=== PATIENT | female | born 1965 | race Caucasian/White ===

== ENCOUNTER 2017-10-01 09:30 | Observation (INO) | payer OTHER ==
[2017-10-01] MEDS ORDERED: DEXAMETHASONE SOD PHOSPHATE 10 MG/1 ML VIAL ONE (09:38)
--- NOTE | 2017-10-01 09:42 | PDOC ---
History of Present Illness - General Chief Complaint: Shortness of Breath Stated Complaint: SOB
[2017-10-01] MEDS ORDERED: RACEPINEPHRINE IH SOL 2.25% 11.25 MG/0.5 ML VIAL NEB ONE ×2 (09:45→09:47)
[2017-10-01] MEDS ORDERED: DEXAMETHASONE SOD PHOSPHATE 10 MG/1 ML VIAL IVPUSH ONE (09:45)
[2017-10-01] MEDS ORDERED: RACEPINEPHRINE IH SOL 2.25% 11.25 MG/0.5 ML VIAL IH ONE ×2 (09:45→09:47)
[2017-10-01 09:46] VITALS: BMI 48.4
--- NOTE | 2017-10-01 09:55 | PDOC ---
History of Present Illness <Nichole Galindo - Last Filed: 10/01/17 11:53> - History of Present Illness Initial Comments: 10/01/17 10:29 "Pt is a 51 year old female with a significant past medical history of idiopathic autoimmune subglottic stenosis (s/p surgical repair about 5 years ago at [place]) who presents with sudden onset of severe shortness of breath this morning. The patient states she feels like her throat is closing. She reports having cold/upper respiratory symptoms for about a week which she attributes as an excerbating factor of her current symptoms. Pt has had similar episodes in the past related to her subglottic stenosis and usually responds to steroids. However, she states she has never had an episode this bad. She states she felt short of breath about 5 days ago and reportedly took ""about 3 of my old 10mg prednisones"" which resolved her symptoms at the time. She denies CP, dizziness, palpitations. She denies nausea, vomiting, abdominal pain. She denies any other symptoms. SHx: laser and dilation 2011 ([facility]) Header Dock: Dr. Taqueria Holder MD : Social Hx: pt denies tobacco use, ETOH consumption, and use of illicit drugs" <Miguel Gates - Last Filed: 10/01/17 15:15> - General Chief Complaint: Shortness of Breath Stated Complaint: SOB Time Seen by Provider: 10/01/17 09:44 Past History <Nichole Galindo - Last Filed: 10/01/17 11:53> - Suicide/Smoking/Psychosocial Hx Smoking History: Never smoked Hx Alcohol Use: No Drug/Substance Use Hx: No <Miguel Gates - Last Filed: 10/01/17 15:15> - Past Medical History Allergies/Adverse Reactions: Allergies Allergy/AdvReac Type Severity Reaction Status Date / Time No Known Allergies Allergy Verified 10/01/17 09:57 Review of Systems - Review of Systems Comments:: 10/01/17 10:53 "GENERAL/CONSTITUTIONAL: No fever or chills. No weakness. HEAD, EYES, EARS, NOSE AND THROAT: No change in vision. No ear pain or discharge. No sore throat. CARDIOVASCULAR: No chest pain or shortness of breath. RESPIRATORY: + SOB, throat closing sensation, No cough, wheezing, or hemoptysis. GASTROINTESTINAL: No nausea, vomiting, diarrhea or constipation. GENITOURINARY: No dysuria, frequency, or change in urination. MUSCULOSKELETAL: No joint or muscle swelling or pain. No neck or back pain. SKIN: No rash NEUROLOGIC: No headache, vertigo, loss of consciousness, or change in strength/ sensation. ENDOCRINE: No increased thirst. No abnormal weight change. HEMATOLOGIC/LYMPHATIC: No anemia, easy bleeding, or history of blood clots. ALLERGIC/IMMUNOLOGIC: No hives or skin allergy. " <YajairaMiguel - Last Filed: 10/01/17 15:15> *Physical Exam - Vital Signs Last Vital Signs Temp Pulse Resp BP Pulse Ox 97.6 F 117 H 36 H 160/95 100 10/01/17 09:30 10/01/17 09:30 10/01/17 09:30 10/01/17 09:30 10/01/17 09:40 <Nichole Galindo - Last Filed: 10/01/17 11:53> - Vital Signs Last Vital Signs Temp Pulse Resp BP Pulse Ox 97.6 F 117 H 36 H 160/95 77 L 10/01/17 09:30 10/01/17 09:30 10/01/17 09:30 10/01/17 09:30 10/01/17 09:30 - Physical Exam Comments: 10/01/17 09:54 "GENERAL: Awake, alert, and fully oriented, in no acute distress HEAD: No signs of trauma EYES: PERRLA, EOMI, sclera anicteric, conjunctiva clear ENT: Auricles normal inspection, hearing grossly normal, nares patent, oropharynx clear without exudates. Moist mucosa NECK: Nontender, no stepoffs, Normal ROM, supple, no lymphadenopathy, JVD, or masses LUNGS: + stridor, no wheezing, no rales, no rhonchi HEART: Regular rate and rhythm, normal S1 and S2, no murmurs, rubs or gallops ABDOMEN: Soft, nontender, normoactive bowel sounds. No guarding, no rebound. No masses EXTREMITIES: Normal range of motion, no edema. No clubbing or cyanosis. No cords, erythema, or tenderness NEUROLOGICAL: Cranial nerves II through XII intact. 5/5 strength and sensation in all extremities, Normal speech, normal gait, normal cerebellar function SKIN: Warm, Dry, normal turgor, no rashes or lesions noted. <Miguel Gates - Last Filed: 10/01/17 15:15> ED Treatment Course - LABORATORY CBC & Chemistry Diagram: 10/01/17 09:56 10/01/17 09:57 - RADIOLOGY Radiograph Interpretation: 10/01/17 11:51 EXAM#: TYPE/EXAM: RESULT: [id number] RAD/CHEST X-RAY PORTABLE* Indication: Shortness of breath No prior imaging available for comparison. The heart is normal in size. Aortic arch is tortuous and calcified. Bronchovascular crowding is identified at both bases which could be secondary to the expiratory nature of the study or secondary to early infiltration. Follow-up imaging recommended. Scoliosis convexity to the left present. No pleural effusions seen. IMPRESSION: Prominence of the interstitial markings identified bases which could represent an early infiltrate , follow-up imaging recommended. Reported By: Trino Lee MD 10/01/17 1047 <Nichole Galindo - Last Filed: 10/01/17 11:53> - LABORATORY CBC & Chemistry Diagram: 10/01/17 09:56 10/01/17 09:57 - RADIOLOGY Radiology Studies Ordered: Category Date Time Status CHEST X-RAY PORTABLE* [RAD] Stat Radiology 10/01/17 09:45 Ordered <Miguel Gaets - Last Filed: 10/01/17 15:15> Medical Decision Making - Medical Decision Making 10/01/17 09:45 Patient's ENT physician, Dr. Taqueria Holder, was called at her office ([phone]), however, was informed by her Signal Tester, Bailey, that Dr. Holder is out of the office for the entire month of September. Bailey, oncology physician assistant, has informed me that this patient has not been seen at Dr. Holder's new practice (open about 3-4 years ago). Bailey has informed me that the patient may have been seen while Dr. Holder was working with [facility]. ENT at [facility] ([phone]) was called at 09:53 and spoke with Karen Zuluaga NP. LEXI Zuluaga discussed the patient's case with Dr. Gates and states there is no one available at [facility] to assist with this case. Dr. Ritesh Munguia, ENT specialist, was called at the office ([phone]), and the case was discussed with Dr. Munguia at 10:03. Dr. Munguia has informed me that Dr. Moulton, physician working with Dr. Holder's practice, has referred patient to him in the past. Dr. Munguia suggested we reach Dr. Moulton to review the case with him. Patient's case discussed with Dr. Moulton at 10:15. (Office: [phone]) <Nichole Glaindo - Last Filed: 10/01/17 11:53> - Critical Care Time Total Critical Care Time (minutes): 60 Critical Care Statement: The care of this patient involved high complexity decision making to prevent further life threatening deterioration of the patient 's condition and/or to evaluate & treat vital organ system(s) failure or risk of failure. - Medical Decision Making 10/01/17 09:51 51 F with h/o idiopathic autoimmune subglottic stenosis s/p multiple operations presenting in respiratory distress, found to be severely stridulous on exam with O2 sat 70. Likely acute worsening of subglottic stenosis 2/2 URI. Pt started on racemic epi with good improvement in symptoms and vital signs. - Labs, CXR - Racemic epi - Decadron 10mg IV - ENT consult (Pt follows with Dr. Taqueria Holder) 10/01/17 10:[address] Munguia, who will come evaluate pt. Pt to be reassessed in 2 hours, will determine need for transfer at that time. 10/01/17 14:[address] Munguia, who does not believe pt requires transfer at this time. From ENT standpoint, pt is stable for outpt f/u. Labs notable for trop 0.09, likely demand in the context of hypoxia and respiratory distress EKG without signs of acute ischemia. Will admit for serial trops. 10/01/17 15:15 Pt admitted to hospitalist under Dr. Cardozo <Miguel Gates - Last Filed: 10/01/17 15:15> *DC/Admit/Observation/Transfer - Attestations Scribe Attestion: 10/01/17 10:15 Documentation prepared by Nichole Galindo, acting as medical record specialist for Miguel Gates MD, <Nichole Galindo - Last Filed: 10/01/17 11:53> - Discharge Dispostion Admit: Yes - Attestations Physician Attestion: 10/01/17 15:15 I, Dr. Miguel Gates MD, attest that this document has been prepared under my direction and personally reviewed by me in its entirety. I further attest, that it accurately reflects all work, treatment, procedures and medical decision -making performed by me. <Miguel Gates - Last Filed: 10/01/17 15:15> Diagnosis at time of Disposition: Subglottic stenosis
[2017-10-01 10:41] LABS: BASO % 0.7 % (0-2.0); EOS % 2.6 % (0-4.5); HEMATOCRIT 42.7 % (32.4-45.2); HEMOGLOBIN 13.7 GM/dL (10.7-15.3); LYMPH % 36.4 % (8-40); MCH 29.2 pg (25.7-33.7); MCHC 32.2 g/dl (32.0-36.0); MEAN CELL VOLUME 90.8 fl (80-96); MEAN PLT VOLUME 8.8 fl (7.5-11.1); MONO % 11.9 % (3.8-10.2); NEUT % 48.4 % (42.8-82.8); PLATELET COUNT 412 K/MM3 (134-434); RDW 14.3 % (11.6-15.6); WHITE BLOOD COUNT 16.2 K/mm3 (4.0-10.0)
[2017-10-01 11:05] LABS: N-TERMINAL BNP 99.58 pg/ml (5-125)
[2017-10-01 11:14] LABS: INR 0.98 (0.82-1.09); PROTHROMBIN TIME (PATIENT) 11.1 SEC (9.98-11.88)
[2017-10-01 11:43] LABS: ALBUMIN 4.3 g/dl (3.4-5.0); ANION GAP 19 (8-16); BILIRUBIN,TOTAL 0.2 mg/dL (0.2-1.0); BLOOD UREA NITROGEN 13 mg/dL (7-18); CALCIUM 9.3 mg/dL (8.5-10.1); CHLORIDE 104 mmol/L (98-107); CO2 19 mmol/L (21-32); CREATININE 0.8 mg/dL (0.55-1.02); GLUCOSE,RANDOM 169 mg/dL (74-106); SGPT/ALT 33 U/L (12-78); SODIUM 142 mmol/L (136-145); TOT PROT 8.6 g/dl (6.4-8.2)
[2017-10-01 11:44] LABS: ALK PHOS 112 U/L (45-117)
[2017-10-01 11:47] LABS: POTASSIUM 3.4 mmol/L (3.5-5.1); SGOT/AST 25 U/L (15-37)
--- NOTE | 2017-10-01 11:54 | EKG ---
Test Reason : Blood Pressure : / mmHG Vent. Rate : 105 BPM Atrial Rate : 105 BPM P-R Int : 146 ms QRS Dur : 096 ms QT Int : 370 ms P-R-T Axes : 031 -11 017 degrees QTc Int : 489 ms SINUS TACHYCARDIA POSSIBLE LEFT ATRIAL ENLARGEMENT INCOMPLETE RIGHT BUNDLE BRANCH BLOCK LEFT VENTRICULAR HYPERTROPHY NONSPECIFIC T WAVE ABNORMALITY ABNORMAL ECG NO PREVIOUS ECGS AVAILABLE Confirmed by RICKY LOPEZ MD ([id number]) on 10/01/2017 11:54:14 AM Referred By: Confirmed By:RICKY LOPEZ MD
--- NOTE | 2017-10-01 13:55 | CON.ENT ---
Consult Consult Specialty:: ENT Referred by:: Dr. Gates Reason for Consultation:: breathing problem - History of Present Illness Chief Complaint: short of breath History of Present Illness: 51 yo F with hx autoimmune subglottic stenosis, first dx ~2005, thought she had asthma, saw pulmonary MD, eventually came under care of Dr. Taqueria Holder,risk prevention engineer, has required several laryngoscopic procedures with ?laser treatment of subglottic stenosis, last procedure ~5 years ago. had been overalll well sometimes exacerbations from URI, intermittent oral steroids felt poorly for the past 2 weeks, thought she had a cold, took some oral prednisone at home several days ago. [place] [facility], felt much worse, to ER initially had hypoxemia SaO2 high 70's rx racemic epinephrine and IV decadron pt feeling much better now, feeling the best she has felt in the past two weeks. - History Source History Provided By: Patient Limitations to Obtaining History: No Limitations - Alcohol/Substance Use Hx Alcohol Use: No - Smoking History Smoking history: Never smoked Home Medications - Allergies Allergies/Adverse Reactions: Allergies Allergy/AdvReac Type Severity Reaction Status Date / Time No Known Allergies Allergy Verified 10/01/17 09:57 - Home Medications Home Medications: Ambulatory Orders NK [No Known Home Medication] 10/01/17 Physical Exam-ENT Vital Signs: Vital Signs Temperature 97.6 F 10/01/17 09:30 Pulse Rate 117 H 10/01/17 09:30 Respiratory Rate 36 H 10/01/17 09:30 Blood Pressure 160/95 10/01/17 09:30 O2 Sat by Pulse Oximetry (%) 100 10/01/17 09:40 Constitutional: Yes: Well Nourished, No Distress, Calm, Obese Head: Yes: WNL Face: Yes: WNL Eyes: Yes: WNL Nose: Yes: WNL Nasal Passage: Yes: WNL Oral/Pharynx: Yes: WNL Outer Ear: Yes: WNL Ear Canal: Yes: WNL Tympanic Membrane: Yes: WNL Neck: Yes: WNL Respiratory: Yes: WNL, Other (voice clear and strong, very mild stridor on deep inspiration only.) Neurological: Yes: WNL, Alert, Oriented Imaging - Results Chest X-ray: Report Reviewed, Image Reviewed Problem List - Problems (1) Subglottic stenosis Assessment/Plan: known hx subglottic stenosis, pt states autoimmune, requiring multiple laryngoscopic procedures in past. recent exacerbation with shortness of breath and hypoxemia, now markedly improved with medical therapy WBC elevated ?URI vs recent steroids troponin level elevated, pt being admitted for further observation and management Recommend: continue steroids, consider oral antibiotic when pt is stable and medically cleared for discharge, OK from ENT perspective pt should return to Dr. Taqueria Holder or Dr. Hawa Moulton within 1 week for evaluation, may be considered for procedure pt states she lives very close to hospital and does not live alone, advised to call if breathing becomes worse. Thank you for consultation, Ritesh Munguia MD FACS Code(s): J38.6 - STENOSIS OF LARYNX
[2017-10-01] MEDS ORDERED: ALBUTEROL SO4 0.083% IH SOL 2.5 MG/3 ML VIAL.NEB. NEB PRN (17:17)
--- NOTE | 2017-10-01 18:32 | HP ---
CHIEF COMPLAINT: Difficulty breathing PCP: Dr. Mandi Sawyer, [place] [employer] Installer: Dr. Taqueria Holder, HISTORY OF PRESENT ILLNESS: 51 year-old woman with a PMH significant for idiopathic autoimmune 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 First treated in or about 2005, multiple laser and dilation surgeries by Dr. Holder at [facility], last surgery in 2012. Surgeries in the past were presaged by episodes of difficulty breathing. About two weeks ago patient developed upper respiratory symptoms of post-nasal drip and cough productive of pale green sputum. Patient feels the phlegm produced came from her post-nasal drip, and not from her chest. She experienced mild difficulty of breathing at first, but it became progressively worse. She took some oral prednisone she had in the house several days ago. Today the difficulty breathing became acute, and she felt like her throat was closing. She came to the ED where her O2 sat was 77%. Stridor was heard on initial exam. Patient was given dexamethansone and racemic epinephrine with improvement in symptoms. She was seen by ENT Dr. Munguia. Her airway remained patent. Recent Travel: No PAST MEDICAL HISTORY: Idiopathic autoimmune subglottic stenosis PAST SURGICAL HISTORY: None reported Social History: Smoking: no Alcohol: no Drugs: no Family History: non-contributory Allergies No Known Allergies Allergy (Verified 10/01/17 09:57) HOME MEDICATIONS: Home Medications Medication Instructions Recorded NK [No Known Home Medication] 10/01/17 REVIEW OF SYSTEMS CONSTITUTIONAL: Absent: fever, chills, diaphoresis, generalized weakness, malaise, loss of appetite, weight change HEENT: +post nasal drip Absent: rhinorrhea, nasal congestion, throat pain, throat swelling, difficulty swallowing, mouth swelling, ear pain, eye pain, visual changes CARDIOVASCULAR: Absent: chest pain, syncope, palpitations, irregular heart rate, lightheadedness , peripheral edema RESPIRATORY: +difficulty breathing, +stridor Absent: cough, shortness of breath, dyspnea with exertion, orthopnea, wheezing, hemoptysis GASTROINTESTINAL: Absent: abdominal pain, abdominal distension, nausea, vomiting, diarrhea, constipation, melena, hematochezia GENITOURINARY: Absent: dysuria, frequency, urgency, hesitancy, hematuria, flank pain, genital pain MUSCULOSKELETAL: Absent: myalgia, arthralgia, joint swelling, back pain, neck pain SKIN: Absent: rash, itching, pallor HEMATOLOGIC/IMMUNOLOGIC: Absent: easy bleeding, easy bruising, lymphadenopathy, frequent infections ENDOCRINE: Absent: unexplained weight gain, unexplained weight loss, heat intolerance, cold intolerance NEUROLOGIC: Absent: headache, focal weakness or paresthesias, dizziness, unsteady gait, seizure, mental status changes, bladder or bowel incontinence PSYCHIATRIC: Absent: anxiety, depression, suicidal or homicidal ideation, hallucinations. PHYSICAL EXAMINATION Vital Signs Temperature 98.9 F 10/01/17 18:10 Pulse Rate 92 H 10/01/17 18:10 Respiratory Rate 20 10/01/17 18:10 Blood Pressure 122/77 10/01/17 18:10 O2 Sat by Pulse Oximetry (%) 98 10/01/17 18:10 GENERAL: Awake, alert, and fully oriented, in no acute distress. HEAD: Normal with no signs of trauma. EYES: Pupils equal, round and reactive to light, extraocular movements intact, sclera anicteric, conjunctiva clear. No lid lag. EARS, NOSE, THROAT: Ears normal, nares patent, oropharynx clear without exudates. Moist mucous membranes. NECK: Normal range of motion, supple without lymphadenopathy, JVD, or masses. LUNGS: Breath sounds equal, clear to auscultation bilaterally. No wheezes, and no crackles. No accessory muscle use. HEART: Regular rate and rhythm, normal S1 and S2 without murmur, rub or gallop. ABDOMEN: Soft, nontender, not distended, normoactive bowel sounds, no guarding, no rebound, no masses. MUSCULOSKELETAL: Normal range of motion at all joints. No bony deformities or tenderness. No CVA tenderness. UPPER EXTREMITIES: 2+ pulses, warm, well-perfused. No cyanosis. No clubbing. No peripheral edema. LOWER EXTREMITIES: 2+ pulses, warm, well-perfused. No calf tenderness. No peripheral edema. NEUROLOGICAL: Cranial nerves II-XII intact. Normal speech. Normal gait. PSYCHIATRIC: Cooperative. Good eye contact. Appropriate mood and affect. SKIN: Warm, dry, normal turgor, no rashes or lesions noted, normal capillary refill. Laboratory Results - last 24 hr 10/01/17 10/01/17 10/01/17 09:56 09:56 09:56 WBC 16.2 H RBC 4.70 Hgb 13.7 Hct 42.7 MCV 90.8 MCH 29.2 MCHC 32.2 RDW 14.3 Plt Count 412 MPV 8.8 Neutrophils % 48.4 Lymphocytes % 36.4 Monocytes % 11.9 H Eosinophils % 2.6 Basophils % 0.7 PT with INR 11.10 INR 0.98 PTT (Actin FS) 26.0 L Sodium Cancelled Potassium Cancelled Chloride Cancelled Carbon Dioxide Cancelled Anion Gap Cancelled BUN Cancelled Creatinine Cancelled Creat Clearance w eGFR Cancelled Random Glucose Cancelled Calcium Cancelled Total Bilirubin Cancelled AST Cancelled ALT Cancelled Alkaline Phosphatase Cancelled Creatine Kinase Troponin I B-Natriuretic Peptide Total Protein Cancelled Albumin Cancelled 10/01/17 10/01/17 10/01/17 09:57 09:57 15:45 WBC RBC Hgb Hct MCV MCH MCHC RDW Plt Count MPV Neutrophils % Lymphocytes % Monocytes % Eosinophils % Basophils % PT with INR INR PTT (Actin FS) Sodium 142 Potassium 3.4 L Chloride 104 Carbon Dioxide 19 L Anion Gap 19 H BUN 13 Creatinine 0.8 Creat Clearance w eGFR > 60 Random Glucose 169 H Calcium 9.3 Total Bilirubin 0.2 AST 25 ALT 33 Alkaline Phosphatase 112 Creatine Kinase 86 90 Troponin I 0.09 H 0.44 H B-Natriuretic Peptide 99.58 Total Protein 8.6 H Albumin 4.3 ASSESSMENT/PLAN 51 year-old woman with a PMH significant for idiopathic autoimmune 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 Admitted for hypoxic respiratory distress. Hypoxic respiratory distress secondary to subglottic stenosis --last surgical repair 2012 --has felt worsening difficulty breathing over the past two weeks, coincidental with cough and post nasal drip; previous exacerbations did not involve URI --possible infectious etiology, although afebrile; WBC 16.2 but this may be attributable to recent steroid use --CXR shows possible early infiltrate, will get CT chest --given dexamethasone 10mg and racemic epi in ED with good symptomatic relief --seen and evaluated by ENT Dr. Munguia; he did not visualize the subglottis so as not to exacerbate symtpoms --will continue dexamethasone for now --will reach out to Dr. Holder's office tomorrow Hypokalemia --repleted FEN Fluids: PO intake adequate Electrolytes: replete as indicated Nutrition: regular diet DVT prophylaxis: lovenox, oob, ambulation Pre post Dispo: continues to require inpatient care. Full code. Visit type - Emergency Visit Emergency Visit: Yes ED Registration Date: 10/01/17 Care time: The patient presented to the Emergency Department on the above date and was hospitalized for further evaluation of their emergent condition. - New Patient This patient is new to me today: Yes Date on this admission: 10/01/17 - Critical Care Critical Care patient: No Hospitalist Screening - Colonoscopy Questionnaire Colonoscopy Questionnaire: Colonoscopy Questionnaire - Patient: 50 - 75 years old and never had a screening colonoscopy: Yes History of colon or rectal polyps, or CA: No History of IBD, Crohn's disease or UC: No History of abdominal radiation therapy as a child: No - Relative: 1 with colon or rectal CA, or polyps at age 60 or younger: Unknown Colon or rectal CA diagnosed at age 45 or younger: Unknown Multiple relatives with colon or rectal CA: Unknown - Outcome: Screening Result: Positive Screen
[2017-10-01] MEDS: POTASSIUM CHLORIDE TABS 20 MEQ TABLET.ER (FP) PO SCH ×2 (21:17→23:59)
[2017-10-02 06:38] LABS: BASO % 0.5 % (0-2.0); HEMATOCRIT 38.1 % (32.4-45.2); HEMOGLOBIN 12.8 GM/dL (10.7-15.3); LYMPH % 12.4 % (8-40); MCH 29.8 pg (25.7-33.7); MCHC 33.6 g/dl (32.0-36.0); MEAN CELL VOLUME 88.8 fl (80-96); MEAN PLT VOLUME 8.7 fl (7.5-11.1); MONO % 7.9 % (3.8-10.2); NEUT % 79.2 % (42.8-82.8); PLATELET COUNT 328 K/MM3 (134-434); RBC 4.29 M/mm3 (3.60-5.2); RDW 13.8 % (11.6-15.6)
[2017-10-02 07:03] LABS: ALBUMIN 3.6 g/dl (3.4-5.0); BLOOD UREA NITROGEN 12 mg/dL (7-18); CHLORIDE 105 mmol/L (98-107); POTASSIUM 4.7 mmol/L (3.5-5.1); SODIUM 139 mmol/L (136-145)
[2017-10-02 07:09] LABS: ALK PHOS 93 U/L (45-117); ANION GAP 9 (8-16); BILIRUBIN,TOTAL 0.5 mg/dL (0.2-1.0); CALCIUM 9.1 mg/dL (8.5-10.1); CO2 25 mmol/L (21-32); CREATININE 0.6 mg/dL (0.55-1.02); GLUCOSE,RANDOM 124 mg/dL (74-106); MAGNESIUM 2.5 mg/dL (1.8-2.4); SGOT/AST 18 U/L (15-37); SGPT/ALT 28 U/L (12-78); TOT PROT 7.1 g/dl (6.4-8.2)
[2017-10-02] MEDS ORDERED: DEXAMETHASONE 4 MG TABLET (FP) PO ONE (10:00)
[2017-10-02] MEDS ORDERED: ENOXAPARIN NA (PORCINE) 40 MG/0.4 ML DISP.SYRIN SQ SCH (10:00)
--- NOTE | 2017-10-02 12:15 | DS ---
Physical Exam: SUBJECTIVE: Patient seen and examined OBJECTIVE: Vital Signs Period Temp Pulse Resp BP Sys/Brock Pulse Ox Last 24 Hr 98.2 F-99 F 64-96 16-20 111-122/64-80 96-98 PHYSICAL EXAM GENERAL: The patient is awake, alert, and fully oriented, in no acute distress. HEAD: Normal with no signs of trauma. EYES: PERRL, extraocular movements intact, sclera anicteric, conjunctiva clear. ENT: Ears normal, nares patent, oropharynx clear without exudates, moist mucous membranes. NECK: Trachea midline, full range of motion, supple. LUNGS: Breath sounds equal, clear to auscultation bilaterally, no wheezes, no crackles, no accessory muscle use. HEART: Regular rate and rhythm, S1, S2 without murmur, rub or gallop. ABDOMEN: Soft, nontender, nondistended, normoactive bowel sounds, no guarding, no rebound, no hepatosplenomegaly, no masses. EXTREMITIES: 2+ pulses, warm, well-perfused, no edema. NEUROLOGICAL: Cranial nerves II through XII grossly intact. Normal speech, gait not observed. PSYCH: Normal mood, normal affect. SKIN: Warm, dry, normal turgor, no rashes or lesions noted. LABS Laboratory Results - last 24 hr 10/01/17 10/01/17 10/01/17 15:45 20:35 23:20 WBC RBC Hgb Hct MCV MCH MCHC RDW Plt Count MPV Neutrophils % Lymphocytes % Monocytes % Eosinophils % Basophils % Sodium Potassium Chloride Carbon Dioxide Anion Gap BUN Creatinine Creat Clearance w eGFR Random Glucose Calcium Magnesium Total Bilirubin AST ALT Alkaline Phosphatase Creatine Kinase 90 Troponin I 0.44 H 0.55 H 0.50 H Total Protein Albumin 10/02/17 10/02/17 10/02/17 05:56 05:56 05:56 WBC 9.0 D RBC 4.29 Hgb 12.8 Hct 38.1 MCV 88.8 MCH 29.8 MCHC 33.6 RDW 13.8 Plt Count 328 D MPV 8.7 Neutrophils % 79.2 D Lymphocytes % 12.4 D Monocytes % 7.9 Eosinophils % 0.0 D Basophils % 0.5 Sodium 139 Potassium 4.7 Chloride 105 Carbon Dioxide 25 Anion Gap 9 BUN 12 Creatinine 0.6 Creat Clearance w eGFR > 60 Random Glucose 124 H Calcium 9.1 Magnesium 2.5 H Total Bilirubin 0.5 D AST 18 ALT 28 Alkaline Phosphatase 93 Creatine Kinase Troponin I 0.45 H Total Protein 7.1 Albumin 3.6 HOSPITAL COURSE: Date of Admission:10/01/17 Date of Discharge: 10/02/17 Minutes to complete discharge: 35 Discharge Summary Reason For Visit: SUBGLOTTIC STENOSIS Current Active Problems Subglottic stenosis (Acute) Condition: Improved - Instructions Diet, Activity, Other Instructions: A prescription has been sent to your pharmacy for prednisone. Take this medication as directed. You should follow up with Dr. Moulton's office as soon as possible. His staff is aware of your stay here at [facility] and they are anticipating your call to make an appointment. Return to the emergency department for any new or worsening symptoms. Referrals: Hawa Moulton [Non Staff, Medical] - 1 Week Disposition: HOME - Home Medications Comprehensive Discharge Medication List: Ambulatory Orders Prednisone [Deltasone] 20 mg PO DAILY #7 tablet MDD 1 10/02/17 This patient is new to me today: No Emergency Visit: Yes ED Registration Date: 10/01/17 Care time: The patient presented to the Emergency Department on the above date and was hospitalized for further evaluation of their emergent condition. Critical Care patient: No - Discharge Referral Referred to [facility] Med [facility] No
[2017-10-02] MEDS ORDERED: predniSONE 20 MG TABLET (UD) PO ONE ×2 (12:30→16:45)
[2017-10-02 13:37] VITALS: BP 109/79; TEMP 98.8
[2017-10-02 14:45] VITALS: PULSE 120
== END 2017-10-02 17:28 | disposition home or self-care (01) ==
LOC: JER 09:30 → JERBED 15:15 → J2W 19:05
PROVIDERS: ADMIT Internal Medicine; ATTEND Nurse Practitioner Acute Care
PROC: 3E033GC Introduction of Other Therapeutic Substance into Peripheral Vein, Percutaneous Approach (ICD-10-PCS; principal; 2017-10-01)
PROC: 3E013GC Introduction of Other Therapeutic Substance into Subcutaneous Tissue, Percutaneous Approach (ICD-10-PCS; 2017-10-01)
PROC: 3E0F7GC Introduction of Other Therapeutic Substance into Respiratory Tract, Via Natural or Artificial Opening (ICD-10-PCS; 2017-10-01)
DX: J38.6 Stenosis of larynx (principal); J80 Acute respiratory distress syndrome; E87.6 Hypokalemia
CPT/HCPCS: 36415; 71045-TC-FY; 71250-TC; 80053; 82550; 83735; 83880; 84484; 85025; 85610; 85730; 93005; 93010; 94010; 94640; 94761; 96372; 96374; 99285-25; G0378; J1100

== ENCOUNTER 2018-10-17 02:53 | Inpatient (IN) | payer OTHER ==
[2018-10-17] MEDS ORDERED: ALBUTEROL SO4 2.5/IPRATROPIUM 0.5 INH SOL 3 ML VIAL.NEB. NEB ONE ×3 (03:06→06:12)
--- NOTE | 2018-10-17 03:07 | PDOC ---
Attending Attestation - Resident Resident Name: Salima Escobedo - ED Attending Attestation I have performed the following: I have examined & evaluated the patient, The case was reviewed & discussed with the resident, I agree w/resident's findings & plan - HPI HPI: 10/17/18 03:02 Pt called EMS by herself for herself; stated that she was having a tough time breathing. EMS and [place] [facility] on scene. Pt went into cardiac arrest, with return of rosc in under 2 min. She was placed on the Juan David ("thumper") machine. She received epinephrine amp and got rosc. Pt was intubated at the scene with portable videoscope. Pt was sedated with rocuronium, versed and etomidate. At the home of the patient, she had pills of percocet, and oxycodone and prednisone. Home clean; no foul play. Pt has a hx of idiopathic hereditary 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 - Physicial Exam PE: 10/17/18 20:46 Agree with resident exam. Pt has coarse breath sounds and wheezing bilaterally. - Medical Decision Making 10/17/18 06:59 Pt was given a propofol drip of 15mcg/mg/min. She began to awaken, and she required a bolus of 50mg propofol. Her drip was raised to 50mcg/kg/min; currently at 80mcg/kg/min. Pt's propofol drip was lowered to 50mcg/kg/min at the end of my shift 7:15am. We are estimating pt's weight to be 100kg. 10/17/18 20:46 Pt was treated for COPD/asthma exacerbation. She has clear CXR. She has no fevers. She has a hx of subglottic stenosis (EMS reports that significal force was required to pass the tube - passed under direct scope visualization) and pt had no tracheal injury. 10/17/18 20:50 Pt will be admitted to the ICU. She is stable and improved.
--- NOTE | 2018-10-17 03:14 | PDOC ---
History of Present Illness - General Stated Complaint: CARDIAC ARREST Time Seen by Provider: 10/17/18 03:00 History Source: EMS Exam Limitations: Intubated, Unresponsive - History of Present Illness Initial Comments: 10/17/18 03:03 [id number] with chart h/o idiopathic autoimmune subglottic stenosis (contributing to prior respiratory failure; has had multiple corrective procedures in the past including laser and surgical), who p/w respiratory failure and cardiopulmonary arrest with ROSC achieved by EMS in the field. EMS notes that the patient herself called 911 from her residence c/o respiratory distress, and she was unconscious on the floor when they arrived on scene but had a pulse. They ambu- bagged her and she regained consciousness quickly, but then became extremely combative which persisted despite versed for sedation, then had worsened respiratory distress and needed to be intubated. She was given etomidate and rocuronium, ETT was placed, and she subsequently had cardiac arrest for about a 90 second period during which time she got a round of epi and CPR, with subsequent ROSC. EMS noticed she had both oxcodone and Percocet on scene as well as prednisone. There was nobody else at the residence to help provide history. FSBG was in the 300s. Past History - Past Medical History Allergies/Adverse Reactions: Allergies Allergy/AdvReac Type Severity Reaction Status Date / Time No Known Allergies Allergy Verified 10/17/18 03:07 Home Medications: Ambulatory Orders NK [No Known Home Medication] 10/17/18 COPD: No - Immunization History Immunization Up to Date: Yes - Suicide/Smoking/Psychosocial Hx Smoking History: Never smoked Hx Alcohol Use: No Drug/Substance Use Hx: No Review of Systems - Review of Systems Able to Perform ROS?: No (intubated, unresponsive) *Physical Exam - Physical Exam Comments: 10/17/18 03:16 GENERAL: unresponsive, intubated, Juan David device on but not giving CPR at this time, obese HEENT: PERRLA, EOMI, moist mucous membranes NECK/BACK: no spinal stepoff or deformity, no hematoma, neck supple CARDIOVASCULAR: rapid regular rate, normal S1S2, no MGR, capillary refill <2 seconds, extremities wwp, no edema LUNGS/RESPIRATORY: nononlabored respirations, b/l coarse lung sounds without diminished sounds GI/ABDOMEN: symmetric [id number], normoactive BS, soft, no midline pulsatile masses, no organomegaly : normal external appearance, no lesions, no swelling, non-malodorous EXTREMITIES: no muscle atrophy, no acute deformity, no edema, a bit cool extremities SKIN: warm and dry, no pallor, no jaundice, no rash, no bruising, no skin breakdown, no cuts NEUROLOGICAL: patient is unable to participate in exam Heart Score/ECG Review #1 10/17/18 02:47 Sinus tachycardia, rate 103, normal axis/intervals, no acute ST-T changes ED Treatment Course - LABORATORY CBC & Chemistry Diagram: 10/17/18 03:12 10/17/18 04:48 Medical Decision Making - Critical Care Time Total Critical Care Time (minutes): 40 Critical Care Statement: The care of this patient involved high complexity decision making to prevent further life threatening deterioration of the patient 's condition and/or to evaluate & treat vital organ system(s) failure or risk of failure. - Medical Decision Making 10/17/18 03:21 53YOF p/w cardiopulmonary arrest with ROSC achieved in the field by EMS. Initial Vital Signs Pulse Resp BP Pulse Ox 103 H 14 119/82 99 10/17/18 03:04 10/17/18 03:04 10/17/18 03:04 10/17/18 03:04 Exam: As noted in Physical Exam section. DDX IBNLT: Hypovolemia, hypoxemia, H+ ions (acidosis), hyperkalemia, hypokalemia , hypoglycemia, hypothermia, tamponade, tension PTX, thrombosis (CO or PE), trauma, toxins (e.g. toxic overdose) W/U ordered: Monitor, FSBG, rectal temp, EKG CXR ABG CBCD CMP Mg Phos Cardiac panel TSH Lactate BCx UA UCx TX ordered: Transcutaneous pacer applied, O2, AmbuBag, Large bore IV x2, Rapid IVF resuscitation, Narcan, 1-2 amps bicarbonate, CaCl2, KCl, Insulin, Glucose, ACLS/PALS protocol Procedures done: ETT checked EKG: Reviewed; results as noted in ECG Review section. CXR: mild bilateral patchy consolidation with good ETT placement. 10/17/18 05:40 Still awaiting chemistries for admission. One sample hemolyzed and ED was unaware; re-ordered and re-drawn. Reassessment: patient awakened on 15 mcg/min propofol and given 50 mcg bolus and increased drip. Vital Signs Temperature Pulse Rate 100 H 10/17/18 05:36 Respiratory Rate 26 H 10/17/18 05:36 Blood Pressure 136/90 10/17/18 05:36 O2 Sat by Pulse Oximetry (%) 100 10/17/18 05:36 ADMIT The Pt is unsafe for discharge at this time. They require further hospital observation, workup, and treatment. Microblog sent to [facility] for admission. Blank Decision to Admit order is placed per ED protocol. Consult order placed to ICU. Laboratory Tests 10/17/18 10/17/18 10/17/18 03:06 03:12 03:12 WBC 21.1 H RBC 4.67 Hgb 13.8 Hct 44.4 D MCV 95.2 MCH 29.5 MCHC 31.0 L RDW 14.0 Plt Count 262 D MPV 9.1 Absolute Neuts (auto) 18.4 H Total Counted 100 Neutrophils % 87.1 H Neutrophils % (Manual) 80.0 Band Neutrophils % 9.0 Lymphocytes % 9.3 D Lymphocytes % (Manual) 6.0 L Monocytes % 3.1 L Monocytes % (Manual) 3 L Eosinophils % 0.2 D Basophils % 0.3 Nucleated RBC % 0 Metamyelocytes 2 Platelet Estimate Adequate Platelet Comment No clotting detected PT with INR INR Puncture Site Left radial ABG pH 7.12 L* ABG pCO2 at Pt Temp 60.5 H ABG pO2 at Pt Temp 199 H ABG HCO3 18.7 L ABG O2 Sat (Measured) 98.5 H ABG O2 Content 20.9 ABG Base Excess -11.7 L Chetan Test Positive Carboxyhemoglobin 0.1 Methemoglobin 0.3 O2 Delivery Device Vent Oxygen Flow Rate 100% Vent Rate 14 PEEP 5.0 Pressure Support Vent 450 Sodium Potassium Chloride Carbon Dioxide Anion Gap BUN Creatinine Creat Clearance w eGFR Random Glucose Calcium Phosphorus Magnesium Total Bilirubin AST ALT Alkaline Phosphatase Creatine Kinase Troponin I Total Protein Albumin Urine Color Urine Appearance Urine pH Ur Specific [place] Urine Protein Urine Glucose (UA) Urine Ketones Urine Blood Urine Nitrite Urine Bilirubin Urine Urobilinogen Ur Leukocyte Esterase Urine WBC (Auto) Urine RBC (Auto) Urine Casts (Auto) U Epithel Cells (Auto) U Sm Round Cell (Auto) Urine Bacteria (Auto) Urine Yeast (Auto) Opiates Screen Methadone Screen Acetaminophen Barbiturate Screen Phencyclidine Screen Ur Amphetamines Screen MDMA (Ecstasy) Screen Benzodiazepines Screen Cocaine Screen U Marijuana (THC) Screen Alcohol, Quantitative 10/17/18 10/17/18 10/17/18 03:12 03:12 03:12 WBC RBC Hgb Hct MCV MCH MCHC RDW Plt Count MPV Absolute Neuts (auto) Total Counted Neutrophils % Neutrophils % (Manual) Band Neutrophils % Lymphocytes % Lymphocytes % (Manual) Monocytes % Monocytes % (Manual) Eosinophils % Basophils % Nucleated RBC % Metamyelocytes Platelet Estimate Platelet Comment PT with INR Cancelled INR Cancelled Puncture Site ABG pH ABG pCO2 at Pt Temp ABG pO2 at Pt Temp ABG HCO3 ABG O2 Sat (Measured) ABG O2 Content ABG Base Excess [place]tan Test Carboxyhemoglobin Methemoglobin O2 Delivery Device Oxygen Flow Rate Vent Rate PEEP Pressure Support Vent Sodium 135 L Potassium 4.7 Chloride 104 Carbon Dioxide 16 L Anion Gap 15 BUN 10 Creatinine 1.1 Creat Clearance w eGFR 51.57 Random Glucose 331 H* Calcium 9.0 Phosphorus 8.4 H Magnesium 3.3 H Total Bilirubin 0.4 AST 228 H ALT 162 H Alkaline Phosphatase 114 Creatine Kinase 178 Troponin I 0.11 H Total Protein 7.8 Albumin 3.5 Urine Color Yellow Urine Appearance Clear Urine pH 5.5 Ur Specific [place] 1.017 Urine Protein 2+ H Urine Glucose (UA) 3+ H Urine Ketones Trace H Urine Blood 1+ H Urine Nitrite Negative Urine Bilirubin Negative Urine Urobilinogen 1.0 Ur Leukocyte Esterase Negative Urine WBC (Auto) 14 Urine RBC (Auto) 7 Urine Casts (Auto) 8 U Epithel Cells (Auto) 10.7 U Sm Round Cell (Auto) Review A* Urine Bacteria (Auto) 63.3 Urine Yeast (Auto) Opiates Screen Methadone Screen Acetaminophen 3.58 L Barbiturate Screen Phencyclidine Screen Ur Amphetamines Screen MDMA (Ecstasy) Screen Benzodiazepines Screen Cocaine Screen U Marijuana (THC) Screen Alcohol, Quantitative < 3.0 10/17/18 10/17/18 03:12 04:48 WBC RBC Hgb Hct MCV MCH MCHC RDW Plt Count MPV Absolute Neuts (auto) Total Counted Neutrophils % Neutrophils % (Manual) Band Neutrophils % Lymphocytes % Lymphocytes % (Manual) Monocytes % Monocytes % (Manual) Eosinophils % Basophils % Nucleated RBC % Metamyelocytes Platelet Estimate Platelet Comment PT with INR 12.20 INR 1.03 Puncture Site ABG pH ABG pCO2 at Pt Temp ABG pO2 at Pt Temp ABG HCO3 ABG O2 Sat (Measured) ABG O2 Content ABG Base Excess Chetan Test Carboxyhemoglobin Methemoglobin O2 Delivery Device Oxygen Flow Rate Vent Rate PEEP Pressure Support Vent Sodium Potassium Chloride Carbon Dioxide Anion Gap BUN Creatinine Creat Clearance w eGFR Random Glucose Calcium Phosphorus Magnesium Total Bilirubin AST ALT Alkaline Phosphatase Creatine Kinase Troponin I Total Protein Albumin Urine Color Urine Appearance Urine pH Ur Specific [place] Urine Protein Urine Glucose (UA) Urine Ketones Urine Blood Urine Nitrite Urine Bilirubin Urine Urobilinogen Ur Leukocyte Esterase Urine WBC (Auto) Urine RBC (Auto) Urine Casts (Auto) U Epithel Cells (Auto) U Sm Round Cell (Auto) Urine Bacteria (Auto) Urine Yeast (Auto) Opiates Screen Negative Methadone Screen Negative Acetaminophen Barbiturate Screen Negative Phencyclidine Screen Negative Ur Amphetamines Screen Negative MDMA (Ecstasy) Screen Negative Benzodiazepines Screen Positive A* Cocaine Screen Negative U Marijuana (THC) Screen Negative Alcohol, Quantitative 10/17/18 06:19 Spoke with admitting team freight representative Renita Fofana, in agreement Pt to be admitted. Decision to Admit order corrected with Dr. Griffith's name. Respiratory therapy here in the ED to place in-line [facility] and do repeat ABG. *DC/Admit/Observation/Transfer Diagnosis at time of Disposition: Cardiopulmonary arrest with successful resuscitation, Subglottic stenosis - Discharge Dispostion Condition at time of disposition: Guarded Decision to Admit order: Yes - Referrals Referrals: Regis Guerrero MD [Primary Care Provider] - - Patient Instructions - Post Discharge Activity
[2018-10-17 03:26] LABS: ARTERIAL BLD GAS O2 SATURATION 98.5 % (95-98); ARTERIAL BLOOD GAS BASE EXCESS -11.7 meq/l (-2-2); ARTERIAL BLOOD GAS PCO2 60.5 mmHg (35-45); ARTERIAL BLOOD GAS PO2 199 mmHg (80-105); ARTERIAL BLOOD GAS pH 7.12 (7.35-7.45)
[2018-10-17] MEDS ORDERED: methylPREDNISolone NA SUCC 125 MG/2 ML VIAL IVPB ONE (03:29)
[2018-10-17 03:31] LABS: ALLENS TEST POSITIVE
[2018-10-17 03:35] LABS: CARBOXYHEMOGLOBIN 0.1 % (0-2)
[2018-10-17] MEDS ORDERED: PROPOFOL 1,000,000 MCG/100 ML VIAL ONE (03:40)
[2018-10-17 03:48] LABS: MEAN PLT VOLUME 9.1 fl (7.5-11.1)
[2018-10-17] MEDS: PROPOFOL 1,000,000 MCG/100 ML VIAL IVPB SCH ×4 (03:52→17:57)
[2018-10-17 03:57] LABS: BASO % 0.3 % (0-2.0); EOS % 0.2 % (0-4.5); HEMATOCRIT 44.4 % (32.4-45.2); HEMOGLOBIN 13.8 GM/dL (10.7-15.3); LYMPH % 9.3 % (8-40); MCH 29.5 pg (25.7-33.7); MEAN CELL VOLUME 95.2 fl (80-96); MONO % 3.1 % (3.8-10.2); NEUT % 87.1 % (42.8-82.8); PLATELET COUNT 262 K/MM3 (134-434); RBC 4.67 M/mm3 (3.60-5.2); WHITE BLOOD COUNT 21.1 K/mm3 (4.0-10.0)
[2018-10-17 04:22] LABS: EPI CELLS 10.7 /HPF (0-5); PH,URINE 5.5 (5.0-8.0); URINE APPEARANCE CLEAR; URINE BACTERIA 63.3 /hpf (NEGATIVE); URINE BILIRUBIN NEGATIVE (NEGATIVE); URINE CASTS 8 /hpf (0-8); URINE COLOR YELLOW; URINE GLUCOSE (UA) 3+ (NEGATIVE); URINE KETONE TRACE (NEGATIVE); URINE LEUK ESTERASE NEGATIVE (NEGATIVE); URINE NITRITE NEGATIVE (NEGATIVE); URINE PROTEIN 2+ (NEGATIVE); URINE RBC 7 /hpf (0-4)
[2018-10-17 04:56] LABS: COCAINE, UR NEGATIVE ng/ml (CUTOFF=300); METHADONE, UR NEGATIVE ng/ml (CUTOFF=300); OPIATES, URI NEGATIVE ng/ml (CUTOFF=300); PHENCYCLIDINE,URINE NEGATIVE ng/ml (CUTOFF=25); URINE AMPHETAMINES NEGATIVE ng/ml (CUTOFF=500); URINE BARBITURATES NEGATIVE ng/ml (CUTOFF=200)
[2018-10-17 05:03] LABS: URINE WBC 14 /hpf (0-5)
[2018-10-17 05:08] LABS: URINE BENZODIAZEPINES POSITIVE ng/ml (CUTOFF=200)
[2018-10-17 05:23] LABS: PLATELET ESTIMATE ADEQUATE
[2018-10-17 05:29] LABS: INR 1.03 (0.83-1.09); PROTHROMBIN TIME (PATIENT) 12.2 SEC (9.7-13.0)
[2018-10-17 05:39] LABS: GLUCOSE,RANDOM 331 mg/dL (74-106)
[2018-10-17 05:40] LABS: CO2 16 mmol/L (21-32); CREATININE 1.1 mg/dL (0.55-1.3)
[2018-10-17 05:41] LABS: ALBUMIN 3.5 g/dl (3.4-5.0)
[2018-10-17] MEDS: ALBUTEROL SO4 2.5/IPRATROPIUM 0.5 INH SOL 3 ML VIAL.NEB. NEB SCH ×4 (05:49→06:15)
[2018-10-17 06:08] LABS: ALBUMIN 3.8 g/dl (3.4-5.0); ALK PHOS 120 U/L (45-117); ANION GAP 14 MMOL/L (8-16); BILIRUBIN,TOTAL 0.4 mg/dL (0.2-1); BLOOD UREA NITROGEN 11 mg/dL (7-18); CALCIUM 8.6 mg/dL (8.5-10.1); CHLORIDE 102 mmol/L (98-107); CO2 23 mmol/L (21-32); CREATININE 1.1 mg/dL (0.55-1.3); MAGNESIUM 2.6 mg/dL (1.8-2.4); PHOSPHOROUS 5.6 mg/dL (2.5-4.9); POTASSIUM 3.6 mmol/L (3.5-5.1); SGOT/AST 242 U/L (15-37); SGPT/ALT 176 U/L (13-61); SODIUM 139 mmol/L (136-145); TOT PROT 8.1 g/dl (6.4-8.2)
--- NOTE | 2018-10-17 06:12 | CONSULT ---
Consultation: REQUESTING PROVIDER: Dr. Escobedo/Karin CONSULT REQUEST: We have been asked to medically evaluate this patient for ICU admission. HISTORY OF PRESENT ILLNESS: 53 yo female with PMH autoimmune subglottic stenosis dx by otolaryngology s/p multiple laser and dilation procedures presented to the ED earlier this evening following cardiac arrest in the field. Pt is currently intubated so history taken from prior visit records and discussion with ED staff/documentation. Pt called EMS and reported difficulty breathing. Upon arrival pt required bag mask ventilation which improved saturation however pt became agitated and combative. Given Versed which was followed by Etomidate and Tre with subsequent intubation in the field. Shortly following intubation, pt was noted without a pulse. Unknown what rhythm was on monitor at that time as per ED staff. Given one round of epinephrine with chest compressions and ROSC achieved. ER course notable for Respiratory acidosis (pH 7.12), elevated WBC (20), Transaminitis (low hundreds), CXR without any concerning findings and ET tube in proper position. REVIEW OF SYSTEMS: Unable to obtain PHYSICAL EXAMINATION Vital Signs - 24 hr 10/17/18 10/17/18 10/17/18 03:04 03:05 03:25 Temperature Pulse Rate 103 H Pulse Rate [ Apical] Respiratory 14 14 24 H Rate Blood Pressure 119/82 Blood Pressure [Right Arm] O2 Sat by Pulse 99 100 Oximetry (%) 10/17/18 10/17/18 10/17/18 04:18 05:36 05:59 Temperature Pulse Rate Pulse Rate [ 97 H 100 H Apical] Respiratory 24 H 26 H Rate Blood Pressure Blood Pressure 127/85 136/90 98/64 [Right Arm] O2 Sat by Pulse 100 100 Oximetry (%) 10/17/18 06:03 Temperature 97.6 F Pulse Rate Pulse Rate [ Apical] Respiratory Rate Blood Pressure Blood Pressure [Right Arm] O2 Sat by Pulse Oximetry (%) GENERAL: Intubated, mildly sedated with some agitation noted HEENT: Pupils equal and reactive but sluggish, ET Tube in place, no stridor noted LUNGS: CTA b/l, no wheezes noted HEART: Tachycardic, no murmurs noted ABDOMEN: Soft, nondistended EXTREMITIES: No peripheral edema noted NEURO: Observable cranial nerves in tact, positive gag reflex, arousable to voice Laboratory Results - last 24 hr 10/17/18 10/17/18 10/17/18 03:06 03:12 03:12 WBC 21.1 H RBC 4.67 Hgb 13.8 Hct 44.4 D MCV 95.2 MCH 29.5 MCHC 31.0 L RDW 14.0 Plt Count 262 D MPV 9.1 Absolute Neuts (auto) 18.4 H Total Counted 100 Neutrophils % 87.1 H Neutrophils % (Manual) 80.0 Band Neutrophils % 9.0 Lymphocytes % 9.3 D Lymphocytes % (Manual) 6.0 L Monocytes % 3.1 L Monocytes % (Manual) 3 L Eosinophils % 0.2 D Basophils % 0.3 Nucleated RBC % 0 Metamyelocytes 2 Platelet Estimate Adequate Platelet Comment No clotting detected PT with INR INR Puncture Site Left radial ABG pH 7.12 L* ABG pCO2 at Pt Temp 60.5 H ABG pO2 at Pt Temp 199 H ABG HCO3 18.7 L ABG O2 Sat (Measured) 98.5 H ABG O2 Content 20.9 ABG Base Excess -11.7 L Chetan Test Positive Carboxyhemoglobin 0.1 Methemoglobin 0.3 O2 Delivery Device Vent Oxygen Flow Rate 100% Vent Rate 14 PEEP 5.0 Pressure Support Vent 450 Sodium Potassium Chloride Carbon Dioxide Anion Gap BUN Creatinine Creat Clearance w eGFR Random Glucose Calcium Phosphorus Magnesium Total Bilirubin AST ALT Alkaline Phosphatase Creatine Kinase Troponin I Total Protein Albumin Urine Color Urine Appearance Urine pH Ur Specific [place] Urine Protein Urine Glucose (UA) Urine Ketones Urine Blood Urine Nitrite Urine Bilirubin Urine Urobilinogen Ur Leukocyte Esterase Urine WBC (Auto) Urine RBC (Auto) Urine Casts (Auto) U Epithel Cells (Auto) U Sm Round Cell (Auto) Urine Bacteria (Auto) Urine Yeast (Auto) Opiates Screen Methadone Screen Acetaminophen Barbiturate Screen Phencyclidine Screen Ur Amphetamines Screen MDMA (Ecstasy) Screen Benzodiazepines Screen Cocaine Screen U Marijuana (THC) Screen Alcohol, Quantitative 10/17/18 10/17/18 10/17/18 03:12 03:12 03:12 WBC RBC Hgb Hct MCV MCH MCHC RDW Plt Count MPV Absolute Neuts (auto) Total Counted Neutrophils % Neutrophils % (Manual) Band Neutrophils % Lymphocytes % Lymphocytes % (Manual) Monocytes % Monocytes % (Manual) Eosinophils % Basophils % Nucleated RBC % Metamyelocytes Platelet Estimate Platelet Comment PT with INR Cancelled INR Cancelled Puncture Site ABG pH ABG pCO2 at Pt Temp ABG pO2 at Pt Temp ABG HCO3 ABG O2 Sat (Measured) ABG O2 Content ABG Base Excess Chetan Test Carboxyhemoglobin Methemoglobin O2 Delivery Device Oxygen Flow Rate Vent Rate PEEP Pressure Support Vent Sodium 135 L Potassium 4.7 Chloride 104 Carbon Dioxide 16 L Anion Gap 15 BUN 10 Creatinine 1.1 Creat Clearance w eGFR 51.57 Random Glucose 331 H* Calcium 9.0 Phosphorus 8.4 H Magnesium 3.3 H Total Bilirubin 0.4 AST 228 H ALT 162 H Alkaline Phosphatase 114 Creatine Kinase 178 Troponin I 0.11 H Total Protein 7.8 Albumin 3.5 Urine Color Yellow Urine Appearance Clear Urine pH 5.5 Ur Specific [place] 1.017 Urine Protein 2+ H Urine Glucose (UA) 3+ H Urine Ketones Trace H Urine Blood 1+ H Urine Nitrite Negative Urine Bilirubin Negative Urine Urobilinogen 1.0 Ur Leukocyte Esterase Negative Urine WBC (Auto) 14 Urine RBC (Auto) 7 Urine Casts (Auto) 8 U Epithel Cells (Auto) 10.7 U Sm Round Cell (Auto) Review A* Urine Bacteria (Auto) 63.3 Urine Yeast (Auto) Opiates Screen Methadone Screen Acetaminophen 3.58 L Barbiturate Screen Phencyclidine Screen Ur Amphetamines Screen MDMA (Ecstasy) Screen Benzodiazepines Screen Cocaine Screen U Marijuana (THC) Screen Alcohol, Quantitative < 3.0 10/17/18 10/17/18 10/17/18 03:12 04:48 04:48 WBC RBC Hgb Hct MCV MCH MCHC RDW Plt Count MPV Absolute Neuts (auto) Total Counted Neutrophils % Neutrophils % (Manual) Band Neutrophils % Lymphocytes % Lymphocytes % (Manual) Monocytes % Monocytes % (Manual) Eosinophils % Basophils % Nucleated RBC % Metamyelocytes Platelet Estimate Platelet Comment PT with INR 12.20 INR 1.03 Puncture Site ABG pH ABG pCO2 at Pt Temp ABG pO2 at Pt Temp ABG HCO3 ABG O2 Sat (Measured) ABG O2 Content ABG Base Excess [place]tan Test Carboxyhemoglobin Methemoglobin O2 Delivery Device Oxygen Flow Rate Vent Rate PEEP Pressure Support Vent Sodium 139 Potassium 3.6 Chloride 102 Carbon Dioxide 23 Anion Gap 14 BUN 11 Creatinine 1.1 Creat Clearance w eGFR 51.57 Random Glucose Calcium 8.6 Phosphorus 5.6 H Magnesium 2.6 H Total Bilirubin 0.4 AST 242 H ALT 176 H Alkaline Phosphatase 120 H Creatine Kinase 129 Troponin I 0.23 H Total Protein 8.1 Albumin 3.8 Urine Color Urine Appearance Urine pH Ur Specific [place] Urine Protein Urine Glucose (UA) Urine Ketones Urine Blood Urine Nitrite Urine Bilirubin Urine Urobilinogen Ur Leukocyte Esterase Urine WBC (Auto) Urine RBC (Auto) Urine Casts (Auto) U Epithel Cells (Auto) U Sm Round Cell (Auto) Urine Bacteria (Auto) Urine Yeast (Auto) Opiates Screen Negative Methadone Screen Negative Acetaminophen Barbiturate Screen Negative Phencyclidine Screen Negative Ur Amphetamines Screen Negative MDMA (Ecstasy) Screen Negative Benzodiazepines Screen Positive A* Cocaine Screen Negative U Marijuana (THC) Screen Negative Alcohol, Quantitative Active Medications Generic Name Dose Route Start Last Admin Trade Name Freq PRN Reason Stop Dose Admin Albuterol/Ipratropium 2 amp 10/17/18 05:30 10/17/18 06:10 Duoneb - NEB 10/17/18 06:16 2 amp Q15M VANDANA Administration Propofol 1,000,000 mcg in 100 mls @ 3.402 mls/hr 10/17/18 03:45 10/17/18 05: 48 Diprivan - IVPB 80 mcg/kg/min TITR VANDANA 54.431 mls/hr Titration Protocol 5 MCG/KG/MIN ASSESSMENT/PLAN: 53 yo female with PMH autoimmune subglottic stenosis dx by otolaryngology s/p multiple laser and dilation procedures presented to the ED earlier this evening following cardiac arrest in the field. NEURO -Intubated -Pt with good reflexes at this time -Propofol for sedation, may require increased titration for adequate sedation vs additional sedative support CARDIOVASCULAR -S/p Cardiac arrest, ROSC achieved following one round of epinephrine, unknown rhythm in the field -Currently sinus tachy on EKG and on the monitor without any concerning ST/T wave abnormalities -Paolan noted, trend until peak, unlikely ACS PULMONARY -Acute Hypoxic Hypercapnic respiratory failure, acute respiratory acidosis ABG noted with pH of 7.12 and pCO2 of 60.5 Vent rate increased in ED Pt with elevated peak pressures > 30 and likely due to inadequate sedation vs obstructive airway disease Repeat ABG pending following increased sedation and change in vent settings SoluMedrol 125 mg IV given in ED, 40 mg Q6 IV VANDANA Inhaled Bronchodilators GI -Appears stable at this point ENDOCRINE -DM unknown type, [facility] listed in chart has no med hx other than prednisone, will need further investigation of PMH and medication reconciliation BGMs Q6 with insulin sliding scale for glycemic control ID -Leukocytosis with shift CXR without clear signs of infiltrate UA unlikely significant for UTI Afebrile, could likely be reactive, trend CBC and CXR Will give empiric coverage for now and monitor for fevers or further infectious signs Blood and Urine cultures pending RENAL -BUN/Cr stable -Glucosuria, proteinuria, microscopic hematuria noted -Continue to monitor BMP for electrolyte disturbances -Hypermagnesemia, Hyperphosphatemia, trend and correct as needed PROPHYLAXIS -DVT Prophylaxis -GI Prophylaxis warranted with steroids and Mechanical ventilation FEN -none for now -Monitor and correct as above -NPO DISPOSITION Monitor in the ICU Case discussed with Attending fashion adviser who agrees with management. Visit type - Emergency Visit Emergency Visit: Yes ED Registration Date: 10/17/18 Care time: The patient presented to the Emergency Department on the above date and was hospitalized for further evaluation of their emergent condition. - New Patient This patient is new to me today: Yes Date on this admission: 10/17/18 - Critical Care Critical Care patient: Yes Total Critical Care Time (in minutes): 65 Critical Care Statement: The care of this patient involved high complexity decision making to prevent further life threatening deterioration of the patient 's condition and/or to evaluate & treat vital organ system(s) failure or risk of failure.
[2018-10-17 06:25] LABS: ALK PHOS 114 U/L (45-117); ANION GAP 16 MMOL/L (8-16); BILIRUBIN,TOTAL 0.4 mg/dL (0.2-1); BLOOD UREA NITROGEN 10 mg/dL (7-18); CHLORIDE 104 mmol/L (98-107); MAGNESIUM 3.3 mg/dL (1.8-2.4); PHOSPHOROUS 8.4 mg/dL (2.5-4.9); POTASSIUM 4.7 mmol/L (3.5-5.1); SGOT/AST 228 U/L (15-37); SGPT/ALT 162 U/L (13-61); SODIUM 136 mmol/L (136-145); TOT PROT 7.8 g/dl (6.4-8.2)
[2018-10-17 06:26] LABS: GLUCOSE,RANDOM 301 mg/dL (74-106)
[2018-10-17 07:01] LABS: ARTERIAL BLD GAS O2 SATURATION 94.6 % (95-98); ARTERIAL BLOOD GAS BASE EXCESS -3.9 meq/l (-2-2); ARTERIAL BLOOD GAS PCO2 52.6 mmHg (35-45); ARTERIAL BLOOD GAS PO2 80.4 mmHg (80-105); ARTERIAL BLOOD GAS pH 7.27 (7.35-7.45)
[2018-10-17 07:26] LABS: CARBOXYHEMOGLOBIN 0.4 % (0-2)
[2018-10-17] MEDS ORDERED: VANCOMYCIN HCL 1,500 MG in DEXTROSE 5%-WATER - 500 ML IVPB ONE (07:37)
[2018-10-17] MEDS ORDERED: PIPERACILLIN/TAZOB 4.5 GM 4.5 GM in DEXTROSE 5%-WATER 100 ML IVPB ONE (07:38)
--- NOTE | 2018-10-17 08:08 | HP ---
CHIEF COMPLAINT: s/p cardiac arrest PCP: HISTORY OF PRESENT ILLNESS: This is a 53 year old female with h/o idiopathic autoimmune subglottic stenosis (contributing to prior respiratory failure; has had multiple corrective procedures in the past including laser and surgical), who p/w respiratory failure and cardiopulmonary arrest with ROSC achieved by EMS in the field. EMS reported to the ED that the patient herself called 911 from her residence c/o respiratory distress, and she was unconscious on the floor when they arrived on scene but had a pulse. EMS ambu-bagged her and she regained consciousness quickly, but then became extremely combative which persisted despite versed for sedation, then had worsened respiratory distress and needed to be intubated. She was given etomidate and rocuronium, ETT was placed, and she subsequently had cardiac arrest for about a 90 second period during which time she got a round of epi and CPR, with subsequent ROSC. Unknown rhythm during cardiac arrest. EMS noticed she had both oxcodone and Percocet on scene as well as prednisone. There was nobody else at the residence to help provide history. FSBG was in the 300s. Pt is intubated at time of ED exam. History obtained from prior medical chart. ER course was notable for: (1) pH 7.12 (2) WBC 21.1 (3) AST 242, ALT 176, Alk Phos 120 (4) toxicology negative for ETOH and all drugs except benzos, which she received in the field (5) Troponin .11, 0.23 Recent Travel: unknown PAST MEDICAL HISTORY: idiopathic autoimmune subglottic stenosis PAST SURGICAL HISTORY: multiple interventions for subglottic stenosis Social History: Smoking: unknown Alcohol: unknown Drugs: unknown Family History: unknown Allergies No Known Allergies Allergy (Verified 10/17/18 03:07) HOME MEDICATIONS: unknown REVIEW OF SYSTEMS CONSTITUTIONAL: Absent: fever, chills, diaphoresis, generalized weakness, malaise, loss of appetite, weight change HEENT: Absent: rhinorrhea, nasal congestion, throat pain, throat swelling, difficulty swallowing, mouth swelling, ear pain, eye pain, visual changes CARDIOVASCULAR: Absent: chest pain, syncope, palpitations, irregular heart rate, lightheadedness , peripheral edema RESPIRATORY: Present: shortness of breath Absent: cough, dyspnea with exertion, orthopnea, wheezing, stridor, hemoptysis GASTROINTESTINAL: Absent: abdominal pain, abdominal distension, nausea, vomiting, diarrhea, constipation, melena, hematochezia GENITOURINARY: Absent: dysuria, frequency, urgency, hesitancy, hematuria, flank pain, genital pain MUSCULOSKELETAL: Absent: myalgia, arthralgia, joint swelling, back pain, neck pain SKIN: Absent: rash, itching, pallor HEMATOLOGIC/IMMUNOLOGIC: Absent: easy bleeding, easy bruising, lymphadenopathy, frequent infections ENDOCRINE: Absent: unexplained weight gain, unexplained weight loss, heat intolerance, cold intolerance NEUROLOGIC: Absent: headache, focal weakness or paresthesias, dizziness, unsteady gait, seizure, mental status changes, bladder or bowel incontinence PSYCHIATRIC: Absent: anxiety, depression, suicidal or homicidal ideation, hallucinations. PHYSICAL EXAMINATION Vital Signs - 24 hr 3 10/17/18 10/17/18 10/17/18 03:04 03:05 03:25 Temperature Pulse Rate 103 H Pulse Rate [ Apical] Respiratory 14 14 24 H Rate Blood Pressure 119/82 Blood Pressure [Right Arm] O2 Sat by Pulse 99 100 Oximetry (%) 3 10/17/18 10/17/18 10/17/18 04:18 05:36 05:59 06:03 Temperature 97.6 F Pulse Rate Pulse Rate [ 97 H 100 H Apical] Respiratory 24 H 26 H Rate Blood Pressure Blood Pressure 127/85 136/90 98/64 [Right Arm] O2 Sat by Pulse 100 100 Oximetry (%) GENERAL: sedated, intubated, in no acute distress. HEAD: Normal with no signs of trauma. EYES: Pupils equal, round and reactive to light, sclera anicteric, conjunctiva clear. No lid lag. EARS, NOSE, THROAT: Ears normal, nares patent, oropharynx clear without exudates. Moist mucous membranes. NECK: Normal range of motion, supple without lymphadenopathy, JVD, or masses. LUNGS: Breath sounds equal, clear to auscultation bilaterally. No wheezes, and no crackles. No accessory muscle use. HEART: Regular rate and rhythm, normal S1 and S2 without murmur, rub or gallop. ABDOMEN: Soft, nontender, not distended, normoactive bowel sounds, no guarding, no rebound, no masses. No hepatomegaly or splenomegaly. MUSCULOSKELETAL: Normal range of motion at all joints. No bony deformities or tenderness. No CVA tenderness. UPPER EXTREMITIES: 2+ pulses, warm, well-perfused. No cyanosis. No clubbing. No peripheral edema. LOWER EXTREMITIES: 2+ pulses, warm, well-perfused. No calf tenderness. No peripheral edema. NEUROLOGICAL: sedated and intubated PSYCHIATRIC: sedated SKIN: Warm, dry, normal turgor, no rashes or lesions noted, normal capillary refill. Laboratory Results - last 24 hr 3 10/17/18 10/17/18 10/17/18 03:06 03:12 03:12 WBC 21.1 H RBC 4.67 Hgb 13.8 Hct 44.4 D MCV 95.2 MCH 29.5 MCHC 31.0 L RDW 14.0 Plt Count 262 D MPV 9.1 Absolute Neuts (auto) 18.4 H Total Counted 100 Neutrophils % 87.1 H Neutrophils % (Manual) 80.0 Band Neutrophils % 9.0 Lymphocytes % 9.3 D Lymphocytes % (Manual) 6.0 L Monocytes % 3.1 L Monocytes % (Manual) 3 L Eosinophils % 0.2 D Basophils % 0.3 Nucleated RBC % 0 Metamyelocytes 2 Platelet Estimate Adequate Platelet Comment No clotting detected PT with INR INR Anticoagulation Therapy Puncture Site Left radial ABG pH 7.12 L* ABG pCO2 at Pt Temp 60.5 H ABG pO2 at Pt Temp 199 H ABG HCO3 18.7 L ABG O2 Sat (Measured) 98.5 H ABG O2 Content 20.9 ABG Base Excess -11.7 L [place] Test Positive Carboxyhemoglobin 0.1 Methemoglobin 0.3 O2 Delivery Device Vent Oxygen Flow Rate 100% Vent Mode Vent Rate 14 Mechanical Rate PEEP 5.0 Pressure Support Vent 450 Sodium Potassium Chloride Carbon Dioxide Anion Gap BUN Creatinine Creat Clearance w eGFR Random Glucose Calcium Phosphorus Magnesium Total Bilirubin AST ALT Alkaline Phosphatase Creatine Kinase Creatine Kinase Index CK-MB (CK-2) Troponin I Total Protein Albumin Urine Color Urine Appearance Urine pH Ur Specific [place] Urine Protein Urine Glucose (UA) Urine Ketones Urine Blood Urine Nitrite Urine Bilirubin Urine Urobilinogen Ur Leukocyte Esterase Urine WBC (Auto) Urine RBC (Auto) Urine Casts (Auto) U Epithel Cells (Auto) U Sm Round Cell (Auto) Urine Bacteria (Auto) Urine Yeast (Auto) Salicylates Opiates Screen Methadone Screen Acetaminophen Barbiturate Screen Phencyclidine Screen Ur Amphetamines Screen MDMA (Ecstasy) Screen Benzodiazepines Screen Cocaine Screen U Marijuana (THC) Screen Alcohol, Quantitative Blood Type Antibody Screen 3 10/17/18 10/17/18 10/17/18 03:12 03:12 03:12 WBC RBC Hgb Hct MCV MCH MCHC RDW Plt Count MPV Absolute Neuts (auto) Total Counted Neutrophils % Neutrophils % (Manual) Band Neutrophils % Lymphocytes % Lymphocytes % (Manual) Monocytes % Monocytes % (Manual) Eosinophils % Basophils % Nucleated RBC % Metamyelocytes Platelet Estimate Platelet Comment PT with INR Cancelled INR Cancelled Anticoagulation Therapy Puncture Site ABG pH ABG pCO2 at Pt Temp ABG pO2 at Pt Temp ABG HCO3 ABG O2 Sat (Measured) ABG O2 Content ABG Base Excess [place] Test Carboxyhemoglobin Methemoglobin O2 Delivery Device Oxygen Flow Rate Vent Mode Vent Rate Mechanical Rate PEEP Pressure Support Vent Sodium 136 Potassium 4.7 Chloride 104 Carbon Dioxide 16 L Anion Gap 16 BUN 10 Creatinine 1.1 Creat Clearance w eGFR 51.57 Random Glucose 331 H* Calcium 9.0 Phosphorus 8.4 H Magnesium 3.3 H Total Bilirubin 0.4 AST 228 H ALT 162 H Alkaline Phosphatase 114 Creatine Kinase 179 Creatine Kinase Index 2.1 CK-MB (CK-2) 3.9 H Troponin I 0.11 H Total Protein 7.8 Albumin 3.5 Urine Color Yellow Urine Appearance Clear Urine pH 5.5 Ur Specific [place] 1.017 Urine Protein 2+ H Urine Glucose (UA) 3+ H Urine Ketones Trace H Urine Blood 1+ H Urine Nitrite Negative Urine Bilirubin Negative Urine Urobilinogen 1.0 Ur Leukocyte Esterase Negative Urine WBC (Auto) 14 Urine RBC (Auto) 7 Urine Casts (Auto) 8 U Epithel Cells (Auto) 10.7 U Sm Round Cell (Auto) Review A* Urine Bacteria (Auto) 63.3 Urine Yeast (Auto) Salicylates < 1.7 L Opiates Screen Methadone Screen Acetaminophen 3.6 L Barbiturate Screen Phencyclidine Screen Ur Amphetamines Screen MDMA (Ecstasy) Screen Benzodiazepines Screen Cocaine Screen U Marijuana (THC) Screen Alcohol, Quantitative < 3.0 Blood Type Antibody Screen 3 10/17/18 10/17/18 10/17/18 03:12 03:12 03:12 WBC RBC Hgb Hct MCV MCH MCHC RDW Plt Count MPV Absolute Neuts (auto) Total Counted Neutrophils % Neutrophils % (Manual) Band Neutrophils % Lymphocytes % Lymphocytes % (Manual) Monocytes % Monocytes % (Manual) Eosinophils % Basophils % Nucleated RBC % Metamyelocytes Platelet Estimate Platelet Comment PT with INR INR Anticoagulation Therapy Puncture Site ABG pH ABG pCO2 at Pt Temp ABG pO2 at Pt Temp ABG HCO3 ABG O2 Sat (Measured) ABG O2 Content ABG Base Excess [place] Test Carboxyhemoglobin Methemoglobin O2 Delivery Device Oxygen Flow Rate Vent Mode Vent Rate Mechanical Rate PEEP Pressure Support Vent Sodium Potassium Chloride Carbon Dioxide Anion Gap BUN Creatinine Creat Clearance w eGFR Random Glucose Calcium Phosphorus Magnesium Total Bilirubin AST ALT Alkaline Phosphatase Creatine Kinase Creatine Kinase Index No Result Required. CK-MB (CK-2) 3.87 H Troponin I Total Protein Albumin Urine Color Urine Appearance Urine pH Ur Specific [place] Urine Protein Urine Glucose (UA) Urine Ketones Urine Blood Urine Nitrite Urine Bilirubin Urine Urobilinogen Ur Leukocyte Esterase Urine WBC (Auto) Urine RBC (Auto) Urine Casts (Auto) U Epithel Cells (Auto) U Sm Round Cell (Auto) Urine Bacteria (Auto) Urine Yeast (Auto) Salicylates Opiates Screen Negative Methadone Screen Negative Acetaminophen Barbiturate Screen Negative Phencyclidine Screen Negative Ur Amphetamines Screen Negative MDMA (Ecstasy) Screen Negative Benzodiazepines Screen Positive A* Cocaine Screen Negative U Marijuana (THC) Screen Negative Alcohol, Quantitative Blood Type A NEGATIVE Antibody Screen Negative 3 10/17/18 10/17/18 10/17/18 04:48 04:48 06:47 WBC RBC Hgb Hct MCV MCH MCHC RDW Plt Count MPV Absolute Neuts (auto) Total Counted Neutrophils % Neutrophils % (Manual) Band Neutrophils % Lymphocytes % Lymphocytes % (Manual) Monocytes % Monocytes % (Manual) Eosinophils % Basophils % Nucleated RBC % Metamyelocytes Platelet Estimate Platelet Comment PT with INR 12.20 INR 1.03 Anticoagulation Therapy No Result Required. Puncture Site ABG pH ABG pCO2 at Pt Temp ABG pO2 at Pt Temp ABG HCO3 ABG O2 Sat (Measured) ABG O2 Content ABG Base Excess [place] Test Carboxyhemoglobin Methemoglobin O2 Delivery Device No Result Required. Oxygen Flow Rate No Result Required. Vent Mode No Result Required. Vent Rate No Result Required. Mechanical Rate No Result Required. PEEP Pressure Support Vent No Result Required. Sodium 139 Potassium 3.6 Chloride 102 Carbon Dioxide 23 Anion Gap 14 BUN 11 Creatinine 1.1 Creat Clearance w eGFR 51.57 Random Glucose 301 H* Calcium 8.6 Phosphorus 5.6 H Magnesium 2.6 H Total Bilirubin 0.4 AST 242 H ALT 176 H Alkaline Phosphatase 120 H Creatine Kinase 129 Creatine Kinase Index CK-MB (CK-2) Troponin I 0.23 H Total Protein 8.1 Albumin 3.8 Urine Color Urine Appearance Urine pH Ur Specific [place] Urine Protein Urine Glucose (UA) Urine Ketones Urine Blood Urine Nitrite Urine Bilirubin Urine Urobilinogen Ur Leukocyte Esterase Urine WBC (Auto) Urine RBC (Auto) Urine Casts (Auto) U Epithel Cells (Auto) U Sm Round Cell (Auto) Urine Bacteria (Auto) Urine Yeast (Auto) Salicylates Opiates Screen Methadone Screen Acetaminophen Barbiturate Screen Phencyclidine Screen Ur Amphetamines Screen MDMA (Ecstasy) Screen Benzodiazepines Screen Cocaine Screen U Marijuana (THC) Screen Alcohol, Quantitative Blood Type Antibody Screen 3 ABG pH 7.27 (7.35-7.45) L 10/17/18 06:47 ABG pCO2 at Pt Temp 52.6 mmHg (35-45) H 10/17/18 06:47 ABG pO2 at Pt Temp 80.4 mmHg (80-105) 10/17/18 06:47 ABG HCO3 23.3 mmol/L (22-27) 10/17/18 06:47 ABG O2 Sat (Measured) 94.6 % (95-98) L 10/17/18 06:47 ABG O2 Content 19.6 % vol (15-22) 10/17/18 06:47 ABG Base Excess -3.9 meq/l (-2-2) L 10/17/18 06:47 ECG Sinus tachycardia vent rate 103, QTC [address]/T wave abnormality Radiology Report CXR Impression: ET tube tip well above danna ASSESSMENT/PLAN: 53yF with PMH idiopathic autoimmune subglottic stenosis presented to the ED s/p respiratory and cardiac arrest. hypoxic respiratory failure likely due to stenosis - given 125mg solumedrol in ED, cont 40mg q6h - repeat ABG improved, cont mechanical ventilation for now - cont propofol sedation elevated troponin - likely due to demand ischemia in setting of respiratory/cardiac arrest - trend Elevated LFTs - ? etiology, will trend - consider ultrasound hyperglycemia - ? on prednisone at home, ems found prednisone - BGM q6h with novolog sliding scale leukocytosis - CXR neg - trend, given empiric antibiotics DVT PPX - heparin 5000u BID FEN - s/p 2L NS in ed, hold further IVF for now - BMP @11am - NPO Dispo: pt currently requires close monitoring in the ICU. Visit type - Emergency Visit Emergency Visit: Yes ED Registration Date: 10/17/18 Care time: The patient presented to the Emergency Department on the above date and was hospitalized for further evaluation of their emergent condition. - New Patient This patient is new to me today: Yes Date on this admission: 10/17/18 - Critical Care Critical Care patient: Yes Total Critical Care Time (in minutes): 55 Critical Care Statement: The care of this patient involved high complexity decision making to prevent further life threatening deterioration of the patient 's condition and/or to evaluate & treat vital organ system(s) failure or risk of failure.
--- NOTE | 2018-10-17 08:47 | PN ---
Physical Exam: SUBJECTIVE: Patient seen and examined at the bedside. intubated, sedated on propofol Sister Reny Evans at the bedside [phone]. OBJECTIVE: intubated for respiratory failure elevated ast/alt, liver u/s ordered-at the bedside elevated wbc and elevated glucose on admission, sister unsure if patient was taking prednisone. [id number] ordered ID consulted patient remains intubated/sedated potline monitor: nsr 85, bp 109/65 bp, intubated, vent settin/450/5 Vital Signs Period Temp Pulse Resp BP Sys/Brock Pulse Ox Last 24 Hr 97.6 F-97.8 F 86-103 14-26 98-136/64-90 99-100 GENERAL: intubated, sedated HEAD: Normal with no signs of trauma. EYES: PERRL, extraocular movements intact, sclera anicteric, conjunctiva clear. No ptosis. ENT: Ears normal, nares patent, oropharynx clear without exudates NECK: Trachea midline, full range of motion, supple. LUNGS: Breath sounds equal, clear to auscultation bilaterally HEART: Regular rate and rhythm on potline monitor ABDOMEN: Soft, nontender, nondistended, normoactive bowel sounds, no guarding, EXTREMITIES: 2+ pulses, warm, well-perfused, no edema. NEUROLOGICAL: sedated Laboratory Results - last 24 hr 10/17/18 10/17/18 10/17/18 03:06 03:12 03:12 WBC 21.1 H RBC 4.67 Hgb 13.8 Hct 44.4 D MCV 95.2 MCH 29.5 MCHC 31.0 L RDW 14.0 Plt Count 262 D MPV 9.1 Absolute Neuts (auto) 18.4 H Total Counted 100 Neutrophils % 87.1 H Neutrophils % (Manual) 80.0 Band Neutrophils % 9.0 Lymphocytes % 9.3 D Lymphocytes % (Manual) 6.0 L Monocytes % 3.1 L Monocytes % (Manual) 3 L Eosinophils % 0.2 D Basophils % 0.3 Nucleated RBC % 0 Metamyelocytes 2 Platelet Estimate Adequate Platelet Comment No clotting detected PT with INR INR Anticoagulation Therapy Puncture Site Left radial ABG pH 7.12 L* ABG pCO2 at Pt Temp 60.5 H ABG pO2 at Pt Temp 199 H ABG HCO3 18.7 L ABG O2 Sat (Measured) 98.5 H ABG O2 Content 20.9 ABG Base Excess -11.7 L Chetan Test Positive Carboxyhemoglobin 0.1 Methemoglobin 0.3 O2 Delivery Device Vent Oxygen Flow Rate 100% Vent Mode Vent Rate 14 Mechanical Rate PEEP 5.0 Pressure Support Vent 450 Sodium Potassium Chloride Carbon Dioxide Anion Gap BUN Creatinine Creat Clearance w eGFR Random Glucose Calcium Phosphorus Magnesium Total Bilirubin AST ALT Alkaline Phosphatase Creatine Kinase Creatine Kinase Index CK-MB (CK-2) Troponin I Total Protein Albumin Urine Color Urine Appearance Urine pH Ur Specific [place] Urine Protein Urine Glucose (UA) Urine Ketones Urine Blood Urine Nitrite Urine Bilirubin Urine Urobilinogen Ur Leukocyte Esterase Urine WBC (Auto) Urine RBC (Auto) Urine Casts (Auto) U Epithel Cells (Auto) U Sm Round Cell (Auto) Urine Bacteria (Auto) Urine Yeast (Auto) Salicylates Opiates Screen Methadone Screen Acetaminophen Barbiturate Screen Phencyclidine Screen Ur Amphetamines Screen MDMA (Ecstasy) Screen Benzodiazepines Screen Cocaine Screen U Marijuana (THC) Screen Alcohol, Quantitative Blood Type Antibody Screen 10/17/18 10/17/18 10/17/18 03:12 03:12 03:12 WBC RBC Hgb Hct MCV MCH MCHC RDW Plt Count MPV Absolute Neuts (auto) Total Counted Neutrophils % Neutrophils % (Manual) Band Neutrophils % Lymphocytes % Lymphocytes % (Manual) Monocytes % Monocytes % (Manual) Eosinophils % Basophils % Nucleated RBC % Metamyelocytes Platelet Estimate Platelet Comment PT with INR Cancelled INR Cancelled Anticoagulation Therapy Puncture Site ABG pH ABG pCO2 at Pt Temp ABG pO2 at Pt Temp ABG HCO3 ABG O2 Sat (Measured) ABG O2 Content ABG Base Excess Chetan Test Carboxyhemoglobin Methemoglobin O2 Delivery Device Oxygen Flow Rate Vent Mode Vent Rate Mechanical Rate PEEP Pressure Support Vent Sodium 136 Potassium 4.7 Chloride 104 Carbon Dioxide 16 L Anion Gap 16 BUN 10 Creatinine 1.1 Creat Clearance w eGFR 51.57 Random Glucose 331 H* Calcium 9.0 Phosphorus 8.4 H Magnesium 3.3 H Total Bilirubin 0.4 AST 228 H ALT 162 H Alkaline Phosphatase 114 Creatine Kinase 179 Creatine Kinase Index 2.1 CK-MB (CK-2) 3.9 H Troponin I 0.11 H Total Protein 7.8 Albumin 3.5 Urine Color Yellow Urine Appearance Clear Urine pH 5.5 Ur Specific [place] 1.017 Urine Protein 2+ H Urine Glucose (UA) 3+ H Urine Ketones Trace H Urine Blood 1+ H Urine Nitrite Negative Urine Bilirubin Negative Urine Urobilinogen 1.0 Ur Leukocyte Esterase Negative Urine WBC (Auto) 14 Urine RBC (Auto) 7 Urine Casts (Auto) 8 U Epithel Cells (Auto) 10.7 U Sm Round Cell (Auto) Review A* Urine Bacteria (Auto) 63.3 Urine Yeast (Auto) Salicylates < 1.7 L Opiates Screen Methadone Screen Acetaminophen 3.6 L Barbiturate Screen Phencyclidine Screen Ur Amphetamines Screen MDMA (Ecstasy) Screen Benzodiazepines Screen Cocaine Screen U Marijuana (THC) Screen Alcohol, Quantitative < 3.0 Blood Type Antibody Screen 10/17/18 10/17/18 10/17/18 03:12 03:12 03:12 WBC RBC Hgb Hct MCV MCH MCHC RDW Plt Count MPV Absolute Neuts (auto) Total Counted Neutrophils % Neutrophils % (Manual) Band Neutrophils % Lymphocytes % Lymphocytes % (Manual) Monocytes % Monocytes % (Manual) Eosinophils % Basophils % Nucleated RBC % Metamyelocytes Platelet Estimate Platelet Comment PT with INR INR Anticoagulation Therapy Puncture Site ABG pH ABG pCO2 at Pt Temp ABG pO2 at Pt Temp ABG HCO3 ABG O2 Sat (Measured) ABG O2 Content ABG Base Excess Chetan Test Carboxyhemoglobin Methemoglobin O2 Delivery Device Oxygen Flow Rate Vent Mode Vent Rate Mechanical Rate PEEP Pressure Support Vent Sodium Potassium Chloride Carbon Dioxide Anion Gap BUN Creatinine Creat Clearance w eGFR Random Glucose Calcium Phosphorus Magnesium Total Bilirubin AST ALT Alkaline Phosphatase Creatine Kinase Creatine Kinase Index No Result Required. CK-MB (CK-2) 3.87 H Troponin I Total Protein Albumin Urine Color Urine Appearance Urine pH Ur Specific [place] Urine Protein Urine Glucose (UA) Urine Ketones Urine Blood Urine Nitrite Urine Bilirubin Urine Urobilinogen Ur Leukocyte Esterase Urine WBC (Auto) Urine RBC (Auto) Urine Casts (Auto) U Epithel Cells (Auto) U Sm Round Cell (Auto) Urine Bacteria (Auto) Urine Yeast (Auto) Salicylates Opiates Screen Negative Methadone Screen Negative Acetaminophen Barbiturate Screen Negative Phencyclidine Screen Negative Ur Amphetamines Screen Negative MDMA (Ecstasy) Screen Negative Benzodiazepines Screen Positive A* Cocaine Screen Negative U Marijuana (THC) Screen Negative Alcohol, Quantitative Blood Type A NEGATIVE Antibody Screen Negative 10/17/18 10/17/18 10/17/18 04:48 04:48 04:48 WBC RBC Hgb Hct MCV MCH MCHC RDW Plt Count MPV Absolute Neuts (auto) Total Counted Neutrophils % Neutrophils % (Manual) Band Neutrophils % Lymphocytes % Lymphocytes % (Manual) Monocytes % Monocytes % (Manual) Eosinophils % Basophils % Nucleated RBC % Metamyelocytes Platelet Estimate Platelet Comment PT with INR 12.20 INR 1.03 Anticoagulation Therapy Puncture Site ABG pH ABG pCO2 at Pt Temp ABG pO2 at Pt Temp ABG HCO3 ABG O2 Sat (Measured) ABG O2 Content ABG Base Excess Chetan Test Carboxyhemoglobin Methemoglobin O2 Delivery Device Oxygen Flow Rate Vent Mode Vent Rate Mechanical Rate PEEP Pressure Support Vent Sodium 139 Potassium 3.6 Chloride 102 Carbon Dioxide 23 Anion Gap 14 BUN 11 Creatinine 1.1 Creat Clearance w eGFR 51.57 Random Glucose 301 H* Calcium 8.6 Phosphorus 5.6 H Magnesium 2.6 H Total Bilirubin 0.4 AST 242 H ALT 176 H Alkaline Phosphatase 120 H Creatine Kinase 129 Creatine Kinase Index CK-MB (CK-2) Troponin I 0.23 H Total Protein 8.1 Albumin 3.8 Urine Color Urine Appearance Urine pH Ur Specific [place] Urine Protein Urine Glucose (UA) Urine Ketones Urine Blood Urine Nitrite Urine Bilirubin Urine Urobilinogen Ur Leukocyte Esterase Urine WBC (Auto) Urine RBC (Auto) Urine Casts (Auto) U Epithel Cells (Auto) U Sm Round Cell (Auto) Urine Bacteria (Auto) Urine Yeast (Auto) Salicylates Opiates Screen Methadone Screen Acetaminophen Barbiturate Screen Phencyclidine Screen Ur Amphetamines Screen MDMA (Ecstasy) Screen Benzodiazepines Screen Cocaine Screen U Marijuana (THC) Screen Alcohol, Quantitative Blood Type Cancelled Antibody Screen Cancelled 10/17/18 10/17/18 10/17/18 04:55 06:37 06:47 WBC RBC Hgb Hct MCV MCH MCHC RDW Plt Count MPV Absolute Neuts (auto) Total Counted Neutrophils % Neutrophils % (Manual) Band Neutrophils % Lymphocytes % Lymphocytes % (Manual) Monocytes % Monocytes % (Manual) Eosinophils % Basophils % Nucleated RBC % Metamyelocytes Platelet Estimate Platelet Comment PT with INR INR Anticoagulation Therapy No Result Required. Puncture Site Left radial ABG pH 7.27 L ABG pCO2 at Pt Temp 52.6 H ABG pO2 at Pt Temp 80.4 ABG HCO3 23.3 ABG O2 Sat (Measured) 94.6 L ABG O2 Content 19.6 ABG Base Excess -3.9 L Chetan Test No Result Required. Carboxyhemoglobin 0.4 Methemoglobin 0.2 O2 Delivery Device Mech vent Oxygen Flow Rate 40% Vent Mode A/c Vent Rate 18 Mechanical Rate Yes PEEP 5.0 Pressure Support Vent 450 Sodium Potassium Chloride Carbon Dioxide Anion Gap BUN Creatinine Creat Clearance w eGFR Random Glucose Calcium Phosphorus Magnesium Total Bilirubin AST ALT Alkaline Phosphatase Creatine Kinase Creatine Kinase Index CK-MB (CK-2) Troponin I Total Protein Albumin Urine Color Urine Appearance Urine pH Ur Specific [place] Urine Protein Urine Glucose (UA) Urine Ketones Urine Blood Urine Nitrite Urine Bilirubin Urine Urobilinogen Ur Leukocyte Esterase Urine WBC (Auto) Urine RBC (Auto) Urine Casts (Auto) U Epithel Cells (Auto) U Sm Round Cell (Auto) Urine Bacteria (Auto) Urine Yeast (Auto) Salicylates Opiates Screen Methadone Screen Acetaminophen Barbiturate Screen Phencyclidine Screen Ur Amphetamines Screen MDMA (Ecstasy) Screen Benzodiazepines Screen Cocaine Screen U Marijuana (THC) Screen Alcohol, Quantitative Blood Type A NEGATIVE Antibody Screen Active Medications Generic Name Dose Route Start Last Admin Trade Name Freq PRN Reason Stop Dose Admin Chlorhexidine Gluconate 1 applic 10/17/18 22:00 Hibiclens For Decolonization - TP HS VANDANA Heparin Sodium (Porcine) 5,000 unit 10/17/18 10:00 Heparin - SQ BID [facility] Propofol 1,000,000 mcg in 100 mls @ 3.402 mls/hr 10/17/18 03:45 10/17/18 05: 48 Diprivan - IVPB 80 mcg/kg/min TITR VANDANA 54.431 mls/hr Titration Protocol 5 MCG/KG/MIN Vancomycin HCl 1,500 mg/ 500 mls @ 250 mls/hr 10/17/18 07:37 Dextrose IVPB 10/17/18 09:36 ONCE ONE Protocol Insulin Aspart 1 vial 10/17/18 08:15 Novolog Vial Sliding Scale - SQ Q6H [facility] Protocol Methylprednisolone Sodium Succinate 40 mg 10/17/18 09:00 Solu-Medrol - IVPB Q6H-IV [facility] Mupirocin 1 applic 10/17/18 10:00 Bactroban Ointment (For Decolonization) - NS 10/22/18 09:59 BID [facility] Pantoprazole Sodium 40 mg 10/17/18 10:00 Protonix Iv IVPUSH DAILY VANDANA ASSESSMENT/PLAN: Patient is a 53 year old female with a past medical history of idiopathic autoimmune 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 First dx in 2005, s/p multiple laser and dilation surgeries by Dr. Holder at [facility],. Had surgical procedure on 2012 and has had multiple corrective procedures in the past including laser and surgical. Patient present from home with respiratory failure and cardiopulmonary arrest with ROSC achieved by EMS in the field. Patient had called EMS for help, was intubated in the field and given Versed. Per admission, note she subsequently had cardiac arrest for about a 90 second period during which time she got a round of epi and CPR. ED labs shows negative toxicology with +benzos (received versed in field), glucose in the 300s. ER course notable for Respiratory acidosis (pH 7.12), elevated WBC @21.1, elevated ast/alt Imaging: chest xray with weak inspiration, ett tube in place: problem list: idiopathic autoimmune subglottic stenosis respiratory failure Central airway obstruction hyperglycemia Cardiac arrest Elevated troponins Leukocytosis Elevated ast/alt Acute respiratory failure Idopathic subglottic stenosis Central airway obstruction -ICU monitoring. -remains intubated and sedated. -on solumedrol 40mg q6 -swabbed for influenza pending -surgical consult for possible dilation (has at [facility]) Hyperglycemia -in the setting of steriod therapy(prednisone) -hmga1c 6.1 -on novolog q6 based on bgms Cardiac arrest Elevated troponins -Trops incresed to 0.85 -repeat ekg -lovenox 130mg bid -cardiology consult Leukocytosis WBC 21.1 on presentation, tachycardia - blood cultures pending - seen by ID, started on ceftriaxone Elevated ast/alt - liver u/s ordered for bedside fen npo, ivf NS @ 100cc/hr monitor electrolytes prophy lovenox bid Visit type - Emergency Visit Emergency Visit: Yes ED Registration Date: 10/17/18 Care time: The patient presented to the Emergency Department on the above date and was hospitalized for further evaluation of their emergent condition. - New Patient This patient is new to me today: Yes Date on this admission: 10/17/18 - Critical Care Critical Care patient: Yes Total Critical Care Time (in minutes): 60 Critical Care Statement: The care of this patient involved high complexity decision making to prevent further life threatening deterioration of the patient 's condition and/or to evaluate & treat vital organ system(s) failure or risk of failure.
[2018-10-17] MEDS ORDERED: PT OWN MED DRAWER 7, Y5N ONE ×2 (09:15→11:50)
[2018-10-17] MEDS ORDERED: DEXTROSE 5%-WATER 100 ML IVPB ONE ×2 (09:17→13:04)
[2018-10-17] MEDS ORDERED: PIPERACILLIN/TAZOBACTAM 4.5 GM VIAL IVPB ONE (09:17)
[2018-10-17] MEDS: methylPREDNISolone NA SUCC 40 MG/1 ML VIAL IVPB SCH ×3 (09:42→21:51)
[2018-10-17] MEDS: PANTOPRAZOLE SODIUM 40 MG VIAL IVPUSH SCH (09:54)
[2018-10-17] MEDS ORDERED: HEPARIN NA (PORCINE) 5,000 UNITS/ML 1ML VIAL SQ SCH (10:00)
[2018-10-17] MEDS: MUPIROCIN 2% TOPICAL OINTMENT FOR DECOLONIZATION NS SCH ×2 (10:01→21:52)
--- NOTE | 2018-10-17 10:13 | CONSULT ---
Consult Consult Specialty:: PULM/CCM Referred by:: Dr. Acuña Reason for Consultation:: s/p Cardiac Arrest - History of Present Illness Chief Complaint: Resp Fail s/p Cardiac Arrest History of Present Illness: Ms. 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 Last night the pt dialed 911 for SOB. EMS arrive to find the pt in respiratory arrest. The pt regained consciousness quickly w/ ambu-bag but then became combative despite versed for sedation. S/p Versed, the pt's respiratory status deteriorated prompting RSI in the field. The pt was given etomidate and rocuronium & an ETT was placed w/ subsequent cardiac arrest requiring Epi X1 and CPR. ROSC is reported w/ in 90 sec. Of note , EMS reports Prednisone @ the bedside. In the ED the pt is remark for profound acidosis w/ a pH of 7.12, leukocytosis w/ WBC > 20, & a transamintis w/ AST 242 , ALT 176, Alk & Phos 120. In the ED the pt is waking up on the vent attempting to remove the ETT. U-Tox is negative except for Benzos (which she had received in the field). The pt is admitted to the ICU now for Resp Fail. 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 (Sedated on the Vent) Hepatobiliary: No: Cirrhosis Renal/: No: Renal Inusuff ...: No ENT: Yes: Other (hereditary autoimmune subglottic stenosis) - Past Surgical History Additional Surgical History: Subglottic Laser and dilation 2011 ([facility]) - Alcohol/Substance Use Hx Alcohol Use: No - Smoking History Smoking history: Never smoked Have you smoked in the past 12 months: No - Social History History of Recent Travel: No Home Medications - Allergies Allergies/Adverse Reactions: Allergies Allergy/AdvReac Type Severity Reaction Status Date / Time No Known Allergies Allergy Verified 10/17/18 03:07 - Home Medications Home Medications: Ambulatory Orders NK [No Known Home Medication] 10/17/18 Family Disease History - Family Disease History Family History: Unable to Obtain (Intubated & sedated on the Vent.) Review of Systems Unable to obtain ROS, reason: Intubated & Sedated Physical Exam Vital Signs: Vital Signs Temperature 97.8 F 10/17/18 08:00 Pulse Rate 85 10/17/18 09:00 Respiratory Rate 18 10/17/18 09:00 Blood Pressure 109/65 10/17/18 08:00 O2 Sat by Pulse Oximetry (%) 94 L 10/17/18 09:00 Intake & Output 10/14/18 10/15/18 10/16/18 10/17/18 23:59 23:59 23:59 23:59 Output Total 500 Balance -500 Weight 127.459 kg Constitutional: Yes: Well Nourished, No Distress, Calm Eyes: Yes: WNL, Conjunctiva Clear, PERRL HENT: Yes: WNL, Atraumatic, Normocephalic Neck: Yes: WNL, Supple, Trachea Midline Cardiovascular: Yes: WNL, Regular Rate and Rhythm Respiratory: Yes: WNL, Regular, CTA Bilaterally, Intubated, Mechanically Ventilated Gastrointestinal: Yes: Abdomen, Obese ...Rectal Exam: Yes: Deferred Renal/: Yes: WNL Breast(s): Yes: WNL Musculoskeletal: Yes: WNL Extremities: Yes: WNL Edema: No Peripheral Pulses WNL: Yes Neurological: Yes: WNL ...Motor Strength: WNL Psychiatric: Yes: WNL Labs: CBC, BMP 10/17/18 03:12 10/17/18 04:48 ABG Results ABG pH 7.27 (7.35-7.45) L 10/17/18 06:47 ABG pCO2 at Pt Temp 52.6 mmHg (35-45) H 10/17/18 06:47 ABG pO2 at Pt Temp 80.4 mmHg (80-105) 10/17/18 06:47 ABG HCO3 23.3 mmol/L (22-27) 10/17/18 06:47 ABG O2 Sat (Measured) 94.6 % (95-98) L 10/17/18 06:47 ABG O2 Content 19.6 % vol (15-22) 10/17/18 06:47 ABG Base Excess -3.9 meq/l (-2-2) L 10/17/18 06:47 Troponin, BNP 10/17/18 10/17/18 03:12 04:48 Troponin I 0.11 H 0.23 H Laboratory Tests 10/17/18 10/17/18 10/17/18 03:06 03:12 03:12 WBC 21.1 H RBC 4.67 Hgb 13.8 Hct 44.4 D MCV 95.2 MCH 29.5 MCHC 31.0 L RDW 14.0 Plt Count 262 D MPV 9.1 Absolute Neuts (auto) 18.4 H Total Counted 100 Neutrophils % 87.1 H Neutrophils % (Manual) 80.0 Band Neutrophils % 9.0 Lymphocytes % 9.3 D Lymphocytes % (Manual) 6.0 L Monocytes % 3.1 L Monocytes % (Manual) 3 L Eosinophils % 0.2 D Basophils % 0.3 Nucleated RBC % 0 Metamyelocytes 2 Platelet Estimate Adequate Platelet Comment No clotting detected PT with INR INR Anticoagulation Therapy Puncture Site Left radial ABG pH 7.12 L* ABG pCO2 at Pt Temp 60.5 H ABG pO2 at Pt Temp 199 H ABG HCO3 18.7 L ABG O2 Sat (Measured) 98.5 H ABG O2 Content 20.9 ABG Base Excess -11.7 L Chetan Test Positive Carboxyhemoglobin 0.1 Methemoglobin 0.3 O2 Delivery Device Vent Oxygen Flow Rate 100% Vent Mode Vent Rate 14 Mechanical Rate PEEP 5.0 Pressure Support Vent 450 Sodium Potassium Chloride Carbon Dioxide Anion Gap BUN Creatinine Creat Clearance w eGFR Random Glucose Calcium Phosphorus Magnesium Total Bilirubin AST ALT Alkaline Phosphatase Creatine Kinase Creatine Kinase Index CK-MB (CK-2) Troponin I Total Protein Albumin Urine Color Urine Appearance Urine pH Ur Specific [place] Urine Protein Urine Glucose (UA) Urine Ketones Urine Blood Urine Nitrite Urine Bilirubin Urine Urobilinogen Ur Leukocyte Esterase Urine WBC (Auto) Urine RBC (Auto) Urine Casts (Auto) U Epithel Cells (Auto) U Sm Round Cell (Auto) Urine Bacteria (Auto) Urine Yeast (Auto) Salicylates Opiates Screen Methadone Screen Acetaminophen Barbiturate Screen Phencyclidine Screen Ur Amphetamines Screen MDMA (Ecstasy) Screen Benzodiazepines Screen Cocaine Screen U Marijuana (THC) Screen Alcohol, Quantitative Blood Type Antibody Screen 10/17/18 10/17/18 10/17/18 03:12 03:12 03:12 WBC RBC Hgb Hct MCV MCH MCHC RDW Plt Count MPV Absolute Neuts (auto) Total Counted Neutrophils % Neutrophils % (Manual) Band Neutrophils % Lymphocytes % Lymphocytes % (Manual) Monocytes % Monocytes % (Manual) Eosinophils % Basophils % Nucleated RBC % Metamyelocytes Platelet Estimate Platelet Comment PT with INR Cancelled INR Cancelled Anticoagulation Therapy Puncture Site ABG pH ABG pCO2 at Pt Temp ABG pO2 at Pt Temp ABG HCO3 ABG O2 Sat (Measured) ABG O2 Content ABG Base Excess Chetan Test Carboxyhemoglobin Methemoglobin O2 Delivery Device Oxygen Flow Rate Vent Mode Vent Rate Mechanical Rate PEEP Pressure Support Vent Sodium 136 Potassium 4.7 Chloride 104 Carbon Dioxide 16 L Anion Gap 16 BUN 10 Creatinine 1.1 Creat Clearance w eGFR 51.57 Random Glucose 331 H* Calcium 9.0 Phosphorus 8.4 H Magnesium 3.3 H Total Bilirubin 0.4 AST 228 H ALT 162 H Alkaline Phosphatase 114 Creatine Kinase 179 Creatine Kinase Index 2.1 CK-MB (CK-2) 3.9 H Troponin I 0.11 H Total Protein 7.8 Albumin 3.5 Urine Color Yellow Urine Appearance Clear Urine pH 5.5 Ur Specific [place] 1.017 Urine Protein 2+ H Urine Glucose (UA) 3+ H Urine Ketones Trace H Urine Blood 1+ H Urine Nitrite Negative Urine Bilirubin Negative Urine Urobilinogen 1.0 Ur Leukocyte Esterase Negative Urine WBC (Auto) 14 Urine RBC (Auto) 7 Urine Casts (Auto) 8 U Epithel Cells (Auto) 10.7 U Sm Round Cell (Auto) Review A* Urine Bacteria (Auto) 63.3 Urine Yeast (Auto) Salicylates < 1.7 L Opiates Screen Methadone Screen Acetaminophen 3.6 L Barbiturate Screen Phencyclidine Screen Ur Amphetamines Screen MDMA (Ecstasy) Screen Benzodiazepines Screen Cocaine Screen U Marijuana (THC) Screen Alcohol, Quantitative < 3.0 Blood Type Antibody Screen 10/17/18 10/17/18 10/17/18 03:12 03:12 03:12 WBC RBC Hgb Hct MCV MCH MCHC RDW Plt Count MPV Absolute Neuts (auto) Total Counted Neutrophils % Neutrophils % (Manual) Band Neutrophils % Lymphocytes % Lymphocytes % (Manual) Monocytes % Monocytes % (Manual) Eosinophils % Basophils % Nucleated RBC % Metamyelocytes Platelet Estimate Platelet Comment PT with INR INR Anticoagulation Therapy Puncture Site ABG pH ABG pCO2 at Pt Temp ABG pO2 at Pt Temp ABG HCO3 ABG O2 Sat (Measured) ABG O2 Content ABG Base Excess Chetan Test Carboxyhemoglobin Methemoglobin O2 Delivery Device Oxygen Flow Rate Vent Mode Vent Rate Mechanical Rate PEEP Pressure Support Vent Sodium Potassium Chloride Carbon Dioxide Anion Gap BUN Creatinine Creat Clearance w eGFR Random Glucose Calcium Phosphorus Magnesium Total Bilirubin AST ALT Alkaline Phosphatase Creatine Kinase Creatine Kinase Index No Result Required. CK-MB (CK-2) 3.87 H Troponin I Total Protein Albumin Urine Color Urine Appearance Urine pH Ur Specific [place] Urine Protein Urine Glucose (UA) Urine Ketones Urine Blood Urine Nitrite Urine Bilirubin Urine Urobilinogen Ur Leukocyte Esterase Urine WBC (Auto) Urine RBC (Auto) Urine Casts (Auto) U Epithel Cells (Auto) U Sm Round Cell (Auto) Urine Bacteria (Auto) Urine Yeast (Auto) Salicylates Opiates Screen Negative Methadone Screen Negative Acetaminophen Barbiturate Screen Negative Phencyclidine Screen Negative Ur Amphetamines Screen Negative MDMA (Ecstasy) Screen Negative Benzodiazepines Screen Positive A* Cocaine Screen Negative U Marijuana (THC) Screen Negative Alcohol, Quantitative Blood Type A NEGATIVE Antibody Screen Negative 10/17/18 10/17/18 10/17/18 04:48 04:48 04:48 WBC RBC Hgb Hct MCV MCH MCHC RDW Plt Count MPV Absolute Neuts (auto) Total Counted Neutrophils % Neutrophils % (Manual) Band Neutrophils % Lymphocytes % Lymphocytes % (Manual) Monocytes % Monocytes % (Manual) Eosinophils % Basophils % Nucleated RBC % Metamyelocytes Platelet Estimate Platelet Comment PT with INR 12.20 INR 1.03 Anticoagulation Therapy Puncture Site ABG pH ABG pCO2 at Pt Temp ABG pO2 at Pt Temp ABG HCO3 ABG O2 Sat (Measured) ABG O2 Content ABG Base Excess Chetan Test Carboxyhemoglobin Methemoglobin O2 Delivery Device Oxygen Flow Rate Vent Mode Vent Rate Mechanical Rate PEEP Pressure Support Vent Sodium 139 Potassium 3.6 Chloride 102 Carbon Dioxide 23 Anion Gap 14 BUN 11 Creatinine 1.1 Creat Clearance w eGFR 51.57 Random Glucose 301 H* Calcium 8.6 Phosphorus 5.6 H Magnesium 2.6 H Total Bilirubin 0.4 AST 242 H ALT 176 H Alkaline Phosphatase 120 H Creatine Kinase 129 Creatine Kinase Index CK-MB (CK-2) Troponin I 0.23 H Total Protein 8.1 Albumin 3.8 Urine Color Urine Appearance Urine pH Ur Specific [place] Urine Protein Urine Glucose (UA) Urine Ketones Urine Blood Urine Nitrite Urine Bilirubin Urine Urobilinogen Ur Leukocyte Esterase Urine WBC (Auto) Urine RBC (Auto) Urine Casts (Auto) U Epithel Cells (Auto) U Sm Round Cell (Auto) Urine Bacteria (Auto) Urine Yeast (Auto) Salicylates Opiates Screen Methadone Screen Acetaminophen Barbiturate Screen Phencyclidine Screen Ur Amphetamines Screen MDMA (Ecstasy) Screen Benzodiazepines Screen Cocaine Screen U Marijuana (THC) Screen Alcohol, Quantitative Blood Type Cancelled Antibody Screen Cancelled 10/17/18 10/17/18 10/17/18 04:55 06:37 06:47 WBC RBC Hgb Hct MCV MCH MCHC RDW Plt Count MPV Absolute Neuts (auto) Total Counted Neutrophils % Neutrophils % (Manual) Band Neutrophils % Lymphocytes % Lymphocytes % (Manual) Monocytes % Monocytes % (Manual) Eosinophils % Basophils % Nucleated RBC % Metamyelocytes Platelet Estimate Platelet Comment PT with INR INR Anticoagulation Therapy No Result Required. Puncture Site Left radial ABG pH 7.27 L ABG pCO2 at Pt Temp 52.6 H ABG pO2 at Pt Temp 80.4 ABG HCO3 23.3 ABG O2 Sat (Measured) 94.6 L ABG O2 Content 19.6 ABG Base Excess -3.9 L Chetan Test No Result Required. Carboxyhemoglobin 0.4 Methemoglobin 0.2 O2 Delivery Device Mech vent Oxygen Flow Rate 40% Vent Mode A/c Vent Rate 18 Mechanical Rate Yes PEEP 5.0 Pressure Support Vent 450 Sodium Potassium Chloride Carbon Dioxide Anion Gap BUN Creatinine Creat Clearance w eGFR Random Glucose Calcium Phosphorus Magnesium Total Bilirubin AST ALT Alkaline Phosphatase Creatine Kinase Creatine Kinase Index CK-MB (CK-2) Troponin I Total Protein Albumin Urine Color Urine Appearance Urine pH Ur Specific [place] Urine Protein Urine Glucose (UA) Urine Ketones Urine Blood Urine Nitrite Urine Bilirubin Urine Urobilinogen Ur Leukocyte Esterase Urine WBC (Auto) Urine RBC (Auto) Urine Casts (Auto) U Epithel Cells (Auto) U Sm Round Cell (Auto) Urine Bacteria (Auto) Urine Yeast (Auto) Salicylates Opiates Screen Methadone Screen Acetaminophen Barbiturate Screen Phencyclidine Screen Ur Amphetamines Screen MDMA (Ecstasy) Screen Benzodiazepines Screen Cocaine Screen U Marijuana (THC) Screen Alcohol, Quantitative Blood Type A NEGATIVE Antibody Screen Imaging - Results Chest X-ray: Image Reviewed (CXR 10/17: ETT at the level of the clavicles, bi- basilar atelectasis, otherwise clear (My Read).) EKG: Image Reviewed (10/17 12-LEAD: RSR @ 100 w/o ect, flattened T-waves in II, aVF, V1, & V2 but non-specific, QTc = 505ms, post cardiac arrest EKG (MY Read).) Problem List - Problems (1) Cardiopulmonary arrest with successful resuscitation Code(s): I46.9 - CARDIAC ARREST, CAUSE UNSPECIFIED (2) Subglottic stenosis Code(s): J38.6 - STENOSIS OF LARYNX Assessment/Plan ASSESS: idiopathic autoimmune subglottic stenosis respiratory failure hyperglycemia in the setting of steroids s/p Cardiac arrest Leukocytosis in the setting of steroids Elevated ast/alt PLAN: -NPO -Maintian ETT for airway protection -Sedate for comfort on the Vent -Increase Vent Rate for a normal pH -steroids -Nebs -R/o infective cause --> Michele Clxr --> Flu Swab -Abx a/p ID -Strict I's & O's -Trend BUN/Cr -Replete e-lytes prn -FS -SSI -Trend Trop -CARDS -Abd US -BR -DVT -GI This AM I spoke w/ Dr. Taqueria Holder @ [whom is the ENT that did the subglottic laser and dilation procedures ([facility]) on this pt in 2011]. Dr. Taqueria Holder believed that the pt had been doing well since that time and was unaware of any ongoing airway issues. 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 Given the Prednisone at the bedside, there is a possibility that the pt was having active airway issues in the setting of her "cold" & was attempting to self medicate w/ residual steroid Rxs. Ultimately, once infection has been ruled out, if pt does NOT exhibit a cuff leak &/or fails attempts at extubation, she may need a tracheostomy for safety. I would like to carefully consult w/ Dr. Ritesh Munguia (ENT) on this case. This case requires further cautious investigation. -Maintain in ICU Thank y you for this Interesting Consult [facility] ICU PULM/CCM [id number] Critical Care Total Critical Care Time (in minutes): 39 Critical Care Statement: The care of this patient involved high complexity decision making to prevent further life threatening deterioration of the patient 's condition and/or to evaluate & treat vital organ system(s) failure or risk of failure.
--- NOTE | 2018-10-17 10:49 | PN ---
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 (short form) - Note 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: ID CONSULT DICTATED\ S/P CARDIOPULMONARY ARREST LEUKOCYTOSIS ? SEPSIS ? LEUKEMOID RXN ? STEROIDS HX SUBGLOTTIC STENOSIS PENDING C/S EMPIRIC CEFTRIAXONE
--- NOTE | 2018-10-17 11:41 | EKG ---
Test Reason : Blood Pressure : / mmHG Vent. Rate : 103 BPM Atrial Rate : 103 BPM P-R Int : 138 ms QRS Dur : 094 ms QT Int : 386 ms P-R-T Axes : 009 002 004 degrees QTc Int : 505 ms SINUS TACHYCARDIA NONSPECIFIC ST AND T WAVE ABNORMALITY ABNORMAL ECG WHEN COMPARED WITH ECG OF 01-OCT-2017 10:22, NO SIGNIFICANT CHANGE WAS FOUND Confirmed by RYAN DENTON MD ([id number]) on 10/17/2018 11:40:56 AM Referred By: Confirmed By:RYAN DENTON MD
--- NOTE | 2018-10-17 11:42 | CONS ---
INFECTIOUS DISEASE CONSULTATION DATE OF CONSULTATION: 10/17/2018 The patient is a 53-year-old female who is evaluated for possible sepsis. She has a history of idiopathic 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 History was obtained from the chart as she is presently intubated and no family members or companions are present at the present time. She had apparently called on her own after developing shortness of breath. She was found unresponsive and was intubated. She developed cardiac arrest requiring CPR and medications. She had return of spontaneous circulation after approximately 2 minutes. The patient was transferred to the intensive care unit at [facility] where she was noted to have an elevated white blood cell count and elevated liver enzymes. Cultures were obtained. She was empirically treated with Zosyn and vancomycin. No further details were available. According to the notes, she had not been under the care of a physician of city hospital. When EMS arrived on the scene, they noted bottles of prednisone and Percocet. PAST MEDICAL HISTORY: Positive for idiopathic 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 She is status post surgery. Additional details are not available. ALLERGIES: No known allergies. MEDICATIONS: At the present time include heparin, Solu-Medrol, Protonix, propofol, vancomycin, and Zosyn. 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 No documented tobacco or alcohol use history. SYSTEMS REVIEW: Neurologic: Positive for unresponsiveness. No reported seizure activity or focal weakness. Cardiac: Status post cardiopulmonary arrest. Respiratory: Respiratory failure. Gastrointestinal: No vomiting or diarrhea. Genitourinary: Negative for urinary tract infection. LABORATORY DATA: White count 21.1; neutrophils 87, lymphocytes 9, bands 9; hematocrit 44.4; platelet count 262. BUN 11, creatinine 1.1. Glucose 301. Total bilirubin 0.4, alkaline phosphatase 128, AST 242, ALT 176. Urinalysis: White cells 14. Cultures are pending. Chest x-ray negative for acute infiltrate. PHYSICAL EXAMINATION: General: The patient is sedated on the ventilator. Vital Signs: Temperature 97.8; blood pressure 109/65; pulse 85, regular; respirations 18 per minute. HEENT: Sclerae are anicteric. Patient is orally intubated. Heart: Sounds S1, S2. Lungs: Air entry bilaterally. Abdomen: Soft. No tenderness elicited. No mass, rebound, or rigidity. Extremities: Negative for edema. IMPRESSION: 1. Status post cardiopulmonary arrest. 2. Leukocytosis, rule out sepsis versus leukemoid reaction versus steroid-induced leukocytosis. 3. History of 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 Await sepsis workup. Empiric antibiotic coverage for possible aspiration in the setting of cardiopulmonary arrest with ceftriaxone 2 g IV piggyback daily. Continue hemodynamic and ventilatory support. Cardiac evaluation. Thank you for the kind referral. ELEUTERIO ROONEY M.D. [id number]
[2018-10-17 12:05] LABS: BASO % 1.1 % (0-2.0); HEMATOCRIT 40.7 % (32.4-45.2); HEMOGLOBIN 13.4 GM/dL (10.7-15.3); LYMPH % 5.9 % (8-40); MCH 29.5 pg (25.7-33.7); MCHC 32.8 g/dl (32.0-36.0); MEAN CELL VOLUME 89.8 fl (80-96); MEAN PLT VOLUME 8.8 fl (7.5-11.1); MONO % 5.9 % (3.8-10.2); NEUT % 87.1 % (42.8-82.8); PLATELET COUNT 261 K/MM3 (134-434); RBC 4.54 M/mm3 (3.60-5.2); RDW 13.4 % (11.6-15.6); WHITE BLOOD COUNT 8.6 K/mm3 (4.0-10.0)
[2018-10-17 12:22] LABS: ALBUMIN 3.3 g/dl (3.4-5.0); BILIRUBIN,DIRECT 0.2 mg/dL (0.0-0.2); BILIRUBIN,TOTAL 0.5 mg/dL (0.2-1); TOT PROT 6.9 g/dl (6.4-8.2)
[2018-10-17 12:23] LABS: ANION GAP 8 MMOL/L (8-16); BLOOD UREA NITROGEN 12 mg/dL (7-18); CALCIUM 8.3 mg/dL (8.5-10.1); CHLORIDE 105 mmol/L (98-107); CO2 26 mmol/L (21-32); CREATININE 0.8 mg/dL (0.55-1.3); GLUCOSE,RANDOM 165 mg/dL (74-106); MAGNESIUM 2.4 mg/dL (1.8-2.4); PHOSPHOROUS 2.3 mg/dL (2.5-4.9); POTASSIUM 4.1 mmol/L (3.5-5.1); SODIUM 139 mmol/L (136-145)
[2018-10-17] MEDS: CEFTRIAXONE 2 GM in DEXTROSE 5%-WATER 100 ML IVPB SCH (13:11)
[2018-10-17] MEDS: INSULIN SLIDING SCALE (NOVOLOG) 1 VIAL SQ SCH ×3 (13:12→22:00)
[2018-10-17] MEDS: SODIUM CHLORIDE 1,000 ML IV SCH (14:36)
[2018-10-17 17:50] LABS: ARTERIAL BLOOD GAS PCO2 35.8 mmHg (35-45); ARTERIAL BLOOD GAS pH 7.45 (7.35-7.45)
[2018-10-17 17:51] LABS: ARTERIAL BLD GAS O2 SATURATION 98.7 % (95-98); ARTERIAL BLOOD GAS BASE EXCESS 0.9 meq/l (-2-2); ARTERIAL BLOOD GAS PO2 124 mmHg (80-105)
--- NOTE | 2018-10-17 19:03 | CON.CARD ---
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 EMS notes that the patient herself called 911 from her residence c/o respiratory distress, and she was unconscious on the floor when they arrived on scene but had a pulse. They ambu-bagged her and she regained consciousness quickly, but then became extremely combative which persisted despite versed for sedation, then had worsened respiratory distress and needed to be intubated. She was given etomidate and rocuronium, ETT was placed, and she subsequently had cardiac arrest for about a 90 second period during which time she got a round of epi and CPR, with subsequent ROSC. EMS noticed she had both oxcodone and Percocet on scene as well as prednisone. There was nobody else at the residence to help provide history. FSBG was in the 300s. 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 on the Vent) Hepatobiliary: No: Cirrhosis Renal/: No: Renal Inusuff Reproductive: Yes: Postmenopausal ...: No ENT: Yes: Other (hereditary autoimmune subglottic stenosis) - Past Surgical History Additional Surgical History: Subglottic Laser and dilation 2011 ([facility]) - Alcohol/Substance Use Hx Alcohol Use: No - Smoking History Smoking history: Never smoked Have you smoked in the past 12 months: No - Social History History of Recent Travel: No Home Medications - Allergies Allergies/Adverse Reactions: Allergies Allergy/AdvReac Type Severity Reaction Status Date / Time No Known Allergies Allergy Verified 10/17/18 03:07 - Home Medications Home Medications: Ambulatory Orders NK [No Known Home Medication] 10/17/18 Review of Systems Unable to obtain ROS, reason: intubated/sedated - Risk Factors Known Risk Factors: Yes: Age Vital Signs: Vital Signs Temperature 98.9 F 10/17/18 14:00 Pulse Rate 84 10/17/18 16:00 Respiratory Rate 26 H 10/17/18 17:54 Blood Pressure 106/66 10/17/18 16:00 O2 Sat by Pulse Oximetry (%) 94 L 10/17/18 09:00 - Other Data Labs, Other Data: CBC, BMP 10/17/18 11:14 10/17/18 11:14 INR, PTT INR 1.03 (0.83-1.09) 10/17/18 04:48 Troponin, BNP 10/17/18 10/17/18 10/17/18 03:12 04:48 11:14 Troponin I 0.11 H 0.23 H 0.85 H* Troponin, BNP 10/17/18 10/17/18 10/17/18 03:12 04:48 11:14 Troponin I 0.11 H 0.23 H 0.85 H* Problem List - Problems (1) Elevated troponin Assessment/Plan: TNI 0.11-->0.85; normal CK. Elevation of TNI from demand ischemia and trauma (?opiod overdose; cardiorespiratory arrest; chest compressions during resusitation). F/u TNI, EKG, telemetry. ECHO for LVEF, wall motion. Code(s): R74.8 - ABNORMAL LEVELS OF OTHER SERUM ENZYMES (2) Morbid obesity Code(s): E66.01 - MORBID (SEVERE) OBESITY DUE TO EXCESS CALORIES (3) Cardiopulmonary arrest with successful resuscitation Assessment/Plan: Maintaining pressure. Intubated/ventilated. Maintaining BP. F/u Is and Os, electrolytes, TNI (elevated), EKG/telemetry. F/u TSH, lipids. Code(s): I46.9 - CARDIAC ARREST, CAUSE UNSPECIFIED (4) Subglottic stenosis Assessment/Plan: f/u with surgeon. Code(s): J38.6 - STENOSIS OF LARYNX (5) Elevated LFTs Assessment/Plan: f/u serially; ?"passive congestion" from cardiac arrest/CHF; r/o toxic from medications. Code(s): R94.5 - ABNORMAL RESULTS OF LIVER FUNCTION STUDIES (6) Leukocytosis Assessment/Plan: WBC 21; f/u workup to r/o sepsis. Code(s): D72.829 - ELEVATED WHITE BLOOD CELL COUNT, UNSPECIFIED Assessment/Plan CCU time spent: 75 minutes
[2018-10-17] MEDS: ENOXAPARIN NA (PORCINE) 120 MG/0.8 ML DISP.SYRIN SQ SCH (21:53)
[2018-10-17] MEDS: CHLORHEXIDINE GLUCONATE 4% CLEANSER FOR DECOLONIZATION TP SCH (22:02)
[2018-10-18] MEDS: methylPREDNISolone NA SUCC 40 MG/1 ML VIAL IVPB SCH ×4 (02:24→21:46)
[2018-10-18] MEDS: INSULIN SLIDING SCALE (NOVOLOG) 1 VIAL SQ SCH ×3 (02:24→14:05)
[2018-10-18] MEDS ORDERED: DEXTROSE 5%-WATER 100 ML IVPB ONE (08:07)
[2018-10-18] MEDS: CEFTRIAXONE 2 GM in DEXTROSE 5%-WATER 100 ML IVPB SCH (09:00)
[2018-10-18] MEDS: PROPOFOL 1,000,000 MCG/100 ML VIAL IVPB SCH ×2 (09:00→23:24)
[2018-10-18] MEDS: PANTOPRAZOLE SODIUM 40 MG VIAL IVPUSH SCH (09:01)
[2018-10-18] MEDS: MUPIROCIN 2% TOPICAL OINTMENT FOR DECOLONIZATION NS SCH ×2 (09:01→21:47)
[2018-10-18] MEDS: ENOXAPARIN NA (PORCINE) 120 MG/0.8 ML DISP.SYRIN SQ SCH ×2 (10:56→21:46)
--- NOTE | 2018-10-18 13:01 | PN ---
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, Physician History of Present Illness: SEDATED ON VENTILATOR AFEBRILE WBC IMPROVED CULTURES PRELIM NO GROWTH FLU (-) - Current Medication List Current Medications: Active Medications Chlorhexidine Gluconate (Hibiclens For Decolonization -) 1 applic TP HS [facility] Last Admin: 10/17/18 22:02 Dose: 1 applic Enoxaparin Sodium (Lovenox -) 130 mg SQ BID [facility] Last Admin: 10/18/18 10:56 Dose: 130 mg Propofol (Diprivan -) 1,000,000 mcg in 100 mls @ 3.402 mls/hr IVPB TITR [facility]; Protocol Last Admin: 10/18/18 09:00 Dose: 75 mcg/kg/min, 51.029 mls/hr Ceftriaxone Sodium 2 gm/ (Dextrose) 100 mls @ 200 mls/hr IVPB DAILY [facility]; Protocol Last Admin: 10/18/18 09:00 Dose: 200 mls/hr Sodium Chloride (Normal Saline -) 1,000 mls @ 100 mls/hr IV ASDIR [facility] Last Admin: 10/17/18 14:36 Dose: 100 mls/hr Insulin Aspart (Novolog Vial Sliding Scale -) 1 vial SQ Q6H [facility]; Protocol Last Admin: 10/18/18 08:03 Dose: Not Given Methylprednisolone Sodium Succinate (Solu-Medrol -) 40 mg IVPB Q6H-IV [facility] Last Admin: 10/18/18 08:11 Dose: 40 mg Mupirocin (Bactroban Ointment (For Decolonization) -) 1 applic NS BID [facility] Stop: 10/22/18 09:59 Last Admin: 10/18/18 09:01 Dose: 1 applic Pantoprazole Sodium (Protonix Iv) 40 mg IVPUSH DAILY [facility] Last Admin: 10/18/18 09:01 Dose: 40 mg - Objective Vital Signs: Vital Signs Temperature 98.8 F 10/18/18 10:00 Pulse Rate 72 10/18/18 12:00 Respiratory Rate 26 H 10/18/18 12:00 Blood Pressure 130/76 10/18/18 12:00 O2 Sat by Pulse Oximetry (%) 100 10/18/18 09:00 Constitutional: Yes: No Distress Cardiovascular: Yes: Regular Rate and Rhythm, S1, S2 Respiratory: Yes: Mechanically Ventilated Gastrointestinal: Yes: Normal Bowel Sounds, Soft, Abdomen, Obese. No: Tenderness Edema: No Labs: CBC, BMP 10/17/18 11:14 10/17/18 11:14 INR, PTT INR 1.03 (0.83-1.09) 10/17/18 04:48 Assessment/Plan S/P CARDIOPULMONARY ARREST RESP FAILURE LEUKOCYTOSIS- RESOLVED LFT ELEVATION IMPROVED SUBGLOTTIC STENOSIS AWAIT C/S CONTINUE HEMODYNAMIC/ VENTILATORY SUPPORT CONTINUE CEFTRIAXONE
--- NOTE | 2018-10-18 13:30 | PN ---
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 (short form) - Note 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: PULM/CCM Pt Seen & Examined in the ICU. Remains sedated on AC Mode of Vent. No pressors, A-Febrile. Clxrs all neg, Flu neg, leukocytosis resolving. Active Medications Chlorhexidine Gluconate (Hibiclens For Decolonization -) 1 applic TP HS [facility] Last Admin: 10/17/18 22:02 Dose: 1 applic Enoxaparin Sodium (Lovenox -) 130 mg SQ BID [facility] Last Admin: 10/18/18 10:56 Dose: 130 mg Propofol (Diprivan -) 1,000,000 mcg in 100 mls @ 3.402 mls/hr IVPB TITR [facility]; Protocol Last Admin: 10/18/18 09:00 Dose: 75 mcg/kg/min, 51.029 mls/hr Ceftriaxone Sodium 2 gm/ (Dextrose) 100 mls @ 200 mls/hr IVPB DAILY [facility]; Protocol Last Admin: 10/18/18 09:00 Dose: 200 mls/hr Sodium Chloride (Normal Saline -) 1,000 mls @ 100 mls/hr IV ASDIR [facility] Last Admin: 10/17/18 14:36 Dose: 100 mls/hr Insulin Aspart (Novolog Vial Sliding Scale -) 1 vial SQ Q6H [facility]; Protocol Last Admin: 10/18/18 08:03 Dose: Not Given Methylprednisolone Sodium Succinate (Solu-Medrol -) 40 mg IVPB Q6H-IV [facility] Last Admin: 10/18/18 08:11 Dose: 40 mg Mupirocin (Bactroban Ointment (For Decolonization) -) 1 applic NS BID [facility] Stop: 10/22/18 09:59 Last Admin: 10/18/18 09:01 Dose: 1 applic Pantoprazole Sodium (Protonix Iv) 40 mg IVPUSH DAILY [facility] Last Admin: 10/18/18 09:01 Dose: 40 mg Vital Signs Period Temp Pulse Resp BP Sys/Brock Pulse Ox Last 24 Hr 98.5 F-99.4 F 66-87 22-26 100-142/59-99 100-100 Intake & Output 10/15/18 10/16/18 10/17/18 10/18/18 23:59 23:59 23:59 23:59 Intake Total 1300 1860 Output Total 2500 800 Balance -1200 1060 Weight 127 kg 126.7 kg GEN: Obese middle aged woman sedated, intubated on the Vent PULM: CTAB CV: nml S1 S2, RR ABD: Obese, +BS S/S N/T N/D X4Q EXT: + Pulses, WWPX4, (-) edema SKIN: No obvious rashes lesions or ulcers CBC, BMP 10/17/18 11:14 10/17/18 11:14 ABG Results ABG pH 7.45 (7.35-7.45) 10/17/18 17:40 ABG pCO2 at Pt Temp 35.8 mmHg (35-45) 10/17/18 17:40 ABG pO2 at Pt Temp 124 mmHg (80-105) H 10/17/18 17:40 ABG HCO3 24.2 mmol/L (22-27) 10/17/18 17:40 ABG O2 Sat (Measured) 98.7 % (95-98) H 10/17/18 17:40 ABG O2 Content 17.3 % vol (15-22) 10/17/18 17:40 ABG Base Excess 0.9 meq/l (-2-2) 10/17/18 17:40 Microbiology 10/17/18 03:12 Urine - Urine - Catheterized Urine Culture - Final NO GROWTH OBTAINED 10/17/18 05:59 Blood - Peripheral Venous Blood Culture - Preliminary NO GROWTH OBTAINED AFTER 24 HOURS, INCUBATION TO CONTINUE FOR 4 DAYS. 10/17/18 05:59 Blood - Peripheral Venous Blood Culture - Preliminary NO GROWTH OBTAINED AFTER 24 HOURS, INCUBATION TO CONTINUE FOR 4 DAYS. CXR 10/17: ETT @ level of Clavicles, otherwise Clear (My Read). ASSESS: idiopathic autoimmune subglottic stenosis respiratory failure hyperglycemia in the setting of steroids s/p Cardiac arrest Leukocytosis in the setting of steroids Elevated ast/alt PLAN: -NPO -Maintian ETT for airway protection -Sedate for comfort on the Vent -Adjust Vent Rate for a normal pH -steroids -Nebs -R/o infective cause --> F/u Michele Clxr -Abx a/p ID -Strict I's & O's -Trend BUN/Cr -Replete e-lytes prn -FS -SSI -Trend Trop -CARDS -BR -DVT -GI Yesterday I spoke w/ Dr. Taqueria Holder @ [whom is the ENT that did the subglottic laser and dilation procedures ([facility]) on this pt in 2011]. Dr. Taqueria Holder believed that the pt had been doing well since that time and was unaware of any ongoing airway issues. This may be misleading, however: a/p Sister Reny Evans (at the bedside [phone]), the pt does NOT enjoy frequenting physicians. Given the Prednisone at the bedside, there is a possibility that the pt was having active airway issues in the setting of her "cold" & was attempting to self medicate w/ residual steroid Rxs. Ultimately, once infection has been ruled out, if pt does NOT exhibit a cuff leak &/or fails attempts at extubation, she may need a tracheostomy for safety. I would like to carefully consult w/ Dr. Ritesh Munguia (ENT) on this case. This case requires further cautious investigation. -Maintain in ICU [place], [facility] ICU PULM/[facility] 4400 Problem List - Problems (1) Cardiopulmonary arrest with successful resuscitation Code(s): I46.9 - CARDIAC ARREST, CAUSE UNSPECIFIED (2) Subglottic stenosis Code(s): J38.6 - STENOSIS OF LARYNX
[2018-10-18] MEDS: SODIUM CHLORIDE 1,000 ML IV SCH ×2 (14:04→21:00)
--- NOTE | 2018-10-18 16:40 | PN ---
Physical Exam: SUBJECTIVE: Patient seen and examined at the bedside. intubated, sedated. wrist restraints added as patient was pulling on therapy. OBJECTIVE: prolonged qtc Vital Signs Period Temp Pulse Resp BP Sys/Brock Pulse Ox Last 24 Hr 98.5 F-99.4 F 66-87 22-26 100-143/59-85 100-100 GENERAL: intubated, sedated HEAD: Normal with no signs of trauma. EYES: PERRL, extraocular movements intact, sclera anicteric, conjunctiva clear. No ptosis. ENT: Ears normal, nares patent, oropharynx clear without exudates NECK: Trachea midline, full range of motion, supple. 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 NEUROLOGICAL: sedated Laboratory Results - last 24 hr 10/17/18 10/17/18 10/17/18 17:40 17:53 19:32 Anticoagulation Therapy No Result Required. Puncture Site Right brachial ABG pH 7.45 ABG pCO2 at Pt Temp 35.8 ABG pO2 at Pt Temp 124 H ABG HCO3 24.2 ABG O2 Sat (Measured) 98.7 H ABG O2 Content 17.3 ABG Base Excess 0.9 Chetan Test Not applicable O2 Delivery Device Espirit Oxygen Flow Rate 40% Vent Mode A/c Vent Rate 26 Mechanical Rate Espirit PEEP 5.0 Pressure Support Vent 450 POC Glucometer 132 Troponin I 0.88 H* 10/17/18 10/18/18 10/18/18 21:59 02:21 08:01 Anticoagulation Therapy Puncture Site ABG pH ABG pCO2 at Pt Temp ABG pO2 at Pt Temp ABG HCO3 ABG O2 Sat (Measured) ABG O2 Content ABG Base Excess Chetan Test O2 Delivery Device Oxygen Flow Rate Vent Mode Vent Rate Mechanical Rate PEEP Pressure Support Vent POC Glucometer 126 131 136 Troponin I 10/18/18 14:02 Anticoagulation Therapy Puncture Site ABG pH ABG pCO2 at Pt Temp ABG pO2 at Pt Temp ABG HCO3 ABG O2 Sat (Measured) ABG O2 Content ABG Base Excess Chetan Test O2 Delivery Device Oxygen Flow Rate Vent Mode Vent Rate Mechanical Rate PEEP Pressure Support Vent POC Glucometer 149 Troponin I Active Medications Generic Name Dose Route Start Last Admin Trade Name Inderjitq PRN Reason Stop Dose Admin Chlorhexidine Gluconate 1 applic 10/17/18 22:00 10/17/18 22:02 Hibiclens For Decolonization - TP 1 applic HS [facility] Administration Enoxaparin Sodium 130 mg 10/17/18 22:00 10/18/18 10:56 Lovenox - SQ 130 mg BID [facility] Administration Propofol 1,000,000 mcg in 100 mls @ 3.402 mls/hr 10/17/18 03:45 10/18/18 09: 00 Diprivan - IVPB 75 mcg/kg/min TITR [facility] 51.029 mls/hr Administration Protocol 5 MCG/KG/MIN Ceftriaxone Sodium 2 gm/ 100 mls @ 200 mls/hr 10/17/18 11:00 10/18/18 09:00 Dextrose IVPB 200 mls/hr DAILY [facility] Administration Protocol Sodium Chloride 1,000 mls @ 100 mls/hr 10/17/18 14:15 10/18/18 14:04 Normal Saline - IV 100 mls/hr ASDIR [facility] Administration Insulin Aspart 1 vial 10/17/18 08:15 10/18/18 14:05 Novolog Vial Sliding Scale - SQ Not Given Q6H [facility] Protocol Methylprednisolone Sodium Succinate 40 mg 10/17/18 09:00 10/18/18 14:04 Solu-Medrol - IVPB 40 mg Q6H-IV [facility] Administration Mupirocin 1 applic 10/17/18 10:00 10/18/18 09:01 Bactroban Ointment (For Decolonization) - NS 10/22/18 09:59 1 applic BID [facility] Administration Pantoprazole Sodium 40 mg 10/17/18 10:00 10/18/18 09:01 Protonix Iv IVPUSH 40 mg DAILY [facility] Administration ASSESSMENT/PLAN: Patient is a 53 year old female with a past medical history of idiopathic autoimmune 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 First dx in 2005, s/p multiple laser and dilation surgeries by Dr. Holder at [facility],. Had surgical procedure on 2012 and has had multiple corrective procedures in the past including laser and surgical. Patient present from home with respiratory failure and cardiopulmonary arrest with ROSC achieved by EMS in the field. Patient had called EMS for help, was intubated in the field and given Versed. Per admission, note she subsequently had cardiac arrest for about a 90 second period during which time she got a round of epi and CPR. ED labs shows negative toxicology with +benzos (received versed in field), glucose in the 300s. ER course notable for Respiratory acidosis (pH 7.12), elevated WBC @21.1, elevated ast/alt Imaging: chest xray with weak inspiration, ett tube in place: problem list: idiopathic autoimmune subglottic stenosis respiratory failure Central airway obstruction hyperglycemia Cardiac arrest Elevated troponins Leukocytosis Elevated ast/alt Acute respiratory failure Idopathic subglottic stenosis Central airway obstruction -ICU monitoring. -remains intubated and sedated. -on solumedrol 40mg q6 -negative for flu -surgical consult for possible dilation-ENT (has MD at [place]) Hyperglycemia -in the setting of steriod therapy(prednisone) -hmga1c 6.1 -on novolog q6 based on bgms Cardiac arrest Elevated troponins -Trops increased to 0.88 -lovenox 130mg bid -cardiology consulted and following Leukocytosis WBC 21.1 on presentation, now 8.6 - blood cultures pending - seen by ID, started on ceftriaxone Elevated ast/alt - liver u/s shows multiple gallstones, no acute cholecystitis, hepatomegaly suggestive of fatty infiltration fen npo, ivf NS @ 100cc/hr monitor electrolytes prophy lovenox bid Visit type - Emergency Visit Emergency Visit: Yes ED Registration Date: 10/17/18 Care time: The patient presented to the Emergency Department on the above date and was hospitalized for further evaluation of their emergent condition. - New Patient This patient is new to me today: No - Critical Care Critical Care patient: Yes Total Critical Care Time (in minutes): 45 Critical Care Statement: The care of this patient involved high complexity decision making to prevent further life threatening deterioration of the patient 's condition and/or to evaluate & treat vital organ system(s) failure or risk of failure.
[2018-10-18] MEDS ORDERED: PROPOFOL 1,000,000 MCG/100 ML VIAL ONE ×2 (16:48→17:04)
--- NOTE | 2018-10-18 17:56 | EKG ---
Test Reason : Blood Pressure : / mmHG Vent. Rate : 069 BPM Atrial Rate : 069 BPM P-R Int : 136 ms QRS Dur : 096 ms QT Int : 478 ms P-R-T Axes : 019 017 052 degrees QTc Int : 512 ms NORMAL SINUS RHYTHM PROLONGED QT ABNORMAL ECG WHEN COMPARED WITH ECG OF 17-OCT-2018 14:08, NO SIGNIFICANT CHANGE WAS FOUND Confirmed by RYAN DENTON MD ([id number]) on 10/18/2018 5:56:23 PM Referred By: Patrice RASMUSSEN Confirmed By:RYAN DENTON MD
--- NOTE | 2018-10-18 17:59 | EKG ---
Test Reason : Blood Pressure : / mmHG Vent. Rate : 080 BPM Atrial Rate : 080 BPM P-R Int : 138 ms QRS Dur : 096 ms QT Int : 408 ms P-R-T Axes : 029 016 044 degrees QTc Int : 470 ms NORMAL SINUS RHYTHM NORMAL ECG WHEN COMPARED WITH ECG OF 17-OCT-2018 02:47, NON-SPECIFIC CHANGE IN ST SEGMENT IN LATERAL LEADS NONSPECIFIC T WAVE ABNORMALITY NO LONGER EVIDENT IN INFERIOR LEADS Confirmed by BERTIN LAZO, RYAN ([id number]) on 10/18/2018 5:59:06 PM Referred By: Patrice RASMUSSEN Confirmed By:RYAN DENTON MD
[2018-10-18] MEDS ORDERED: fentaNYL CITRATE 250 MCG/5 ML VIAL ONE (21:44)
[2018-10-18] MEDS ORDERED: PROPOFOL 2,000,000 MCG/200 ML VIAL ONE (21:45)
[2018-10-18] MEDS: FENTANYL INJECTION 500 MCG in DEXTROSE 5%-WATER - 90 ML IVPB SCH (21:46)
[2018-10-18] MEDS: CHLORHEXIDINE GLUCONATE 4% CLEANSER FOR DECOLONIZATION TP SCH (21:47)
[2018-10-19] MEDS: INSULIN SLIDING SCALE (NOVOLOG) 1 VIAL SQ SCH ×5 (00:43→22:08)
[2018-10-19] MEDS: methylPREDNISolone NA SUCC 40 MG/1 ML VIAL IVPB SCH ×2 (02:30→08:30)
[2018-10-19] MEDS ORDERED: fentaNYL CITRATE 250 MCG/5 ML VIAL ONE (05:38)
[2018-10-19] MEDS: PROPOFOL 1,000,000 MCG/100 ML VIAL IVPB SCH ×3 (05:43→23:17)
[2018-10-19] MEDS: SODIUM CHLORIDE 1,000 ML IV SCH ×2 (05:45→14:33)
[2018-10-19] MEDS: FENTANYL INJECTION 500 MCG in DEXTROSE 5%-WATER - 90 ML IVPB SCH ×2 (05:46→20:24)
--- NOTE | 2018-10-19 06:37 | PN ---
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, Physician Chief Complaint: Pt remains intubated/sedated. - Current Medication List Current Medications: Active Medications Chlorhexidine Gluconate (Hibiclens For Decolonization -) 1 applic TP HS [facility] Last Admin: 10/18/18 21:47 Dose: 1 applic Enoxaparin Sodium (Lovenox -) 130 mg SQ BID [facility] Last Admin: 10/18/18 21:46 Dose: 130 mg Propofol (Diprivan -) 1,000,000 mcg in 100 mls @ 3.402 mls/hr IVPB TITR [facility]; Protocol Last Admin: 10/19/18 05:43 Dose: 50 mcg/kg/min, 34.019 mls/hr Ceftriaxone Sodium 2 gm/ (Dextrose) 100 mls @ 200 mls/hr IVPB DAILY [facility]; Protocol Last Admin: 10/18/18 09:00 Dose: 200 mls/hr Sodium Chloride (Normal Saline -) 1,000 mls @ 100 mls/hr IV ASDIR [facility] Last Admin: 10/19/18 05:45 Dose: 100 mls/hr Fentanyl 500 mcg/ Dextrose 100 mls @ 10 mls/hr IVPB TITR [facility]; Protocol Last Admin: 10/19/18 05:46 Dose: 50 mcg/hr, 10 mls/hr Insulin Aspart (Novolog Vial Sliding Scale -) 1 vial SQ Q6H [facility]; Protocol Last Admin: 10/19/18 02:35 Dose: Not Given Methylprednisolone Sodium Succinate (Solu-Medrol -) 40 mg IVPB Q6H-IV [facility] Last Admin: 10/19/18 02:30 Dose: 40 mg Mupirocin (Bactroban Ointment (For Decolonization) -) 1 applic NS BID [facility]PLAC[facility] BY [facility] Stop: 10/22/18 09:59 Last Admin: 10/18/18 21:47 Dose: 1 applic Pantoprazole Sodium (Protonix Iv) 40 mg IVPUSH DAILY [facility] Last Admin: 10/18/18 09:01 Dose: 40 mg - Objective Vital Signs: Vital Signs Temperature 98.2 F 10/19/18 02:00 Pulse Rate 51 L 10/19/18 04:00 Respiratory Rate 26 H 10/19/18 05:57 Blood Pressure 136/77 10/19/18 04:00 O2 Sat by Pulse Oximetry (%) 100 10/18/18 22:00 Labs: CBC, BMP 10/17/18 11:14 10/17/18 11:14 INR, PTT INR 1.03 (0.83-1.09) 10/17/18 04:48 Problem List - Problems (1) Cardiopulmonary arrest with successful resuscitation Assessment/Plan: Hemodynamically stable; has not required vasopressors. Remains intubated/ventilated. WBCs have normalized. TNI elevated mildly (to 0.87); no acute STT changes. F/u ECHO for wall motion, LVEF, valve status. Evaluation of coronary arteries when stable (multiple CAD risks; now with cardiac arrest); r/o need for ICD. F/u Is and Os, electrolytes, TNI , EKG/telemetry. F/u TSH, lipids. Code(s): I46.9 - CARDIAC ARREST, CAUSE UNSPECIFIED (2) Elevated LFTs Assessment/Plan: f/u serially; ?"passive congestion" from cardiac arrest/CHF; r/o toxic from medications; now improving. Code(s): R94.5 - ABNORMAL RESULTS OF LIVER FUNCTION STUDIES (3) Elevated troponin Assessment/Plan: TNI 0.11-->0.88; normal CK. Elevation of TNI from demand ischemia and trauma (?opiod overdose; cardiorespiratory arrest; chest compressions during resusitation). F/u TNI, EKG, telemetry. ECHO for LVEF, wall motion. Evaluation of coronary arteries when stable. Code(s): R74.8 - ABNORMAL LEVELS OF OTHER SERUM ENZYMES (4) Leukocytosis Assessment/Plan: WBC 21 initially; has now normalized. Code(s): D72.829 - ELEVATED WHITE BLOOD CELL COUNT, UNSPECIFIED (5) Morbid obesity Code(s): E66.01 - MORBID (SEVERE) OBESITY DUE TO EXCESS CALORIES (6) Subglottic stenosis Assessment/Plan: f/u with pt's surgeon; ENT evaluation. Code(s): J38.6 - STENOSIS OF LARYNX Assessment/Plan CCU time spent: 35 minutes
[2018-10-19 07:07] LABS: HEMOGLOBIN 11.5 GM/dL (10.7-15.3); MCH 29.6 pg (25.7-33.7); MCHC 33.8 g/dl (32.0-36.0); MEAN CELL VOLUME 87.7 fl (80-96); MEAN PLT VOLUME 9.1 fl (7.5-11.1); PLATELET COUNT 230 K/MM3 (134-434); RBC 3.87 M/mm3 (3.60-5.2); RDW 13.6 % (11.6-15.6); WHITE BLOOD COUNT 9.1 K/mm3 (4.0-10.0)
[2018-10-19 07:45] LABS: ANION GAP 8 MMOL/L (8-16); BLOOD UREA NITROGEN 11 mg/dL (7-18); CALCIUM 7.9 mg/dL (8.5-10.1); CHLORIDE 111 mmol/L (98-107); CHOLESTEROL 201 mg/dL (50-200); CO2 25 mmol/L (21-32); CREATININE 0.5 mg/dL (0.55-1.3); GLUCOSE,RANDOM 165 mg/dL (74-106); HDL CHOLESTEROL 44 mg/dL (40-60); MAGNESIUM 2.2 mg/dL (1.8-2.4); POTASSIUM 3.5 mmol/L (3.5-5.1); SODIUM 143 mmol/L (136-145); TRIGLYCERIDES 238 mg/dL (0-150)
[2018-10-19] MEDS ORDERED: DEXTROSE 5%-WATER 100 ML IVPB ONE (08:20)
[2018-10-19] MEDS: PANTOPRAZOLE SODIUM 40 MG VIAL IVPUSH SCH (09:11)
[2018-10-19] MEDS: ENOXAPARIN NA (PORCINE) 120 MG/0.8 ML DISP.SYRIN SQ SCH (09:11)
[2018-10-19] MEDS: CEFTRIAXONE 2 GM in DEXTROSE 5%-WATER 100 ML IVPB SCH (09:12)
[2018-10-19] MEDS: MUPIROCIN 2% TOPICAL OINTMENT FOR DECOLONIZATION NS SCH ×2 (09:12→22:07)
--- NOTE | 2018-10-19 09:49 | PN ---
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, Physician History of Present Illness: SEDATED ON VENTILATOR AFEBRILE WBC WNL CULTURES PRELIM NO GROWTH FLU (-) - Current Medication List Current Medications: Active Medications Chlorhexidine Gluconate (Hibiclens For Decolonization -) 1 applic TP HS [facility] Last Admin: 10/18/18 21:47 Dose: 1 applic Enoxaparin Sodium (Lovenox -) 130 mg SQ BID [facility] Last Admin: 10/19/18 09:11 Dose: 130 mg Propofol (Diprivan -) 1,000,000 mcg in 100 mls @ 3.402 mls/hr IVPB TITR [facility]; Protocol Last Admin: 10/19/18 05:43 Dose: 50 mcg/kg/min, 34.019 mls/hr Ceftriaxone Sodium 2 gm/ (Dextrose) 100 mls @ 200 mls/hr IVPB DAILY [facility]; Protocol Last Admin: 10/19/18 09:12 Dose: 200 mls/hr Sodium Chloride (Normal Saline -) 1,000 mls @ 100 mls/hr IV ASDIR [facility] Last Admin: 10/19/18 05:45 Dose: 100 mls/hr Fentanyl 500 mcg/ Dextrose 100 mls @ 10 mls/hr IVPB TITR [facility]; Protocol Last Admin: 10/19/18 05:46 Dose: 50 mcg/hr, 10 mls/hr Insulin Aspart (Novolog Vial Sliding Scale -) 1 vial SQ Q6H [facility]; Protocol Last Admin: 10/19/18 08:11 Dose: 2 units Methylprednisolone Sodium Succinate (Solu-Medrol -) 40 mg IVPB Q6H-IV [facility] Last Admin: 10/19/18 08:30 Dose: 40 mg Mupirocin (Bactroban Ointment (For Decolonization) -) 1 applic NS BID [facility] Stop: 10/22/18 09:59 Last Admin: 10/19/18 09:12 Dose: 1 applic Pantoprazole Sodium (Protonix Iv) 40 mg IVPUSH DAILY [facility] Last Admin: 10/19/18 09:11 Dose: 40 mg - Objective Vital Signs: Vital Signs Temperature 98.7 F 10/19/18 06:00 Pulse Rate 53 L 10/19/18 06:00 Respiratory Rate 26 H 10/19/18 08:59 Blood Pressure 127/70 10/19/18 06:00 O2 Sat by Pulse Oximetry (%) 100 10/18/18 22:00 Constitutional: Yes: No Distress Eyes: Yes: Conjunctiva Clear Cardiovascular: Yes: Regular Rate and Rhythm, S1, S2 Respiratory: Yes: Mechanically Ventilated Gastrointestinal: Yes: Normal Bowel Sounds, Soft, Abdomen, Obese. No: Tenderness Edema: Yes Labs: CBC, BMP 10/19/18 05:30 10/19/18 05:30 INR, PTT INR 1.03 (0.83-1.09) 10/17/18 04:48 Assessment/Plan S/P CARDIOPULMONARY ARREST RESP FAILURE LEUKOCYTOSIS- RESOLVED LFT ELEVATION IMPROVED SUBGLOTTIC STENOSIS CONTINUE HEMODYNAMIC/ VENTILATORY SUPPORT CONTINUE EMPIRIC CEFTRIAXONE
--- NOTE | 2018-10-19 11:34 | PN ---
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, Physician Chief Complaint: Events noted Remains in ICU intubated and sedated History of Present Illness: Patient was seen and examined. Mechanical ventilation. Chart was reviewed - Current Medication List Current Medications: Active Medications Chlorhexidine Gluconate (Hibiclens For Decolonization -) 1 applic TP HS [facility] Last Admin: 10/18/18 21:47 Dose: 1 applic Dexamethasone Sodium Phosphate (Decadron Injection -) 10 mg IVPUSH Q8H-IV [facility] Enoxaparin Sodium (Lovenox -) 130 mg SQ BID [facility] Last Admin: 10/19/18 09:11 Dose: 130 mg Propofol (Diprivan -) 1,000,000 mcg in 100 mls @ 3.402 mls/hr IVPB TITR [facility]; Protocol Last Admin: 10/19/18 05:43 Dose: 50 mcg/kg/min, 34.019 mls/hr Ceftriaxone Sodium 2 gm/ (Dextrose) 100 mls @ 200 mls/hr IVPB DAILY [facility]; Protocol Last Admin: 10/19/18 09:12 Dose: 200 mls/hr Sodium Chloride (Normal Saline -) 1,000 mls @ 100 mls/hr IV ASDIR [facility] Last Admin: 10/19/18 05:45 Dose: 100 mls/hr Fentanyl 500 mcg/ Dextrose 100 mls @ 10 mls/hr IVPB TITR [facility]; Protocol Last Admin: 10/19/18 05:46 Dose: 50 mcg/hr, 10 mls/hr Insulin Aspart (Novolog Vial Sliding Scale -) 1 vial SQ Q6H [facility]; Protocol Last Admin: 10/19/18 08:11 Dose: 2 units Mupirocin (Bactroban Ointment (For Decolonization) -) 1 applic NS BID [facility] Stop: 10/22/18 09:59 Last Admin: 10/19/18 09:12 Dose: 1 applic Pantoprazole Sodium (Protonix Iv) 40 mg IVPUSH DAILY [facility] Last Admin: 10/19/18 09:11 Dose: 40 mg - Objective Vital Signs: Vital Signs Temperature 98.4 F 10/19/18 10:00 Pulse Rate 50 L 10/19/18 10:00 Respiratory Rate 26 H 10/19/18 10:00 Blood Pressure 123/70 10/19/18 10:00 O2 Sat by Pulse Oximetry (%) 100 10/18/18 22:00 Neck: Yes: Supple Cardiovascular: Yes: Regular Rate and Rhythm, S1, S2 Respiratory: Yes: Intubated, Mechanically Ventilated Gastrointestinal: Yes: Normal Bowel Sounds, Soft. No: Tenderness Edema: No Labs: CBC, BMP 10/19/18 05:30 10/19/18 05:30 INR, PTT INR 1.03 (0.83-1.09) 10/17/18 04:48 Laboratory Results - last 24 hr 10/19/18 10/19/18 10/19/18 05:30 05:30 08:09 WBC 9.1 RBC 3.87 Hgb 11.5 Hct 34.0 D MCV 87.7 MCH 29.6 MCHC 33.8 RDW 13.6 Plt Count 230 MPV 9.1 Sodium 143 Potassium 3.5 Chloride 111 H Carbon Dioxide 25 Anion Gap 8 BUN 11 Creatinine 0.5 L Creat Clearance w eGFR 128.10 POC Glucometer 161 Random Glucose 165 H Calcium 7.9 L Phosphorus 3.0 Magnesium 2.2 Triglycerides 238 H Cholesterol 201 H Total LDL Cholesterol 120 H HDL Cholesterol 44 TSH 0.11 L RSV Rapid Problem List - Problems (1) Cardiopulmonary arrest with successful resuscitation Code(s): I46.9 - CARDIAC ARREST, CAUSE UNSPECIFIED (2) Elevated LFTs Code(s): R94.5 - ABNORMAL RESULTS OF LIVER FUNCTION STUDIES (3) Elevated troponin Code(s): R74.8 - ABNORMAL LEVELS OF OTHER SERUM ENZYMES (4) Leukocytosis Code(s): D72.829 - ELEVATED WHITE BLOOD CELL COUNT, UNSPECIFIED (5) Morbid obesity Code(s): E66.01 - MORBID (SEVERE) OBESITY DUE TO EXCESS CALORIES (6) Subglottic stenosis Code(s): J38.6 - STENOSIS OF LARYNX Assessment/Plan 1. Demand ischemia with elevated troponin 2. ? Opioid overdose 3. Respiratory failure on mechanical ventilation 4. Post cardiopulmonary arrest 5. Subglottic stenosis 6. Hypercholesterolemia 7. Transient leukocytosis 8. Abnormal LFT likely passive congestion PLAN: 1. Vent management as per critical care team 2. Trend troponin (last done on 10/17/18) would repeat 3. Echocardiography showed normal LV systolic function LVEF 55-60%, grade 1 diastolic dysfunction, mild TR 4. Empiric antibiotics 5. DVT and GI prophylaxis Supportive care Guarded Dax oYder MD
--- NOTE | 2018-10-19 12:42 | PN ---
Physical Exam: SUBJECTIVE: Patient seen this morning, intubated and sedated. Patient had no acute events overnight. OBJECTIVE: Vital Signs Temperature 98.4 F 10/19/18 10:00 Pulse Rate 50 L 10/19/18 10:00 Respiratory Rate 26 H 10/19/18 11:46 Blood Pressure 123/70 10/19/18 10:00 O2 Sat by Pulse Oximetry (%) 100 10/18/18 22:00 GENERAL: The patient is sedated HEAD: Normal with no signs of trauma. LUNGS: Breath sounds equal, clear to auscultation bilaterally, no wheezes, no crackles, no accessory muscle use. HEART: Regular rate and rhythm, S1, S2 without murmur, rub or gallop. ABDOMEN: Soft, nontender, nondistended, normoactive bowel sounds, EXTREMITIES: 2+ pulses, warm, well-perfused, no edema. SKIN: Warm, dry, normal turgor, no rashes or lesions noted CBCD WBC 9.1 K/mm3 (4.0-10.0) 10/19/18 05:30 RBC 3.87 M/mm3 (3.60-5.2) 10/19/18 05:30 Hgb 11.5 GM/dL (10.7-15.3) 10/19/18 05:30 Hct 34.0 % (32.4-45.2) D 10/19/18 05:30 MCV 87.7 fl (80-96) 10/19/18 05:30 MCHC 33.8 g/dl (32.0-36.0) 10/19/18 05:30 RDW 13.6 % (11.6-15.6) 10/19/18 05:30 Plt Count 230 K/MM3 (134-434) 10/19/18 05:30 MPV 9.1 fl (7.5-11.1) 10/19/18 05:30 CMP Sodium 143 mmol/L (136-145) 10/19/18 05:30 Potassium 3.5 mmol/L (3.5-5.1) 10/19/18 05:30 Chloride 111 mmol/L (98-107) H 10/19/18 05:30 Carbon Dioxide 25 mmol/L (21-32) 10/19/18 05:30 Anion Gap 8 MMOL/L (8-16) 10/19/18 05:30 BUN 11 mg/dL (7-18) 10/19/18 05:30 Creatinine 0.5 mg/dL (0.55-1.3) L 10/19/18 05:30 Creat Clearance w eGFR 128.10 (>60) 10/19/18 05:30 Calcium 7.9 mg/dL (8.5-10.1) L 10/19/18 05:30 Total Bilirubin 0.5 mg/dL (0.2-1) 10/17/18 11:14 AST 139 U/L (15-37) H 10/17/18 11:14 ALT 133 U/L (13-61) H 10/17/18 11:14 Alkaline Phosphatase 98 U/L (45-117) 10/17/18 11:14 Total Protein 6.9 g/dl (6.4-8.2) 10/17/18 11:14 Albumin 3.3 g/dl (3.4-5.0) L 10/17/18 11:14 Active Medications Chlorhexidine Gluconate (Hibiclens For Decolonization -) 1 applic TP HS VANDANA Last Admin: 10/18/18 21:47 Dose: 1 applic Dexamethasone Sodium Phosphate (Decadron Injection -) 10 mg IVPUSH Q8H-IV VANDANA Enoxaparin Sodium (Lovenox -) 40 mg SQ DAILY VANDANA Propofol (Diprivan -) 1,000,000 mcg in 100 mls @ 3.402 mls/hr IVPB TITR VANDANA; Protocol Last Admin: 10/19/18 05:43 Dose: 50 mcg/kg/min, 34.019 mls/hr Ceftriaxone Sodium 2 gm/ (Dextrose) 100 mls @ 200 mls/hr IVPB DAILY VANDANA; Protocol Last Admin: 10/19/18 09:12 Dose: 200 mls/hr Sodium Chloride (Normal Saline -) 1,000 mls @ 100 mls/hr IV ASDIR VANDANA Last Admin: 10/19/18 05:45 Dose: 100 mls/hr Fentanyl 500 mcg/ Dextrose 100 mls @ 10 mls/hr IVPB TITR VANDANA; Protocol Last Admin: 10/19/18 05:46 Dose: 50 mcg/hr, 10 mls/hr Insulin Aspart (Novolog Vial Sliding Scale -) 1 vial SQ Q6H VANDANA; Protocol Last Admin: 10/19/18 08:11 Dose: 2 units Mupirocin (Bactroban Ointment (For Decolonization) -) 1 applic NS BID [facility] Stop: 10/22/18 09:59 Last Admin: 10/19/18 09:12 Dose: 1 applic Pantoprazole Sodium (Protonix Iv) 40 mg IVPUSH DAILY [facility] Last Admin: 10/19/18 09:11 Dose: 40 mg ASSESSMENT/PLAN: Patient is a 53 y/o female with a history of autoimmune subglottic stenosis who presents for acute respiratory failure. Neuro - sedated and intubated - continue sedation vacations - on propofol and versed Cardio - vitals stable - LV function normal - EF: 55-60%, Grade I dyastloic dysfunction Pulm - leak trial positive for edema, - intubated with settings : rate 26, TV 450, O2 40%, PEEP 5 - Decadron 10 q8h GI - protonix 40 IV push for ppx Nephro - stable ID - continue Ceftriaxone possible URI covergae Heme - Lovenox 40 daily, per Dr. Yoder not worried for cardiac event - anticoagulation Endo - SS - TSH 0.11 FEN - NS @ 100 Dispo: f/u possible transfer to [place], discuss with primary team for ENT consult Visit type - Emergency Visit Emergency Visit: No - New Patient This patient is new to me today: Yes Date on this admission: 10/19/18 - Critical Care Critical Care patient: Yes Total Critical Care Time (in minutes): 40 Critical Care Statement: The care of this patient involved high complexity decision making to prevent further life threatening deterioration of the patient 's condition and/or to evaluate & treat vital organ system(s) failure or risk of failure.
--- NOTE | 2018-10-19 12:44 | PN ---
Teaching Attending Note Name of Resident: Ashley Diaz ATTENDING PHYSICIAN STATEMENT I saw and evaluated the patient. I reviewed the resident's note and discussed the case with the resident. I agree with the resident's findings and plan as documented. SUBJECTIVE: Patient seen & examined in the ICU. Remains sedated on AC Mode of Vent. No pressors. Minimal leak on testing this AM, indicating upper airway edema around ETT. Intake & Output 10/16/18 10/17/18 10/18/18 10/19/18 23:59 23:59 23:59 23:59 Intake Total 1300 3240 1789 Output Total 2500 2400 800 Balance -1200 840 989 Weight 279 lb 15.793 oz 279 lb 5.211 oz 281 lb 4 oz Last Vital Signs Temp Pulse Resp BP Pulse Ox 98.4 F 50 L 26 H 123/70 100 10/19/18 10:00 10/19/18 10:00 10/19/18 11:46 10/19/18 10:00 10/18/18 22:00 Active Medications Chlorhexidine Gluconate (Hibiclens For Decolonization -) 1 applic TP HS VANDANA Last Admin: 10/18/18 21:47 Dose: 1 applic Dexamethasone Sodium Phosphate (Decadron Injection -) 10 mg IVPUSH Q8H-IV VANDANA Enoxaparin Sodium (Lovenox -) 40 mg SQ DAILY VANDANA Propofol (Diprivan -) 1,000,000 mcg in 100 mls @ 3.402 mls/hr IVPB TITR VANDANA; Protocol Last Admin: 10/19/18 05:43 Dose: 50 mcg/kg/min, 34.019 mls/hr Ceftriaxone Sodium 2 gm/ (Dextrose) 100 mls @ 200 mls/hr IVPB DAILY VANDANA; Protocol Last Admin: 10/19/18 09:12 Dose: 200 mls/hr Sodium Chloride (Normal Saline -) 1,000 mls @ 100 mls/hr IV ASDIR VANDANA Last Admin: 10/19/18 05:45 Dose: 100 mls/hr Fentanyl 500 mcg/ Dextrose 100 mls @ 10 mls/hr IVPB TITR VANDANA; Protocol Last Admin: 10/19/18 05:46 Dose: 50 mcg/hr, 10 mls/hr Insulin Aspart (Novolog Vial Sliding Scale -) 1 vial SQ Q6H VANDANA; Protocol Last Admin: 10/19/18 08:11 Dose: 2 units Mupirocin (Bactroban Ointment (For Decolonization) -) 1 applic NS BID [facility] Stop: 10/22/18 09:59 Last Admin: 10/19/18 09:12 Dose: 1 applic Pantoprazole Sodium (Protonix Iv) 40 mg IVPUSH DAILY [facility] Last Admin: 10/19/18 09:11 Dose: 40 mg GEN: Obese middle aged woman sedated, intubated on the Vent PULM: Scattered rhonchi, no wheeze CV: S1 S2, RR ABD: Obese, (+) BS Soft, non-tender EXT: + Pulses, WWPX4, (-) edema SKIN: No obvious rashes lesions or ulcers [employer]: sedated Laboratory Results - last 24 hr 10/18/18 10/18/18 10/19/18 14:02 23:30 00:40 WBC RBC Hgb Hct MCV MCH MCHC RDW Plt Count MPV Sodium Potassium Chloride Carbon Dioxide Anion Gap BUN Creatinine Creat Clearance w eGFR POC Glucometer 149 146 Random Glucose Calcium Phosphorus Magnesium Triglycerides Cholesterol Total LDL Cholesterol HDL Cholesterol TSH RSV Rapid Negative 10/19/18 10/19/18 10/19/18 02:32 05:30 05:30 WBC 9.1 RBC 3.87 Hgb 11.5 Hct 34.0 D MCV 87.7 MCH 29.6 MCHC 33.8 RDW 13.6 Plt Count 230 MPV 9.1 Sodium 143 Potassium 3.5 Chloride 111 H Carbon Dioxide 25 Anion Gap 8 BUN 11 Creatinine 0.5 L Creat Clearance w eGFR 128.10 POC Glucometer 133 Random Glucose 165 H Calcium 7.9 L Phosphorus 3.0 Magnesium 2.2 Triglycerides 238 H Cholesterol 201 H Total LDL Cholesterol 120 H HDL Cholesterol 44 TSH 0.11 L RSV Rapid 10/19/18 08:09 WBC RBC Hgb Hct MCV MCH MCHC RDW Plt Count MPV Sodium Potassium Chloride Carbon Dioxide Anion Gap BUN Creatinine Creat Clearance w eGFR POC Glucometer 161 Random Glucose Calcium Phosphorus Magnesium Triglycerides Cholesterol Total LDL Cholesterol HDL Cholesterol TSH RSV Rapid Problem List - Problems (1) Cardiopulmonary arrest with successful resuscitation Code(s): I46.9 - CARDIAC ARREST, CAUSE UNSPECIFIED (2) Subglottic stenosis Code(s): J38.6 - STENOSIS OF LARYNX ASSESS: Upper Airway Edema History of Idiopathic autoimmune subglottic stenosis Acute Respiratory failure Hyperglycemia in the setting of steroids s/p Cardiac arrest (? 90 seconds to ROSC) Leukocytosis in the setting of steroids Transaminitis PLAN: -Maintian ETT for airway protection -Sedate for comfort on the Vent -Change steroids to Decadron -BD TX -ABX coverage per ID -Strict I's & O's -Trend BUN/Cr -Replete e-lytes prn -Enteral feeds -Would contact [facility] for possible transfer as he is known to their ENT service -VTE prophyalxis -GI prophylaxis -Noted ENT evaluation was called -Requires ICU monitoring Dr Osorio Critical care time spent in reviewing chart, evaluating patient and formulating plan - 36 minutes.
--- NOTE | 2018-10-19 13:31 | ECHO ---
Name: COSMO BRYAN Exam:Adult Echocardiogram Study Date: 10/19/2018 11:30 AM Age: 53 yrs Reason For Study: CARDIOMULMONARY ARREST Height: 66 in Weight: 281 lb BSA: 2.3 m2 MMode/2D Measurements & Calculations IVSd: 1.1 cm Ao root diam: 3.5 cm LVIDd: 6.0 cm LA dimension: 4.1 cm LVIDs: 4.0 cm ACS: 2.1 cm LVPWd: 1.0 cm IVSs: 1.5 cm LVPWs: 1.3 cm EDV(Teich): 176.8 ml ESV(Teich): 71.5 ml Doppler Measurements & Calculations MV E max ricky: 54.0 cm/sec Ao V2 max: 120.8 cm/sec MV A max ricky: 52.6 cm/sec Ao max P.8 mmHg MV E/A: 1.0 Ao V2 mean: 77.4 cm/sec Ao mean P.9 mmHg Ao V2 VTI: 25.3 cm TR max ricky: 178.7 cm/sec Med Peak E' Ricky: 5.6 cm/sec TR max P.8 mmHg Med E/e': 9.7 Lat Peak E' Ricky: 5.9 cm/sec Lat E/e': 9.1 Procedure A complete two-dimensional transthoracic echocardiogram was performed (2D, M-mode, Doppler and color flow Doppler). Left Ventricle The left ventricle is normal in size. Left ventricular systolic function is normal. Ejection Fraction = 55- 60%. Grade I diastolic dysfunction, (abnormal relaxation pattern). Ratio E/E'= 10. No regional wall m otion abnormalities noted. Right Ventricle The right ventricle is normal size. The right ventricular systolic function is normal. Atria The left atrium is mildly dilated. Right atrial size is normal. Mitral Valve There is mild mitral valve thickening. There is no mitral regurgitation noted. Tricuspid Valve The tricuspid valve is normal in structure and function. There is mild tricuspid regurgitation. Pulmo nary artery systolic pressure is at least 21 mmHg assuming RA pressure of 8 mmHg. Aortic Valve The aortic valve is normal in structure and function. No aortic regurgitation is present. Pulmonic Valve The pulmonic valve is not well visualized. Great Vessels The aortic root is normal size. Pericardium/Pleura There is no pericardial effusion. Interpretation Summary The left ventricle is normal in size. Left ventricular systolic function is normal. No regional wall motion abnormalities noted. Ejection Fraction = 55-60%. Grade I diastolic dysfunction, (abnormal relaxation pattern). Ratio E/E'= 10 The right ventricular systolic function is normal. The left atrium is mildly dilated. Right atrial size is normal. There is mild mitral valve thickening. There is mild tricuspid regurgitation. Pulmonary artery systolic pressure is at least 21 mmHg assuming RA pressure of 8 mmHg There is no pericardial effusion. Previous study is not available for comparison Dax Yoder MD 10/19/2018 01:30 PM
[2018-10-19] MEDS: DEXAMETHASONE SOD PHOSPHATE 10 MG/1 ML VIAL IVPUSH SCH (17:20)
--- NOTE | 2018-10-19 17:32 | PN ---
Physical Exam: SUBJECTIVE: Patient seen and examined at the bedside. no overnight events. remains intubated. OBJECTIVE: ENT consulted Vital Signs Period Temp Pulse Resp BP Sys/Brock Pulse Ox Last 24 Hr 98.2 F-98.7 F 50-67 22-26 119-150/70-86 95-100 GENERAL: intubated, sedated HEAD: Normal with no signs of trauma. EYES: PERRL, extraocular movements intact, sclera anicteric, conjunctiva clear. No ptosis. ENT: Ears normal, nares patent, oropharynx clear without exudates NECK: Trachea midline, full range of motion, supple. 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 NEUROLOGICAL: sedated Laboratory Results - last 24 hr 10/18/18 10/19/18 10/19/18 23:30 00:40 02:32 WBC RBC Hgb Hct MCV MCH MCHC RDW Plt Count MPV Sodium Potassium Chloride Carbon Dioxide Anion Gap BUN Creatinine Creat Clearance w eGFR POC Glucometer 146 133 Random Glucose Calcium Phosphorus Magnesium Triglycerides Cholesterol Total LDL Cholesterol HDL Cholesterol TSH RSV Rapid Negative 10/19/18 10/19/18 10/19/18 05:30 05:30 08:09 WBC 9.1 RBC 3.87 Hgb 11.5 Hct 34.0 D MCV 87.7 MCH 29.6 MCHC 33.8 RDW 13.6 Plt Count 230 MPV 9.1 Sodium 143 Potassium 3.5 Chloride 111 H Carbon Dioxide 25 Anion Gap 8 BUN 11 Creatinine 0.5 L Creat Clearance w eGFR 128.10 POC Glucometer 161 Random Glucose 165 H Calcium 7.9 L Phosphorus 3.0 Magnesium 2.2 Triglycerides 238 H Cholesterol 201 H Total LDL Cholesterol 120 H HDL Cholesterol 44 TSH 0.11 L RSV Rapid 10/19/18 14:04 WBC RBC Hgb Hct MCV MCH MCHC RDW Plt Count MPV Sodium Potassium Chloride Carbon Dioxide Anion Gap BUN Creatinine Creat Clearance w eGFR POC Glucometer 149 Random Glucose Calcium Phosphorus Magnesium Triglycerides Cholesterol Total LDL Cholesterol HDL Cholesterol TSH RSV Rapid Active Medications Generic Name Dose Route Start Last Admin Trade Name Freq PRN Reason Stop Dose Admin Chlorhexidine Gluconate 1 applic 10/17/18 22:00 10/18/18 21:47 Hibiclens For Decolonization - TP 1 applic HS VANDANA Administration Dexamethasone Sodium Phosphate 10 mg 10/19/18 18:00 10/19/18 17:20 Decadron Injection - IVPUSH 10 mg Q8H-IV VANDANA Administration Enoxaparin Sodium 40 mg 10/20/18 10:00 Lovenox - SQ DAILY VANDANA Propofol 1,000,000 mcg in 100 mls @ 3.402 mls/hr 10/17/18 03:45 10/19/18 05: 43 Diprivan - IVPB 50 mcg/kg/min TITR VANDANA 34.019 mls/hr Administration Protocol 5 MCG/KG/MIN Ceftriaxone Sodium 2 gm/ 100 mls @ 200 mls/hr 10/17/18 11:00 10/19/18 09:12 Dextrose IVPB 200 mls/hr DAILY VANDANA Administration Protocol Sodium Chloride 1,000 mls @ 100 mls/hr 10/17/18 14:15 10/19/18 14:33 Normal Saline - IV 100 mls/hr ASDIR VANDANA Administration Fentanyl 500 mcg/ Dextrose 100 mls @ 10 mls/hr 10/18/18 20:00 10/19/18 05:46 IVPB 50 mcg/hr TITR VANDANA 10 mls/hr Administration Protocol 50 MCG/HR Insulin Aspart 1 vial 10/17/18 08:15 10/19/18 14:30 Novolog Vial Sliding Scale - SQ Not Given Q6H VANDANA Protocol Mupirocin 1 applic 10/17/18 10:00 10/19/18 09:12 Bactroban Ointment (For Decolonization) - NS 10/22/18 09:59 1 applic BID VANDANA Administration Pantoprazole Sodium 40 mg 10/17/18 10:00 10/19/18 09:11 Protonix Iv IVPUSH 40 mg DAILY VANDANA Administration ASSESSMENT/PLAN: Patient is a 53 year old female with a past medical history of idiopathic autoimmune 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 First dx in 2005, s/p multiple laser and dilation surgeries by Dr. Holder at [facility],. Had surgical procedure on 2012 and has had multiple corrective procedures in the past including laser and surgical. Patient present from home with respiratory failure and cardiopulmonary arrest. problem list: idiopathic autoimmune subglottic stenosis respiratory failure Central airway obstruction hyperglycemia Cardiac arrest Elevated troponins Leukocytosis Elevated ast/alt Acute respiratory failure Idopathic subglottic stenosis Central airway obstruction -ICU monitoring. -remains intubated and sedated. -on decadron -negative for flu -surgical consult for possible dilation-ENT (has MD at [place]) Hyperglycemia -in the setting of steriod therapy(prednisone) -hmga1c 6.1 -on novolog q6 based on bgms Cardiac arrest Elevated troponins -Trops increased to 0.88 -lovenox 40mg daily -cardiology consulted and following -continue to trend trops Leukocytosis WBC 21.1 on presentation, now normalized - blood cultures negative - seen by ID, started on ceftriaxone Elevated ast/alt - liver u/s shows multiple gallstones, no acute cholecystitis, hepatomegaly suggestive of fatty infiltration fen npo, ivf NS @ 100cc/hr monitor electrolytes prophy lovenox Visit type - Emergency Visit Emergency Visit: Yes ED Registration Date: 10/17/18 Care time: The patient presented to the Emergency Department on the above date and was hospitalized for further evaluation of their emergent condition. - New Patient This patient is new to me today: No - Critical Care Critical Care patient: Yes Total Critical Care Time (in minutes): 50 Critical Care Statement: The care of this patient involved high complexity decision making to prevent further life threatening deterioration of the patient 's condition and/or to evaluate & treat vital organ system(s) failure or risk of failure.
--- NOTE | 2018-10-19 18:02 | CON.ENT ---
Consult Consult Specialty:: ENT Reason for Consultation:: hx subglottic stenosis, intubated - History of Present Illness Chief Complaint: hx subglottic stenosis, intubated - History Source History Provided By: Medical Record Limitations to Obtaining History: Intubated - Past Medical History HOD CARRIER: Yes: Other (Sedated on the Vent) Hepatobiliary: No: Cirrhosis Renal/: No: Renal Inusuff ...: No ENT: Yes: Other (hereditary autoimmune subglottic stenosis) - Past Surgical History Additional Surgical History: Subglottic Laser and dilation 2011 ([facility]) - Alcohol/Substance Use Hx Alcohol Use: No - Smoking History Smoking history: Never smoked Have you smoked in the past 12 months: No - Social History History of Recent Travel: No Home Medications - Allergies Allergies/Adverse Reactions: Allergies Allergy/AdvReac Type Severity Reaction Status Date / Time No Known Allergies Allergy Verified 10/17/18 03:07 - Home Medications Home Medications: Ambulatory Orders NK [No Known Home Medication] 10/17/18 Family Disease History - Family Disease History Family History: Unable to Obtain Physical Exam-ENT Vital Signs: Vital Signs Temperature 98.4 F 10/19/18 10:00 Pulse Rate 53 L 10/19/18 16:00 Respiratory Rate 26 H 10/19/18 16:20 Blood Pressure 117/69 10/19/18 16:00 O2 Sat by Pulse Oximetry (%) 97 10/19/18 13:30 Head: Yes: WNL Face: Yes: WNL Eyes: Yes: Other (closed, no spontaneous opening) Nose: Yes: WNL Oral/Pharynx: Yes: Other (orotracheal tube in place, secure 7.5) Outer Ear: Yes: WNL Cardiovascular: Yes: Regular Rate and Rhythm, Bradycardia (HR 48) Neurological: Yes: Unresponsive Imaging - Results Chest X-ray: Report Reviewed, Image Reviewed Problem List - Problems (1) Cardiopulmonary arrest with successful resuscitation Assessment/Plan: pt in ICU, intubated s/p cardiopulmonary arrest in field had respiratory arrest in home, intubated by paramedics, sustained cardiac arrest presently HR high 40's, SaO2 96% Recommend: continue medical management and evaluation Code(s): I46.9 - CARDIAC ARREST, CAUSE UNSPECIFIED (2) Subglottic stenosis Assessment/Plan: pt with known autoimmune subglottic stenosis had prior surgicfal procedures by Dr. Holder ~2011 has not had regular follow up after as recommended had called 911 from her home in respiratory distress, prednisone found in home possibility that patient was having clinical exacerbation and self medicating without seeking medical attention. had respiratory arrest in field and emergently intubated Recommend: continue intubation and ventilator support medical evaluation and treatment for cardiac arrest will confer with patient's plane runner, Dr. Holder Thank you for consultation, Ritesh Munguia MD FACS Code(s): J38.6 - STENOSIS OF LARYNX
[2018-10-19] MEDS: CHLORHEXIDINE GLUCONATE 4% CLEANSER FOR DECOLONIZATION TP SCH (22:07)
[2018-10-20] MEDS ORDERED: fentaNYL CITRATE 250 MCG/5 ML VIAL ONE ×3 (00:45→23:55)
[2018-10-20] MEDS: DEXAMETHASONE SOD PHOSPHATE 10 MG/1 ML VIAL IVPUSH SCH ×3 (01:45→17:00)
[2018-10-20] MEDS: SODIUM CHLORIDE 1,000 ML IV SCH ×3 (02:07→22:03)
[2018-10-20] MEDS: INSULIN SLIDING SCALE (NOVOLOG) 1 VIAL SQ SCH ×4 (06:28→22:03)
[2018-10-20 06:39] LABS: ARTERIAL BLD GAS O2 SATURATION 97.9 % (95-98); ARTERIAL BLOOD GAS PCO2 29.4 mmHg (35-45); ARTERIAL BLOOD GAS PO2 105 mmHg (80-105); ARTERIAL BLOOD GAS pH 7.48 (7.35-7.45)
[2018-10-20 06:41] LABS: HEMATOCRIT 35.5 % (32.4-45.2); HEMOGLOBIN 12.1 GM/dL (10.7-15.3); MCH 30.4 pg (25.7-33.7); MCHC 34.2 g/dl (32.0-36.0); MEAN CELL VOLUME 88.9 fl (80-96); MEAN PLT VOLUME 9.2 fl (7.5-11.1); PLATELET COUNT 247 K/MM3 (134-434); RBC 3.99 M/mm3 (3.60-5.2); RDW 13.7 % (11.6-15.6); WHITE BLOOD COUNT 9.6 K/mm3 (4.0-10.0)
[2018-10-20 06:47] LABS: ALLENS TEST POSITIVE
[2018-10-20] MEDS: PROPOFOL 1,000,000 MCG/100 ML VIAL IVPB SCH ×2 (07:00→22:05)
[2018-10-20 07:22] LABS: ALBUMIN 2.8 g/dl (3.4-5.0); ALK PHOS 75 U/L (45-117); ANION GAP 7 MMOL/L (8-16); BILIRUBIN,TOTAL 0.3 mg/dL (0.2-1); BLOOD UREA NITROGEN 15 mg/dL (7-18); CALCIUM 8.3 mg/dL (8.5-10.1); CHLORIDE 111 mmol/L (98-107); CO2 23 mmol/L (21-32); CREATININE 0.6 mg/dL (0.55-1.3); GLUCOSE,RANDOM 148 mg/dL (74-106); MAGNESIUM 2.6 mg/dL (1.8-2.4); PHOSPHOROUS 3.3 mg/dL (2.5-4.9); POTASSIUM 3.9 mmol/L (3.5-5.1); SGOT/AST 36 U/L (15-37); SGPT/ALT 61 U/L (13-61); SODIUM 141 mmol/L (136-145); TOT PROT 6.4 g/dl (6.4-8.2)
[2018-10-20] MEDS ORDERED: DEXTROSE 5%-WATER 100 ML IVPB ONE (09:07)
[2018-10-20] MEDS: CEFTRIAXONE 2 GM in DEXTROSE 5%-WATER 100 ML IVPB SCH (09:14)
[2018-10-20] MEDS: ENOXAPARIN NA (PORCINE) 40 MG/0.4 ML DISP.SYRIN SQ SCH (09:15)
[2018-10-20] MEDS: PANTOPRAZOLE SODIUM 40 MG VIAL IVPUSH SCH (09:15)
[2018-10-20] MEDS: MUPIROCIN 2% TOPICAL OINTMENT FOR DECOLONIZATION NS SCH ×2 (09:15→22:03)
--- NOTE | 2018-10-20 10:11 | PN ---
Physical Exam: SUBJECTIVE: Patient seen and examined. She is sedated and intubated. She appears comfortable. OBJECTIVE: Vital Signs Period Temp Pulse Resp BP Sys/Brock Pulse Ox Last 24 Hr 97.6 F-98.2 F 43-74 26-27 111-144/60-94 97-99 GENERAL: The patient is sedated on vent, in no acute distress. LUNGS: Breath sounds equal, clear to auscultation bilaterally, no wheezes, no crackles. HEART: Regular rate and rhythm, S1, S2 without murmur, rub or gallop. ABDOMEN: Obese, soft, nondistended, normoactive bowel sounds, no hepatosplenomegaly, no masses. EXTREMITIES: 2+ pulses, warm, well-perfused, trace edema. Laboratory Results - last 24 hr 10/19/18 10/19/18 10/19/18 14:04 21:02 21:45 WBC RBC Hgb Hct MCV MCH MCHC RDW Plt Count MPV Puncture Site ABG pH ABG pCO2 at Pt Temp ABG pO2 at Pt Temp ABG HCO3 ABG O2 Sat (Measured) ABG O2 Content ABG Base Excess Chetan Test O2 Delivery Device Oxygen Flow Rate Vent Rate PEEP Pressure Support Vent Sodium Potassium Chloride Carbon Dioxide Anion Gap BUN Creatinine Creat Clearance w eGFR POC Glucometer 149 155 Random Glucose Calcium Phosphorus Magnesium Total Bilirubin AST ALT Alkaline Phosphatase Creatine Kinase Troponin I 0.26 H Total Protein Albumin 10/20/18 10/20/18 10/20/18 05:30 05:30 05:51 WBC 9.6 RBC 3.99 Hgb 12.1 Hct 35.5 MCV 88.9 MCH 30.4 MCHC 34.2 RDW 13.7 Plt Count 247 MPV 9.2 Puncture Site ABG pH ABG pCO2 at Pt Temp ABG pO2 at Pt Temp ABG HCO3 ABG O2 Sat (Measured) ABG O2 Content ABG Base Excess Chetan Test O2 Delivery Device Oxygen Flow Rate Vent Rate PEEP Pressure Support Vent Sodium 141 Potassium 3.9 Chloride 111 H Carbon Dioxide 23 Anion Gap 7 L BUN 15 Creatinine 0.6 Creat Clearance w eGFR 103.79 POC Glucometer 147 Random Glucose 148 H Calcium 8.3 L Phosphorus 3.3 Magnesium 2.6 H Total Bilirubin 0.3 AST 36 ALT 61 Alkaline Phosphatase 75 Creatine Kinase Cancelled Troponin I Cancelled Total Protein 6.4 Albumin 2.8 L 10/20/18 06:24 WBC RBC Hgb Hct MCV MCH MCHC RDW Plt Count MPV Puncture Site Right radial ABG pH 7.48 H ABG pCO2 at Pt Temp 29.4 L ABG pO2 at Pt Temp 105 ABG HCO3 21.3 L ABG O2 Sat (Measured) 97.9 ABG O2 Content 16.6 ABG Base Excess -1.0 Chetan Test Positive O2 Delivery Device A/c Oxygen Flow Rate 40% Vent Rate 26 PEEP 5.0 Pressure Support Vent 450 Sodium Potassium Chloride Carbon Dioxide Anion Gap BUN Creatinine Creat Clearance w eGFR POC Glucometer Random Glucose Calcium Phosphorus Magnesium Total Bilirubin AST ALT Alkaline Phosphatase Creatine Kinase Troponin I Total Protein Albumin Active Medications Generic Name Dose Route Start Last Admin Trade Name Freq PRN Reason Stop Dose Admin Chlorhexidine Gluconate 1 applic 10/17/18 22:00 10/19/18 22:07 Hibiclens For Decolonization - TP 1 applic HS VANDANA Administration Dexamethasone Sodium Phosphate 10 mg 10/19/18 18:00 10/20/18 09:15 Decadron Injection - IVPUSH 10 mg Q8H-IV VANDANA Administration Enoxaparin Sodium 40 mg 10/20/18 10:00 10/20/18 09:15 Lovenox - SQ 40 mg DAILY VANDANA Administration Propofol 1,000,000 mcg in 100 mls @ 3.402 mls/hr 10/17/18 03:45 10/20/18 07: 00 Diprivan - IVPB 50 mcg/kg/min TITR VANDANA 34.019 mls/hr Administration Protocol 5 MCG/KG/MIN Ceftriaxone Sodium 2 gm/ 100 mls @ 200 mls/hr 10/17/18 11:00 10/20/18 09:14 Dextrose IVPB 200 mls/hr DAILY VANDANA Administration Protocol Sodium Chloride 1,000 mls @ 100 mls/hr 10/17/18 14:15 10/20/18 02:07 Normal Saline - IV 100 mls/hr ASDIR VANDANA Administration Fentanyl 500 mcg/ Dextrose 100 mls @ 10 mls/hr 10/18/18 20:00 10/19/18 20:24 IVPB 50 mcg/hr TITR VANDANA 10 mls/hr Administration Protocol 50 MCG/HR Insulin Aspart 1 vial 10/19/18 22:00 10/20/18 06:28 Novolog Vial Sliding Scale - SQ Not Given ACHS VANDANA Protocol Mupirocin 1 applic 10/17/18 10:00 10/20/18 09:15 Bactroban Ointment (For Decolonization) - NS 10/22/18 09:59 1 applic BID VANDANA Administration Pantoprazole Sodium 40 mg 10/17/18 10:00 10/20/18 09:15 Protonix Iv IVPUSH 40 mg DAILY VANDANA Administration ASSESSMENT/PLAN: This is a 53 year old woman with a history of idiopathic autoimmune subglottic stenosis who presented to the ED after a cardiopulmonary arrest. 1. Acute hypoxic respiratory failure secondary to idiopathic autoimmune subglottic stenosis with upper airway edema - Maintain on vent - Continue Decadron - ENT follow-up 2. s/p cardiopulmonary arrest 3. Demand ischemia - Echo showed normal LV, EF 55-60%, grade I diastolic dysfunction, normal RV function 4. Steroid-induced hyperglycemia - Continue Novolog sliding scale 5. Hyperlipidemia 6. Hepatic transaminitis - Improved - US shows multiple gallstoness, hepatomegaly, fatty infiltration vs hepatocellular disease 7. Leukocytosis - Resolved - On ceftriaxone empirically 8. F/E/N - Continue IV fluid 9. DVT prophylaxis - On Lovenox 10. Stress ulcer prophylaxis - On Protonix Visit type - Emergency Visit Emergency Visit: Yes ED Registration Date: 10/17/18 Care time: The patient presented to the Emergency Department on the above date and was hospitalized for further evaluation of their emergent condition. - New Patient This patient is new to me today: Yes Date on this admission: 10/20/18 - Critical Care Critical Care patient: Yes Total Critical Care Time (in minutes): 35 Critical Care Statement: The care of this patient involved high complexity decision making to prevent further life threatening deterioration of the patient 's condition and/or to evaluate & treat vital organ system(s) failure or risk of failure. - Discharge Referral Referred to [facility] Med P.C.: No
--- NOTE | 2018-10-20 12:16 | PN ---
Teaching Attending Note Name of Resident: Ashley Diaz ATTENDING PHYSICIAN STATEMENT I saw and evaluated the patient. I reviewed the resident's note and discussed the case with the resident. I agree with the resident's findings and plan as documented. SUBJECTIVE: Patient seen & examined in the ICU. Remains sedated on AC Mode of Vent. No pressors. Minimal leak on testing this AM, indicating persistent upper airway edema around ETT. Intake & Output 10/17/18 10/18/18 10/19/18 10/20/18 23:59 23:59 23:59 23:59 Intake Total 1300 3240 2989 1629 Output Total 2500 2400 2100 500 Balance -1200 233 310 3876 Weight 279 lb 15.793 oz 279 lb 5.211 oz 281 lb 279 lb 3 oz Last Vital Signs Temp Pulse Resp BP Pulse Ox 98 F 71 18 123/65 99 10/20/18 10:00 10/20/18 10:00 10/20/18 11:20 10/20/18 10:00 10/20/18 09:00 Active Medications Chlorhexidine Gluconate (Hibiclens For Decolonization -) 1 applic TP HS VANDANA Last Admin: 10/19/18 22:07 Dose: 1 applic Dexamethasone Sodium Phosphate (Decadron Injection -) 10 mg IVPUSH Q8H-IV VANDANA Last Admin: 10/20/18 09:15 Dose: 10 mg Enoxaparin Sodium (Lovenox -) 40 mg SQ DAILY VANDANA Last Admin: 10/20/18 09:15 Dose: 40 mg Propofol (Diprivan -) 1,000,000 mcg in 100 mls @ 3.402 mls/hr IVPB TITR VANDANA; Protocol Last Admin: 10/20/18 07:00 Dose: 50 mcg/kg/min, 34.019 mls/hr Ceftriaxone Sodium 2 gm/ (Dextrose) 100 mls @ 200 mls/hr IVPB DAILY VANDANA; Protocol Last Admin: 10/20/18 09:14 Dose: 200 mls/hr Sodium Chloride (Normal Saline -) 1,000 mls @ 100 mls/hr IV ASDIR VANDANA Last Admin: 10/20/18 02:07 Dose: 100 mls/hr Fentanyl 500 mcg/ Dextrose 100 mls @ 10 mls/hr IVPB TITR VANDANA; Protocol Last Admin: 10/19/18 20:24 Dose: 50 mcg/hr, 10 mls/hr Insulin Aspart (Novolog Vial Sliding Scale -) 1 vial SQ ACHS [facility]; Protocol Last Admin: 10/20/18 12:06 Dose: Not Given Mupirocin (Bactroban Ointment (For Decolonization) -) 1 applic NS BID [facility] Stop: 10/22/18 09:59 Last Admin: 10/20/18 09:15 Dose: 1 applic Pantoprazole Sodium (Protonix Iv) 40 mg IVPUSH DAILY [facility] Last Admin: 10/20/18 09:15 Dose: 40 mg GEN: Obese middle aged woman sedated, intubated on the Vent PULM: Scattered rhonchi, no wheeze CV: S1 S2, RR ABD: Obese, (+) BS Soft, non-tender EXT: + Pulses, WWPX4, (-) edema SKIN: No obvious rashes lesions or ulcers [employer]: sedated Laboratory Results - last 24 hr 10/19/18 10/19/18 10/19/18 14:04 21:02 21:45 WBC RBC Hgb Hct MCV MCH MCHC RDW Plt Count MPV Puncture Site ABG pH ABG pCO2 at Pt Temp ABG pO2 at Pt Temp ABG HCO3 ABG O2 Sat (Measured) ABG O2 Content ABG Base Excess Chetan Test O2 Delivery Device Oxygen Flow Rate Vent Rate PEEP Pressure Support Vent Sodium Potassium Chloride Carbon Dioxide Anion Gap BUN Creatinine Creat Clearance w eGFR POC Glucometer 149 155 Random Glucose Calcium Phosphorus Magnesium Total Bilirubin AST ALT Alkaline Phosphatase Creatine Kinase Troponin I 0.26 H Total Protein Albumin 10/20/18 10/20/18 10/20/18 05:30 05:30 05:51 WBC 9.6 RBC 3.99 Hgb 12.1 Hct 35.5 MCV 88.9 MCH 30.4 MCHC 34.2 RDW 13.7 Plt Count 247 MPV 9.2 Puncture Site ABG pH ABG pCO2 at Pt Temp ABG pO2 at Pt Temp ABG HCO3 ABG O2 Sat (Measured) ABG O2 Content ABG Base Excess Chetan Test O2 Delivery Device Oxygen Flow Rate Vent Rate PEEP Pressure Support Vent Sodium 141 Potassium 3.9 Chloride 111 H Carbon Dioxide 23 Anion Gap 7 L BUN 15 Creatinine 0.6 Creat Clearance w eGFR 103.79 POC Glucometer 147 Random Glucose 148 H Calcium 8.3 L Phosphorus 3.3 Magnesium 2.6 H Total Bilirubin 0.3 AST 36 ALT 61 Alkaline Phosphatase 75 Creatine Kinase Cancelled Troponin I Cancelled Total Protein 6.4 Albumin 2.8 L 10/20/18 10/20/18 06:24 12:04 WBC RBC Hgb Hct MCV MCH MCHC RDW Plt Count MPV Puncture Site Right radial ABG pH 7.48 H ABG pCO2 at Pt Temp 29.4 L ABG pO2 at Pt Temp 105 ABG HCO3 21.3 L ABG O2 Sat (Measured) 97.9 ABG O2 Content 16.6 ABG Base Excess -1.0 Chetan Test Positive O2 Delivery Device A/c Oxygen Flow Rate 40% Vent Rate 26 PEEP 5.0 Pressure Support Vent 450 Sodium Potassium Chloride Carbon Dioxide Anion Gap BUN Creatinine Creat Clearance w eGFR POC Glucometer 140 Random Glucose Calcium Phosphorus Magnesium Total Bilirubin AST ALT Alkaline Phosphatase Creatine Kinase Troponin I Total Protein Albumin Problem List - Problems (1) Cardiopulmonary arrest with successful resuscitation Code(s): I46.9 - CARDIAC ARREST, CAUSE UNSPECIFIED (2) Subglottic stenosis Code(s): J38.6 - STENOSIS OF LARYNX ASSESS: Upper Airway Edema History of Idiopathic autoimmune subglottic stenosis Acute Respiratory failure Hyperglycemia in the setting of steroids s/p Cardiac arrest (? 90 seconds to ROSC) Leukocytosis in the setting of steroids Transaminitis PLAN: -Maintian ETT for airway protection -Sedate for comfort on the Vent -Decadron -BD TX -ABX coverage per ID -Strict I's & O's -Trend BUN/Cr -Replete e-lytes prn -Enteral feeds -VTE prophyalxis -GI prophylaxis -Noted ENT evaluation -Requires ICU monitoring Dr Osorio Critical care time spent in reviewing chart, evaluating patient and formulating plan - 36 minutes.
--- NOTE | 2018-10-20 13:59 | PN ---
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, Physician Chief Complaint: Events noted Remains in ICU intubated and sedated History of Present Illness: Patient was seen and examined. Mechanical ventilation. Chart was reviewed - Current Medication List Current Medications: Active Medications Chlorhexidine Gluconate (Hibiclens For Decolonization -) 1 applic TP HS VANDANA Last Admin: 10/19/18 22:07 Dose: 1 applic Dexamethasone Sodium Phosphate (Decadron Injection -) 10 mg IVPUSH Q8H-IV VANDANA Last Admin: 10/20/18 09:15 Dose: 10 mg Enoxaparin Sodium (Lovenox -) 40 mg SQ DAILY VANDANA Last Admin: 10/20/18 09:15 Dose: 40 mg Propofol (Diprivan -) 1,000,000 mcg in 100 mls @ 3.402 mls/hr IVPB TITR VANDANA; Protocol Last Admin: 10/20/18 07:00 Dose: 50 mcg/kg/min, 34.019 mls/hr Ceftriaxone Sodium 2 gm/ (Dextrose) 100 mls @ 200 mls/hr IVPB DAILY VANDANA; Protocol Last Admin: 10/20/18 09:14 Dose: 200 mls/hr Sodium Chloride (Normal Saline -) 1,000 mls @ 100 mls/hr IV ASDIR VANDANA Last Admin: 10/20/18 02:07 Dose: 100 mls/hr Fentanyl 500 mcg/ Dextrose 100 mls @ 10 mls/hr IVPB TITR VANDANA; Protocol Last Admin: 10/19/18 20:24 Dose: 50 mcg/hr, 10 mls/hr Insulin Aspart (Novolog Vial Sliding Scale -) 1 vial SQ ACHS VANDANA; Protocol Last Admin: 10/20/18 12:06 Dose: Not Given Mupirocin (Bactroban Ointment (For Decolonization) -) 1 applic NS BID VANDANA Stop: 10/22/18 09:59 Last Admin: 10/20/18 09:15 Dose: 1 applic Pantoprazole Sodium (Protonix Iv) 40 mg IVPUSH DAILY VANDANA Last Admin: 10/20/18 09:15 Dose: 40 mg - Objective Vital Signs: Vital Signs Temperature 98 F 10/20/18 10:00 Pulse Rate 75 10/20/18 12:00 Respiratory Rate 18 10/20/18 12:00 Blood Pressure 133/70 10/20/18 12:00 O2 Sat by Pulse Oximetry (%) 99 10/20/18 09:00 Neck: Yes: Supple Cardiovascular: Yes: Regular Rate and Rhythm, S1, S2 Respiratory: Yes: Intubated, Mechanically Ventilated Gastrointestinal: Yes: Normal Bowel Sounds, Soft. No: Tenderness Edema: No Labs: CBC, BMP 10/20/18 05:30 10/20/18 05:30 Problem List - Problems (1) Cardiopulmonary arrest with successful resuscitation Code(s): I46.9 - CARDIAC ARREST, CAUSE UNSPECIFIED (2) Elevated LFTs Code(s): R94.5 - ABNORMAL RESULTS OF LIVER FUNCTION STUDIES (3) Elevated troponin Code(s): R74.8 - ABNORMAL LEVELS OF OTHER SERUM ENZYMES (4) Leukocytosis Code(s): D72.829 - ELEVATED WHITE BLOOD CELL COUNT, UNSPECIFIED (5) Morbid obesity Code(s): E66.01 - MORBID (SEVERE) OBESITY DUE TO EXCESS CALORIES (6) Subglottic stenosis Code(s): J38.6 - STENOSIS OF LARYNX Assessment/Plan 1. Demand ischemia with elevated troponin 2. ? Opioid overdose 3. Respiratory failure on mechanical ventilation 4. Post cardiopulmonary arrest 5. Subglottic stenosis 6. Hypercholesterolemia 7. Transient leukocytosis 8. Abnormal LFT likely passive congestion PLAN: 1. Vent management as per critical care team 2. Trend troponin 0.26 yesterday 3. Echocardiography showed normal LV systolic function LVEF 55-60%, grade 1 diastolic dysfunction, mild TR 4. Empiric antibiotics 5. DVT and GI prophylaxis Supportive care Guarded Dax Yoder MD
--- NOTE | 2018-10-20 14:42 | PN ---
Physical Exam: SUBJECTIVE: Patient seen this morning, intubated and sedated. Patient had no acute events overnight. OBJECTIVE: Vital Signs Temperature 98 F 10/20/18 10:00 Pulse Rate 69 10/20/18 14:00 Respiratory Rate 18 10/20/18 14:09 Blood Pressure 123/67 10/20/18 14:00 O2 Sat by Pulse Oximetry (%) 99 10/20/18 09:00 GENERAL: The patient is sedated HEAD: Normal with no signs of trauma. LUNGS: Breath sounds equal, clear to auscultation bilaterally, no wheezes, no crackles, no accessory muscle use. HEART: Regular rate and rhythm, S1, S2 without murmur, rub or gallop. ABDOMEN: Soft, nontender, nondistended, normoactive bowel sounds, EXTREMITIES: 2+ pulses, warm, well-perfused, no edema. SKIN: Warm, dry, normal turgor, no rashes or lesions noted CBCD WBC 9.6 K/mm3 (4.0-10.0) 10/20/18 05:30 RBC 3.99 M/mm3 (3.60-5.2) 10/20/18 05:30 Hgb 12.1 GM/dL (10.7-15.3) 10/20/18 05:30 Hct 35.5 % (32.4-45.2) 10/20/18 05:30 MCV 88.9 fl (80-96) 10/20/18 05:30 MCHC 34.2 g/dl (32.0-36.0) 10/20/18 05:30 RDW 13.7 % (11.6-15.6) 10/20/18 05:30 Plt Count 247 K/MM3 (134-434) 10/20/18 05:30 MPV 9.2 fl (7.5-11.1) 10/20/18 05:30 CMP Sodium 141 mmol/L (136-145) 10/20/18 05:30 Potassium 3.9 mmol/L (3.5-5.1) 10/20/18 05:30 Chloride 111 mmol/L (98-107) H 10/20/18 05:30 Carbon Dioxide 23 mmol/L (21-32) 10/20/18 05:30 Anion Gap 7 MMOL/L (8-16) L 10/20/18 05:30 BUN 15 mg/dL (7-18) 10/20/18 05:30 Creatinine 0.6 mg/dL (0.55-1.3) 10/20/18 05:30 Creat Clearance w eGFR 103.79 (>60) 10/20/18 05:30 Calcium 8.3 mg/dL (8.5-10.1) L 10/20/18 05:30 Total Bilirubin 0.3 mg/dL (0.2-1) 10/20/18 05:30 AST 36 U/L (15-37) 10/20/18 05:30 ALT 61 U/L (13-61) 10/20/18 05:30 Alkaline Phosphatase 75 U/L (45-117) 10/20/18 05:30 Total Protein 6.4 g/dl (6.4-8.2) 10/20/18 05:30 Albumin 2.8 g/dl (3.4-5.0) L 10/20/18 05:30 Active Medications Chlorhexidine Gluconate (Hibiclens For Decolonization -) 1 applic TP HS VANDANA Last Admin: 10/19/18 22:07 Dose: 1 applic Dexamethasone Sodium Phosphate (Decadron Injection -) 10 mg IVPUSH Q8H-IV VANDANA Last Admin: 10/20/18 09:15 Dose: 10 mg Enoxaparin Sodium (Lovenox -) 40 mg SQ DAILY VANDANA Last Admin: 10/20/18 09:15 Dose: 40 mg Propofol (Diprivan -) 1,000,000 mcg in 100 mls @ 3.402 mls/hr IVPB TITR VANDANA; Protocol Last Admin: 10/20/18 07:00 Dose: 50 mcg/kg/min, 34.019 mls/hr Ceftriaxone Sodium 2 gm/ (Dextrose) 100 mls @ 200 mls/hr IVPB DAILY VANDANA; Protocol Last Admin: 10/20/18 09:14 Dose: 200 mls/hr Sodium Chloride (Normal Saline -) 1,000 mls @ 100 mls/hr IV ASDIR VANDANA Last Admin: 10/20/18 02:07 Dose: 100 mls/hr Fentanyl 500 mcg/ Dextrose 100 mls @ 10 mls/hr IVPB TITR VANDANA; Protocol Last Admin: 10/19/18 20:24 Dose: 50 mcg/hr, 10 mls/hr Insulin Aspart (Novolog Vial Sliding Scale -) 1 vial SQ ACHS [facility]; Protocol Last Admin: 10/20/18 12:06 Dose: Not Given Mupirocin (Bactroban Ointment (For Decolonization) -) 1 applic NS BID COUNT [facility]CLUDES [facility] Stop: 10/22/18 09:59 Last Admin: 10/20/18 09:15 Dose: 1 applic Pantoprazole Sodium (Protonix Iv) 40 mg IVPUSH DAILY COUNT [facility]CLUDES [facility] Last Admin: 10/20/18 09:15 Dose: 40 mg ASSESSMENT/PLAN: Patient is a 53 y/o female with a history of autoimmune subglottic stenosis who presents for acute respiratory failure. Neuro - sedated and intubated - continue sedation vacations - on propofol and versed Cardio - vitals stable - patient bradycardic over night, propofl turned off and returned to normal sinus - LV function normal - EF: 55-60%, Grade I diastolic dysfunction - troponin .26 yesterday, continue to trend Pulm - acute hypoxic respiratory failure 2/2 to idiopathic autoimmune subglottic stenosis - leak trial positive for edema, slight leak when taking balloon down today compared to yesterday - intubated with settings : rate 18, TV 450, O2 40%, PEEP 5 - Decadron 10 q8h - ENT Dr. Munguia on board, will discuss further care and future of patient GI - protonix 40 IV push for ppx Nephro - stable ID - continue Ceftriaxone day 4 - possible URI covergae Heme - Lovenox 40 daily, per Dr. Yoder not worried for cardiac event - anticoagulation ppx Endo - SS, 2 units in 24 hours - TSH 0.11 FEN - NS @ 100 Dispo: f/u possible transfer to [facility], discuss with primary team for ENT consult Visit type - Emergency Visit Emergency Visit: No - New Patient This patient is new to me today: No - Critical Care Critical Care patient: Yes Total Critical Care Time (in minutes): 40 Critical Care Statement: The care of this patient involved high complexity decision making to prevent further life threatening deterioration of the patient 's condition and/or to evaluate & treat vital organ system(s) failure or risk of failure.
[2018-10-20] MEDS: FENTANYL INJECTION 500 MCG in DEXTROSE 5%-WATER - 90 ML IVPB SCH (22:02)
[2018-10-20] MEDS: CHLORHEXIDINE GLUCONATE 4% CLEANSER FOR DECOLONIZATION TP SCH (22:03)
[2018-10-21] MEDS: DEXAMETHASONE SOD PHOSPHATE 10 MG/1 ML VIAL IVPUSH SCH ×3 (02:38→17:00)
[2018-10-21 06:47] LABS: HEMATOCRIT 33.3 % (32.4-45.2); HEMOGLOBIN 11.2 GM/dL (10.7-15.3); MCH 29.9 pg (25.7-33.7); MCHC 33.6 g/dl (32.0-36.0); MEAN CELL VOLUME 88.8 fl (80-96); MEAN PLT VOLUME 9.1 fl (7.5-11.1); PLATELET COUNT 267 K/MM3 (134-434); RBC 3.75 M/mm3 (3.60-5.2); RDW 13.7 % (11.6-15.6); WHITE BLOOD COUNT 9.3 K/mm3 (4.0-10.0)
[2018-10-21] MEDS: PROPOFOL 1,000,000 MCG/100 ML VIAL IVPB SCH (07:06)
[2018-10-21] MEDS: INSULIN SLIDING SCALE (NOVOLOG) 1 VIAL SQ SCH ×4 (07:07→21:12)
[2018-10-21 07:18] LABS: ALBUMIN 2.5 g/dl (3.4-5.0); ALK PHOS 69 U/L (45-117); ANION GAP 5 MMOL/L (8-16); BILIRUBIN,TOTAL 0.3 mg/dL (0.2-1); BLOOD UREA NITROGEN 18 mg/dL (7-18); CALCIUM 7.8 mg/dL (8.5-10.1); CHLORIDE 110 mmol/L (98-107); CO2 24 mmol/L (21-32); CREATININE 0.4 mg/dL (0.55-1.3); GLUCOSE,RANDOM 154 mg/dL (74-106); MAGNESIUM 2.6 mg/dL (1.8-2.4); PHOSPHOROUS 3.1 mg/dL (2.5-4.9); POTASSIUM 4.1 mmol/L (3.5-5.1); SGOT/AST 99 U/L (15-37); SGPT/ALT 109 U/L (13-61); SODIUM 139 mmol/L (136-145); TOT PROT 5.7 g/dl (6.4-8.2)
[2018-10-21] MEDS ORDERED: SODIUM CHLORIDE 1,000 ML IV SCH (08:17)
[2018-10-21] MEDS ORDERED: DEXTROSE 5%-WATER 100 ML IVPB ONE (08:30)
[2018-10-21] MEDS: MUPIROCIN 2% TOPICAL OINTMENT FOR DECOLONIZATION NS SCH ×2 (09:02→22:05)
[2018-10-21] MEDS: CEFTRIAXONE 2 GM in DEXTROSE 5%-WATER 100 ML IVPB SCH (09:03)
[2018-10-21] MEDS: ENOXAPARIN NA (PORCINE) 40 MG/0.4 ML DISP.SYRIN SQ SCH (09:03)
[2018-10-21] MEDS ORDERED: fentaNYL CITRATE 250 MCG/5 ML VIAL ONE (09:08)
[2018-10-21] MEDS: PANTOPRAZOLE SODIUM 40 MG VIAL IVPUSH SCH (09:15)
[2018-10-21] MEDS: FENTANYL INJECTION 500 MCG in DEXTROSE 5%-WATER - 90 ML IVPB SCH (09:18)
--- NOTE | 2018-10-21 09:47 | PN ---
Physical Exam: SUBJECTIVE: Patient seen this morning and intubated and sedated. Patient underwent sedation vacation last night and became very agitated. Patient was seen by ENT overnight. Patient extubated after rounds and tolerating venti mask. OBJECTIVE: Vital Signs Temperature 97.8 F 10/21/18 08:00 Pulse Rate 44 L 10/21/18 08:00 Respiratory Rate 18 10/21/18 08:00 Blood Pressure 133/73 10/21/18 08:00 O2 Sat by Pulse Oximetry (%) 99 10/20/18 21:08 GENERAL: The patient is awake and alert HEAD: Normal with no signs of trauma. LUNGS: Breath sounds equal, clear to auscultation bilaterally, no wheezes, no crackles, no accessory muscle use. No stridor heard HEART: Regular rate and rhythm, S1, S2 without murmur, rub or gallop. ABDOMEN: Soft, nontender, nondistended, normoactive bowel sounds, EXTREMITIES: 2+ pulses, warm, well-perfused, no edema. SKIN: Warm, dry, normal turgor, no rashes or lesions noted CBCD WBC 9.3 K/mm3 (4.0-10.0) 10/21/18 05:30 RBC 3.75 M/mm3 (3.60-5.2) 10/21/18 05:30 Hgb 11.2 GM/dL (10.7-15.3) 10/21/18 05:30 Hct 33.3 % (32.4-45.2) 10/21/18 05:30 MCV 88.8 fl (80-96) 10/21/18 05:30 MCHC 33.6 g/dl (32.0-36.0) 10/21/18 05:30 RDW 13.7 % (11.6-15.6) 10/21/18 05:30 Plt Count 267 K/MM3 (134-434) 10/21/18 05:30 MPV 9.1 fl (7.5-11.1) 10/21/18 05:30 CMP Sodium 139 mmol/L (136-145) 10/21/18 05:30 Potassium 4.1 mmol/L (3.5-5.1) 10/21/18 05:30 Chloride 110 mmol/L (98-107) H 10/21/18 05:30 Carbon Dioxide 24 mmol/L (21-32) 10/21/18 05:30 Anion Gap 5 MMOL/L (8-16) L 10/21/18 05:30 BUN 18 mg/dL (7-18) 10/21/18 05:30 Creatinine 0.4 mg/dL (0.55-1.3) L 10/21/18 05:30 Creat Clearance w eGFR 165.72 (>60) 10/21/18 05:30 Calcium 7.8 mg/dL (8.5-10.1) L 10/21/18 05:30 Total Bilirubin 0.3 mg/dL (0.2-1) 10/21/18 05:30 AST 99 U/L (15-37) H 10/21/18 05:30 ALT 109 U/L (13-61) H 10/21/18 05:30 Alkaline Phosphatase 69 U/L (45-117) 10/21/18 05:30 Total Protein 5.7 g/dl (6.4-8.2) L 10/21/18 05:30 Albumin 2.5 g/dl (3.4-5.0) L 10/21/18 05:30 Active Medications Chlorhexidine Gluconate (Hibiclens For Decolonization -) 1 applic TP HS VANDANA Last Admin: 10/20/18 22:03 Dose: 1 applic Dexamethasone Sodium Phosphate (Decadron Injection -) 10 mg IVPUSH Q8H-IV VANDANA Last Admin: 10/21/18 09:02 Dose: 10 mg Enoxaparin Sodium (Lovenox -) 40 mg SQ DAILY VANDANA Last Admin: 10/21/18 09:03 Dose: 40 mg Propofol (Diprivan -) 1,000,000 mcg in 100 mls @ 3.402 mls/hr IVPB TITR [facility]; Protocol Last Titration: 10/21/18 09:20 Dose: 50 mcg/kg/min, 34.019 mls/hr Ceftriaxone Sodium 2 gm/ (Dextrose) 100 mls @ 200 mls/hr IVPB DAILY [facility]; Protocol Last Admin: 10/21/18 09:03 Dose: 200 mls/hr Fentanyl 500 mcg/ Dextrose 100 mls @ 10 mls/hr IVPB TITR [facility]; Protocol Last Admin: 10/21/18 09:18 Dose: 100 mcg/hr, 20 mls/hr Sodium Chloride (Normal Saline -) 1,000 mls @ 75 mls/hr IV ASDIR [facility] Last Admin: 10/21/18 08:24 Dose: 75 mls/hr Insulin Aspart (Novolog Vial Sliding Scale -) 1 vial SQ ACHS [facility]; Protocol Last Admin: 10/21/18 07:07 Dose: Not Given Mupirocin (Bactroban Ointment (For Decolonization) -) 1 applic NS BID [facility] Stop: 10/22/18 09:59 Last Admin: 10/21/18 09:02 Dose: 1 applic Pantoprazole Sodium (Protonix Iv) 40 mg IVPUSH DAILY [facility] Last Admin: 10/21/18 09:15 Dose: 40 mg ASSESSMENT/PLAN: Patient is a 53 y/o female with a history of autoimmune subglottic stenosis who presents for acute respiratory failure. Neuro - awake and alert - off sedation - continue to monitor Cardio - vitals stable - LV function normal - EF: 55-60%, Grade I diastolic dysfunction - troponin .26 > .14, trending down Pulm - acute hypercapnic hypoxic respiratory failure 2/2 to idiopathic autoimmune subglottic stenosis - patient extubated 10/21, tolerating venti mask well - keep O2 > 95% - Decadron 10 q8h - ENT Dr. Munguia on board, f/u recs GI - protonix 40 IV push for ppx - LFT's trending down, fatty liver vs active disease on US Nephro - stable ID - continue Ceftriaxone day 5 - possible URI covergae Heme - Lovenox 40 daily, per Dr. Yoder not worried for cardiac event - anticoagulation ppx Endo - SS, 2 units in 24 hours - TSH 0.11 FEN - NPO over night - bedside swallow eval tomorrow Dispo: monitor in ICU today off sedation and extubated, consider upgrade tomorrow Visit type - Emergency Visit Emergency Visit: No - New Patient This patient is new to me today: No - Critical Care Critical Care patient: Yes Total Critical Care Time (in minutes): 40 Critical Care Statement: The care of this patient involved high complexity decision making to prevent further life threatening deterioration of the patient 's condition and/or to evaluate & treat vital organ system(s) failure or risk of failure.
--- NOTE | 2018-10-21 10:19 | PN ---
Physical Exam: SUBJECTIVE: Patient seen and examined -CXR done 10/20 with worsening infiltrative changes -pt extubated to face mask OBJECTIVE: Vital Signs Period Temp Pulse Resp BP Sys/Brock Pulse Ox Last 24 Hr 97.5 F-98 F 40-75 18-18 121-143/65-103 97-99 GENERAL: The patient is awake, alert, and fully oriented, in no acute distress. 40% face mask in place. HEAD: Normal with no signs of trauma. EYES: PERRL, sclera anicteric, conjunctiva clear. ENT: nares patent, oropharynx clear without exudates, moist mucous membranes. NECK: Trachea midline, LUNGS: Breath sounds equal, clear to auscultation bilaterally, no wheezes, no crackles, no accessory muscle use. HEART: Regular rate and rhythm, S1, S2 without murmur, rub or gallop. ABDOMEN: Soft, nontender, nondistended, hypoactive bowel sounds, obese abdomen EXTREMITIES: 2+ pulses, warm, well-perfused, no edema. NEUROLOGICAL: Normal speech, gait not observed. PSYCH: Normal mood, normal affect. SKIN: Warm, dry, normal turgor, no rashes or lesions noted Laboratory Results - last 24 hr 10/20/18 10/20/18 10/20/18 12:04 16:57 21:19 WBC RBC Hgb Hct MCV MCH MCHC RDW Plt Count MPV Sodium Potassium Chloride Carbon Dioxide Anion Gap BUN Creatinine Creat Clearance w eGFR POC Glucometer 140 145 147 Random Glucose Calcium Phosphorus Magnesium Total Bilirubin AST ALT Alkaline Phosphatase Troponin I Total Protein Albumin 10/21/18 10/21/18 10/21/18 05:30 05:30 06:37 WBC 9.3 RBC 3.75 Hgb 11.2 Hct 33.3 MCV 88.8 MCH 29.9 MCHC 33.6 RDW 13.7 Plt Count 267 MPV 9.1 Sodium 139 Potassium 4.1 Chloride 110 H Carbon Dioxide 24 Anion Gap 5 L BUN 18 Creatinine 0.4 L Creat Clearance w eGFR 165.72 POC Glucometer 140 Random Glucose 154 H Calcium 7.8 L Phosphorus 3.1 Magnesium 2.6 H Total Bilirubin 0.3 AST 99 H ALT 109 H Alkaline Phosphatase 69 Troponin I 0.14 H Total Protein 5.7 L Albumin 2.5 L Active Medications Generic Name Dose Route Start Last Admin Trade Name Freq PRN Reason Stop Dose Admin Chlorhexidine Gluconate 1 applic 10/17/18 22:00 10/20/18 22:03 Hibiclens For Decolonization - TP 1 applic HS VANDANA Administration Dexamethasone Sodium Phosphate 10 mg 10/19/18 18:00 10/21/18 09:02 Decadron Injection - IVPUSH 10 mg Q8H-IV VANDANA Administration Enoxaparin Sodium 40 mg 10/20/18 10:00 10/21/18 09:03 Lovenox - SQ 40 mg DAILY VANDANA Administration Propofol 1,000,000 mcg in 100 mls @ 3.402 mls/hr 10/17/18 03:45 10/21/18 09: 20 Diprivan - IVPB 50 mcg/kg/min TITR VANDANA 34.019 mls/hr Titration Protocol 5 MCG/KG/MIN Ceftriaxone Sodium 2 gm/ 100 mls @ 200 mls/hr 10/17/18 11:00 10/21/18 09:03 Dextrose IVPB 200 mls/hr DAILY VANDANA Administration Protocol Fentanyl 500 mcg/ Dextrose 100 mls @ 10 mls/hr 10/18/18 20:00 10/21/18 09:18 IVPB 100 mcg/hr TITR VANDANA 20 mls/hr Administration Protocol 50 MCG/HR Sodium Chloride 1,000 mls @ 75 mls/hr 10/21/18 08:17 10/21/18 08:24 Normal Saline - IV 75 mls/hr ASDIR VANDANA Administration Insulin Aspart 1 vial 10/19/18 22:00 10/21/18 07:07 Novolog Vial Sliding Scale - SQ Not Given ACHS VANDANA Protocol Mupirocin 1 applic 10/17/18 10:00 10/21/18 09:02 Bactroban Ointment (For Decolonization) - NS 10/22/18 09:59 1 applic BID VANDANA Administration Pantoprazole Sodium 40 mg 10/17/18 10:00 10/21/18 09:15 Protonix Iv IVPUSH 40 mg DAILY VANDANA Administration ASSESSMENT/PLAN: 53 year old woman with a history of idiopathic autoimmune subglottic stenosis who activated EMS 2/2 respiratory insufficiency requiring intubation in the field, complicated by cardiopulmonary arrest. 1. Acute hypoxic respiratory failure secondary to idiopathic autoimmune subglottic stenosis with upper airway edema - monitor resp status post extubation - ABG PRN - Continue Decadron 10mg q8hrs, taper as per ENT/Pulm 2. Demand ischemia - Echo showed normal LV, EF 55-60%, grade I diastolic dysfunction, normal RV function - cards recs appreciated 4. Steroid-induced hyperglycemia - Continue Novolog sliding scale 5. Hepatic transaminitis - US shows multiple gallstoness, hepatomegaly, fatty infiltration vs hepatocellular disease 6. Leukocytosis -ID following, pt currently on ceftriaxone 2G empirically 7. F/E/N - Continue IV fluid 8. DVT prophylaxis - On Lovenox 9. Stress ulcer prophylaxis - On Protonix 40mg daily 10. DISPO: full code Problem List - Problems (1) Cardiopulmonary arrest with successful resuscitation Code(s): I46.9 - CARDIAC ARREST, CAUSE UNSPECIFIED (2) Elevated LFTs Code(s): R94.5 - ABNORMAL RESULTS OF LIVER FUNCTION STUDIES (3) Morbid obesity Code(s): E66.01 - MORBID (SEVERE) OBESITY DUE TO EXCESS CALORIES (4) Subglottic stenosis Code(s): J38.6 - STENOSIS OF LARYNX Visit type - Emergency Visit Emergency Visit: Yes ED Registration Date: 10/17/18 Care time: The patient presented to the Emergency Department on the above date and was hospitalized for further evaluation of their emergent condition. - New Patient This patient is new to me today: Yes Date on this admission: 10/21/18 - Critical Care Critical Care patient: Yes Total Critical Care Time (in minutes): 40 Critical Care Statement: The care of this patient involved high complexity decision making to prevent further life threatening deterioration of the patient 's condition and/or to evaluate & treat vital organ system(s) failure or risk of failure. - Discharge Referral Referred to [facility] Med [facility] No
[2018-10-21 12:35] LABS: ARTERIAL BLD GAS O2 SATURATION 91.8 % (95-98); ARTERIAL BLOOD GAS BASE EXCESS -0.9 meq/l (-2-2); ARTERIAL BLOOD GAS PCO2 35.6 mmHg (35-45); ARTERIAL BLOOD GAS PO2 64.8 mmHg (80-105); ARTERIAL BLOOD GAS pH 7.42 (7.35-7.45)
--- NOTE | 2018-10-21 12:36 | PN ---
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, Physician History of Present Illness: Extubated on 40% VM. No stridor. - Current Medication List Current Medications: Active Medications Chlorhexidine Gluconate (Hibiclens For Decolonization -) 1 applic TP HS [facility] Last Admin: 10/20/18 22:03 Dose: 1 applic Dexamethasone Sodium Phosphate (Decadron Injection -) 10 mg IVPUSH Q8H-IV VANDANA Last Admin: 10/21/18 09:02 Dose: 10 mg Enoxaparin Sodium (Lovenox -) 40 mg SQ DAILY VANDANA Last Admin: 10/21/18 09:03 Dose: 40 mg Propofol (Diprivan -) 1,000,000 mcg in 100 mls @ 3.402 mls/hr IVPB TITR [facility]; Protocol Last Titration: 10/21/18 09:20 Dose: 50 mcg/kg/min, 34.019 mls/hr Ceftriaxone Sodium 2 gm/ (Dextrose) 100 mls @ 200 mls/hr IVPB DAILY VANDANA; Protocol Last Admin: 10/21/18 09:03 Dose: 200 mls/hr Fentanyl 500 mcg/ Dextrose 100 mls @ 10 mls/hr IVPB TITR [facility]; Protocol Last Admin: 10/21/18 09:18 Dose: 100 mcg/hr, 20 mls/hr Sodium Chloride (Normal Saline -) 1,000 mls @ 75 mls/hr IV ASDIR VANDANA Last Admin: 10/21/18 08:24 Dose: 75 mls/hr Insulin Aspart (Novolog Vial Sliding Scale -) 1 vial SQ ACHS [facility]; Protocol Last Admin: 10/21/18 11:53 Dose: 2 units Mupirocin (Bactroban Ointment (For Decolonization) -) 1 applic NS BID [facility] Stop: 10/22/18 09:59 Last Admin: 10/21/18 09:02 Dose: 1 applic Pantoprazole Sodium (Protonix Iv) 40 mg IVPUSH DAILY [facility] Last Admin: 10/21/18 09:15 Dose: 40 mg - Objective Vital Signs: Vital Signs Temperature 97.9 F 10/21/18 10:00 Pulse Rate 40 L 10/21/18 12:00 Respiratory Rate 18 10/21/18 12:00 Blood Pressure 157/90 10/21/18 12:00 O2 Sat by Pulse Oximetry (%) 96 10/21/18 11:10 Constitutional: Yes: No Distress, Calm Neck: Yes: Supple Cardiovascular: Yes: Regular Rate and Rhythm Respiratory: Yes: On Venti-Mask, Rhonchi Gastrointestinal: Yes: Normal Bowel Sounds, Soft Edema: Yes Edema: LLE: Trace, RLE: Trace Labs: CBC, BMP 10/21/18 05:30 10/21/18 05:30 INR, PTT INR 1.03 (0.83-1.09) 10/17/18 04:48 - ....Imaging Chest X-ray: Report Reviewed (Congestion) EKG: Report Reviewed (Tele: NSR) Problem List - Problems (1) Demand ischemia Code(s): I24.8 - OTHER FORMS OF ACUTE ISCHEMIC HEART DISEASE (2) Cardiopulmonary arrest with successful resuscitation Code(s): I46.9 - CARDIAC ARREST, CAUSE UNSPECIFIED (3) Elevated LFTs Code(s): R94.5 - ABNORMAL RESULTS OF LIVER FUNCTION STUDIES (4) Elevated troponin Code(s): R74.8 - ABNORMAL LEVELS OF OTHER SERUM ENZYMES (5) Morbid obesity Code(s): E66.01 - MORBID (SEVERE) OBESITY DUE TO EXCESS CALORIES (6) Subglottic stenosis Code(s): J38.6 - STENOSIS OF LARYNX Assessment/Plan 10/19/2018 Echocardiography showed normal LV systolic function LVEF 55-60%, grade 1 diastolic dysfunction, mild TR 1. Post Acute Respiratory failure with Upper Airway Edema 2. Idiopathic autoimmune subglottic stenosis 3. Post cardiopulmonary arrest (? 90 seconds to ROSC) referable to above 4. Demand ischemia with elevated troponin 5. Hypercholesterolemia 6. Transient leukocytosis in the setting of steroids 7. Abnormal LFT likely passive congestion PLAN: 1. Decadron taper, wean FIO2 as tolerated, BD as needed, empiric antibiotics 2. Troponins downtrending 3. OOB to chair 4. DVT and GI prophylaxis
[2018-10-21 12:52] LABS: ALLENS TEST POSITIVE
--- NOTE | 2018-10-21 12:57 | PN ---
Teaching Attending Note Name of Resident: Ashley Diaz ATTENDING PHYSICIAN STATEMENT I saw and evaluated the patient. I reviewed the resident's note and discussed the case with the resident. I agree with the resident's findings and plan as documented. SUBJECTIVE: Pt seen and examined in the ICU. Intubated overnight, awake off sedation, following commands. +air leak upon cuff deflation. Tolerated CPAP/PS trials and subsequently extubated during rounds. OBJECTIVE: Vital Signs Period Temp Pulse Resp BP Sys/Brock Pulse Ox Last 24 Hr 97.5 F-98 F 40-69 18-18 121-157/65-103 96-99 Intake & Output 10/18/18 10/19/18 10/20/18 10/21/18 23:59 23:59 23:59 23:59 Intake Total 3240 2989 3492.6 2425.5 Output Total 2400 2100 1600 600 Balance 554 866 5350.6 1825.5 Weight 126.7 kg 127.459 kg 126.637 kg 130 kg Gen: extubated Heart: RRR Lung: scattered rhonchi Abd: soft, nontender Ext: no edema CBC, BMP 10/21/18 05:30 10/21/18 05:30 Active Medications Chlorhexidine Gluconate (Hibiclens For Decolonization -) 1 applic TP HS [facility] Last Admin: 10/20/18 22:03 Dose: 1 applic Dexamethasone Sodium Phosphate (Decadron Injection -) 10 mg IVPUSH Q8H-IV VANDANA Last Admin: 10/21/18 09:02 Dose: 10 mg Enoxaparin Sodium (Lovenox -) 40 mg SQ DAILY [facility] Last Admin: 10/21/18 09:03 Dose: 40 mg Ceftriaxone Sodium 2 gm/ (Dextrose) 100 mls @ 200 mls/hr IVPB DAILY [facility]; Protocol Last Admin: 10/21/18 09:03 Dose: 200 mls/hr Insulin Aspart (Novolog Vial Sliding Scale -) 1 vial SQ ACHS [facility]; Protocol Last Admin: 10/21/18 11:53 Dose: 2 units Mupirocin (Bactroban Ointment (For Decolonization) -) 1 applic NS BID VANDANA Stop: 10/22/18 09:59 Last Admin: 10/21/18 09:02 Dose: 1 applic Pantoprazole Sodium (Protonix Iv) 40 mg IVPUSH DAILY [facility] Last Admin: 10/21/18 09:15 Dose: 40 mg ASSESSMENT AND PLAN: Acute Hypercapneic Respiratory Failure h/o Autoimmune Subglottic Stenosis +Troponins likely Demand Ischemia Hypercholesterolemia Elevated LFTs - pt extubated - continue decadron - keep NPO for today - empiric antibiotics per ID - aspiration precautions - DVT prophylaxis - continue ICU monitoring critical care time spent in reviewing chart, evaluating patient and formulating plan 35 min
[2018-10-21] MEDS: CHLORHEXIDINE GLUCONATE 4% CLEANSER FOR DECOLONIZATION TP SCH (21:12)
[2018-10-22] MEDS: DEXAMETHASONE SOD PHOSPHATE 10 MG/1 ML VIAL IVPUSH SCH ×2 (03:00→09:04)
[2018-10-22] MEDS: INSULIN SLIDING SCALE (NOVOLOG) 1 VIAL SQ SCH ×3 (06:17→18:55)
[2018-10-22 06:31] LABS: BASO % 0.3 % (0-2.0); HEMATOCRIT 35.4 % (32.4-45.2); HEMOGLOBIN 11.8 GM/dL (10.7-15.3); LYMPH % 13.2 % (8-40); MCH 29.9 pg (25.7-33.7); MCHC 33.3 g/dl (32.0-36.0); MEAN CELL VOLUME 89.7 fl (80-96); MONO % 6.6 % (3.8-10.2); NEUT % 79.9 % (42.8-82.8); PLATELET COUNT 287 K/MM3 (134-434); RBC 3.95 M/mm3 (3.60-5.2); RDW 13.3 % (11.6-15.6); WHITE BLOOD COUNT 11.2 K/mm3 (4.0-10.0)
[2018-10-22 07:01] LABS: ALBUMIN 2.8 g/dl (3.4-5.0); ALK PHOS 86 U/L (45-117); ANION GAP 7 MMOL/L (8-16); BILIRUBIN,TOTAL 0.4 mg/dL (0.2-1); BLOOD UREA NITROGEN 20 mg/dL (7-18); CHLORIDE 107 mmol/L (98-107); CO2 27 mmol/L (21-32); CREATININE 0.7 mg/dL (0.55-1.3); GLUCOSE,RANDOM 122 mg/dL (74-106); MAGNESIUM 2.6 mg/dL (1.8-2.4); PHOSPHOROUS 3.3 mg/dL (2.5-4.9); POTASSIUM 4.1 mmol/L (3.5-5.1); SGOT/AST 100 U/L (15-37); SGPT/ALT 159 U/L (13-61); SODIUM 142 mmol/L (136-145); TOT PROT 6.2 g/dl (6.4-8.2)
[2018-10-22] MEDS ORDERED: DEXTROSE 5%-WATER 100 ML IVPB ONE (08:30)
[2018-10-22] MEDS: CEFTRIAXONE 2 GM in DEXTROSE 5%-WATER 100 ML IVPB SCH (09:00)
[2018-10-22] MEDS: PANTOPRAZOLE SODIUM 40 MG VIAL IVPUSH SCH (09:03)
[2018-10-22] MEDS: ENOXAPARIN NA (PORCINE) 40 MG/0.4 ML DISP.SYRIN SQ SCH (09:03)
--- NOTE | 2018-10-22 09:33 | PN ---
Physical Exam: SUBJECTIVE: Patient seen and examined OBJECTIVE: Vital Signs Period Temp Pulse Resp BP Sys/Brock Pulse Ox Last 24 Hr 97.3 F-98.6 F 40-55 17-23 100-157/60-90 93-96 GENERAL: The patient is awake, alert, and fully oriented, in no acute distress. HEAD: Normal with no signs of trauma. EYES: PERRL, extraocular movements intact, sclera anicteric, conjunctiva clear. No ptosis. ENT: Ears normal, nares patent, oropharynx clear without exudates, moist mucous membranes. NECK: Trachea midline, full range of motion, supple. LUNGS: Breath sounds equal, clear to auscultation bilaterally, no wheezes, no crackles, no accessory muscle use. HEART: Regular rate and rhythm, S1, S2 without murmur, rub or gallop. ABDOMEN: Soft, nontender, nondistended, normoactive bowel sounds, no guarding, no rebound, no hepatosplenomegaly, no masses. EXTREMITIES: 2+ pulses, warm, well-perfused, no edema. NEUROLOGICAL: Cranial nerves II through XII grossly intact. Normal speech, gait not observed. PSYCH: Normal mood, normal affect. SKIN: Warm, dry, normal turgor, no rashes or lesions noted Laboratory Results - last 24 hr 10/21/18 10/21/18 10/21/18 11:34 12:20 16:41 WBC RBC Hgb Hct MCV MCH MCHC RDW Plt Count MPV Absolute Neuts (auto) Neutrophils % Lymphocytes % Monocytes % Eosinophils % Basophils % Nucleated RBC % Anticoagulation Therapy No Result Required. Puncture Site Right radial ABG pH 7.42 ABG pCO2 at Pt Temp 35.6 ABG pO2 at Pt Temp 64.8 L ABG HCO3 22.6 ABG O2 Sat (Measured) 91.8 L ABG O2 Content 15.9 ABG Base Excess -0.9 Chetan Test Positive O2 Delivery Device No Result Required. Oxygen Flow Rate Yes Vent Mode No Result Required. Vent Rate No Result Required. Mechanical Rate No Result Required. Pressure Support Vent No Result Required. Sodium Potassium Chloride Carbon Dioxide Anion Gap BUN Creatinine Creat Clearance w eGFR POC Glucometer 159 122 Random Glucose Calcium Phosphorus Magnesium Total Bilirubin AST ALT Alkaline Phosphatase Total Protein Albumin 10/21/18 10/22/18 10/22/18 20:52 05:30 05:30 WBC 11.2 H RBC 3.95 Hgb 11.8 Hct 35.4 MCV 89.7 MCH 29.9 MCHC 33.3 RDW 13.3 Plt Count 287 MPV 9.0 Absolute Neuts (auto) 8.9 H Neutrophils % 79.9 Lymphocytes % 13.2 D Monocytes % 6.6 Eosinophils % 0.0 Basophils % 0.3 Nucleated RBC % 0 Anticoagulation Therapy Puncture Site ABG pH ABG pCO2 at Pt Temp ABG pO2 at Pt Temp ABG HCO3 ABG O2 Sat (Measured) ABG O2 Content ABG Base Excess Chetan Test O2 Delivery Device Oxygen Flow Rate Vent Mode Vent Rate Mechanical Rate Pressure Support Vent Sodium 142 Potassium 4.1 Chloride 107 Carbon Dioxide 27 Anion Gap 7 L BUN 20 H Creatinine 0.7 Creat Clearance w eGFR 86.88 POC Glucometer 121 Random Glucose 122 H Calcium 8.0 L Phosphorus 3.3 Magnesium 2.6 H Total Bilirubin 0.4 AST 100 H ALT 159 H Alkaline Phosphatase 86 Total Protein 6.2 L Albumin 2.8 L 10/22/18 06:10 WBC RBC Hgb Hct MCV MCH MCHC RDW Plt Count MPV Absolute Neuts (auto) Neutrophils % Lymphocytes % Monocytes % Eosinophils % Basophils % Nucleated RBC % Anticoagulation Therapy Puncture Site ABG pH ABG pCO2 at Pt Temp ABG pO2 at Pt Temp ABG HCO3 ABG O2 Sat (Measured) ABG O2 Content ABG Base Excess Chetan Test O2 Delivery Device Oxygen Flow Rate Vent Mode Vent Rate Mechanical Rate Pressure Support Vent Sodium Potassium Chloride Carbon Dioxide Anion Gap BUN Creatinine Creat Clearance w eGFR POC Glucometer 117 Random Glucose Calcium Phosphorus Magnesium Total Bilirubin AST ALT Alkaline Phosphatase Total Protein Albumin Active Medications Generic Name Dose Route Start Last Admin Trade Name Freq PRN Reason Stop Dose Admin Chlorhexidine Gluconate 1 applic 10/17/18 22:00 10/21/18 21:12 Hibiclens For Decolonization - TP 1 applic HS VANDANA Administration Dexamethasone Sodium Phosphate 10 mg 10/19/18 18:00 10/22/18 09:04 Decadron Injection - IVPUSH 10 mg Q8H-IV VANDANA Administration Enoxaparin Sodium 40 mg 10/20/18 10:00 10/22/18 09:03 Lovenox - SQ 40 mg DAILY VANDANA Administration Ceftriaxone Sodium 2 gm/ 100 mls @ 200 mls/hr 10/17/18 11:00 10/22/18 09:00 Dextrose IVPB 200 mls/hr DAILY VANDANA Administration Protocol Insulin Aspart 1 vial 10/19/18 22:00 10/22/18 06:17 Novolog Vial Sliding Scale - SQ Not Given ACHS VANDANA Protocol Mupirocin 1 applic 10/17/18 10:00 10/21/18 22:05 Bactroban Ointment (For Decolonization) - NS 10/22/18 09:59 1 applic BID VANDANA Administration Pantoprazole Sodium 40 mg 10/17/18 10:00 10/22/18 09:03 Protonix Iv IVPUSH 40 mg DAILY VANDANA Administration ASSESSMENT/PLAN: Problem List - Problems (1) Cardiopulmonary arrest with successful resuscitation Code(s): I46.9 - CARDIAC ARREST, CAUSE UNSPECIFIED (2) Elevated LFTs Code(s): R94.5 - ABNORMAL RESULTS OF LIVER FUNCTION STUDIES (3) Morbid obesity Code(s): E66.01 - MORBID (SEVERE) OBESITY DUE TO EXCESS CALORIES (4) Subglottic stenosis Code(s): J38.6 - STENOSIS OF LARYNX
--- NOTE | 2018-10-22 10:28 | CONSULT ---
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 Pt was intubated 10/17-10/21. Pt denies h/o Dysphagia. She reports that her speech is "more raspy" than baseline. She is mildly slow to respond, but oriented once she thinks and calculates the answers. She thought that she was at [place]. Easily re-oriented. History Source: Patient, Medical Record Limitations to Obtaining History: Clinical Condition - Past Medical History Hepatobiliary: No: Cirrhosis Renal/: No: Renal Inusuff ...: No ENT: Yes: Other (hereditary autoimmune subglottic stenosis) - Smoking History Smoking history: Never smoked Have you smoked in the past 12 months: No - Alcohol/Substance Use Hx Alcohol Use: No - Social History History of Recent Travel: No History - Admission Reason For Visit: SUBGLOTTIC STENOSIS CARDIOPULMONARY ARREST WITH - Diagnostics X-ray: Report Reviewed (Atelectasis/infiltration Right base) - General Mental Status: Alert and Oriented, Awake and Alert, Able to Follow Commands, Vague (slow to respond but fairly accurate.) Attention: Intact Ability to Follow Directions: Good Head/Neck Control: Fair - Hearing Hearing: Normal Speech Evaluation - Communication Primary Language: SINHAL[place] Oral Expression Ability: Yes: Mild Impairment - Speech Production Able to Make Needs Known: Yes: WNL Intelligibility: Yes: Mildly Impaired - Speech Characteristics Voice Loudness: Mildly Soft/Quiet Voice Pitch: Yes: Normal Voice Phonatory-based Quality: Yes: Hoarse, Dysphonia, Vocal Wetness ( intermittent) Speech Clarity: < 100% Nasal Resonance: Normal Articulation: Yes: Precise Voice, Other Observations: Yes: Progressively Weak Voice, Inadequate Breath Support - Language/Auditory Comprehension Follows: Yes: 1 Stage Simple Commands Observation: Able to respond to yes/no queries: Yes, Yes/No Confusion: No, Comprehends Conversational Speech: Yes - Swallow Evaluation/Bedside Assessment Current Nutritional Intake: NPO Oral Secretions: Yes: WFL Dentition: Yes: Adequate Facial Symmetry at Rest: Symmetrical Facial Symmetry on Retraction: Symmetrical Against Resistance Opening: Weak Against Resistance Closing: Weak Pucker Lips: Normal, Weak, Bilabial Closure (weak) Smile: Normal, Weak Lingual Movement: Symmetric Lingual Movement Strgth Against Opposition: Reduced Laryngeal Elevation: Impaired Laryngeal Movement: Able to Palpate, Reduced Excursion, Labored,delay initiation , Reduced Velocity Needs Assistance: Yes Bolus Size: Small Labial Seal: Impaired Bilaterally (weak, spillage when sipping from a cup.) Oral Prep Time: Increased Timing of Swallow: Delayed Coughing/Throat Clear: Yes (puree and water) Recommendations - Speech Evaluation, Impression/Plan 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 Dysphonia; extubated yesterday. Swallow is delayed and weak with suspected stasis/aspiration. Slow to respond but fairly appropriate, once she thinks. Suspect possible cognitive deficits. Would benefit from further w/u. Overall weakness-weak upper extremities. Pt reports she was independent, ambulatory premorbidly. - [facility]position [facility] - Dysphagia Impressions/Plan Swallowing Skills: Impaired Dysphagia Impressions: Suspect Aspiration *Silent aspiration: cannot be R/O at bedside Recommendations: MBS w Esophagus, Other (Continue NPO due to dysphonia, weak laryngeal swallow, suspected aspiration. Suspect improvement.MBS tomorrow if stable and stronger.) - Recommendations Diet Consistency: NPO Liquids: NPO
[2018-10-22 12:07] LABS: ANISOCYTOSIS 1+; MACROCYTOSIS 0; PLATELET ESTIMATE NORMAL
--- NOTE | 2018-10-22 12:10 | PN ---
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, Physician History of Present Illness: Extubated on NC. No stridor. Awaiting MBS. - Current Medication List Current Medications: Active Medications Chlorhexidine Gluconate (Hibiclens For Decolonization -) 1 applic TP HS [facility] Last Admin: 10/21/18 21:12 Dose: 1 applic Dexamethasone Sodium Phosphate (Decadron Injection -) 10 mg IVPUSH Q12H [facility] Enoxaparin Sodium (Lovenox -) 40 mg SQ DAILY [facility] [place] Last Admin: 10/22/18 09:03 Dose: 40 mg Ceftriaxone Sodium 2 gm/ (Dextrose) 100 mls @ 200 mls/hr IVPB DAILY [facility] [place]; Protocol Last Admin: 10/22/18 09:00 Dose: 200 mls/hr Insulin Aspart (Novolog Vial Sliding Scale -) 1 vial SQ ACHS [facility] [place]; Protocol Last Admin: 10/22/18 11:26 Dose: Not Given Pantoprazole Sodium (Protonix Iv) 40 mg IVPUSH DAILY [facility] [place] Last Admin: 10/22/18 09:03 Dose: 40 mg - Objective Vital Signs: Vital Signs Temperature 98.3 F 10/22/18 10:00 Pulse Rate 42 L 10/22/18 10:00 Respiratory Rate 10/22/18 10:00 Blood Pressure 137/72 10/22/18 10:00 O2 Sat by Pulse Oximetry (%) 93 L 10/22/18 08:13 Constitutional: Yes: No Distress, Calm Neck: Yes: Supple Cardiovascular: Yes: Regular Rate and Rhythm Respiratory: Yes: Regular, Diminished, On Nasal O2 Gastrointestinal: Yes: Soft, Hypoactive Bowel Sounds Edema: No Labs: CBC, BMP 10/22/18 05:30 10/22/18 05:30 INR, PTT INR 1.03 (0.83-1.09) 10/17/18 04:48 - ....Imaging Chest X-ray: Report Reviewed (Rt base ATX) Problem List - Problems (1) Demand ischemia Code(s): I24.8 - OTHER FORMS OF ACUTE ISCHEMIC HEART DISEASE (2) Cardiopulmonary arrest with successful resuscitation Code(s): I46.9 - CARDIAC ARREST, CAUSE UNSPECIFIED (3) Elevated LFTs Code(s): R94.5 - ABNORMAL RESULTS OF LIVER FUNCTION STUDIES (4) Elevated troponin Code(s): R74.8 - ABNORMAL LEVELS OF OTHER SERUM ENZYMES (5) Morbid obesity Code(s): E66.01 - MORBID (SEVERE) OBESITY DUE TO EXCESS CALORIES (6) Subglottic stenosis Code(s): J38.6 - STENOSIS OF LARYNX Assessment/Plan 10/19/2018 Echocardiography showed normal LV systolic function LVEF 55-60%, grade 1 diastolic dysfunction, mild TR 1. Post Acute Respiratory failure with Upper Airway Edema 2. Idiopathic autoimmune subglottic stenosis 3. Post cardiopulmonary arrest (? 90 seconds to ROSC) referable to above 4. Demand ischemia with elevated troponin 5. Hypercholesterolemia 6. Transient leukocytosis in the setting of steroids 7. Abnormal LFT likely passive congestion resolving PLAN: 1. Decadron taper, wean FIO2 as tolerated, BD as needed, empiric antibiotics 2. Troponins downtrending 3. OOB to chair 4. DVT and GI prophylaxis 5. MBS
[2018-10-22] MEDS ORDERED: DEXAMETHASONE SOD PHOSPHATE 10 MG/1 ML VIAL IVPUSH SCH (12:15)
--- NOTE | 2018-10-22 12:45 | PN ---
Teaching Attending Note Name of Resident: Graeme Mccullough ATTENDING PHYSICIAN STATEMENT I saw and evaluated the patient. I reviewed the resident's note and discussed the case with the resident. I agree with the resident's findings and plan as documented. SUBJECTIVE: Patient seen & examined in the ICU. Extubated. Awake and alert. No CP or SOB. No stridor appreciated. Intake & Output 10/19/18 10/20/18 10/21/18 10/22/18 23:59 23:59 23:59 23:59 Intake Total 2989 3492.6 2525.5 Output Total 2100 1600 2200 550 Balance 889 1892.6 325.5 -550 Weight 281 lb 279 lb 3 oz 286 lb 9.615 oz 279 lb 1.683 oz Last Vital Signs Temp Pulse Resp BP Pulse Ox 98.3 F 42 L 19 137/72 93 L 10/22/18 10:00 10/22/18 10:00 10/22/18 10:00 10/22/18 10:00 10/22/18 08:13 Active Medications Chlorhexidine Gluconate (Hibiclens For Decolonization -) 1 applic TP HS [facility] Last Admin: 10/21/18 21:12 Dose: 1 applic Dexamethasone Sodium Phosphate (Decadron Injection -) 10 mg IVPUSH BID [facility]AN[facility]NA Enoxaparin Sodium (Lovenox -) 40 mg SQ DAILY [facility] Last Admin: 10/22/18 09:03 Dose: 40 mg Ceftriaxone Sodium 2 gm/ (Dextrose) 100 mls @ 200 mls/hr IVPB DAILY [facility]; Protocol Last Admin: 10/22/18 09:00 Dose: 200 mls/hr Dextrose/Sodium Chloride (D5-Ns -) 1,000 mls @ 75 mls/hr IV ASDIR VANDANA Insulin Aspart (Novolog Vial Sliding Scale -) 1 vial SQ ACHS VANDANA; Protocol Last Admin: 10/22/18 11:26 Dose: Not Given Pantoprazole Sodium (Protonix Iv) 40 mg IVPUSH DAILY [facility] Last Admin: 10/22/18 09:03 Dose: 40 mg GEN: Obese middle aged woman, Awake and alert PULM: Scattered rhonchi, no wheeze CV: S1 S2, RR ABD: Obese, (+) BS Soft, non-tender EXT: + Pulses, (-) edema SKIN: No obvious rashes lesions or ulcers 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 Laboratory Results - last 24 hr 10/21/18 10/21/18 10/21/18 12:20 16:41 20:52 WBC RBC Hgb Hct MCV MCH MCHC RDW Plt Count MPV Absolute Neuts (auto) Neutrophils % Neutrophils % (Manual) Band Neutrophils % Lymphocytes % Lymphocytes % (Manual) Monocytes % Monocytes % (Manual) Eosinophils % Eosinophils % (Manual) Basophils % Basophils % (Manual) Myelocytes % (Man) Promyelocytes % (Man) Blast Cells % (Manual) Nucleated RBC % Metamyelocytes Hypochromia Platelet Estimate Polychromasia Poikilocytosis Anisocytosis Microcytosis Macrocytosis Puncture Site Right radial ABG pH 7.42 ABG pCO2 at Pt Temp 35.6 ABG pO2 at Pt Temp 64.8 L ABG HCO3 22.6 ABG O2 Sat (Measured) 91.8 L ABG O2 Content 15.9 ABG Base Excess -0.9 Chetan Test Positive Oxygen Flow Rate Yes Sodium Potassium Chloride Carbon Dioxide Anion Gap BUN Creatinine Creat Clearance w eGFR POC Glucometer 122 121 Random Glucose Calcium Phosphorus Magnesium Total Bilirubin AST ALT Alkaline Phosphatase Total Protein Albumin 10/22/18 10/22/18 10/22/18 05:30 05:30 06:10 WBC 11.2 H RBC 3.95 Hgb 11.8 Hct 35.4 MCV 89.7 MCH 29.9 MCHC 33.3 RDW 13.3 Plt Count 287 MPV 9.0 Absolute Neuts (auto) 8.9 H Neutrophils % 79.9 Neutrophils % (Manual) 75.8 Band Neutrophils % 1.0 Lymphocytes % 13.2 D Lymphocytes % (Manual) 16.2 Monocytes % 6.6 Monocytes % (Manual) 5 Eosinophils % 0.0 Eosinophils % (Manual) 0.0 Basophils % 0.3 Basophils % (Manual) 0.0 Myelocytes % (Man) 2 Promyelocytes % (Man) 0 Blast Cells % (Manual) 0 Nucleated RBC % 0 Metamyelocytes 0 Hypochromia 0 Platelet Estimate Normal Polychromasia 0 Poikilocytosis 0 Anisocytosis 1+ Microcytosis 1+ Macrocytosis 0 Puncture Site ABG pH ABG pCO2 at Pt Temp ABG pO2 at Pt Temp ABG HCO3 ABG O2 Sat (Measured) ABG O2 Content ABG Base Excess Chetan Test Oxygen Flow Rate Sodium 142 Potassium 4.1 Chloride 107 Carbon Dioxide 27 Anion Gap 7 L BUN 20 H Creatinine 0.7 Creat Clearance w eGFR 86.88 POC Glucometer 117 Random Glucose 122 H Calcium 8.0 L Phosphorus 3.3 Magnesium 2.6 H Total Bilirubin 0.4 AST 100 H ALT 159 H Alkaline Phosphatase 86 Total Protein 6.2 L Albumin 2.8 L 10/22/18 11:08 WBC RBC Hgb Hct MCV MCH MCHC RDW Plt Count MPV Absolute Neuts (auto) Neutrophils % Neutrophils % (Manual) Band Neutrophils % Lymphocytes % Lymphocytes % (Manual) Monocytes % Monocytes % (Manual) Eosinophils % Eosinophils % (Manual) Basophils % Basophils % (Manual) Myelocytes % (Man) Promyelocytes % (Man) Blast Cells % (Manual) Nucleated RBC % Metamyelocytes Hypochromia Platelet Estimate Polychromasia Poikilocytosis Anisocytosis Microcytosis Macrocytosis Puncture Site ABG pH ABG pCO2 at Pt Temp ABG pO2 at Pt Temp ABG HCO3 ABG O2 Sat (Measured) ABG O2 Content ABG Base Excess Chetan Test Oxygen Flow Rate Sodium Potassium Chloride Carbon Dioxide Anion Gap BUN Creatinine Creat Clearance w eGFR POC Glucometer 143 Random Glucose Calcium Phosphorus Magnesium Total Bilirubin AST ALT Alkaline Phosphatase Total Protein Albumin Problem List - Problems (1) Cardiopulmonary arrest with successful resuscitation Code(s): I46.9 - CARDIAC ARREST, CAUSE UNSPECIFIED (2) Subglottic stenosis Code(s): J38.6 - STENOSIS OF LARYNX ASSESS: Upper Airway Edema History of Idiopathic autoimmune subglottic stenosis Acute Respiratory failure Hyperglycemia in the setting of steroids s/p Cardiac arrest (? 90 seconds to ROSC) Leukocytosis in the setting of steroids Transaminitis PLAN: Swallow evaluation Wean Decadron BD [place] ABX coverage per ID: consider D/C VTE prophyalxis Inform ENT that the patient has been extubated Floor Dr sOorio
[2018-10-22] MEDS: DEXTROSE 5%-NORMAL SALINE 1,000 ML IV SCH (13:10)
--- NOTE | 2018-10-22 13:39 | PN ---
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, Physician History of Present Illness: seen and evaluated at bedside. spoke with hoarse voice. feeling much better today. no other complaint. - Current Medication List Current Medications: Active Medications Chlorhexidine Gluconate (Hibiclens For Decolonization -) 1 applic TP HS [facility] Last Admin: 10/21/18 21:12 Dose: 1 applic Dexamethasone Sodium Phosphate (Decadron Injection -) 10 mg IVPUSH BID [facility] Last Admin: 10/22/18 13:09 Dose: Not Given Enoxaparin Sodium (Lovenox -) 40 mg SQ DAILY [facility] Last Admin: 10/22/18 09:03 Dose: 40 mg Ceftriaxone Sodium 2 gm/ (Dextrose) 100 mls @ 200 mls/hr IVPB DAILY [facility]; Protocol Last Admin: 10/22/18 09:00 Dose: 200 mls/hr Dextrose/Sodium Chloride (D5-Ns -) 1,000 mls @ 75 mls/hr IV ASDIR [facility] Last Admin: 10/22/18 13:10 Dose: 75 mls/hr Insulin Aspart (Novolog Vial Sliding Scale -) 1 vial SQ ACHS [facility]; Protocol Last Admin: 10/22/18 11:26 Dose: Not Given Pantoprazole Sodium (Protonix Iv) 40 mg IVPUSH DAILY [facility] Last Admin: 10/22/18 09:03 Dose: 40 mg - Objective Vital Signs: Vital Signs Temperature 98.6 F 10/22/18 13:14 Pulse Rate 44 L 10/22/18 13:14 Respiratory Rate 10/22/18 13:14 Blood Pressure 140/73 10/22/18 13:14 O2 Sat by Pulse Oximetry (%) 93 L 10/22/18 08:13 Constitutional: Yes: No Distress, Calm Cardiovascular: Yes: Regular Rate and Rhythm, S1, S2 Respiratory: Yes: Rhonchi Extremities: No: Erythema Edema: No Labs: CBC, BMP 10/22/18 05:30 10/22/18 05:30 INR, PTT INR 1.03 (0.83-1.09) 10/17/18 04:48 Impression/Plan Impression/Plan: 53 y/o F h/o autoimmune subglottic stenosis admitted to the ICU for acute respiratory failure intubated and sedated, now extubated. Assessment - acute hypoxemic respiratory failure 2/2 idiopathic autoimmune subglottic stenosis - fatty liver - URI Plan - extubated to NC3L, tolerating well - modified barium swallow tomorrow - taper decadron from q8h to q12h - call made out to ENT and requested re-evaluation - to floors Visit type - Emergency Visit Emergency Visit: No - New Patient This patient is new to me today: No - Critical Care Critical Care patient: Yes Total Critical Care Time (in minutes): 35 Critical Care Statement: The care of this patient involved high complexity decision making to prevent further life threatening deterioration of the patient 's condition and/or to evaluate & treat vital organ system(s) failure or risk of failure.
--- NOTE | 2018-10-22 18:22 | PN ---
Physical Exam: SUBJECTIVE: Patient seen and examined 24 HR EVENTS -pt tolerating NC -remains NPO -seen by speech and swallow, who recommends MBS tomorrow 10/23 -decadron tapered down OBJECTIVE: Vital Signs Period Temp Pulse Resp BP Sys/Brock Pulse Ox Last 24 Hr 97.3 F-98.6 F 42-55 17-23 134-156/70-88 93-95 GENERAL: The patient is awake, alert, and fully oriented, in no acute distress. 3L NC in place. HEAD: Normal with no signs of trauma. EYES: PERRL, sclera anicteric, conjunctiva clear. ENT: nares patent, oropharynx clear without exudates, dry mucous membranes. NECK: Trachea midline, LUNGS: Breath sounds equal, clear to auscultation bilaterally, no wheezes, no crackles, no accessory muscle use. HEART: Regular rate and rhythm, S1, S2 without murmur, rub or gallop. ABDOMEN: Soft, nontender, nondistended, hypoactive bowel sounds, obese abdomen EXTREMITIES: 2+ pulses, warm, well-perfused, + 1 ankle and pedal edema. NEUROLOGICAL: slow hypophonic speech, gait not observed. PSYCH: Normal mood, normal affect. SKIN: Warm, dry, normal turgor, no rashes or lesions noted Laboratory Results - last 24 hr 10/21/18 10/22/18 10/22/18 20:52 05:30 05:30 WBC 11.2 H RBC 3.95 Hgb 11.8 Hct 35.4 MCV 89.7 MCH 29.9 MCHC 33.3 RDW 13.3 Plt Count 287 MPV 9.0 Absolute Neuts (auto) 8.9 H Neutrophils % 79.9 Neutrophils % (Manual) 75.8 Band Neutrophils % 1.0 Lymphocytes % 13.2 D Lymphocytes % (Manual) 16.2 Monocytes % 6.6 Monocytes % (Manual) 5 Eosinophils % 0.0 Eosinophils % (Manual) 0.0 Basophils % 0.3 Basophils % (Manual) 0.0 Myelocytes % (Man) 2 Promyelocytes % (Man) 0 Blast Cells % (Manual) 0 Nucleated RBC % 0 Metamyelocytes 0 Hypochromia 0 Platelet Estimate Normal Polychromasia 0 Poikilocytosis 0 Anisocytosis 1+ Microcytosis 1+ Macrocytosis 0 Sodium 142 Potassium 4.1 Chloride 107 Carbon Dioxide 27 Anion Gap 7 L BUN 20 H Creatinine 0.7 Creat Clearance w eGFR 86.88 POC Glucometer 121 Random Glucose 122 H Calcium 8.0 L Phosphorus 3.3 Magnesium 2.6 H Total Bilirubin 0.4 AST 100 H ALT 159 H Alkaline Phosphatase 86 Total Protein 6.2 L Albumin 2.8 L 10/22/18 10/22/18 06:10 11:08 WBC RBC Hgb Hct MCV MCH MCHC RDW Plt Count MPV Absolute Neuts (auto) Neutrophils % Neutrophils % (Manual) Band Neutrophils % Lymphocytes % Lymphocytes % (Manual) Monocytes % Monocytes % (Manual) Eosinophils % Eosinophils % (Manual) Basophils % Basophils % (Manual) Myelocytes % (Man) Promyelocytes % (Man) Blast Cells % (Manual) Nucleated RBC % Metamyelocytes Hypochromia Platelet Estimate Polychromasia Poikilocytosis Anisocytosis Microcytosis Macrocytosis Sodium Potassium Chloride Carbon Dioxide Anion Gap BUN Creatinine Creat Clearance w eGFR POC Glucometer 117 143 Random Glucose Calcium Phosphorus Magnesium Total Bilirubin AST ALT Alkaline Phosphatase Total Protein Albumin Active Medications Generic Name Dose Route Start Last Admin Trade Name Freq PRN Reason Stop Dose Admin Chlorhexidine Gluconate 1 applic 10/17/18 22:00 10/21/18 21:12 Hibiclens For Decolonization - TP 1 applic HS VANDANA Administration Dexamethasone Sodium Phosphate 10 mg 10/22/18 12:15 10/22/18 13:09 Decadron Injection - IVPUSH Not Given BID VANDANA Enoxaparin Sodium 40 mg 10/20/18 10:00 10/22/18 09:03 Lovenox - SQ 40 mg DAILY [facility]NA Administration Ceftriaxone Sodium 2 gm/ 100 mls @ 200 mls/hr 10/17/18 11:00 10/22/18 09:00 Dextrose IVPB 200 mls/hr DAILY [facility]NA Administration Protocol Dextrose/Sodium Chloride 1,000 mls @ 75 mls/hr 10/22/18 12:35 10/22/18 13:10 D5-Ns - IV 75 mls/hr ASDIR VANDANA Administration Insulin Aspart 1 vial 10/22/18 17:30 Novolog Vial Sliding Scale - SQ BIDAC VANDANA Protocol Pantoprazole Sodium 40 mg 10/17/18 10:00 10/22/18 09:03 Protonix Iv IVPUSH 40 mg DAILY [facility] Administration ASSESSMENT/PLAN: 53 year old woman with a history of idiopathic autoimmune subglottic stenosis who activated EMS 2/2 respiratory insufficiency requiring intubation in the field, complicated by cardiopulmonary arrest. 1. Acute hypoxic respiratory failure secondary to idiopathic autoimmune subglottic stenosis with upper airway edema - monitor resp status stable post extubation - Continue Decadron 10mg q12hrs, taper as per ENT/Pulm - for MBS tomorrow 2. Demand ischemia - Echo showed normal LV, EF 55-60%, grade I diastolic dysfunction, normal RV function - cards recs appreciated 4. Steroid-induced hyperglycemia - Continue Novolog sliding scale 5. Hepatic transaminitis - US shows multiple gallstoness, hepatomegaly, fatty infiltration vs hepatocellular disease 6. Leukocytosis (WBC downtrending 21 >> 11) improving -ID following, pt currently on ceftriaxone 2G empirically 7. F/E/N - Continue IV fluid - NPO 8. DVT prophylaxis - On Lovenox 9. Stress ulcer prophylaxis - On Protonix 40mg daily 10. DISPO: full code Problem List - Problems (1) Cardiopulmonary arrest with successful resuscitation Code(s): I46.9 - CARDIAC ARREST, CAUSE UNSPECIFIED (2) Elevated LFTs Code(s): R94.5 - ABNORMAL RESULTS OF LIVER FUNCTION STUDIES (3) Morbid obesity Code(s): E66.01 - MORBID (SEVERE) OBESITY DUE TO EXCESS CALORIES (4) Subglottic stenosis Code(s): J38.6 - STENOSIS OF LARYNX Visit type - Emergency Visit Emergency Visit: Yes ED Registration Date: 10/17/18 Care time: The patient presented to the Emergency Department on the above date and was hospitalized for further evaluation of their emergent condition. - New Patient This patient is new to me today: No - Critical Care Critical Care patient: Yes Total Critical Care Time (in minutes): 40 Critical Care Statement: The care of this patient involved high complexity decision making to prevent further life threatening deterioration of the patient 's condition and/or to evaluate & treat vital organ system(s) failure or risk of failure. - Discharge Referral Referred to [facility] Med P.C.: No
--- NOTE | 2018-10-22 18:28 | PN ---
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 (short form) - Note 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: ENT pt extubated awake and alert, no respiratory distress some sore throat and mild voice change pt states last surgery with Dr. Holder 2013 had some leftover prednisone at home and took some that night of respiratory arrest/admission (did not work) Medical, Pulmonary and Speech Pathology swallow evaluation reviewed VSS SaO2 96% RA PE NAD awake, alert, conversant voice minimally raspy, no stridor or respiratory distress oral cavity tongue position 2, otherwise WNL oropharynx normal Neck: no mass or node, thyroid and salivary glands unremarkable, trachea midline Impression: autoimmune subglottic stenosis stable airway after intubation, extubation s/p cardiac arrest climically improved Recommend: continue airway observation continue steroids advise outpatient Laryngology followup to evaluate for repeat surgical treatment of subglottic stenosis pt states does not participate with her present insurance company suggested evaluation at [facility] Otolaryngology-Head and Neck Surgery Department Ritesh Munguia MD FACS Problem List - Problems (1) Cardiopulmonary arrest with successful resuscitation Code(s): I46.9 - CARDIAC ARREST, CAUSE UNSPECIFIED (2) Subglottic stenosis Code(s): J38.6 - STENOSIS OF LARYNX
[2018-10-22] MEDS ORDERED: CHLORHEXIDINE GLUCONATE 4% CLEANSER FOR DECOLONIZATION TP SCH (22:00)
[2018-10-23] MEDS ORDERED: DEXAMETHASONE SOD PHOSPHATE 10 MG/1 ML VIAL IVPUSH SCH (00:15)
[2018-10-23] MEDS: DEXAMETHASONE SOD PHOSPHATE 4 MG/1 ML VIAL IVPUSH SCH ×2 (02:04→11:15)
[2018-10-23] MEDS: INSULIN SLIDING SCALE (NOVOLOG) 1 VIAL SQ SCH ×2 (06:31→17:08)
[2018-10-23 07:12] LABS: ALBUMIN 2.8 g/dl (3.4-5.0); ALK PHOS 84 U/L (45-117); ANION GAP 5 MMOL/L (8-16); BILIRUBIN,TOTAL 0.5 mg/dL (0.2-1); BLOOD UREA NITROGEN 20 mg/dL (7-18); CALCIUM 8.2 mg/dL (8.5-10.1); CHLORIDE 103 mmol/L (98-107); CO2 28 mmol/L (21-32); CREATININE 0.6 mg/dL (0.55-1.3); GLUCOSE,RANDOM 137 mg/dL (74-106); POTASSIUM 3.9 mmol/L (3.5-5.1); SGOT/AST 65 U/L (15-37); SGPT/ALT 142 U/L (13-61); SODIUM 136 mmol/L (136-145); TOT PROT 6.3 g/dl (6.4-8.2)
[2018-10-23 07:53] LABS: BASO % 0.6 % (0-2.0); EOS % 0.1 % (0-4.5); HEMATOCRIT 38.9 % (32.4-45.2); LYMPH % 12.4 % (8-40); MCH 29.4 pg (25.7-33.7); MCHC 33.4 g/dl (32.0-36.0); MEAN CELL VOLUME 88.1 fl (80-96); MEAN PLT VOLUME 8.6 fl (7.5-11.1); MONO % 7.6 % (3.8-10.2); NEUT % 79.3 % (42.8-82.8); PLATELET COUNT 322 K/MM3 (134-434); RBC 4.42 M/mm3 (3.60-5.2); RDW 13.5 % (11.6-15.6); WHITE BLOOD COUNT 11.7 K/mm3 (4.0-10.0)
[2018-10-23] MEDS ORDERED: PANTOPRAZOLE SODIUM 40 MG VIAL IVPUSH SCH (10:00)
[2018-10-23] MEDS ORDERED: CEFTRIAXONE 2 GM in DEXTROSE 5%-WATER 100 ML IVPB SCH (10:00)
[2018-10-23] MEDS ORDERED: DEXTROSE 5%-WATER 100 ML IVPB ONE (10:31)
--- NOTE | 2018-10-23 10:55 | PN ---
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, Physician History of Present Illness: Comfortable on NC. No stridor. Awaiting MBS. - Current Medication List Current Medications: Active Medications Chlorhexidine Gluconate (Hibiclens For Decolonization -) 1 applic TP HS [facility] Dexamethasone Sodium Phosphate (Decadron Injection -) 10 mg IVPUSH BID [facility] Last Admin: 10/23/18 02:04 Dose: 10 mg Enoxaparin Sodium (Lovenox -) 40 mg SQ DAILY [facility] Dextrose/Sodium Chloride (D5-Ns -) 1,000 mls @ 75 mls/hr IV ASDIR [facility] Last Admin: 10/22/18 13:10 Dose: 75 mls/hr Ceftriaxone Sodium 2 gm/ (Dextrose) 100 mls @ 200 mls/hr IVPB DAILY [facility]; Protocol Insulin Aspart (Novolog Vial Sliding Scale -) 1 vial SQ BIDAC [facility]; Protocol Last Admin: 10/23/18 06:31 Dose: 2 units Pantoprazole Sodium (Protonix Iv) 40 mg IVPUSH DAILY [facility] - Objective Vital Signs: Vital Signs Temperature 98.4 F 10/23/18 06:00 Pulse Rate 60 10/23/18 06:00 Respiratory Rate 16 10/23/18 06:00 Blood Pressure 148/86 10/23/18 06:00 O2 Sat by Pulse Oximetry (%) 100 10/22/18 19:51 Constitutional: Yes: No Distress, Calm Neck: Yes: Supple Cardiovascular: Yes: Regular Rate and Rhythm Respiratory: Yes: Regular, Diminished, On Nasal O2 Gastrointestinal: Yes: Soft, Hypoactive Bowel Sounds Edema: No Labs: CBC, BMP 10/23/18 07:37 10/23/18 06:30 INR, PTT INR 1.03 (0.83-1.09) 10/17/18 04:48 Problem List - Problems (1) Demand ischemia Code(s): I24.8 - OTHER FORMS OF ACUTE ISCHEMIC HEART DISEASE (2) Cardiopulmonary arrest with successful resuscitation Code(s): I46.9 - CARDIAC ARREST, CAUSE UNSPECIFIED (3) Elevated LFTs Code(s): R94.5 - ABNORMAL RESULTS OF LIVER FUNCTION STUDIES (4) Elevated troponin Code(s): R74.8 - ABNORMAL LEVELS OF OTHER SERUM ENZYMES (5) Morbid obesity Code(s): E66.01 - MORBID (SEVERE) OBESITY DUE TO EXCESS CALORIES (6) Subglottic stenosis Code(s): J38.6 - STENOSIS OF LARYNX Assessment/Plan 10/19/2018 Echocardiography showed normal LV systolic function LVEF 55-60%, grade 1 diastolic dysfunction, mild TR 1. Post Acute Respiratory failure with Upper Airway Edema 2. Idiopathic autoimmune subglottic stenosis 3. Post cardiopulmonary arrest (? 90 seconds to ROSC) referable to above 4. Demand ischemia with elevated troponin 5. Hypercholesterolemia 6. Transient leukocytosis in the setting of steroids 7. Abnormal LFT likely passive congestion resolving PLAN: 1. Decadron taper, wean FIO2 as tolerated, BD as needed, empiric antibiotics consider d/c 2. Troponins downtrending 3. OOB to chair 4. DVT and GI prophylaxis 5. MBS 6. Outpatient Laryngology followup to evaluate for repeat surgical treatment of subglottic stenosis
[2018-10-23] MEDS: ENOXAPARIN NA (PORCINE) 40 MG/0.4 ML DISP.SYRIN SQ SCH (11:15)
[2018-10-23 11:28] LABS: ANISOCYTOSIS 0; MACROCYTOSIS 0; PLATELET ESTIMATE NORMAL
--- NOTE | 2018-10-23 13:36 | PN ---
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 (short form) - Note 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: states voice is improving. no difficulty breathing or controlling secretions. denies CP, SOB, fever, chills, stridor, N/V/C/D had similiar situation in 2012 but no etiology was determined. followed up with ENT 2x after that incident and has not seen them since Current Medications Generic Name Dose Route Start Last Admin Trade Name Miracle PRN Reason Stop Dose Admin Chlorhexidine Gluconate 1 applic 10/22/18 22:00 Hibiclens For Decolonization - TP HS [facility] Dexamethasone Sodium Phosphate 10 mg 10/23/18 02:00 10/23/18 11:15 Decadron Injection - IVPUSH 10 mg BID [facility]NA Administration Enoxaparin Sodium 40 mg 10/23/18 10:00 10/23/18 11:15 Lovenox - SQ 40 mg DAILY [facility] Administration Dextrose/Sodium Chloride 1,000 mls @ 75 mls/hr 10/22/18 12:35 10/22/18 13:10 D5-Ns - IV 75 mls/hr ASDIR VANDANA Administration Ceftriaxone Sodium 2 gm/ 100 mls @ 200 mls/hr 10/23/18 10:00 10/23/18 11:14 Dextrose IVPB 200 mls/hr DAILY [facility] Administration Protocol Insulin Aspart 1 vial 10/22/18 17:30 10/23/18 06:31 Novolog Vial Sliding Scale - SQ 2 units BIDAC [facility]ANDANA Administration Protocol Pantoprazole Sodium 40 mg 10/23/18 10:00 10/23/18 11:15 Protonix Iv IVPUSH 40 mg DAILY [facility] Administration Last Vital Signs Temp Pulse Resp BP Pulse Ox 98 F 65 20 145/98 100 10/23/18 13:13 10/23/18 13:13 10/23/18 13:13 10/23/18 13:13 10/22/18 19:51 General NAD, voice slightly raspy HEENT no stidor, no tenderness or LN CV S1 S2 RRR no murmur/rub/gallop Lungs CTA B/L no wheezing/rales/rhonchi CBCD WBC 11.7 K/mm3 (4.0-10.0) H 10/23/18 07:37 RBC 4.42 M/mm3 (3.60-5.2) 10/23/18 07:37 Hgb 13.0 GM/dL (10.7-15.3) 10/23/18 07:37 Hct 38.9 % (32.4-45.2) 10/23/18 07:37 MCV 88.1 fl (80-96) 10/23/18 07:37 MCHC 33.4 g/dl (32.0-36.0) 10/23/18 07:37 RDW 13.5 % (11.6-15.6) 10/23/18 07:37 Plt Count 322 K/MM3 (134-434) 10/23/18 07:37 MPV 8.6 fl (7.5-11.1) 10/23/18 07:37 CMP Sodium 136 mmol/L (136-145) 10/23/18 06:30 Potassium 3.9 mmol/L (3.5-5.1) 10/23/18 06:30 Chloride 103 mmol/L (98-107) 10/23/18 06:30 Carbon Dioxide 28 mmol/L (21-32) 10/23/18 06:30 Anion Gap 5 MMOL/L (8-16) L 10/23/18 06:30 BUN 20 mg/dL (7-18) H 10/23/18 06:30 Creatinine 0.6 mg/dL (0.55-1.3) 10/23/18 06:30 Creat Clearance w eGFR 103.79 (>60) 10/23/18 06:30 Calcium 8.2 mg/dL (8.5-10.1) L 10/23/18 06:30 Total Bilirubin 0.5 mg/dL (0.2-1) 10/23/18 06:30 AST 65 U/L (15-37) H 10/23/18 06:30 ALT 142 U/L (13-61) H 10/23/18 06:30 Alkaline Phosphatase 84 U/L (45-117) 10/23/18 06:30 Total Protein 6.3 g/dl (6.4-8.2) L 10/23/18 06:30 Albumin 2.8 g/dl (3.4-5.0) L 10/23/18 06:30 A/P 53 year old woman with a history of idiopathic autoimmune subglottic stenosis who presented to the ED after a cardiopulmonary arrest. 1. Acute hypoxic respiratory failure secondary to idiopathic autoimmune subglottic stenosis with upper airway edema- maintain airway. saturating well on RA. will titrate down decadron 10mg BID x7 days then 10mg daily until follows up with ENT specialist. PPI ppx. will d/c abx. MBS today to evaluate if can resume feeds. will need ENT follow up as outpatient for layngoscopy. will need to go to [facility] for repeat surgical treatment 2. s/p cardiopulmonary arrest- 90sec to achieve ROSC. likely due to airway edema and hypoxia. can f/u with 3. Demand ischemia- Echo showed normal LV, EF 55-60%, grade I diastolic dysfunction, normal RV function 4. Steroid-induced hyperglycemia-improved. cont iss 5. Hyperlipidemia 6. Hepatic transaminitis- fatty liver on u/s. trending down 7. Leukocytosis- liekly reactive vs steroids. will d/c abx. cx if necessary 8. DVT prophylaxis- On Lovenox 9. Stress ulcer prophylaxis- On Protonix 10. deconditioned. will need MARI. COLIN sent out Visit type - Emergency Visit Emergency Visit: Yes ED Registration Date: 10/17/18 Care time: The patient presented to the Emergency Department on the above date and was hospitalized for further evaluation of their emergent condition. - New Patient This patient is new to me today: Yes Date on this admission: 10/23/18 - Critical Care Critical Care patient: No - Discharge Referral Referred to [facility] No
--- NOTE | 2018-10-23 13:58 | PN ---
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, Physician History of Present Illness: AWAKE, ALERT NO COMPLAINTS OFFERED DENIES CHEST PAIN/ DYSPNEA/ COUGH AFEBRILE WBC SL ELEVATED ON STEROIDS CULTURES NO GROWTH FLU (-) - Current Medication List Current Medications: Active Medications Dexamethasone Sodium Phosphate (Decadron Injection -) 10 mg IVPUSH BID [facility] Last Admin: 10/23/18 11:15 Dose: 10 mg Enoxaparin Sodium (Lovenox -) 40 mg SQ DAILY [facility] Last Admin: 10/23/18 11:15 Dose: 40 mg Dextrose/Sodium Chloride (D5-Ns -) 1,000 mls @ 75 mls/hr IV ASDIR [facility] Last Admin: 10/22/18 13:10 Dose: 75 mls/hr Insulin Aspart (Novolog Vial Sliding Scale -) 1 vial SQ BIDAC [facility]; Protocol Last Admin: 10/23/18 06:31 Dose: 2 units Pantoprazole Sodium (Protonix Iv) 40 mg IVPUSH DAILY [facility] Last Admin: 10/23/18 11:15 Dose: 40 mg - Objective Vital Signs: Vital Signs Temperature 98 F 10/23/18 13:13 Pulse Rate 65 10/23/18 13:13 Respiratory Rate 20 10/23/18 13:13 Blood Pressure 145/98 10/23/18 13:13 O2 Sat by Pulse Oximetry (%) 100 10/22/18 19:51 Constitutional: Yes: No Distress Eyes: Yes: Conjunctiva Clear Cardiovascular: Yes: Regular Rate and Rhythm, S1, S2 Respiratory: Yes: Diminished Gastrointestinal: Yes: Normal Bowel Sounds, Soft. No: Tenderness Edema: No Labs: CBC, BMP 10/23/18 07:37 10/23/18 06:30 INR, PTT INR 1.03 (0.83-1.09) 10/17/18 04:48 Assessment/Plan S/P CARDIOPULMONARY ARREST RESP FAILURE LEUKOCYTOSIS- ? STEROID-INDUCED LFT ELEVATION IMPROVED SUBGLOTTIC STENOSIS OBSERVE OFF ANTIBIOTICS
--- NOTE | 2018-10-23 14:00 | PN ---
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 (short form) - Note 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: Overall better. No acute events overnight. Intake & Output 10/20/18 10/21/18 10/22/18 10/23/18 23:59 23:59 23:59 23:59 Intake Total 3492.6 2525.5 580 450 Output Total 1600 2200 1050 Balance 1892.6 325.5 -470 450 Weight 279 lb 3 oz 286 lb 9.615 oz 279 lb 1.683 oz Last Vital Signs Temp Pulse Resp BP Pulse Ox 98 F 65 20 145/98 100 10/23/18 13:13 10/23/18 13:13 10/23/18 13:13 10/23/18 13:13 10/22/18 19:51 Active Medications Dexamethasone Sodium Phosphate (Decadron Injection -) 10 mg IVPUSH BID [facility] Last Admin: 10/23/18 11:15 Dose: 10 mg Enoxaparin Sodium (Lovenox -) 40 mg SQ DAILY [facility] Last Admin: 10/23/18 11:15 Dose: 40 mg Dextrose/Sodium Chloride (D5-Ns -) 1,000 mls @ 75 mls/hr IV ASDIR [facility] Last Admin: 10/22/18 13:10 Dose: 75 mls/hr Insulin Aspart (Novolog Vial Sliding Scale -) 1 vial SQ BIDAC [facility]; Protocol Last Admin: 10/23/18 06:31 Dose: 2 units Pantoprazole Sodium (Protonix Iv) 40 mg IVPUSH DAILY [facility] Last Admin: 10/23/18 11:15 Dose: 40 mg GEN: Awake and alert, NAD PULM: Scattered rhonchi, no wheeze CV: S1 S2, RR ABD: Obese, (+) BS Soft, non-tender EXT: + Pulses, (-) edema SKIN: No obvious rashes lesions or ulcers FINISHER SCREWDOWN: non-focal Laboratory Results - last 24 hr 10/22/18 10/23/18 10/23/18 18:54 06:18 06:30 WBC Cancelled Corrected WBC (auto) Cancelled RBC Cancelled Hgb Cancelled Hct Cancelled MCV Cancelled MCH Cancelled MCHC Cancelled RDW Cancelled Plt Count Cancelled MPV Cancelled Absolute Neuts (auto) Neutrophils % Neutrophils % (Manual) Band Neutrophils % Lymphocytes % Lymphocytes % (Manual) Monocytes % Monocytes % (Manual) Eosinophils % Eosinophils % (Manual) Basophils % Basophils % (Manual) Myelocytes % (Man) Promyelocytes % (Man) Blast Cells % (Manual) Nucleated RBC % Metamyelocytes Manual Slide Review Cancelled Hypochromia Platelet Estimate Platelet Comment Cancelled Polychromasia Poikilocytosis Anisocytosis Microcytosis Macrocytosis Sodium Potassium Chloride Carbon Dioxide Anion Gap BUN Creatinine Creat Clearance w eGFR POC Glucometer 125 152 Random Glucose Calcium Total Bilirubin AST ALT Alkaline Phosphatase Total Protein Albumin 10/23/18 10/23/18 06:30 07:37 WBC 11.7 H Corrected WBC (auto) RBC 4.42 Hgb 13.0 Hct 38.9 MCV 88.1 MCH 29.4 MCHC 33.4 RDW 13.5 Plt Count 322 MPV 8.6 Absolute Neuts (auto) 9.3 H Neutrophils % 79.3 Neutrophils % (Manual) 67.0 Band Neutrophils % 0.0 Lymphocytes % 12.4 Lymphocytes % (Manual) 20.0 D Monocytes % 7.6 Monocytes % (Manual) 5 Eosinophils % 0.1 D Eosinophils % (Manual) 0.0 Basophils % 0.6 Basophils % (Manual) 0.0 Myelocytes % (Man) 0 D Promyelocytes % (Man) 0 Blast Cells % (Manual) 0 Nucleated RBC % 0 Metamyelocytes 3 H D Manual Slide Review Hypochromia 0 Platelet Estimate Normal Platelet Comment Polychromasia 0 Poikilocytosis 0 Anisocytosis 0 Microcytosis 0 Macrocytosis 0 Sodium 136 Potassium 3.9 Chloride 103 Carbon Dioxide 28 Anion Gap 5 L BUN 20 H Creatinine 0.6 Creat Clearance w eGFR 103.79 POC Glucometer Random Glucose 137 H Calcium 8.2 L Total Bilirubin 0.5 AST 65 H ALT 142 H Alkaline Phosphatase 84 Total Protein 6.3 L Albumin 2.8 L Problem List - Problems (1) Cardiopulmonary arrest with successful resuscitation Code(s): I46.9 - CARDIAC ARREST, CAUSE UNSPECIFIED (2) Subglottic stenosis Code(s): J38.6 - STENOSIS OF LARYNX ASSESS: Upper Airway Edema History of Idiopathic autoimmune subglottic stenosis Acute Respiratory failure Hyperglycemia in the setting of steroids s/p Cardiac arrest (? 90 seconds to ROSC) Leukocytosis in the setting of steroids Transaminitis PLAN: Swallow evaluation Decadron BD TX Would monitor off ABX VTE prophyalxis Dr Osorio
[2018-10-23] MEDS: DEXAMETHASONE 4 MG TABLET (FP) PO SCH (22:38)
[2018-10-24] MEDS: INSULIN SLIDING SCALE (NOVOLOG) 1 VIAL SQ SCH ×2 (07:00→17:37)
[2018-10-24] MEDS ORDERED: INSULIN (NOVOLOG) ASPART 100 UNITS/ML 10ML VIAL ONE (09:38)
[2018-10-24] MEDS: ENOXAPARIN NA (PORCINE) 40 MG/0.4 ML DISP.SYRIN SQ SCH (10:10)
[2018-10-24] MEDS: DEXAMETHASONE 4 MG TABLET (FP) PO SCH ×2 (10:10→22:08)
[2018-10-24] MEDS: PANTOPRAZOLE 40 MG TABLET (FP) PO SCH (10:11)
[2018-10-24] MEDS: DEXTROSE 5%-NORMAL SALINE 1,000 ML IV SCH (10:12)
--- NOTE | 2018-10-24 12:31 | PN ---
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, Physician Chief Complaint: Events noted Seen on floor Feels better History of Present Illness: Patient was seen and examined. Awake and alert. Chart was reviewed Denies chest pain, SOB or palpitations - Current Medication List Current Medications: Active Medications Dexamethasone (Decadron -) 10 mg PO BID [facility] Last Admin: 10/24/18 10:10 Dose: 10 mg Enoxaparin Sodium (Lovenox -) 40 mg SQ DAILY [facility] Last Admin: 10/24/18 10:10 Dose: 40 mg Insulin Aspart (Novolog Vial Sliding Scale -) 1 vial SQ [facility]; Protocol Last Admin: 10/24/18 07:00 Dose: Not Given Pantoprazole Sodium (Protonix -) 40 mg PO DAILY [facility] Last Admin: 10/24/18 10:11 Dose: 40 mg - Objective Vital Signs: Vital Signs Temperature 97.9 F 10/24/18 05:00 Pulse Rate 52 L 10/24/18 05:00 Respiratory Rate 18 10/24/18 05:00 Blood Pressure 141/88 10/24/18 05:00 O2 Sat by Pulse Oximetry (%) 96 10/23/18 21:00 Eyes: Yes: PERRL HENT: Yes: Atraumatic Neck: Yes: Supple Cardiovascular: Yes: Regular Rate and Rhythm, S1, S2 Respiratory: Yes: CTA Bilaterally Gastrointestinal: Yes: Normal Bowel Sounds, Soft. No: Tenderness Edema: No Labs: CBC, BMP 10/23/18 07:37 10/23/18 06:30 Problem List - Problems (1) Cardiopulmonary arrest with successful resuscitation Code(s): I46.9 - CARDIAC ARREST, CAUSE UNSPECIFIED (2) Elevated LFTs Code(s): R94.5 - ABNORMAL RESULTS OF LIVER FUNCTION STUDIES (3) Elevated troponin Code(s): R74.8 - ABNORMAL LEVELS OF OTHER SERUM ENZYMES (4) Leukocytosis Code(s): D72.829 - ELEVATED WHITE BLOOD CELL COUNT, UNSPECIFIED (5) Morbid obesity Code(s): E66.01 - MORBID (SEVERE) OBESITY DUE TO EXCESS CALORIES (6) Subglottic stenosis Code(s): J38.6 - STENOSIS OF LARYNX Assessment/Plan 1. Demand ischemia with elevated troponin 2. ? Opioid overdose 3. Post respiratory failure now improved 4. Post cardiopulmonary arrest 5. Subglottic stenosis 6. Hypercholesterolemia 7. Transient leukocytosis 8. Abnormal LFT likely passive congestion PLAN: 1. Present therapy 2. DVT and GI prophylaxis Supportive care Dax Yoder MD
--- NOTE | 2018-10-24 13:25 | PN ---
Physical Exam: SUBJECTIVE: Patient seen and examined, has no respiratory complaints, only feels week OBJECTIVE: Vital Signs Period Temp Pulse Resp BP Sys/Brock Pulse Ox Last 24 Hr 97.9 F-98.2 F 52-60 18-19 141-142/88-92 96 she is in no distress, talks with Nl voice, obese CTAB ABD: bs+ NT/ND Ext: 1+ pitting edema Strength 4/5 in the MARY B/L. Laboratory Results - last 24 hr 10/23/18 10/24/18 17:07 05:30 POC Glucometer 129 128 Active Medications Generic Name Dose Route Start Last Admin Trade Name Freq PRN Reason Stop Dose Admin Dexamethasone 10 mg 10/23/18 22:00 10/24/18 10:10 Decadron - PO 10 mg BID [facility] Administration Enoxaparin Sodium 40 mg 10/23/18 10:00 10/24/18 10:10 Lovenox - SQ 40 mg DAILY [facility] Administration Insulin Aspart 1 vial 10/22/18 17:30 10/24/18 07:00 Novolog Vial Sliding Scale - SQ Not Given BIDAC [facility] Protocol Pantoprazole Sodium 40 mg 10/24/18 10:00 10/24/18 10:11 Protonix - PO 40 mg DAILY [facility] Administration ASSESSMENT/PLAN: 53 Y/O F W HX of idiopathic autoimmune subglottic stenosis who presented to the ED after a cardiopulmonary arrest( ROSC 90 seconds), day 7 hospitalization, 1. Acute hypoxic respiratory failure secondary to idiopathic autoimmune subglottic stenosis with upper airway edema- maintain airway. saturating well on RA. will titrate down decadron 10mg BID x7 days then 10mg daily until follows up with ENT specialist. PPI ppx. will d/c abx. MBS today to evaluate if can resume feeds. will need ENT follow up as outpatient for layngoscopy. will need to go to [facility] for repeat surgical treatment 2. s/p cardiopulmonary arrest- 90sec to achieve ROSC. likely due to airway edema and hypoxia. can f/u with 3. Demand ischemia- Echo showed normal LV, EF 55-60%, grade I diastolic dysfunction, normal RV function 4. Steroid-induced hyperglycemia-improved. cont iss 5. Hyperlipidemia: needs to be on statins which can be started as O/P. 6. Hepatic transaminitis- fatty liver on u/s. trending down 7. Leukocytosis- Likely reactive vs steroids. will d/c abx. cx if necessary 8. DVT prophylaxis- On Lovenox 9. Stress ulcer prophylaxis- On Protonix 10. deconditioned. will need MARI. COLIN sent out Visit type - Emergency Visit Emergency Visit: Yes ED Registration Date: 10/17/18 Care time: The patient presented to the Emergency Department on the above date and was hospitalized for further evaluation of their emergent condition. - New Patient This patient is new to me today: Yes Date on this admission: 10/24/18 - Critical Care Critical Care patient: No - Discharge Referral Referred to [facility] Med P.C.: No
--- NOTE | 2018-10-24 14:37 | PN ---
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 (short form) - Note 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: PULMONARY States breathing is improving. Feels weak. Minimal cough. Vital Signs Period Temp Pulse Resp BP Sys/Brock Pulse Ox Last 24 Hr 97.9 F-98.2 F 52-60 -19 141-142/88-92 96 Gen: NAD at rest Heart: RRR Lung: decreased breath sounds at the bases Abd: soft, nontender Ext: no edema CBC, BMP 10/23/18 07:37 10/23/18 06:30 Active Medications Dexamethasone (Decadron -) 10 mg PO BID [facility] Last Admin: 10/24/18 10:10 Dose: 10 mg Enoxaparin Sodium (Lovenox -) 40 mg SQ DAILY [facility] Last Admin: 10/24/18 10:10 Dose: 40 mg Insulin Aspart (Novolog Vial Sliding Scale -) 1 vial SQ BIDAC [facility]; Protocol Last Admin: 10/24/18 07:00 Dose: Not Given Pantoprazole Sodium (Protonix -) 40 mg PO DAILY [facility] Last Admin: 10/24/18 10:11 Dose: 40 mg A/P cute Hypercapneic Respiratory Failure h/o Autoimmune Subglottic Stenosis +Troponins likely Demand Ischemia Hypercholesterolemia Elevated LFTs - continue decadron - PO as tolerated - s/p empiric antibiotics - rehab/PT - DVT prophylaxis
[2018-10-25] MEDS: INSULIN SLIDING SCALE (NOVOLOG) 1 VIAL SQ SCH ×2 (07:00→17:37)
[2018-10-25] MEDS: PANTOPRAZOLE 40 MG TABLET (FP) PO SCH (09:54)
[2018-10-25] MEDS: ENOXAPARIN NA (PORCINE) 40 MG/0.4 ML DISP.SYRIN SQ SCH (09:55)
[2018-10-25] MEDS: DEXAMETHASONE 4 MG TABLET (FP) PO SCH ×2 (09:55→21:58)
--- NOTE | 2018-10-25 12:04 | PN ---
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 (short form) - Note 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: PULMONARY States breathing continues to improve. Feels weak. Vital Signs Period Temp Pulse Resp BP Sys/Brock Pulse Ox Last 24 Hr 97.8 F-98.4 F 76-83 18-18 111-120/63-77 98 Gen: NAD at rest Heart: RRR Lung: decreased breath sounds at the bases Abd: soft, nontender Ext: no edema CBC, BMP 10/23/18 07:37 10/23/18 06:30 Active Medications Dexamethasone (Decadron -) 10 mg PO BID [facility] Last Admin: 10/25/18 09:55 Dose: 10 mg Enoxaparin Sodium (Lovenox -) 40 mg SQ DAILY [facility] Last Admin: 10/25/18 09:55 Dose: 40 mg Insulin Aspart (Novolog Vial Sliding Scale -) 1 vial SQ BIDAC [facility]; Protocol Last Admin: 10/25/18 07:00 Dose: Not Given Pantoprazole Sodium (Protonix -) 40 mg PO DAILY [facility] Last Admin: 10/25/18 09:54 Dose: 40 mg A/P Acute Hypercapneic Respiratory Failure h/o Autoimmune Subglottic Stenosis +Troponins likely Demand Ischemia Hypercholesterolemia Elevated LFTs - continue decadron - PO as tolerated - s/p empiric antibiotics - rehab/PT - DVT prophylaxis
[2018-10-25] MEDS ORDERED: INSULIN (NOVOLOG) ASPART 100 UNITS/ML 10ML VIAL ONE (21:41)
[2018-10-26] MEDS: INSULIN SLIDING SCALE (NOVOLOG) 1 VIAL SQ SCH ×3 (06:49→17:32)
--- NOTE | 2018-10-26 09:56 | PN ---
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, Physician History of Present Illness: Comfortable on NC. No stridor. MBS confirms normal swallowing function. - Current Medication List Current Medications: Active Medications Dexamethasone (Decadron -) 10 mg PO BID [facility] Last Admin: 10/25/18 21:58 Dose: 10 mg Enoxaparin Sodium (Lovenox -) 40 mg SQ DAILY [facility] Last Admin: 10/25/18 09:55 Dose: 40 mg Insulin Aspart (Novolog Vial Sliding Scale -) 1 vial SQ BIDAC [facility]; Protocol Last Admin: 10/26/18 06:49 Dose: Not Given Pantoprazole Sodium (Protonix -) 40 mg PO DAILY [facility] Last Admin: 10/25/18 09:54 Dose: 40 mg - Objective Vital Signs: Vital Signs Temperature 97.9 F 10/26/18 06:28 Pulse Rate 55 L 10/26/18 06:28 Respiratory Rate 18 10/26/18 06:28 Blood Pressure 119/71 10/26/18 06:28 O2 Sat by Pulse Oximetry (%) 95 10/25/18 21:00 Constitutional: Yes: No Distress, Calm Neck: Yes: Supple Cardiovascular: Yes: Regular Rate and Rhythm Respiratory: Yes: Regular, Diminished, On Nasal O2 Gastrointestinal: Yes: Normal Bowel Sounds, Soft Edema: No Labs: CBC, BMP 10/23/18 07:37 10/23/18 06:30 INR, PTT INR 1.03 (0.83-1.09) 10/17/18 04:48 Problem List - Problems (1) Demand ischemia Code(s): I24.8 - OTHER FORMS OF ACUTE ISCHEMIC HEART DISEASE (2) Cardiopulmonary arrest with successful resuscitation Code(s): I46.9 - CARDIAC ARREST, CAUSE UNSPECIFIED (3) Elevated LFTs Code(s): R94.5 - ABNORMAL RESULTS OF LIVER FUNCTION STUDIES (4) Elevated troponin Code(s): R74.8 - ABNORMAL LEVELS OF OTHER SERUM ENZYMES (5) Morbid obesity Code(s): E66.01 - MORBID (SEVERE) OBESITY DUE TO EXCESS CALORIES (6) Subglottic stenosis Code(s): J38.6 - STENOSIS OF LARYNX Assessment/Plan 10/19/2018 Echocardiography showed normal LV systolic function LVEF 55-60%, grade 1 diastolic dysfunction, mild TR 1. Post Acute Respiratory failure with Upper Airway Edema 2. Idiopathic autoimmune subglottic stenosis 3. Post cardiopulmonary arrest (? 90 seconds to ROSC) referable to above 4. Demand ischemia with elevated troponin 5. Hypercholesterolemia 6. Transient leukocytosis in the setting of steroids 7. Abnormal LFT resolving PLAN: 1. Decadron taper, wean FIO2 as tolerated, BD as needed 2. Troponins downtrending 3. OOB to chair 4. DVT and GI prophylaxis 5. MBS results noted 6. Outpatient Laryngology followup to evaluate for repeat surgical treatment of subglottic stenosis
--- NOTE | 2018-10-26 10:04 | PN ---
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, Physician Chief Complaint: Comfortable, no c/o SOB History of Present Illness: 53 Y/O F W HX of idiopathic autoimmune subglottic stenosis who presented to the ED after a cardiopulmonary arrest( ROSC 90 seconds), day 8 hospitalization, - Current Medication List Current Medications: Active Medications Dexamethasone (Decadron -) 10 mg PO BID [facility] Last Admin: 10/25/18 21:58 Dose: 10 mg Enoxaparin Sodium (Lovenox -) 40 mg SQ DAILY [facility] Last Admin: 10/25/18 09:55 Dose: 40 mg Insulin Aspart ([facility] Protocol Last Admin: 10/26/18 06:49 Dose: Not Given Pantoprazole Sodium (Protonix -) 40 mg PO DAILY [facility] Last Admin: 10/25/18 09:54 Dose: 40 mg - Objective Vital Signs: Vital Signs Temperature 97.9 F 10/26/18 06:28 Pulse Rate 55 L 10/26/18 06:28 Respiratory Rate 18 10/26/18 06:28 Blood Pressure 119/71 10/26/18 06:28 O2 Sat by Pulse Oximetry (%) 95 10/25/18 21:00 GENERAL: comfortable, no c/o SOB HEENT: Mm moist, no anemia, PERRLA EOMI NECK: no stidor No JVd No Bruit LUNGS: B/L AE HEART: S1S2 Tachycardia ABDOMEN: PEG tube at place No distention Bs + EXTREMITIES: Trace edema feet, Pulses + NEUROLOGICAL: AOx3 non focal Labs: CBC, BMP 10/23/18 07:37 10/23/18 06:30 INR, PTT INR 1.03 (0.83-1.09) 10/17/18 04:48 Problem List - Problems (1) Cardiopulmonary arrest with successful resuscitation Assessment/Plan: Due to respiratory insufficiency 90 second ROSC Code(s): I46.9 - CARDIAC ARREST, CAUSE UNSPECIFIED (2) Subglottic stenosis Assessment/Plan: F/U with Layngology for possible surgery , mean time cont Dexamethasone taper Code(s): J38.6 - STENOSIS OF LARYNX (3) Elevated troponin Assessment/Plan: Due tro Demand ischemia on ASA and statin Code(s): R74.8 - ABNORMAL LEVELS OF OTHER SERUM ENZYMES (4) Morbid obesity Assessment/Plan: nutrition consult as out patient Code(s): E66.01 - MORBID (SEVERE) OBESITY DUE TO EXCESS CALORIES
[2018-10-26] MEDS: DEXAMETHASONE 4 MG TABLET (FP) PO SCH ×2 (10:33→21:21)
[2018-10-26] MEDS: PANTOPRAZOLE 40 MG TABLET (FP) PO SCH (10:33)
[2018-10-26] MEDS: ENOXAPARIN NA (PORCINE) 40 MG/0.4 ML DISP.SYRIN SQ SCH (10:33)
--- NOTE | 2018-10-26 11:00 | PN ---
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 On reg diet/thin liquids.Strength of ue 's is improving but still weaker than baseline. Pt reports voice is at baseline because of her allergies?; more likely sec to 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 Tolerating diet. Taking about 50% which she feels is sufficient. She does not want supplements. Excellent candidate for acute rehab.
--- NOTE | 2018-10-26 11:44 | PN ---
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 (short form) - Note 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: Overall better. No acute events overnight. Intake & Output 10/23/18 10/24/18 10/25/18 10/26/18 23:59 23:59 23:59 23:59 Intake Total 450 600 400 100 Balance 450 600 400 100 Last Vital Signs Temp Pulse Resp BP Pulse Ox 97.8 F 70 18 109/73 95 10/26/18 10:00 10/26/18 10:00 10/26/18 10:00 10/26/18 10:00 10/25/18 21:00 Active Medications Dexamethasone (Decadron -) 10 mg PO BID [facility] Last Admin: 10/26/18 10:33 Dose: 10 mg Enoxaparin Sodium (Lovenox -) 40 mg SQ DAILY [facility] Last Admin: 10/26/18 10:33 Dose: 40 mg Insulin Aspart ([facility] Sliding [facility] -[facility] Protocol Last Admin: 10/26/18 06:49 Dose: Not Given Pantoprazole Sodium (Protonix -) 40 mg PO DAILY [facility] Last Admin: 10/26/18 10:33 Dose: 40 mg GEN: Awake and alert, NAD PULM: Scattered rhonchi, no wheeze CV: S1 S2, RR ABD: Obese, (+) BS Soft, non-tender EXT: + Pulses, (-) edema SKIN: No obvious rashes lesions or ulcers 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 90 seconds to ROSC) Leukocytosis in the setting of steroids Transaminitis PLAN: PO as tolerated Decadron taper BD TX VTE prophyalxis No Pulmonary contraindication for D/C Dr Osorio
[2018-10-26 14:56] VITALS: BMI 45.0
[2018-10-27] MEDS: INSULIN SLIDING SCALE (NOVOLOG) 1 VIAL SQ SCH ×2 (06:11→17:11)
[2018-10-27] MEDS ORDERED: INSULIN (LEVEMIR) 100 UNITS/ML UNITS SQ ONE (06:54)
[2018-10-27] MEDS ORDERED: INSULIN (NOVOLOG) ASPART 100 UNITS/ML 10ML VIAL ONE (06:54)
[2018-10-27 08:17] LABS: BASO % 0.1 % (0-2.0); HEMOGLOBIN 15.5 GM/dL (10.7-15.3); LYMPH % 10.2 % (8-40); MCH 30.1 pg (25.7-33.7); MCHC 33.6 g/dl (32.0-36.0); MEAN CELL VOLUME 89.5 fl (80-96); MEAN PLT VOLUME 8.5 fl (7.5-11.1); MONO % 7.5 % (3.8-10.2); NEUT % 82.2 % (42.8-82.8); PLATELET COUNT 381 K/MM3 (134-434); RBC 5.14 M/mm3 (3.60-5.2); RDW 13.8 % (11.6-15.6); WHITE BLOOD COUNT 15.1 K/mm3 (4.0-10.0)
[2018-10-27 08:35] LABS: ALBUMIN 3.3 g/dl (3.4-5.0); ALK PHOS 88 U/L (45-117); ANION GAP 7 MMOL/L (8-16); BILIRUBIN,TOTAL 0.5 mg/dL (0.2-1); BLOOD UREA NITROGEN 23 mg/dL (7-18); CALCIUM 9.2 mg/dL (8.5-10.1); CHLORIDE 103 mmol/L (98-107); CO2 23 mmol/L (21-32); CREATININE 0.5 mg/dL (0.55-1.3); GLUCOSE,RANDOM 128 mg/dL (74-106); POTASSIUM 4.7 mmol/L (3.5-5.1); SGOT/AST 16 U/L (15-37); SGPT/ALT 61 U/L (13-61); SODIUM 134 mmol/L (136-145); TOT PROT 7.5 g/dl (6.4-8.2)
[2018-10-27] MEDS: PANTOPRAZOLE 40 MG TABLET (FP) PO SCH (10:34)
[2018-10-27] MEDS: ENOXAPARIN NA (PORCINE) 40 MG/0.4 ML DISP.SYRIN SQ SCH (10:34)
[2018-10-27] MEDS: DEXAMETHASONE 4 MG TABLET (FP) PO SCH ×2 (10:35→22:20)
[2018-10-27 11:21] LABS: ANISOCYTOSIS 2+; MACROCYTOSIS 1+; PLATELET ESTIMATE NORMAL; TEAR DROP CELLS 1+
--- NOTE | 2018-10-27 11:45 | PN ---
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: Selected Entries 10/25/18 10/25/18 10/25/18 10:17 13:53 18:32 Breakfast 50% Diet Tolerated Lunch 50% Supper 100% Temperature 97.4 F L 98.0 F 10/25/18 10/26/18 10/26/18 23:12 02:00 06:28 Breakfast Diet Tolerated Lunch Supper 75% Temperature 97.4 F L 97.9 F 10/26/18 10/26/18 10:00 10:41 Breakfast 50% Diet Tolerated Well Lunch Supper Temperature 97.8 F Laboratory Tests 10/22/18 10/23/18 05:30 06:30 WBC 11.2 H Cancelled Selected Entries 10/26/18 10/26/18 10/26/18 02:00 06:28 10:00 Breakfast Lunch Supper Temperature 97.4 F L 97.9 F 97.8 F 10/26/18 10/26/18 10/26/18 10:41 13:10 14:48 Breakfast 50% Lunch 50% Supper Temperature 99.1 F 10/26/18 10/26/18 10/26/18 18:00 18:35 22:00 Breakfast Lunch Supper 50% Temperature 98 F 98.1 F 10/27/18 10/27/18 02:00 06:15 Breakfast Lunch Supper Temperature 97.4 F L 97.5 F L Laboratory Tests 10/27/18 07:30 WBC 15.1 H On reg diet/thin liquids. Pt denies dysphagia or congestion. Reviewed with Nursing.
--- NOTE | 2018-10-27 12:48 | PN ---
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, Physician History of Present Illness: PULMONARY ALERT,NO DISTRESS,-CP,-SOB,-COUGH - Current Medication List Current Medications: Active Medications Dexamethasone (Decadron -) 10 mg PO BID [facility] Last Admin: 10/27/18 10:35 Dose: 10 mg Enoxaparin Sodium (Lovenox -) 40 mg SQ DAILY [facility] Last Admin: 10/27/18 10:34 Dose: 40 mg Insulin Aspart (Novolog Vial Sliding Scale -) 1 vial SQ BIDAC [facility]; Protocol Last Admin: 10/27/18 06:11 Dose: Not Given Pantoprazole Sodium (Protonix -) 40 mg PO DAILY [facility] Last Admin: 10/27/18 10:34 Dose: 40 mg - Objective Vital Signs: Vital Signs Temperature 97.5 F L 10/27/18 06:15 Pulse Rate 57 L 10/27/18 06:15 Respiratory Rate 18 10/27/18 06:15 Blood Pressure 120/72 10/27/18 06:15 O2 Sat by Pulse Oximetry (%) 97 10/26/18 21:00 Constitutional: Yes: Well Nourished, Calm Eyes: Yes: WNL HENT: Yes: WNL Neck: Yes: WNL Cardiovascular: Yes: Regular Rate and Rhythm, S1, S2 Respiratory: Yes: CTA Bilaterally (- STRIDOR) Gastrointestinal: Yes: Normal Bowel Sounds, Soft Extremities: Yes: WNL Edema: No Labs: CBC, BMP 10/27/18 07:30 10/27/18 07:30 INR, PTT INR 1.03 (0.83-1.09) 10/17/18 04:48 Assessment/Plan Problem List - Problems (1) Cardiopulmonary arrest with successful resuscitation Code(s): I46.9 - CARDIAC ARREST, CAUSE UNSPECIFIED (2) Subglottic stenosis Code(s): J38.6 - STENOSIS OF LARYNX ASSESS: Upper Airway Edema resolved History of Idiopathic autoimmune subglottic stenosis Acute Respiratory failure Hyperglycemia in the setting of steroids s/p Cardiac arrest (? 90 seconds to ROSC) Leukocytosis in the setting of steroids Transaminitis PLAN: PO as tolerated Decadron taper BD TX VTE prophyalxis DR BALDERRAMA
--- NOTE | 2018-10-27 16:18 | PN ---
Physical Exam: SUBJECTIVE: Patient seen and examined at the bedside. feels well, in no acute distress. eating well without difficulty swallowing. denies shortness of breath. Patient wants to follow up with her [facility]ory Dr. (Dr. Holder) for follow up on her idiopathic autoimmune 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 OBJECTIVE: She is currently on decadron (started on 10/23/18) for idiopathic autoimmune 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 plan is to continue decadron 10mg BID x7 days (10/23>) then 10mg daily until follows up with ENT specialist. rehab placement, pending insurance authorization Vital Signs Period Temp Pulse Resp BP Sys/Brock Pulse Ox Last 24 Hr 97.4 F-98.1 F 55-83 18-20 107-134/67-80 97-97 GENERAL: The patient is awake, alert, and fully oriented, in no acute distress. HEAD: Normal with no signs of trauma. EYES: PERRL, extraocular movements intact, sclera anicteric, conjunctiva clear. No ptosis. ENT: Ears normal, nares patent, oropharynx clear without exudates, moist mucous membranes. NECK: Trachea midline, full range of motion, supple. LUNGS: Breath sounds equal, clear to auscultation bilaterally, no wheezes, no crackles, no accessory muscle use. HEART: Regular rate and rhythm ABDOMEN: Soft, nontender, nondistended, normoactive bowel sounds, no guarding, no rebound, no hepatosplenomegaly, no masses. EXTREMITIES: no edema. NEUROLOGICAL: Normal speech, gait not observed. PSYCH: Normal mood, normal affect. SKIN: Warm, dry, normal turgor, no rashes or lesions noted Laboratory Results - last 24 hr 10/26/18 10/27/18 10/27/18 17:30 06:00 07:30 WBC 15.1 H RBC 5.14 Hgb 15.5 H Hct 46.0 H D MCV 89.5 MCH 30.1 MCHC 33.6 RDW 13.8 Plt Count 381 MPV 8.5 Absolute Neuts (auto) 12.4 H Neutrophils % 82.2 Neutrophils % (Manual) 74.2 Band Neutrophils % 1.1 Lymphocytes % 10.2 Lymphocytes % (Manual) 4.1 L D Monocytes % 7.5 Monocytes % (Manual) 7 Eosinophils % 0.0 D Eosinophils % (Manual) 0.0 Basophils % 0.1 Basophils % (Manual) 0.0 Myelocytes % (Man) 0 Promyelocytes % (Man) 0 Blast Cells % (Manual) 0 Nucleated RBC % 0 Metamyelocytes 0 D Hypochromia 0 Platelet Estimate Normal Platelet Comment Present Polychromasia 1+ Poikilocytosis 2+ Anisocytosis 2+ Microcytosis 0 Macrocytosis 1+ Spherocytes 1+ Tear Drop Cells 1+ Sodium Potassium Chloride Carbon Dioxide Anion Gap BUN Creatinine Creat Clearance w eGFR POC Glucometer 131 137 Random Glucose Calcium Total Bilirubin AST ALT Alkaline Phosphatase Total Protein Albumin 10/27/18 07:30 WBC RBC Hgb Hct MCV MCH MCHC RDW Plt Count MPV Absolute Neuts (auto) Neutrophils % Neutrophils % (Manual) Band Neutrophils % Lymphocytes % Lymphocytes % (Manual) Monocytes % Monocytes % (Manual) Eosinophils % Eosinophils % (Manual) Basophils % Basophils % (Manual) Myelocytes % (Man) Promyelocytes % (Man) Blast Cells % (Manual) Nucleated RBC % Metamyelocytes Hypochromia Platelet Estimate Platelet Comment Polychromasia Poikilocytosis Anisocytosis Microcytosis Macrocytosis Spherocytes Tear Drop Cells Sodium 134 L Potassium 4.7 Chloride 103 Carbon Dioxide 23 Anion Gap 7 L BUN 23 H Creatinine 0.5 L Creat Clearance w eGFR 128.10 POC Glucometer Random Glucose 128 H Calcium 9.2 Total Bilirubin 0.5 AST 16 ALT 61 Alkaline Phosphatase 88 Total Protein 7.5 Albumin 3.3 L Active Medications Generic Name Dose Route Start Last Admin Trade Name Freq PRN Reason Stop Dose Admin Dexamethasone 10 mg 10/23/18 22:00 10/27/18 10:35 Decadron - PO 10 mg BID VANDANA Administration Enoxaparin Sodium 40 mg 10/23/18 10:00 10/27/18 10:34 Lovenox - SQ 40 mg DAILY VANDANA Administration Insulin Aspart 1 vial 10/22/18 17:30 10/27/18 06:11 Novolog Vial Sliding Scale - SQ Not Given BIDAC VANDANA Protocol Pantoprazole Sodium 40 mg 10/24/18 10:00 10/27/18 10:34 Protonix - PO 40 mg DAILY VANDANA Administration ASSESSMENT/PLAN: Patient is a 53 year old female with a past medical history of idiopathic autoimmune 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 First dx in 2005, s/p multiple laser and dilation surgeries by Dr. Holder at [facility],. Had surgical procedure on 2012 and has had multiple corrective procedures in the past including laser and surgical. Patient present from home with respiratory failure and cardiopulmonary arrest. problem list: idiopathic autoimmune subglottic stenosis respiratory failure Central airway obstruction hyperglycemia Cardiac arrest Elevated troponins Leukocytosis Elevated ast/alt Acute respiratory failure/Idopathic subglottic stenosis /Central airway obstruction resolved. s/p icu admission. intubated on admission (10/17/18 and extubated on 10/21/18) Now on [facility] surgical floor monitoring. Airway patent. Tolerating room air without swallowing difficulties. decadron (started on 10/23/18) for idiopathic autoimmune 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 plan is to continue decadron 10mg BID x7 days (10/23>11/01/18) then 10mg daily until follows up with ENT specialist. Outpatient surgical consult for possible dilation-ENT (has MD at [facility]) Hyperglycemia in the setting of steriod therapy(decadron). bgms bid hmga1c 6.1 on novolog q6 based on bgms Cardiac arrest Elevated troponins cardiology consulted and following. continue to trend trops Leukocytosis WBC 21.1 on presentation, trending down. now 15.1 in the setting of steriod therapy. no signs of infection. blood cultures negative Elevated ast/alt iver u/s shows multiple gallstones, no acute cholecystitis, hepatomegaly suggestive of fatty infiltration. ast/alt, now down trended. fen regular diet, monitor electrolytes. prophy lovenox 40mg daily until full mobile. Visit type - Emergency Visit Emergency Visit: Yes ED Registration Date: 10/17/18 Care time: The patient presented to the Emergency Department on the above date and was hospitalized for further evaluation of their emergent condition. - New Patient This patient is new to me today: No - Critical Care Critical Care patient: No - Discharge Referral Referred to [facility] Med P.C.: No
[2018-10-27] MEDS ORDERED: POLYETHYLENE GLYCOL 3350 119 GM BTL PO ONE (18:30)
[2018-10-28] MEDS: INSULIN SLIDING SCALE (NOVOLOG) 1 VIAL SQ SCH ×2 (06:16→17:07)
[2018-10-28] MEDS: ENOXAPARIN NA (PORCINE) 40 MG/0.4 ML DISP.SYRIN SQ SCH (09:22)
[2018-10-28] MEDS: PANTOPRAZOLE 40 MG TABLET (FP) PO SCH (09:22)
[2018-10-28] MEDS: DEXAMETHASONE 4 MG TABLET (FP) PO SCH ×2 (09:22→21:58)
[2018-10-28] MEDS: POLYETHYLENE GLYCOL 3350 119 GM BTL PO SCH (09:26)
--- NOTE | 2018-10-28 10:26 | PN ---
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: Selected Entries 10/25/18 10/25/18 10/25/18 10:17 13:53 18:32 Breakfast 50% Diet Tolerated Lunch 50% Supper 100% Temperature 97.4 F L 98.0 F 10/25/18 10/26/18 10/26/18 23:12 02:00 06:28 Breakfast Diet Tolerated Lunch Supper 75% Temperature 97.4 F L 97.9 F 10/26/18 10/26/18 10:00 10:41 Breakfast 50% Diet Tolerated Well Lunch Supper Temperature 97.8 F Laboratory Tests 10/22/18 10/23/18 05:30 06:30 WBC 11.2 H Cancelled Selected Entries 10/26/18 10/26/18 10/26/18 02:00 06:28 10:00 Breakfast Lunch Supper Temperature 97.4 F L 97.9 F 97.8 F 10/26/18 10/26/18 10/26/18 10:41 13:10 14:48 Breakfast 50% Lunch 50% Supper Temperature 99.1 F 10/26/18 10/26/18 10/26/18 18:00 18:35 22:00 Breakfast Lunch Supper 50% Temperature 98 F 98.1 F 10/27/18 10/27/18 02:00 06:15 Breakfast Lunch Supper Temperature 97.4 F L 97.5 F L Laboratory Tests 10/27/18 07:30 WBC 15.1 H Selected Entries 10/27/18 10/27/18 10/27/18 02:00 06:15 09:39 Breakfast 50% Lunch Supper Temperature 97.4 F L 97.5 F L 10/27/18 10/27/18 10/27/18 10:00 11:00 14:30 Breakfast 50% Lunch 100% Supper Temperature 97.9 F 98.1 F 10/27/18 10/27/18 10/27/18 18:00 18:15 22:00 Breakfast Lunch Supper 75% Temperature 97.8 F 98.4 F 10/28/18 10/28/18 02:00 06:03 Breakfast Lunch Supper Temperature 97.4 F L 97.9 F Good spirits. On reg diet/thin liquids.
--- NOTE | 2018-10-28 13:05 | PN ---
Physical Exam: SUBJECTIVE: Patient seen and examined at the bedside. eager to start rehab. in no acute distress. no shortness of breath or difficulty swallowing. OBJECTIVE: discharge planning. Period Temp Pulse Resp BP Sys/Brock Pulse Ox Last 24 Hr 97.4 F-98.4 F 57-83 18-20 108-119/60-78 96 GENERAL: The patient is awake, alert, and fully oriented, in no acute distress. HEAD: Normal with no signs of trauma. EYES: PERRL, extraocular movements intact, sclera anicteric, conjunctiva clear. No ptosis. ENT: Ears normal, nares patent, oropharynx clear without exudates, moist mucous membranes. NECK: Trachea midline, full range of motion, supple. LUNGS: Breath sounds equal, clear to auscultation bilaterally, no wheezes, no crackles, no accessory muscle use. HEART: Regular rate and rhythm ABDOMEN: Soft, nontender, nondistended, normoactive bowel sounds, no guarding, no rebound, no hepatosplenomegaly, no masses. EXTREMITIES: no edema. NEUROLOGICAL: Normal speech, gait not observed. PSYCH: Normal mood, normal affect. SKIN: Warm, dry, normal turgor, no rashes or lesions noted Laboratory Results - last 24 hr 10/27/18 10/28/18 17:09 06:15 POC Glucometer 156 141 Active Medications Generic Name Dose Route Start Last Admin Trade Name Freq PRN Reason Stop Dose Admin Dexamethasone 10 mg 10/23/18 22:00 10/28/18 09:22 Decadron - PO 10 mg BID VANDANA Administration Enoxaparin Sodium 40 mg 10/23/18 10:00 10/28/18 09:22 Lovenox - SQ 40 mg DAILY VANDANA Administration Insulin Aspart 1 vial 10/22/18 17:30 10/28/18 06:16 Novolog Vial Sliding Scale - SQ Not Given BIDAC [facility] Protocol Pantoprazole Sodium 40 mg 10/24/18 10:00 10/28/18 09:22 Protonix - PO 40 mg DAILY VANDANA Administration Polyethylene Glycol 17 gm 10/28/18 10:00 10/28/18 09:26 Miralax (For Daily Use) - PO 17 gm DAILY VANDANA Administration ASSESSMENT/PLAN: Patient is a 53 year old female with a past medical history of idiopathic autoimmune 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 First dx in 2005, s/p multiple laser and dilation surgeries by Dr. Holder at [facility],. Had surgical procedure on 2012 and has had multiple corrective procedures in the past including laser and surgical. Patient present from home with respiratory failure and cardiopulmonary arrest. problem list: idiopathic autoimmune subglottic stenosis respiratory failure Central airway obstruction hyperglycemia Cardiac arrest Elevated troponins Leukocytosis Elevated ast/alt Acute respiratory failure/Idopathic subglottic stenosis /Central airway obstruction. resolved. intubated on admission (10/17/18 and extubated on 10/21/18). Now on med surgical floor monitoring. Airway patent. Tolerating room air without swallowing difficulties. decadron (started on 10/23/18) for idiopathic autoimmune 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 plan is to continue decadron 10mg BID x7 days (10/23>) then 10mg daily until follows up with ENT specialist. Outpatient surgical consult for possible dilation-ENT (has MD at [place]) Hyperglycemia in the setting of steriod therapy(decadron). bgms bid. hmga1c 6.1. on novolog q6 based on bgms Cardiac arrest Elevated troponins cardiology consulted and following. continue to trend trops. Leukocytosis WBC 21.1 on presentation, as of 10/27 labs wbc 15.1 in the setting of steriod therapy. no signs of infection. blood cultures negative Elevated ast/alt iver u/s shows multiple gallstones, no acute cholecystitis, hepatomegaly suggestive of fatty infiltration. ast/alt, now down trended. fen regular diet, monitor electrolytes. prophy lovenox 40mg daily until full mobile. Visit type - Emergency Visit Emergency Visit: Yes ED Registration Date: 10/17/18 Care time: The patient presented to the Emergency Department on the above date and was hospitalized for further evaluation of their emergent condition. - New Patient This patient is new to me today: No - Critical Care Critical Care patient: No - Discharge Referral Referred to [facility] Med [facility].C.: No
--- NOTE | 2018-10-28 13:26 | PN ---
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, Physician History of Present Illness: PULMONARY ALERT,NO DISTRESS,-SOB,-COUGH - Current Medication List Current Medications: Active Medications Dexamethasone (Decadron -) 10 mg PO BID [facility] Last Admin: 10/28/18 09:22 Dose: 10 mg Enoxaparin Sodium (Lovenox -) 40 mg SQ DAILY [facility] Last Admin: 10/28/18 09:22 Dose: 40 mg Insulin Aspart ([facility] Sliding Scale -) [facility] Last Admin: 10/28/18 06:16 Dose: Not Given Pantoprazole Sodium (Protonix -) 40 mg PO DAILY [facility] Last Admin: 10/28/18 09:22 Dose: 40 mg Polyethylene Glycol (Miralax (For Daily Use) -) 17 gm PO DAILY [facility] Last Admin: 10/28/18 09:26 Dose: 17 gm - Objective Vital Signs: Vital Signs Temperature 97.9 F 10/28/18 06:03 Pulse Rate 57 L 10/28/18 06:03 Respiratory Rate 18 10/28/18 06:03 Blood Pressure 117/60 10/28/18 06:03 O2 Sat by Pulse Oximetry (%) 96 10/27/18 21:00 Constitutional: Yes: Well Nourished, Calm Eyes: Yes: WNL HENT: Yes: Nasal Congestion Neck: Yes: WNL Cardiovascular: Yes: Regular Rate and Rhythm, S1, S2 Respiratory: Yes: CTA Bilaterally Gastrointestinal: Yes: Normal Bowel Sounds, Soft Extremities: Yes: WNL Edema: No Labs: CBC, BMP Assessment/Plan Problem List - Problems (1) Cardiopulmonary arrest with successful resuscitation Code(s): I46.9 - CARDIAC ARREST, CAUSE UNSPECIFIED (2) Subglottic stenosis Code(s): J38.6 - STENOSIS OF LARYNX ASSESS: Upper Airway Edema resolved History of Idiopathic autoimmune subglottic stenosis Acute Respiratory failure Hyperglycemia in the setting of steroids s/p Cardiac arrest (? 90 seconds to ROSC) Leukocytosis in the setting of steroids Transaminitis PLAN: PO as tolerated Decadron taper BD TX VTE prophyalxis Short term inpatient rehab post discharge DR BALDERRAMA
--- NOTE | 2018-10-28 17:13 | PN ---
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, Physician History of Present Illness: Comfortable on NC. No stridor. MBS confirms normal swallowing function. - Current Medication List Current Medications: Active Medications Dexamethasone (Decadron -) 10 mg PO BID [facility] Last Admin: 10/28/18 09:22 Dose: 10 mg Enoxaparin Sodium (Lovenox -) 40 mg SQ DAILY [facility] Last Admin: 10/28/18 09:22 Dose: 40 mg Insulin Aspart (Novolog Vial Sliding Scale -) 1 vial SQ BIDAC [facility]; Protocol Last Admin: 10/28/18 17:07 Dose: Not Given Pantoprazole Sodium (Protonix -) 40 mg PO DAILY [facility] Last Admin: 10/28/18 09:22 Dose: 40 mg Polyethylene Glycol (Miralax (For Daily Use) -) 17 gm PO DAILY [facility] Last Admin: 10/28/18 09:26 Dose: 17 gm - Objective Vital Signs: Vital Signs Temperature 97.3 F L 10/28/18 14:54 Pulse Rate 77 10/28/18 14:54 Respiratory Rate 22 H 10/28/18 14:54 Blood Pressure 101/56 L 10/28/18 14:54 O2 Sat by Pulse Oximetry (%) 95 10/28/18 09:00 Constitutional: Yes: No Distress, Calm Neck: Yes: Supple Cardiovascular: Yes: Regular Rate and Rhythm Respiratory: Yes: Regular, CTA Bilaterally Gastrointestinal: Yes: Normal Bowel Sounds, Soft Edema: Yes Edema: LLE: 1+, RLE: 1+ Labs: CBC, BMP 10/27/18 07:30 10/27/18 07:30 INR, PTT INR 1.03 (0.83-1.09) 10/17/18 04:48 Problem List - Problems (1) Demand ischemia Code(s): I24.8 - OTHER FORMS OF ACUTE ISCHEMIC HEART DISEASE (2) Cardiopulmonary arrest with successful resuscitation Code(s): I46.9 - CARDIAC ARREST, CAUSE UNSPECIFIED (3) Elevated LFTs Code(s): R94.5 - ABNORMAL RESULTS OF LIVER FUNCTION STUDIES (4) Elevated troponin Code(s): R74.8 - ABNORMAL LEVELS OF OTHER SERUM ENZYMES (5) Morbid obesity Code(s): E66.01 - MORBID (SEVERE) OBESITY DUE TO EXCESS CALORIES (6) Subglottic stenosis Code(s): J38.6 - STENOSIS OF LARYNX Assessment/Plan 10/19/2018 Echocardiography showed normal LV systolic function LVEF 55-60%, grade 1 diastolic dysfunction, mild TR 1. Post Acute Respiratory failure with Upper Airway Edema resolved 2. Idiopathic autoimmune subglottic stenosis 3. Post cardiopulmonary arrest (? 90 seconds to ROSC) referable to above 4. Demand ischemia with elevated troponin 5. Hypercholesterolemia 6. Transient leukocytosis in the setting of steroids 7. Abnormal LFT resolving PLAN: 1. Decadron taper, wean FIO2 as tolerated, BD as needed 2. Troponins downtrending 3. OOB to chair 4. DVT and GI prophylaxis 5. MBS results noted 6. Outpatient Laryngology followup to evaluate for repeat surgical treatment of subglottic stenosis 7. Short term inpatient rehab post discharge
[2018-10-29] MEDS: INSULIN SLIDING SCALE (NOVOLOG) 1 VIAL SQ SCH (06:29)
[2018-10-29 06:37] VITALS: TEMP 97.5
[2018-10-29] MEDS: PANTOPRAZOLE 40 MG TABLET (FP) PO SCH (09:12)
[2018-10-29] MEDS: DEXAMETHASONE 4 MG TABLET (FP) PO SCH (09:12)
[2018-10-29] MEDS: POLYETHYLENE GLYCOL 3350 119 GM BTL PO SCH (09:14)
[2018-10-29] MEDS: ENOXAPARIN NA (PORCINE) 40 MG/0.4 ML DISP.SYRIN SQ SCH (09:14)
--- NOTE | 2018-10-29 09:42 | DS ---
Physical Exam: SUBJECTIVE: Patient seen and examined OBJECTIVE: Vital Signs Period Temp Pulse Resp BP Sys/Brock Pulse Ox Last 24 Hr 97.3 F-97.7 F 56-82 18-22 101-124/56-86 97 PHYSICAL EXAM GENERAL: The patient is awake, alert, and fully oriented, in no acute distress. HEAD: Normal with no signs of trauma. EYES: PERRL, extraocular movements intact, sclera anicteric, conjunctiva clear. ENT: Ears normal, nares patent, oropharynx clear without exudates, moist mucous membranes. NECK: Trachea midline, full range of motion, supple. LUNGS: Breath sounds equal, clear to auscultation bilaterally, no wheezes, no crackles, no accessory muscle use. HEART: Regular rate and rhythm, S1, S2 without murmur, rub or gallop. ABDOMEN: Soft, nontender, nondistended, normoactive bowel sounds, no guarding, no rebound, no hepatosplenomegaly, no masses. EXTREMITIES: 2+ pulses, warm, well-perfused, no edema. NEUROLOGICAL: Cranial nerves II through XII grossly intact. Normal speech, gait not observed. PSYCH: Normal mood, normal affect. SKIN: Warm, dry, normal turgor, no rashes or lesions noted. LABS Laboratory Results - last 24 hr 10/28/18 10/29/18 17:04 06:29 POC Glucometer 149 136 HOSPITAL COURSE: Date of Admission:10/17/18 Date of Discharge: 10/29/18 ADMISSION NOTE: This is a 53 year old female with h/o idiopathic autoimmune subglottic stenosis (contributing to prior respiratory failure; has had multiple corrective procedures in the past including laser and surgical), who p/w respiratory failure and cardiopulmonary arrest with ROSC achieved by EMS in the field. EMS reported to the ED that the patient herself called 911 from her residence c/o respiratory distress, and she was unconscious on the floor when they arrived on scene but had a pulse. EMS ambu-bagged her and she regained consciousness quickly, but then became extremely combative which persisted despite versed for sedation, then had worsened respiratory distress and needed to be intubated. She was given etomidate and rocuronium, ETT was placed, and she subsequently had cardiac arrest for about a 90 second period during which time she got a round of epi and CPR, with subsequent ROSC. Unknown rhythm during cardiac arrest. EMS noticed she had both oxcodone and Percocet on scene as well as prednisone. There was nobody else at the residence to help provide history. FSBG was in the 300s. Pt is intubated at time of ED exam. History obtained from prior medical chart. ER course was notable for: (1) pH 7.12 (2) WBC 21.1 (3) AST 242, ALT 176, Alk Phos 120 (4) toxicology negative for ETOH and all drugs except benzos, which she received in the field (5) Troponin .11, 0.29 HOSPITAL COURSE BY PROBLEM LIST: Pulm: Acute hypoxic respiratory failure secondary to idiopathic autoimmune subglottic stenosis with upper airway edema-intubated on admission (10/17/18 and extubated on 10/21/18). Downgraded to [facility] surgical floor monitoring. Airway patent. Tolerating room air without swallowing difficulties. decadron (started on ) for idiopathic autoimmune 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 plan is to continue decadron 10mg BID x7 days (10/23>11/01/18) then 10mg daily until follows up with ENT specialist. Outpatient surgical consult for possible dilation-ENT (has MD at [facility]-Dr. Holder (ENT) Card: s/p cardiopulmonary arrest - 90 sec to achieve ROSC. likely due to airway edema and hypoxia. Demand ischemia- Echo showed normal LV, EF 55-60%, grade I diastolic dysfunction , normal RV function Hyperlipidemia: needs to be on statins which can be started as O/P. Endocrine: Steroid-induced hyperglycemia-improved. continue SS GI: Hepatic transaminitis- fatty liver on ultrasound. liver enzyes trended down. Heme: Leukocytosis-Reactive to steriods. Completed prophylatic antibiotics. Followed by ID DISCHARGE PLAN: Muscular/Skeletal: Deconditinued. Rehab Continue Decadron as noted above and follow up with Dr. Holder for possible surgical options for the autoimmune subglottic stenosis . Minutes to complete discharge: 60 Discharge Summary Reason For Visit: SUBGLOTTIC STENOSIS CARDIOPULMONARY ARREST WITH Current Active Problems Cardiopulmonary arrest with successful resuscitation (Acute) Demand ischemia (Acute) Elevated LFTs (Acute) Elevated troponin (Acute) Leukocytosis (Acute) Morbid obesity (Acute) Subglottic stenosis (Acute) Condition: Improved - Instructions Diet, Activity, Other Instructions: Ms Pedroza: You were admitted to [facility] [place] after you presented with respiratory failure and cariopulmonary arrest. You were intubated on admission (10/17/18) and extubated on 10/21/18. During your hospitalization, you were seen by crm marketing specialist, thermal molder and ENT specialist. We will be sending you to rehab today. Discharge instructions: Acute respiratory failure secondary to idopathic subglottic stenosis /Central airway obstruction. You were intubated on admission (10/17/18 and extubated on 10/21/18). Your airway is now patent. Tolerating room air without swallowing difficulties. decadron (started on 10/23/18) for idiopathic autoimmune 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 plan is to continue decadron 10mg BID for 7 (seven) days ( from 10/23 thorough 11/01/18) then 10mg daily until follows up with ENT specialist. Outpatient surgical consult for possible dilation-ENT (has MD at [place]-Dr. Holder) Hyperglycemia in the setting of steriod therapy(decadron). Check BGMs twice per day Elevated ast/alt liver u/s shows multiple gallstones, no acute cholecystitis, hepatomegaly suggestive of fatty infiltration. ast/alt, now down trended. Patient is to follow up with Dr. Holder at [place] for surgical intervention of the autoimmune 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 She is to continue Decadron 10mg twice per day as until 11/01/2018, then Decadron 10mg daily until seen and evaluated by her specialist. Referrals: Ritesh Munguia MD [Staff Physician] - 1 Week Disposition: HOME - Home Medications Comprehensive Discharge Medication List: Ambulatory Orders Dexamethasone [Decadron -] 10 mg PO BID tablet 10/29/18 Insulin Sliding Scale [Novolog Vial Sliding Scale -] 1 vial SQ BIDAC units Pantoprazole Sodium [Protonix -] 40 mg PO DAILY tablet.ec 10/29/18 Polyethylene Glycol 3350 [Miralax 119 gm Btl -] 17 gm PO DAILY bottle 10/29/18 This patient is new to me today: No Emergency Visit: Yes ED Registration Date: 10/17/18 Care time: The patient presented to the Emergency Department on the above date and was hospitalized for further evaluation of their emergent condition. Critical Care patient: No - Discharge Referral Referred to [facility] Med P.C.: No
[2018-10-29 12:52] VITALS: BP 110/70; PULSE 64
== END 2018-10-29 11:12 | DRG 130 ==
LOC: JER 02:53 → JERBED 05:51 → JICU 08:33 → J5S 10-23 00:54
PROVIDERS: ADMIT Internal Medicine; ATTEND Nurse Practitioner Family
PROC: 5A1955Z Respiratory Ventilation, Greater than 96 Consecutive Hours (ICD-10-PCS; principal; 2018-10-17)
PROC: 0BH17EZ Insertion of Endotracheal Airway into Trachea, Via Natural or Artificial Opening (ICD-10-PCS; 2018-10-17)
DX: J96.21 Acute and chronic respiratory failure with hypoxia (principal); J98.11 Atelectasis; J96.22 Acute and chronic respiratory failure with hypercapnia; D72.829 Elevated white blood cell count, unspecified; I46.9 Cardiac arrest, cause unspecified; J38.6 Stenosis of larynx; R94.5 Abnormal results of liver function studies; R73.9 Hyperglycemia, unspecified; T38.0X5A Adverse effect of glucocorticoids and synthetic analogues, initial encounter; I24.8 Other forms of acute ischemic heart disease; E87.2 Acidosis; E66.01 Morbid (severe) obesity due to excess calories; Z68.42 Body mass index [BMI] 45.0-49.9, adult; J38.4 Edema of larynx; K76.0 Fatty (change of) liver, not elsewhere classified; J06.9 Acute upper respiratory infection, unspecified; K27.9 Peptic ulcer, site unspecified, unspecified as acute or chronic, without hemorrhage or perforation; E83.41 Hypermagnesemia; E83.39 Other disorders of phosphorus metabolism
CPT/HCPCS: 36415; 36600; 71045-TC-FY; 74230-TC-FY; 76705-TC; 80048; 80053; 80061; 80076; 80307; 81003; 82375; 82550; 82553; 82803; 82962; 83036; 83050; 83721; 83735; 84100; 84443; 84484; 85025; 85027; 85610; 86850; 86900; 86901; 87040; 87086; 87804; 87807; 92611-GN; 93005; 93010; 93306-TC; 94002; 97116-GP; 97162-GP; 99285-25; J1100; J1644; J7030

== ENCOUNTER 2018-10-29 16:39 | Inpatient (IN) | payer OTHER ==
[2018-10-29 17:15] VITALS: BMI 40.3
--- NOTE | 2018-10-29 18:05 | PDOC ---
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 no f/c no current sob. no other complaints. pt feels she has deconditioned during her stay in hospital, that is why she required rehab. she is scheduled to see a ENT surgeon dr marcos at [facility] to discuss definitive surgery in the future. 10/29/18 18:06 Past History - Past Medical History Allergies/Adverse Reactions: Allergies Allergy/AdvReac Type Severity Reaction Status Date / Time No Known Allergies Allergy Verified 10/17/18 03:07 Home Medications: Ambulatory Orders Dexamethasone [Decadron -] 10 mg PO BID tablet 10/29/18 Enoxaparin Sodium 40 mg SQ DAILY 10/29/18 Insulin Sliding Scale [Novolog Vial Sliding Scale -] 1 vial SQ BIDAC units Pantoprazole Sodium [Protonix -] 40 mg PO DAILY tablet.ec 10/29/18 Polyethylene Glycol 3350 [Miralax 119 gm Btl -] 17 gm PO DAILY bottle 10/29/18 Asthma: No (idiopathic autoinmune subglottic stenosis) Cardiac Disorders: Yes (cardiac arrest with rosc x 2) COPD: No - Immunization History Immunization Up to Date: Yes - Suicide/Smoking/Psychosocial Hx Smoking History: Never smoked Have you smoked in the past 12 months: No Information on smoking cessation initiated: No Hx Alcohol Use: No Drug/Substance Use Hx: No Substance Use Type: None Hx Substance Use Treatment: No Review of Systems - Review of Systems Constitutional: No: Chills, Diaphoresis HEENTM: No: Eye Pain Respiratory: No: Orthopnea, Stridor Cardiac (ROS): No: Chest Pain, Edema All Other Systems: Reviewed and Negative *Physical Exam - Vital Signs Last Vital Signs Temp Pulse Resp BP Pulse Ox 98.3 F 73 16 133/90 98 10/29/18 17:04 10/29/18 17:04 10/29/18 17:04 10/29/18 17:04 10/29/18 17:04 - Physical Exam Comments: 10/29/18 18:11 awake alert lungs no stridor clear bilaterlly heart rrr no mrg abd soft nt nd. ext wwp no edema. no calf tenderness. alert oriented x 3. 10/29/18 19:37 Heart Score/ECG Review #1 General ECG Interpretation: Sinus Rhythm, Normal Rate (85), Normal Intervals, No acute ischemic changes Compared to previous ECG there are: Other (left axis. no st t wave change.) ED Treatment Course - LABORATORY CBC & Chemistry Diagram: 10/29/18 18:21 10/29/18 18:21 - RADIOLOGY Radiology Studies Ordered: Category Date Time Status CXRPORT [CHEST X-RAY PORTABLE*] [RAD] Stat Radiology 10/29/18 17:55 Ordered Medical Decision Making - Medical Decision Making 10/29/18 18:11 d/w admitting team regarding pt disposition as discharged few hours ago. will readmit patient and work to coordinate with her arson investigator dr Marcos at [place]. will obtain basic labs and cxr. ekg. d/w Julia , accepted pt to hospitalist service. *DC/Admit/Observation/Transfer Diagnosis at time of Disposition: Subglottic stenosis, Weakness - Discharge Dispostion Decision to Admit order: Yes - Referrals - Patient Instructions - Post Discharge Activity
[2018-10-29 18:43] LABS: BASO % 0.5 % (0-2.0); HEMATOCRIT 48.4 % (32.4-45.2); HEMOGLOBIN 16.2 GM/dL (10.7-15.3); MCH 29.9 pg (25.7-33.7); MCHC 33.6 g/dl (32.0-36.0); MEAN CELL VOLUME 89.1 fl (80-96); MEAN PLT VOLUME 8.6 fl (7.5-11.1); MONO % 8.2 % (3.8-10.2); NEUT % 83.3 % (42.8-82.8); PLATELET COUNT 417 K/MM3 (134-434); RBC 5.43 M/mm3 (3.60-5.2); RDW 13.8 % (11.6-15.6); WHITE BLOOD COUNT 16.6 K/mm3 (4.0-10.0)
--- NOTE | 2018-10-29 18:51 | HP ---
CHIEF COMPLAINT: returned to [facility] from [place] PCP: HISTORY OF PRESENT ILLNESS: Patient is a 53 year old female with a significant past medical history of autoimmune subglottic stenosis (contributing to prior respiratory failure; has had multiple corrective procedures in the past including laser and surgical). Admitted on 10/17/18 for respiratory failure and cardiopulmonary arrest with ROSC achieved by EMS in the field. on that last admission, she was given etomidate and rocuronium, ETT was placed, and she subsequently had cardiac arrest for about a 90 second period during which time she got a round of epi and CPR, with subsequent ROSC. She was sent to the ICU for closer monitoring with an ENT consult (Dr. Munguia). She was started on high dose steriods and subsequently extubated on 10/21/18). She was downgraded to [facility] surgical floor monitoring. She was discharged today to [facility] but returned promptly to [facility] ER due to concerns by grievance manager (Dr. Robbi Asencio) that patient has not had corrective surgery or definitive treatment of her subglottic stenosis and is not a a candidate for rehab until after the corrective surgery is performed. On exam, patient denies shortness of breath or any other complaints. States that she is at her baseline. Patient has deconditioned since her 11 day hospital stay and was to start physical therapy at [place] She has an ENT physician, Dr. Holder at [place] that patient had planned to follow up to discuss possible surgical options as an outpatient. Patient is refusing a trach placement. Recent Travel: none Social History: Smoking: none Alcohol:none Drugs: none Family History: Allergies No Known Allergies Allergy (Verified 10/17/18 03:07) HOME MEDICATIONS: Home Medications Medication Instructions Recorded Dexamethasone [Decadron -] 10 mg PO BID tablet 10/29/18 Enoxaparin Sodium 40 mg SQ DAILY 10/29/18 Insulin Sliding Scale [Novolog 1 vial SQ BIDAC units 10/29/18 Vial Sliding Scale -] Pantoprazole Sodium [Protonix -] 40 mg PO DAILY tablet.ec 10/29/18 Polyethylene Glycol 3350 [Miralax 17 gm PO DAILY bottle 10/29/18 119 gm Btl -] PHYSICAL EXAMINATION Vital Signs - 24 hr 10/29/18 17:04 Temperature 98.3 F Pulse Rate 73 Respiratory 16 Rate Blood Pressure 133/90 O2 Sat by Pulse 98 Oximetry (%) GENERAL: The patient is awake, alert, and fully oriented, in no acute distress. HEAD: Normal with no signs of trauma. EYES: PERRL, extraocular movements intact, sclera anicteric, conjunctiva clear. ENT: Ears normal, nares patent, oropharynx clear without exudates, moist mucous membranes. NECK: Trachea midline, full range of motion, supple. LUNGS: Breath sounds equal, clear to auscultation bilaterally, no wheezes, no crackles, no accessory muscle use. HEART: Regular rate and rhythm, S1, S2 without murmur, rub or gallop. ABDOMEN: Soft, nontender, nondistended, normoactive bowel sounds, no guarding, no rebound, no hepatosplenomegaly, no masses. EXTREMITIES: 2+ pulses, warm, well-perfused, no edema. NEUROLOGICAL: Cranial nerves II through XII grossly intact. Normal speech, gait not observed. PSYCH: Normal mood, normal affect. SKIN: Warm, dry, normal turgor, no rashes or lesions noted. Laboratory Results - last 24 hr 10/29/18 18:21 WBC 16.6 H RBC 5.43 H Hgb 16.2 H Hct 48.4 H MCV 89.1 MCH 29.9 MCHC 33.6 RDW 13.8 Plt Count 417 MPV 8.6 Absolute Neuts (auto) 13.8 H Neutrophils % 83.3 H Lymphocytes % 8.0 D Monocytes % 8.2 Eosinophils % 0.0 Basophils % 0.5 D Nucleated RBC % 0 ASSESSMENT/PLAN: Patient is a 53 year old female with a significant past medical history of autoimmune subglottic stenosis (contributing to prior respiratory failure; has had multiple corrective procedures in the past including laser and surgical). Admitted on 10/17/18 for respiratory failure and cardiopulmonary arrest with ROSC achieved by EMS in the field. on that last admission, she was given etomidate and rocuronium, ETT was placed, and she subsequently had cardiac arrest for about a 90 second period during which time she got a round of epi and CPR, with subsequent ROSC. She was sent to the ICU for closer monitoring with an ENT consult (Dr. Munguia). She was started on high dose steriods and subsequently extubated on 10/21/18). She was downgraded to [facility] surgical floor monitoring. She was discharged today to [facility] but returned promptly to [facility] ER due to concerns by grievance manager (Dr. Robbi Asencio) that patient has not had corrective surgery or definitive treatment of her subglottic stenosis and is not a a candidate for rehab until after the corrective surgery is performed. Pulm: Acute hypoxic respiratory failure secondary to idiopathic autoimmune subglottic stenosis, resolved. ntubated on previous admission (10/17/18 and extubated on 10/21/18). Downgraded to [facility] surgical floor monitoring. Airway patent. Tolerating room air without swallowing difficulties. decadron (started on 10/23/18) for idiopathic autoimmune 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 plan was to continue decadron 10mg BID x7 days (10/23>11/01/18) then 10mg daily until follows up with ENT specialist. Outpatient surgical consult for possible dilation-ENT (has MD at [place]-Dr. Holder (ENT) Card Demand ischemia- Echo showed normal LV, EF 55-60%, grade I diastolic dysfunction , normal RV function Hyperlipidemia: needs to be on statins which can be started as outpatient initial trop 0.07 on admission, down trended from recent admission. Endocrine: Steroid-induced hyperglycemia-improved. continue SS BID GI: Hepatic transaminitis- fatty liver on ultrasound. liver enzymes trended down. Heme: Leukocytosis-Reactive to steriods. Completed prophylatic antibiotics. Followed by ID on recent admission. she is afebrile. monitor. fen tolerating po monitor electrolytes regular diet, thin liquids lovenox protonix full code Visit type - Emergency Visit Emergency Visit: Yes ED Registration Date: 10/29/18 Care time: The patient presented to the Emergency Department on the above date and was hospitalized for further evaluation of their emergent condition. - New Patient This patient is new to me today: No - Critical Care Critical Care patient: No
[2018-10-29 20:06] LABS: PLATELET ESTIMATE ADEQUATE
[2018-10-29] MEDS ORDERED: ACETAMINOPHEN 325 MG TABLET (FP) PO PRN (20:25)
[2018-10-29 21:18] LABS: ALBUMIN 3.6 g/dl (3.4-5.0); ALK PHOS 92 U/L (45-117); ANION GAP 9 MMOL/L (8-16); BILIRUBIN,TOTAL 0.6 mg/dL (0.2-1); BLOOD UREA NITROGEN 19 mg/dL (7-18); CALCIUM 9.7 mg/dL (8.5-10.1); CHLORIDE 98 mmol/L (98-107); CO2 27 mmol/L (21-32); CREATININE 0.6 mg/dL (0.55-1.3); GLUCOSE,RANDOM 131 mg/dL (74-106); POTASSIUM 4.5 mmol/L (3.5-5.1); SGOT/AST 15 U/L (15-37); SGPT/ALT 43 U/L (13-61); SODIUM 134 mmol/L (136-145); TOT PROT 7.4 g/dl (6.4-8.2)
[2018-10-29] MEDS: DEXAMETHASONE 4 MG TABLET (FP) PO SCH (23:00)
[2018-10-30] MEDS ORDERED: INSULIN SLIDING SCALE (NOVOLOG) 1 VIAL SQ SCH (07:00)
[2018-10-30 07:35] LABS: HEMATOCRIT 45.2 % (32.4-45.2); HEMOGLOBIN 15.1 GM/dL (10.7-15.3); MCH 29.7 pg (25.7-33.7); MCHC 33.4 g/dl (32.0-36.0); MEAN PLT VOLUME 8.8 fl (7.5-11.1); PLATELET COUNT 342 K/MM3 (134-434); RBC 5.08 M/mm3 (3.60-5.2); RDW 13.6 % (11.6-15.6); WHITE BLOOD COUNT 12.5 K/mm3 (4.0-10.0)
[2018-10-30 08:10] LABS: ANION GAP 7 MMOL/L (8-16); BLOOD UREA NITROGEN 22 mg/dL (7-18); CALCIUM 9.9 mg/dL (8.5-10.1); CHLORIDE 98 mmol/L (98-107); CO2 27 mmol/L (21-32); CREATININE 0.5 mg/dL (0.55-1.3); GLUCOSE,RANDOM 134 mg/dL (74-106); MAGNESIUM 2.3 mg/dL (1.8-2.4); POTASSIUM 4.6 mmol/L (3.5-5.1); SODIUM 132 mmol/L (136-145)
--- NOTE | 2018-10-30 10:45 | EKG ---
Test Reason : Blood Pressure : / mmHG Vent. Rate : 085 BPM Atrial Rate : 085 BPM P-R Int : 136 ms QRS Dur : 082 ms QT Int : 382 ms P-R-T Axes : 032 -28 055 degrees QTc Int : 454 ms NORMAL SINUS RHYTHM POSSIBLE LEFT ATRIAL ENLARGEMENT POOR R WAVE PROGRESSION Confirmed by ELEUTERIO GAMA MD ([id number]) on 10/30/2018 10:44:53 AM Referred By: Confirmed By:ELEUTERIO GAMA MD
[2018-10-30] MEDS: DEXAMETHASONE 4 MG TABLET (FP) PO SCH ×2 (11:04→21:49)
[2018-10-30] MEDS: ENOXAPARIN NA (PORCINE) 40 MG/0.4 ML DISP.SYRIN SQ SCH (11:04)
[2018-10-30] MEDS: PANTOPRAZOLE 40 MG TABLET (FP) PO SCH (11:05)
[2018-10-30] MEDS: POLYETHYLENE GLYCOL 3350 119 GM BTL PO SCH (11:06)
--- NOTE | 2018-10-30 13:21 | PN ---
Physical Exam: SUBJECTIVE: Patient seen and examined at the bedside. Patient asking for referrals to [facility] for rehab and wants to follow up with ENT specialist there for surgical options. 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 admitted recently to [facility] on 10/17 and intubated on admission. she was downgraded to med surg and send to [facility] on 10/29, but [facility] returned patient back on the same day after they refused keep her there due to concerns by smoking pipe mounter (Dr. Robbi Asencio) that patient has not had corrective surgery or definitive treatment of her 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 I contacted her ENT specialist Dr. Holder at [place], but she is away until November 03. Spoke to Dr. Munguia (ENT) specialist who recommended possible transfer to [facility]. However, patient prefers [facility]. SW aware and referrals have been sent out to [facility]. Vital Signs Period Temp Pulse Resp BP Sys/Brock Pulse Ox Last 24 Hr 97.1 F-98.3 F 55-98 16-22 101-133/63-91 96-98 GENERAL: The patient is awake, alert, and fully oriented, in no acute distress. HEAD: Normal with no signs of trauma. EYES: PERRL, extraocular movements intact, sclera anicteric, conjunctiva clear. ENT: Ears normal, nares patent, oropharynx clear without exudates, moist mucous membranes. NECK: Trachea midline, full range of motion, supple. LUNGS: Breath sounds equal, clear to auscultation bilaterally, no wheezes, no crackles, no accessory muscle use. HEART: Regular rate and rhythm, S1, S2 without murmur, rub or gallop. ABDOMEN: Soft, nontender, nondistended, normoactive bowel sounds, no guarding, no rebound, no hepatosplenomegaly, no masses. EXTREMITIES: 2+ pulses, warm, well-perfused, no edema. NEUROLOGICAL: Cranial nerves II through XII grossly intact. Normal speech, gait not observed. PSYCH: Normal mood, normal affect. SKIN: Warm, dry, normal turgor, no rashes or lesions noted. Laboratory Results - last 24 hr 10/29/18 10/29/18 10/29/18 18:21 18:21 19:39 WBC 16.6 H RBC 5.43 H Hgb 16.2 H Hct 48.4 H MCV 89.1 MCH 29.9 MCHC 33.6 RDW 13.8 Plt Count 417 MPV 8.6 Absolute Neuts (auto) 13.8 H Neutrophils % 83.3 H Neutrophils % (Manual) 82.0 Band Neutrophils % 0.0 Lymphocytes % 8.0 D Lymphocytes % (Manual) 8.0 D Monocytes % 8.2 Monocytes % (Manual) 9 Eosinophils % 0.0 Basophils % 0.5 D Nucleated RBC % 0 Metamyelocytes 1 D Platelet Estimate Adequate Platelet Comment No clumping noted Sodium Cancelled 134 L Potassium Cancelled 4.5 Chloride Cancelled 98 Carbon Dioxide Cancelled 27 Anion Gap Cancelled 9 BUN Cancelled 19 H Creatinine Cancelled 0.6 Creat Clearance w eGFR Cancelled 103.79 POC Glucometer Random Glucose Cancelled 131 H Calcium Cancelled 9.7 Magnesium Total Bilirubin Cancelled 0.6 AST Cancelled 15 ALT Cancelled 43 Alkaline Phosphatase Cancelled 92 Creatine Kinase Cancelled 69 Troponin I Cancelled 0.07 H B-Natriuretic Peptide Cancelled Total Protein Cancelled 7.4 Albumin Cancelled 3.6 10/30/18 10/30/18 10/30/18 06:35 06:35 06:42 WBC 12.5 H RBC 5.08 Hgb 15.1 Hct 45.2 MCV 89.0 MCH 29.7 MCHC 33.4 RDW 13.6 Plt Count 342 MPV 8.8 Absolute Neuts (auto) Neutrophils % Neutrophils % (Manual) Band Neutrophils % Lymphocytes % Lymphocytes % (Manual) Monocytes % Monocytes % (Manual) Eosinophils % Basophils % Nucleated RBC % Metamyelocytes Platelet Estimate Platelet Comment Sodium 132 L Potassium 4.6 Chloride 98 Carbon Dioxide 27 Anion Gap 7 L BUN 22 H Creatinine 0.5 L Creat Clearance w eGFR 128.10 POC Glucometer 141 Random Glucose 134 H Calcium 9.9 Magnesium 2.3 Total Bilirubin AST ALT Alkaline Phosphatase Creatine Kinase Troponin I B-Natriuretic Peptide Total Protein Albumin Active Medications Generic Name Dose Route Start Last Admin Trade Name Freq PRN Reason Stop Dose Admin Acetaminophen 650 mg 10/29/18 20:25 Tylenol - PO Q6H PRN PAIN LEVEL 6-10 Dexamethasone 10 mg 10/29/18 22:00 10/30/18 11:04 Decadron - PO 10 mg BID VANDANA Administration Enoxaparin Sodium 40 mg 10/30/18 10:00 10/30/18 11:04 Lovenox - SQ 40 mg DAILY VANDANA Administration Insulin Aspart 1 vial 10/30/18 08:03 Novolog Vial Sliding Scale - SQ BIDAC VANDANA Protocol Pantoprazole Sodium 40 mg 10/30/18 10:00 10/30/18 11:05 Protonix - PO 40 mg DAILY VANDANA Administration Polyethylene Glycol 17 gm 10/30/18 10:00 10/30/18 11:06 Miralax (For Daily Use) - PO Not Given DAILY VANDANA ASSESSMENT/PLAN: Patient is a 53 year old female with a significant past medical history of autoimmune subglottic stenosis (contributing to prior respiratory failure; has had multiple corrective procedures in the past including laser and surgical). Admitted on 10/17/18 for respiratory failure and cardiopulmonary arrest with ROSC achieved by EMS in the field. on that last admission, she was given etomidate and rocuronium, ETT was placed, and she subsequently had cardiac arrest for about a 90 second period during which time she got a round of epi and CPR, with subsequent ROSC. She was sent to the ICU for closer monitoring with an ENT consult (Dr. Munguia). She was started on high dose steriods and subsequently extubated on 10/21/18). She was downgraded to [facility] surgical floor monitoring. She was discharged today to [facility] but returned promptly to [facility] ER due to concerns by smoking pipe mounter (Dr. Robbi Asencio) that patient has not had corrective surgery or definitive treatment of her subglottic stenosis and is not a a candidate for rehab until after the corrective surgery is performed. Pulm: Acute hypoxic respiratory failure secondary to idiopathic autoimmune subglottic stenosis, resolved. Intubated on previous admission (10/17/18 and extubated on 10/21/18). Downgraded to med surgical floor monitoring. Airway patent. Tolerating room air without swallowing difficulties. decadron (started on 10/23/18) for idiopathic autoimmune 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 Continue decadron 10mg BID x 7 days (10/23>) then Decadron 10mg daily until follows up with ENT specialist. Outpatient surgical consult for possible dilation-ENT (has at [facility]-Dr. Holder (ENT) Card Demand ischemia- Echo showed normal LV, EF 55-60%, grade I diastolic dysfunction , normal RV function Hyperlipidemia: needs to be on statins which can be started as outpatient initial trop 0.07 on admission, down trended from recent admission. Endocrine: Steroid-induced hyperglycemia-improved. continue SS BID GI: Hepatic transaminitis- fatty liver on ultrasound. liver enzymes trended down. Heme: Leukocytosis-Reactive to steriods. Completed prophylatic antibiotics. Followed by ID on recent admission. she is afebrile. monitor. fen tolerating po monitor electrolytes regular diet, thin liquids lovenox protonix full code Visit type - Emergency Visit Emergency Visit: Yes ED Registration Date: 10/29/18 Care time: The patient presented to the Emergency Department on the above date and was hospitalized for further evaluation of their emergent condition. - New Patient This patient is new to me today: No - Critical Care Critical Care patient: No - Discharge Referral Referred to [facility] Med P.C.: No
--- NOTE | 2018-10-30 17:40 | CON.PULM ---
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 No: COPD Gastrointestinal: No: Ascites Hepatobiliary: No: Cirrhosis Renal/: No: Renal Failure Reproductive: Yes: Postmenopausal ...: No ENT: Yes: Other (hereditary autoimmune subglottic stenosis) - Alcohol/Substance Use Hx Alcohol Use: No - Smoking History Smoking history: Never smoked Have you smoked in the past 12 months: No - Social History History of Recent Travel: No Home Medications - Allergies Allergies/Adverse Reactions: Allergies Allergy/AdvReac Type Severity Reaction Status Date / Time No Known Allergies Allergy Verified 10/17/18 03:07 - Home Medications Home Medications: Ambulatory Orders Dexamethasone [Decadron -] 10 mg PO BID tablet 10/29/18 Enoxaparin Sodium 40 mg SQ DAILY 10/29/18 Insulin Sliding Scale [Novolog Vial Sliding Scale -] 1 vial SQ BIDAC units Pantoprazole Sodium [Protonix -] 40 mg PO DAILY tablet.ec 10/29/18 Polyethylene Glycol 3350 [Miralax 119 gm Btl -] 17 gm PO DAILY bottle 10/29/18 Family Disease History - Family Disease History Family History: Unremarkable Review of Systems - Review of Systems Constitutional: denies: Fever Eyes: denies: Blurred Vision HENT: denies: Difficult Swallowing Neck: denies: Decreased ROM Cardiovascular: denies: Chest Pain Respiratory: reports: Other (MILSD STRIDOR). denies: Cough Gastrointestinal: reports: No Symptoms Genitourinary: reports: No Symptoms Breasts: reports: No Symptoms Reported Musculoskeletal: reports: Muscle Weakness (LOWER EXT) Physical Exam Vital Sings: Vital Signs Temperature 98.4 F 10/30/18 15:02 Pulse Rate 91 H 10/30/18 15:02 Respiratory Rate 20 10/30/18 15:02 Blood Pressure 117/78 10/30/18 15:02 O2 Sat by Pulse Oximetry (%) 96 10/30/18 01:00 Constitutional: Yes: Calm, Other Eyes: Yes: Ptosis Neck: Yes: Trachea Midline, Other (MINIMAL STRIDOR) Cardiovascular: Yes: Regular Rate and Rhythm Respiratory: Yes: CTA Bilaterally Gastrointestinal: Yes: Normal Bowel Sounds Edema: No Labs: CBC, BMP 10/30/18 06:35 10/30/18 06:35 REST REVIEWED Imaging - Results Chest X-ray: Report Reviewed, Image Reviewed Problem List - Problems (1) Subglottic stenosis Code(s): J38.6 - STENOSIS OF LARYNX (2) Cardiopulmonary arrest with successful resuscitation Code(s): I46.9 - CARDIAC ARREST, CAUSE UNSPECIFIED (3) Morbid obesity Code(s): E66.01 - MORBID (SEVERE) OBESITY DUE TO EXCESS CALORIES Assessment/Plan Upper Airway Edema resolved History of Idiopathic autoimmune subglottic stenosis Acute Respiratory failure Hyperglycemia in the setting of steroids s/p Cardiac arrest (? 90 seconds to ROSC) Leukocytosis in the setting of steroids Transaminitis PLAN: PO as tolerated Decadron taper BD TX VTE prophyalxis Short term inpatient rehab post discharge Ricky MOJICA MD
[2018-10-30] MEDS: INSULIN SLIDING SCALE (NOVOLOG) 1 VIAL SQ SCH (17:56)
--- NOTE | 2018-10-30 18:37 | CON.ENT ---
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 No: COPD Gastrointestinal: No: Ascites Hepatobiliary: No: Cirrhosis Renal/: No: Renal Failure ...: No ENT: Yes: Other (hereditary autoimmune subglottic stenosis) - Alcohol/Substance Use Hx Alcohol Use: No - Smoking History Smoking history: Never smoked Have you smoked in the past 12 months: No - Social History History of Recent Travel: No Home Medications - Allergies Allergies/Adverse Reactions: Allergies Allergy/AdvReac Type Severity Reaction Status Date / Time No Known Allergies Allergy Verified 10/17/18 03:07 - Home Medications Home Medications: Ambulatory Orders Dexamethasone [Decadron -] 10 mg PO BID tablet 10/29/18 Enoxaparin Sodium 40 mg SQ DAILY 10/29/18 Insulin Sliding Scale [Novolog Vial Sliding Scale -] 1 vial SQ BIDAC units Pantoprazole Sodium [Protonix -] 40 mg PO DAILY tablet.ec 10/29/18 Polyethylene Glycol 3350 [Miralax 119 gm Btl -] 17 gm PO DAILY bottle 10/29/18 Physical Exam-ENT Vital Signs: Vital Signs Temperature 98.4 F 10/30/18 15:02 Pulse Rate 91 H 10/30/18 15:02 Respiratory Rate 20 10/30/18 15:02 Blood Pressure 117/78 10/30/18 15:02 O2 Sat by Pulse Oximetry (%) 96 10/30/18 01:00 Constitutional: Yes: Well Nourished, No Distress, Calm Head: Yes: WNL Face: Yes: WNL Eyes: Yes: WNL Nose: Yes: WNL Oral/Pharynx: Yes: WNL, Other (flexible laryngoscopy: base of tongue normal, epiglottis normal. endolarynx: false and true cords normal, no lesion vocal cord mobility normal, symmetric, arytenois and AE folds WNL, pyriform sinuses normal, voice clear and strong, no pooling, mild inspiratory stridor , No distress, no accessory muscle use) Outer Ear: Yes: WNL Neck: Yes: WNL Problem List - Problems (1) Subglottic stenosis Assessment/Plan: pt with known subglottic stenosis, has had at least [address] Taqueria Holder (cellar hand) including dilation, CO2 laser vaporization and steroid injection to subglottis etiology suspected to be autoimmune recent respiratory arrest, then cardiac arrest fully recovered pt presently feeling back to her baseline, able to ambulate with physical therapy rehabilitation facility was not comfortable with patient status and by report sent her back to [facility] Recommend: pt is clinically stable, should have evaluation by a cellar hand to consider possible surgical treatment of her subglottic stenosis oral steroidspt is clinically stable, should have evaluation by a cellar hand to consider possible surgical treatment of her subglottic stenosis pt states [facility] has a rehabilitation facility. Dr. Micheal Bauman, cellar hand may be available to see her in a rehabilitation setting and evaluate her for possible surgical treatment of her subglottic stenosis Advise investigate transfer as above. Option of [facility] was also discussed with patient and hospitalist Thank you for consultation Ritesh Munguia MD FACS Code(s): J38.6 - STENOSIS OF LARYNX
[2018-10-31] MEDS: INSULIN SLIDING SCALE (NOVOLOG) 1 VIAL SQ SCH ×2 (06:18→17:46)
[2018-10-31] MEDS: DEXAMETHASONE 4 MG TABLET (FP) PO SCH ×2 (10:10→22:21)
[2018-10-31] MEDS: PANTOPRAZOLE 40 MG TABLET (FP) PO SCH (10:11)
[2018-10-31] MEDS: ENOXAPARIN NA (PORCINE) 40 MG/0.4 ML DISP.SYRIN SQ SCH (10:11)
[2018-10-31] MEDS: POLYETHYLENE GLYCOL 3350 119 GM BTL PO SCH (10:12)
[2018-10-31 10:42] LABS: BASO % 0.4 % (0-2.0); HEMATOCRIT 46.8 % (32.4-45.2); HEMOGLOBIN 15.3 GM/dL (10.7-15.3); LYMPH % 8.8 % (8-40); MCH 29.4 pg (25.7-33.7); MCHC 32.8 g/dl (32.0-36.0); MEAN CELL VOLUME 89.6 fl (80-96); MEAN PLT VOLUME 9.5 fl (7.5-11.1); MONO % 6.3 % (3.8-10.2); NEUT % 84.5 % (42.8-82.8); PLATELET COUNT 269 K/MM3 (134-434); RBC 5.22 M/mm3 (3.60-5.2); RDW 13.8 % (11.6-15.6); WHITE BLOOD COUNT 10.8 K/mm3 (4.0-10.0)
[2018-10-31 11:37] LABS: ALBUMIN 3.3 g/dl (3.4-5.0); ALK PHOS 86 U/L (45-117); ANION GAP 10 MMOL/L (8-16); BILIRUBIN,TOTAL 0.6 mg/dL (0.2-1); BLOOD UREA NITROGEN 19 mg/dL (7-18); CALCIUM 9.7 mg/dL (8.5-10.1); CHLORIDE 99 mmol/L (98-107); CO2 24 mmol/L (21-32); CREATININE 0.6 mg/dL (0.55-1.3); GLUCOSE,RANDOM 163 mg/dL (74-106); MAGNESIUM 2.3 mg/dL (1.8-2.4); POTASSIUM 4.7 mmol/L (3.5-5.1); SGOT/AST 16 U/L (15-37); SGPT/ALT 38 U/L (13-61); SODIUM 132 mmol/L (136-145); TOT PROT 7.1 g/dl (6.4-8.2)
--- NOTE | 2018-10-31 13:09 | PN ---
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 (short form) - Note 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: PULMONARY NO RESP COMPLAINTS WALKING IN [place] WITH WALKER AND PT TECH VSS/AFEB ANICTERIC MINIMAL STRIDOR CHEST CLEAR S1S2 BS+ NO EDEMA ENT EVAL NOTED PLAN CONTINUE REHAB HOPE TO TRANSFER TO CARE OF HRIS MANAGER Ricky MOJICA MD Problem List - Problems (1) Subglottic stenosis Code(s): J38.6 - STENOSIS OF LARYNX (2) Cardiopulmonary arrest with successful resuscitation Code(s): I46.9 - CARDIAC ARREST, CAUSE UNSPECIFIED (3) Morbid obesity Code(s): E66.01 - MORBID (SEVERE) OBESITY DUE TO EXCESS CALORIES
--- NOTE | 2018-10-31 15:21 | PN ---
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, Physician Chief Complaint: SNF site placement required History of Present Illness: Have noted input from pulm & ENT aobut need for formal surgical devops developer eval once discharged will work w/ care team/CM/SW to facilitate d/c to [facility] which has on site rehab & devops developer who may be able to further intervene Pt presently feels well with no resp distress, no fevers, chills, tolerating PO intake. 24 hr daily input: 830, Outputs: voiding freely, not charted - Current Medication List Current Medications: Active Medications Acetaminophen (Tylenol -) 650 mg PO Q6H PRN PRN Reason: PAIN LEVEL 6-10 Dexamethasone (Decadron -) 10 mg PO BID [facility] Last Admin: 10/31/18 10:10 Dose: 10 mg Enoxaparin Sodium (Lovenox -) 40 mg SQ DAILY [facility] Last Admin: 10/31/18 10:11 Dose: 40 mg Insulin Aspart (Novolog Vial Sliding Scale -) 1 vial SQ BIDAC [facility]; Protocol Last Admin: 10/31/18 06:18 Dose: Not Given Pantoprazole Sodium (Protonix -) 40 mg PO DAILY [facility] Last Admin: 10/31/18 10:11 Dose: 40 mg Polyethylene Glycol (Miralax (For Daily Use) -) 17 gm PO DAILY [facility] Last Admin: 10/31/18 10:12 Dose: Not Given - Objective Vital Signs: Vital Signs Temperature 97.9 F 10/31/18 14:07 Pulse Rate 74 10/31/18 14:07 Respiratory Rate 18 10/31/18 14:07 Blood Pressure 103/65 10/31/18 14:07 O2 Sat by Pulse Oximetry (%) 96 10/30/18 20:49 Constitutional: Yes: Well Nourished, No Distress, Calm, Other (pleasant well nourished woman in no distress, AAox3, able to speak in full sentences w/o dyspnea, slight stridor) HENT: Yes: Atraumatic, Normocephalic Neck: Yes: Supple, Trachea Midline Cardiovascular: Yes: Regular Rate and Rhythm, S1, S2 (nrml) Gastrointestinal: Yes: Normal Bowel Sounds, Soft Extremities: Yes: WNL Edema: No Labs: CBC, BMP 10/31/18 10:00 10/31/18 10:00 Problem List - Problems (1) Subglottic stenosis Assessment/Plan: c/w steroids as per pulm/ENT recs will work to facilitate discharge to facility that has onsite rehab & devops developer, such as lloyd monitor O2 sats Code(s): J38.6 - STENOSIS OF LARYNX (2) Hyperglycemia, drug-induced Assessment/Plan: trend glucose with insulin sliding scale coverage to manage steroid related hyperglycemia Code(s): R73.9 - HYPERGLYCEMIA, UNSPECIFIED; T50.905A - ADVERSE EFFECT OF UNSP DRUG/MEDS/BIOL SUBST, INIT (3) Prophylactic measure Assessment/Plan: DVT ppx with lovenox & GI ppx w/ PPI given high dose steroid use Code(s): Z29.9 - ENCOUNTER FOR PROPHYLACTIC MEASURES, UNSPECIFIED (4) Elevated LFTs Assessment/Plan: - transaminitis resolved at present Code(s): R94.5 - ABNORMAL RESULTS OF LIVER FUNCTION STUDIES
[2018-11-01] MEDS: INSULIN SLIDING SCALE (NOVOLOG) 1 VIAL SQ SCH ×2 (06:03→17:14)
[2018-11-01 09:53] LABS: BASO % 0.2 % (0-2.0); EOS % 0.1 % (0-4.5); HEMATOCRIT 46.3 % (32.4-45.2); HEMOGLOBIN 15.4 GM/dL (10.7-15.3); LYMPH % 19.4 % (8-40); MCH 29.8 pg (25.7-33.7); MCHC 33.3 g/dl (32.0-36.0); MEAN CELL VOLUME 89.4 fl (80-96); MEAN PLT VOLUME 9.1 fl (7.5-11.1); MONO % 10.7 % (3.8-10.2); NEUT % 69.6 % (42.8-82.8); PLATELET COUNT 319 K/MM3 (134-434); RBC 5.18 M/mm3 (3.60-5.2); RDW 13.4 % (11.6-15.6); WHITE BLOOD COUNT 14.3 K/mm3 (4.0-10.0)
[2018-11-01 10:16] LABS: ALBUMIN 3.4 g/dl (3.4-5.0); ALK PHOS 83 U/L (45-117); ANION GAP 10 MMOL/L (8-16); BILIRUBIN,TOTAL 0.6 mg/dL (0.2-1); BLOOD UREA NITROGEN 24 mg/dL (7-18); CALCIUM 9.5 mg/dL (8.5-10.1); CHLORIDE 99 mmol/L (98-107); CO2 25 mmol/L (21-32); CREATININE 0.8 mg/dL (0.55-1.3); GLUCOSE,RANDOM 163 mg/dL (74-106); POTASSIUM 4.4 mmol/L (3.5-5.1); SGOT/AST 13 U/L (15-37); SGPT/ALT 34 U/L (13-61); SODIUM 133 mmol/L (136-145); TOT PROT 6.8 g/dl (6.4-8.2)
[2018-11-01] MEDS: DEXAMETHASONE 4 MG TABLET (FP) PO SCH ×2 (10:58→21:29)
[2018-11-01] MEDS: ENOXAPARIN NA (PORCINE) 40 MG/0.4 ML DISP.SYRIN SQ SCH (10:58)
[2018-11-01] MEDS: PANTOPRAZOLE 40 MG TABLET (FP) PO SCH (10:58)
[2018-11-01] MEDS: POLYETHYLENE GLYCOL 3350 119 GM BTL PO SCH (11:00)
--- NOTE | 2018-11-01 12:53 | PN ---
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 (short form) - Note 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: PULMONARY NO RESP COMPLAINTS WALKING IN [place] WITH WALKER AND PT TECH VSS/AFEB ANICTERIC MINIMAL STRIDOR CHEST CLEAR S1S2 BS+ NO EDEMA ENT EVAL NOTED PLAN CONTINUE REHAB HOPE TO TRANSFER TO CARE OF CLOUD SOLUTIONS ARCHITECT Ricky MOJICA MD Problem List - Problems (1) Subglottic stenosis Code(s): J38.6 - STENOSIS OF LARYNX (2) Cardiopulmonary arrest with successful resuscitation Code(s): I46.9 - CARDIAC ARREST, CAUSE UNSPECIFIED (3) Morbid obesity Code(s): E66.01 - MORBID (SEVERE) OBESITY DUE TO EXCESS CALORIES
--- NOTE | 2018-11-01 16:40 | PN ---
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, Physician Chief Complaint: SNF site placement required History of Present Illness: PT seen & examined at bedside this morning, lion haines with no complaints, notes she is able to take O2 off and walk in halls for a few minutes without discomfort Pt presently feels well with no resp distress, no fevers, chills, tolerating PO intake. - Current Medication List Current Medications: Active Medications Acetaminophen (Tylenol -) 650 mg PO Q6H PRN PRN Reason: PAIN LEVEL 6-10 Dexamethasone (Decadron -) 10 mg PO BID [facility] Last Admin: 11/01/18 10:58 Dose: 10 mg Enoxaparin Sodium (Lovenox -) 40 mg SQ DAILY [facility] Last Admin: 11/01/18 10:58 Dose: 40 mg Insulin Aspart (Novolog Vial Sliding Scale -) 1 vial SQ BIDAC [facility]; Protocol Last Admin: 11/01/18 06:03 Dose: Not Given Pantoprazole Sodium (Protonix -) 40 mg PO DAILY [facility] Last Admin: 11/01/18 10:58 Dose: 40 mg Polyethylene Glycol (Miralax (For Daily Use) -) 17 gm PO DAILY [facility] Last Admin: 11/01/18 11:00 Dose: 17 gm - Objective Vital Signs: Vital Signs Temperature 98.1 F 11/01/18 06:16 Pulse Rate 62 11/01/18 06:16 Respiratory Rate 18 11/01/18 06:16 Blood Pressure 120/64 11/01/18 06:16 O2 Sat by Pulse Oximetry (%) 96 10/31/18 20:51 Constitutional: Yes: Well Nourished, No Distress, Calm Eyes: Yes: Conjunctiva Clear, EOM Intact HENT: Yes: Atraumatic, Normocephalic (MMM) Neck: Yes: Supple, Trachea Midline Cardiovascular: Yes: Regular Rate and Rhythm (nrml s1 &S2 no rubs or murmurs) Respiratory: Yes: Regular, CTA Bilaterally (no accessory muscle use, no wheezing or rales/rhonchi) Gastrointestinal: Yes: Normal Bowel Sounds, Soft (nontender, non distended) Genitourinary: Yes: Other (no b/l CVA tenderness on palpation) Musculoskeletal: Yes: Other (no back pain) Extremities: Yes: Other (warm well perfused,2+ radial & DP pulses b/l) Labs: CBC, BMP 11/01/18 09:20 11/01/18 09:20 Problem List - Problems (1) Subglottic stenosis Assessment/Plan: c/w steroids 10mg BID as per pulm/ENT recs will work to facilitate discharge to facility that has onsite rehab & manager support services, such as lloyd monitor O2 sats Code(s): J38.6 - STENOSIS OF LARYNX (2) Hyperglycemia, drug-induced Assessment/Plan: trend glucose with insulin sliding scale coverage to manage steroid related hyperglycemia Code(s): R73.9 - HYPERGLYCEMIA, UNSPECIFIED; T50.905A - ADVERSE EFFECT OF UNSP DRUG/MEDS/BIOL SUBST, INIT (3) Prophylactic measure Assessment/Plan: DVT ppx with lovenox & GI ppx w/ PPI given high dose steroid use Code(s): Z29.9 - ENCOUNTER FOR PROPHYLACTIC MEASURES, UNSPECIFIED (4) Elevated LFTs Assessment/Plan: - transaminitis resolved at present Code(s): R94.5 - ABNORMAL RESULTS OF LIVER FUNCTION STUDIES
[2018-11-02] MEDS: INSULIN SLIDING SCALE (NOVOLOG) 1 VIAL SQ SCH ×2 (06:01→17:30)
[2018-11-02] MEDS ORDERED: INSULIN (NOVOLOG) ASPART 100 UNITS/ML 10ML VIAL ONE (06:35)
[2018-11-02 09:47] LABS: BASO % 0.2 % (0-2.0); HEMATOCRIT 44.3 % (32.4-45.2); HEMOGLOBIN 14.9 GM/dL (10.7-15.3); LYMPH % 7.8 % (8-40); MCH 29.9 pg (25.7-33.7); MCHC 33.7 g/dl (32.0-36.0); MEAN CELL VOLUME 88.8 fl (80-96); PLATELET COUNT 330 K/MM3 (134-434); RBC 4.99 M/mm3 (3.60-5.2); RDW 13.8 % (11.6-15.6); WHITE BLOOD COUNT 10.9 K/mm3 (4.0-10.0)
--- NOTE | 2018-11-02 09:58 | PN ---
Physical Exam: SUBJECTIVE: Patient seen and examined. feels well, no swallowing issues. airway patent. 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 admitted recently to [facility] on 10/17 and intubated on admission. she was downgraded to med surg and send to [facility] on 10/29, but [facility] returned patient back on the same day after they refused keep her there due to concerns by manufacturing engineer assembly (Dr. Robbi Asencio) that patient has not had corrective surgery or definitive treatment of her 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 discharge planning to rehab. Appointment made for patient with Dr. Omega Bauman (billet header) on November 25 @ 1:30. Unable to get an earlier appointment Dr. Micheal Bauman: located at [address] [facility]. [phone] Vital Signs Period Temp Pulse Resp BP Sys/Brock Pulse Ox Last 24 Hr 97.4 F-97.9 F 58-71 18-18 96-142/56-93 98 GENERAL: The patient is awake, alert, and fully oriented, in no acute distress. HEAD: Normal with no signs of trauma. EYES: PERRL, extraocular movements intact, sclera anicteric, conjunctiva clear. ENT: Ears normal, nares patent, oropharynx clear without exudates, moist mucous membranes. NECK: Trachea midline, full range of motion, supple. LUNGS: Breath sounds equal, clear to auscultation bilaterally, no wheezes, no crackles, no accessory muscle use. HEART: Regular rate and rhythm, S1, S2 without murmur, rub or gallop. ABDOMEN: Soft, nontender, nondistended, normoactive bowel sounds, no guarding, no rebound, no hepatosplenomegaly, no masses. EXTREMITIES: 2+ pulses, warm, well-perfused, no edema. NEUROLOGICAL: Cranial nerves II through XII grossly intact. Normal speech, gait not observed. PSYCH: Normal mood, normal affect. SKIN: Warm, dry, normal turgor, no rashes or lesions noted. Laboratory Results - last 24 hr 11/01/18 11/01/18 11/02/18 09:20 17:13 05:47 Sodium 133 L Potassium 4.4 Chloride 99 Carbon Dioxide 25 Anion Gap 10 BUN 24 H Creatinine 0.8 Creat Clearance w eGFR 74.47 POC Glucometer 153 143 Random Glucose 163 H Calcium 9.5 Magnesium 2.0 Total Bilirubin 0.6 AST 13 L ALT 34 Alkaline Phosphatase 83 Total Protein 6.8 Albumin 3.4 Active Medications Generic Name Dose Route Start Last Admin Trade Name Freq PRN Reason Stop Dose Admin Acetaminophen 650 mg 10/29/18 20:25 Tylenol - PO Q6H PRN PAIN LEVEL 6-10 Dexamethasone 10 mg 10/29/18 22:00 11/01/18 21:29 Decadron - PO 10 mg BID VANDANA Administration Enoxaparin Sodium 40 mg 10/30/18 10:00 11/01/18 10:58 Lovenox - SQ 40 mg DAILY VANDANA Administration Insulin Aspart 1 vial 10/30/18 16:45 11/02/18 06:01 Novolog Vial Sliding Scale - SQ Not Given BIDAC [facility] Protocol Pantoprazole Sodium 40 mg 10/30/18 10:00 11/01/18 10:58 Protonix - PO 40 mg DAILY VANDANA Administration Polyethylene Glycol 17 gm 10/30/18 10:00 11/01/18 11:00 Miralax (For Daily Use) - PO 17 gm DAILY VANDANA Administration ASSESSMENT/PLAN: 53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 admitted recently to [facility] on 10/17 and intubated on admission. she was downgraded to med surg and send to [facility] on 10/29, but [facility] returned patient back on the same day after they refused keep her there due to concerns by manufacturing engineer assembly (Dr. Robbi Asencio) that patient has not had corrective surgery or definitive treatment of her 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 Pulm: Acute hypoxic respiratory failure secondary to idiopathic autoimmune subglottic stenosis, resolved. Intubated on previous admission (10/17/18 and extubated on 10/21/18). Downgraded to [facility] surgical floor monitoring. Airway patent. Tolerating room air without swallowing difficulties. decadron (started on 10/23/18) for idiopathic autoimmune 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 Continue decadron 10mg BID x 7 days (10/23->11/01) then Decadron 10mg daily until follows up with ENT specialist. Outpatient surgical consult for possible dilation-ENT (has at [facility]-Dr. Holder (ENT), however, patient is requesting a specialist closer to home. Card Demand ischemia- Echo showed normal LV, EF 55-60%, grade I diastolic dysfunction , normal RV function Hyperlipidemia: needs to be on statins which can be started as outpatient initial trop 0.07 on admission, down trended from recent admission. Endocrine: Steroid-induced hyperglycemia-improved. continue SS BID GI: Hepatic transaminitis- fatty liver on ultrasound. liver enzymes trended down. Heme: Leukocytosis-Reactive to steriods. Completed prophylatic antibiotics. Followed by ID on recent admission. she is afebrile. monitor. fen tolerating po monitor electrolytes regular diet, thin liquids lovenox protonix Visit type - Emergency Visit Emergency Visit: Yes ED Registration Date: 10/29/18 Care time: The patient presented to the Emergency Department on the above date and was hospitalized for further evaluation of their emergent condition. - New Patient This patient is new to me today: No - Critical Care Critical Care patient: No - Discharge Referral Referred to [facility] No
[2018-11-02] MEDS: DEXAMETHASONE 4 MG TABLET (FP) PO SCH (10:00)
[2018-11-02] MEDS: PANTOPRAZOLE 40 MG TABLET (FP) PO SCH (10:01)
[2018-11-02] MEDS: ENOXAPARIN NA (PORCINE) 40 MG/0.4 ML DISP.SYRIN SQ SCH (10:01)
[2018-11-02] MEDS: POLYETHYLENE GLYCOL 3350 119 GM BTL PO SCH (10:04)
[2018-11-02 10:15] LABS: ALBUMIN 3.4 g/dl (3.4-5.0); ALK PHOS 89 U/L (45-117); ANION GAP 11 MMOL/L (8-16); BILIRUBIN,TOTAL 0.7 mg/dL (0.2-1); BLOOD UREA NITROGEN 19 mg/dL (7-18); CALCIUM 9.5 mg/dL (8.5-10.1); CHLORIDE 98 mmol/L (98-107); CO2 25 mmol/L (21-32); CREATININE 0.8 mg/dL (0.55-1.3); GLUCOSE,RANDOM 204 mg/dL (74-106); MAGNESIUM 2.2 mg/dL (1.8-2.4); POTASSIUM 4.3 mmol/L (3.5-5.1); SGOT/AST 19 U/L (15-37); SGPT/ALT 38 U/L (13-61); SODIUM 134 mmol/L (136-145); TOT PROT 6.8 g/dl (6.4-8.2)
--- NOTE | 2018-11-02 11:56 | PN ---
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 (short form) - Note 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: PULMONARY Denies shortness of breath, voice changes, dyphagia. Vital Signs Period Temp Pulse Resp BP Sys/Brock Pulse Ox Last 24 Hr 97.4 F-97.9 F 58-100 18-18 96-142/56-93 98-98 Gen: NAD at rest Neck: no stridor Heart: RRR Lung: decreased breath sounds at the bases Abd: soft, nontender Ext: no edema CBC, BMP 11/02/18 09:06 11/02/18 09:06 Active Medications Acetaminophen (Tylenol -) 650 mg PO Q6H PRN PRN Reason: PAIN LEVEL 6-10 Dexamethasone (Decadron -) 10 mg PO DAILY [facility] Enoxaparin Sodium (Lovenox -) 40 mg SQ DAILY [facility] Last Admin: 11/02/18 10:01 Dose: 40 mg Insulin Aspart (Novolog Vial Sliding Scale -) 1 vial SQ BIDAC [facility]; Protocol Last Admin: 11/02/18 06:01 Dose: Not Given Pantoprazole Sodium (Protonix -) 40 mg PO DAILY [facility] Last Admin: 11/02/18 10:01 Dose: 40 mg Polyethylene Glycol (Miralax (For Daily Use) -) 17 gm PO DAILY [facility] Last Admin: 11/02/18 10:04 Dose: Not Given A/P Subglottic Stenosis - continue decadron - inhaled bronchodilators as needed - PO as tolerated - rehab/PT - DVT prophylaxis - d/c planning
[2018-11-03] MEDS: INSULIN SLIDING SCALE (NOVOLOG) 1 VIAL SQ SCH ×2 (07:31→17:47)
[2018-11-03] MEDS ORDERED: DEXAMETHASONE 4 MG TABLET (FP) PO SCH (10:00)
--- NOTE | 2018-11-03 10:51 | PN ---
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 (short form) - Note 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: PULMONARY Denies shortness of breath, voice changes, dyphagia. Vital Signs Period Temp Pulse Resp BP Sys/Brock Pulse Ox Last 24 Hr 97.9 F-98.2 F 58-76 18-20 103-130/59-82 98 Gen: NAD at rest Neck: no stridor Heart: RRR Lung: decreased breath sounds at the bases Abd: soft, nontender Ext: no edema CBC, BMP 11/02/18 09:06 11/02/18 09:06 Active Medications Acetaminophen (Tylenol -) 650 mg PO Q6H PRN PRN Reason: PAIN LEVEL 6-10 Dexamethasone (Decadron -) 10 mg PO DAILY [facility] Enoxaparin Sodium (Lovenox -) 40 mg SQ DAILY [facility] Last Admin: 11/02/18 10:01 Dose: 40 mg Insulin Aspart (Novolog Vial Sliding Scale -) 1 vial SQ BIDAC [facility]; Protocol Last Admin: 11/03/18 07:31 Dose: Not Given Pantoprazole Sodium (Protonix -) 40 mg PO DAILY [facility] Last Admin: 11/02/18 10:01 Dose: 40 mg Polyethylene Glycol (Miralax (For Daily Use) -) 17 gm PO DAILY [facility] Last Admin: 11/02/18 10:04 Dose: Not Given A/P Subglottic Stenosis - continue decadron - inhaled bronchodilators as needed - PO as tolerated - rehab/PT - DVT prophylaxis - d/c planning
[2018-11-03] MEDS: PANTOPRAZOLE 40 MG TABLET (FP) PO SCH (10:55)
[2018-11-03] MEDS: ENOXAPARIN NA (PORCINE) 40 MG/0.4 ML DISP.SYRIN SQ SCH (10:55)
[2018-11-03] MEDS: POLYETHYLENE GLYCOL 3350 119 GM BTL PO SCH (10:56)
[2018-11-03 11:48] LABS: BASO % 0.2 % (0-2.0); EOS % 0.1 % (0-4.5); HEMATOCRIT 45.7 % (32.4-45.2); HEMOGLOBIN 15.2 GM/dL (10.7-15.3); LYMPH % 22.8 % (8-40); MCH 29.5 pg (25.7-33.7); MCHC 33.3 g/dl (32.0-36.0); MEAN CELL VOLUME 88.5 fl (80-96); MEAN PLT VOLUME 9.2 fl (7.5-11.1); MONO % 12.1 % (3.8-10.2); NEUT % 64.8 % (42.8-82.8); PLATELET COUNT 370 K/MM3 (134-434); RBC 5.16 M/mm3 (3.60-5.2); WHITE BLOOD COUNT 15.5 K/mm3 (4.0-10.0)
[2018-11-03 12:30] LABS: ALBUMIN 3.6 g/dl (3.4-5.0); ALK PHOS 94 U/L (45-117); ANION GAP 10 MMOL/L (8-16); BILIRUBIN,TOTAL 0.6 mg/dL (0.2-1); BLOOD UREA NITROGEN 16 mg/dL (7-18); CALCIUM 9.8 mg/dL (8.5-10.1); CHLORIDE 99 mmol/L (98-107); CO2 24 mmol/L (21-32); CREATININE 0.7 mg/dL (0.55-1.3); GLUCOSE,RANDOM 99 mg/dL (74-106); POTASSIUM 4.2 mmol/L (3.5-5.1); SGOT/AST 17 U/L (15-37); SGPT/ALT 39 U/L (13-61); SODIUM 133 mmol/L (136-145); TOT PROT 7.1 g/dl (6.4-8.2)
[2018-11-03 15:21] VITALS: BP 101/66; PULSE 74; TEMP 97.4
--- NOTE | 2018-11-03 15:45 | DS ---
Physical Exam: SUBJECTIVE: Patient seen and examined OBJECTIVE: Vital Signs Period Temp Pulse Resp BP Sys/Brock Pulse Ox Last 24 Hr 97.4 F-98.2 F 58-74 20-20 101-130/66-82 98 PHYSICAL EXAM GENERAL: The patient is awake, alert, and fully oriented, in no acute distress. HEAD: Normal with no signs of trauma. EYES: PERRL, extraocular movements intact, sclera anicteric, conjunctiva clear. ENT: nares patent, oropharynx clear without exudates, moist mucous membranes. NECK: Trachea midline, full range of motion, supple. LUNGS: Breath sounds equal, clear to auscultation bilaterally, no wheezes, no crackles, no accessory muscle use. HEART: Regular rate and rhythm, S1, S2 without murmur, rub or gallop. ABDOMEN: Soft, nontender, nondistended, normoactive bowel sounds, no guarding, EXTREMITIES: 2+ pulses, warm, well-perfused, no edema. NEUROLOGICAL: Cranial nerves II through XII grossly intact. Normal speech, gait not observed. PSYCH: Normal mood, normal affect. SKIN: Warm, dry, normal turgor, no rashes or lesions noted. LABS Laboratory Results - last 24 hr 11/02/18 11/03/18 11/03/18 17:27 06:45 11:08 WBC 15.5 H RBC 5.16 Hgb 15.2 Hct 45.7 H MCV 88.5 MCH 29.5 MCHC 33.3 RDW 14.0 Plt Count 370 MPV 9.2 Absolute Neuts (auto) 10.0 H Neutrophils % 64.8 D Lymphocytes % 22.8 D Monocytes % 12.1 H D Eosinophils % 0.1 D Basophils % 0.2 Nucleated RBC % 0 Sodium Potassium Chloride Carbon Dioxide Anion Gap BUN Creatinine Creat Clearance w eGFR POC Glucometer 141 97 Random Glucose Calcium Total Bilirubin AST ALT Alkaline Phosphatase Total Protein Albumin 11/03/18 11:08 WBC RBC Hgb Hct MCV MCH MCHC RDW Plt Count MPV Absolute Neuts (auto) Neutrophils % Lymphocytes % Monocytes % Eosinophils % Basophils % Nucleated RBC % Sodium 133 L Potassium 4.2 Chloride 99 Carbon Dioxide 24 Anion Gap 10 BUN 16 Creatinine 0.7 Creat Clearance w eGFR 86.88 POC Glucometer Random Glucose 99 Calcium 9.8 Total Bilirubin 0.6 AST 17 ALT 39 Alkaline Phosphatase 94 Total Protein 7.1 Albumin 3.6 HOSPITAL COURSE: Date of Admission:10/29/18 Date of Discharge: 11/03/18 Minutes to complete discharge: 60 Discharge Summary Reason For Visit: SUBGLOTTIC STENIOS Current Active Problems Hyperglycemia, drug-induced (Acute) Prophylactic measure (Acute) Subglottic stenosis (Acute) Weakness (Acute) Procedures: Principal: Glory reno 10/17/2018. Impression: Multiple gallstones without sonographic evidence of acute cholecystitis. Hepatomegaly with a slightly dense and coarse echotexture suggestive of fatty infiltration versus hepatocellular disease. Please correlate with liver enzymes. Reported By: Ivana Kerr MD. . Modified Barium Swallow 2018. RECOMMENDATIONS: Regular diet. Thin liquid. Assist with meals due to upper extremity weakness. Feed slowly, seated fully upright. Monitor tolerance. Thank you very much for this kind referral. Parris Dobson, MSCCC. Speech Language Pathologist. . CXR 10/29/2018 Impression: No acute chest pathology. Reported By: Ritesh Zacarias MD 10/29/18 [id number] Hospital Course: 53 year old female with h/o idiopathic autoimmune subglottic stenosis ( contributing to prior respiratory failure; has had multiple corrective procedures in the past including laser and surgical), who p/w respiratory failure and cardiopulmonary arrest with ROSC achieved by EMS in the field. EMS reported to the ED that the patient herself called 911 from her residence c/o respiratory distress, and she was unconscious on the floor when they arrived on scene but had a pulse. EMS ambu-bagged her and she regained consciousness quickly, but then became extremely combative which persisted despite versed for sedation, then had worsened respiratory distress and needed to be intubated. She was given etomidate and rocuronium, ETT was placed, and she subsequently had cardiac arrest for about a 90 second period during which time she got a round of epi and CPR, with subsequent ROSC. Unknown rhythm during cardiac arrest. EMS noticed she had both oxcodone and Percocet on scene as well as prednisone. There was nobody else at the residence to help provide history. FSBG was in the 300s. Pt is intubated at time of ED exam. History obtained from prior medical chart. ER course was notable for: (1) pH 7.12 (2) WBC 21.1 (3) AST 242, ALT 176, Alk Phos 120 (4) toxicology negative for ETOH and all drugs except benzos, which she received in the field (5) Troponin .11, 0.29 HOSPITAL COURSE BY PROBLEM LIST: Pulm: Acute hypoxic respiratory failure secondary to idiopathic autoimmune subglottic stenosis with upper airway edema-intubated on admission (10/17/18 and extubated on 10/21/18). Downgraded to [facility] surgical floor monitoring. Airway patent. Tolerating room air without swallowing difficulties. decadron (started on ) for idiopathic autoimmune 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 plan is to continue decadron 10mg BID x7 days (10/23 until 11/01/18) then 10mg daily until follows up with ENT specialist. Outpatient surgical consult for possible dilation. Card: s/p cardiopulmonary arrest - 90 sec to achieve ROSC. likely due to airway edema and hypoxia. Demand ischemia- Echo showed normal LV, EF 55-60%, grade I diastolic dysfunction , normal RV function Hyperlipidemia: needs to be on statins which can be started as O/P. Endocrine: Steroid-induced hyperglycemia-improved. continue SS GI: Hepatic transaminitis- fatty liver on ultrasound. liver enzyes trended down. Heme: Leukocytosis-Reactive to steriods. Completed prophylatic antibiotics. Followed by [facility] DISCHARGE PLAN: Rehabilitation due to deconditioning Continue Decadron as noted above and follow up with ENT at [place] for possible surgical options for autoimmune subglottic stenosis . - Instructions Diet, Activity, Other Instructions: Idiopathic subglottic stenosis (iSGS) is a narrowing (stenosis) of a specific portion of the windpipe (trachea) known as the subglottis (just below the vocal cords). Idiopathic means that the underlying cause of this narrowing is unknown. Most patients have scar tissue (fibrosis) and inflammation in the affected area. Symptoms may include shortness of breath upon exertion (dyspnea) , hoarseness, and a high-pitched wheezing sound when breathing in or out ( stridor). The disorder occurs almost exclusively in women. The condition often recurs despite treatment. Signs & Symptoms Stridor and dyspnea are the most common symptoms. The noisy breathing that characterizes stridor can resemble (and is often mistaken for) wheezing. These symptoms often lead affected individuals to be misdiagnosed with asthma and can result in a delay in diagnosis. Stridor can become progressively worse over time. Shortness of breath upon exertion can also be slowly progressive, worsening over a period of years so that affected individuals are gasping for breath after simple activities or even at rest. Other symptoms that have been reported in adults with idiopathic subglottic stenosis include voice changes, increased mucus production, and persistent cough. Ms Pedroza: You were admitted to [facility] after you presented with respiratory failure and cariopulmonary arrest. You were intubated on (10/17/18) and extubated on 10/21/18. During your hospitalization, you were seen by fulfillment specialist, battery tester field and ENT specialist. We will be sending you to rehab today. Discharge instructions: Acute respiratory failure secondary to idopathic subglottic stenosis /Central airway obstruction. You were intubated on admission (10/17/18 and extubated on 10/21/18). Your airway is now patent. Tolerating room air without swallowing difficulties. decadron (started on 10/23/18) for idiopathic autoimmune 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 plan is to continue decadron 10mg BID for 7 (seven) days ( from 10/23 thorough 11/01/18) then 10mg daily until follows up with ENT specialist. Outpatient surgical consult for possible dilation-ENT (has at [place]-Dr. Holder) Hyperglycemia in the setting of steriod therapy(decadron). Check BGMs twice per day Elevated ast/alt liver u/s shows multiple gallstones, no acute cholecystitis, hepatomegaly suggestive of fatty infiltration. ast/alt, now down trended. Patient is to follow up with Dr. Omega Bauman (biodiesel engine specialist) on November 25 @ 1: 30pm to discuss surgical intervention of the autoimmune 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 Continue Decadron 10mg daily until seen and evaluated by ENT specialist. Dr. Micheal Bauman: located at [address] [place]. [phone] Referrals: Ritesh Munguia MD [Staff Physician] - Disposition: [facility] - Home Medications Comprehensive Discharge Medication List: Ambulatory Orders Insulin Sliding Scale [Novolog Vial Sliding Scale -] 1 vial SQ BIDAC units Pantoprazole Sodium [Protonix -] 40 mg PO DAILY tablet.ec 10/29/18 Polyethylene Glycol 3350 [Miralax 119 gm Btl -] 17 gm PO DAILY bottle 10/29/18 Acetaminophen [Tylenol .Regular Strength -] 650 mg PO Q6H PRN 90 Days #30 tablet 11/03/18 Dexamethasone [Decadron -] 10 mg PO DAILY 30 Days #30 tablet 11/03/18 Enoxaparin Sodium 40 mg SQ DAILY 14 Days #14 syringe 11/03/18 Problem List - Problems (1) Hyperglycemia, drug-induced Code(s): R73.9 - HYPERGLYCEMIA, UNSPECIFIED; T50.905A - ADVERSE EFFECT OF UNSP DRUG/MEDS/BIOL SUBST, INIT (2) Subglottic stenosis Code(s): J38.6 - STENOSIS OF LARYNX (3) Cardiopulmonary arrest with successful resuscitation Code(s): I46.9 - CARDIAC ARREST, CAUSE UNSPECIFIED (4) Elevated LFTs Code(s): R94.5 - ABNORMAL RESULTS OF LIVER FUNCTION STUDIES (5) Morbid obesity Code(s): E66.01 - MORBID (SEVERE) OBESITY DUE TO EXCESS CALORIES This patient is new to me today: No Emergency Visit: Yes ED Registration Date: 10/29/18 Care time: The patient presented to the Emergency Department on the above date and was hospitalized for further evaluation of their emergent condition. Critical Care patient: No - Discharge Referral Referred to [facility] Med [facility] No
== END 2018-11-03 18:11 | DRG 133 ==
LOC: JER 16:39 → JERBED 18:13 → J5S 10-30 00:24
PROVIDERS: ADMIT Internal Medicine; ATTEND Nurse Practitioner Family
PROC: 0CJS8ZZ Inspection of Larynx, Via Natural or Artificial Opening Endoscopic (ICD-10-PCS; principal; 2018-10-30)
DX: J96.01 Acute respiratory failure with hypoxia (principal); R74.0 Nonspecific elevation of levels of transaminase and lactic acid dehydrogenase [LDH]; E78.5 Hyperlipidemia, unspecified; D72.829 Elevated white blood cell count, unspecified; K76.0 Fatty (change of) liver, not elsewhere classified; E66.01 Morbid (severe) obesity due to excess calories; Z68.41 Body mass index [BMI] 40.0-44.9, adult; I24.8 Other forms of acute ischemic heart disease; J38.6 Stenosis of larynx; R73.9 Hyperglycemia, unspecified; T38.0X5A Adverse effect of glucocorticoids and synthetic analogues, initial encounter; I46.9 Cardiac arrest, cause unspecified; R94.5 Abnormal results of liver function studies
CPT/HCPCS: 36415; 71045-TC-FY; 80048; 80053; 82550; 82962; 83735; 84484; 85025; 85027; 93005; 93010; 94761; 97116-GP; 97162-GP; 99283-25

== ENCOUNTER 2024-03-06 09:04 | Emergency (ER) | payer OTHER ==
[2024-03-06 09:13] VITALS: RESP 20; TEMP 97.6; BMI 43.2
[2024-03-06] MEDS ORDERED: ACETAMINOPHEN INJECTION 100 ML ONE (10:38)
[2024-03-06] MEDS ORDERED: ONDANSETRON 4 MG/2 ML VIAL ONE (10:38)
[2024-03-06] MEDS: SODIUM CHLORIDE 0.9% 500 ML INFUS.BAG IV ONE (10:51)
[2024-03-06] MEDS: ACETAMINOPHEN 1000 MG/100 ML BAG IVPB ONE (10:51)
[2024-03-06] MEDS: ONDANSETRON 4 MG/2 ML VIAL IVPUSH ONE (10:52)
[2024-03-06 11:47] LABS: BASO % 0.5 % (0-2.0); EOS % 0.1 % (0-4.5); HEMATOCRIT 36.5 % (32.4-45.2); LYMPH % 5.6 % (8-40); MCH 29.6 pg (25.7-33.7); MCHC 32.9 g/dl (32.0-36.0); MEAN CELL VOLUME 90.1 fl (80-96); MEAN PLT VOLUME 8.2 fl (7.5-11.1); MONO % 3.3 % (3.8-10.2); NEUT % 90.5 % (42.8-82.8); PLATELET COUNT 258 10^3/uL (134-434); RBC 4.05 M/mm3 (3.60-5.2); RDW 13.4 % (11.6-15.6); WHITE BLOOD COUNT 9.8 K/mm3 (4.0-10.0)
[2024-03-06 11:56] LABS: INR 1.08 (0.83-1.09); PROTHROMBIN TIME (PATIENT) 12.2 SEC (9.7-13.0)
[2024-03-06 12:00] LABS: POTASSIUM 3.8 mmol/L (3.5-5.1)
[2024-03-06 12:02] LABS: ALBUMIN 2.7 g/dl (3.4-5.0); BLOOD UREA NITROGEN 16.4 mg/dL (7-18); CALCIUM 7.4 mg/dL (8.5-10.1)
[2024-03-06 12:06] LABS: CREATININE 0.7 mg/dL (0.55-1.3)
[2024-03-06 12:07] LABS: BILIRUBIN,TOTAL 0.2 mg/dL (0.2-1); TOT PROT 5.8 g/dl (6.4-8.2)
[2024-03-06 13:40] VITALS: BP 126/66; PULSE 77
[2024-03-06 13:46] LABS: EPI CELLS 11 /uL (0-25.1); HYALINE CASTS 0 /uL (0-3.1); PH,URINE 5.5 (5.0-8.0); URINE APPEARANCE CLEAR; URINE BACTERIA 201 /uL (0-1359); URINE BILIRUBIN NEGATIVE (NEGATIVE); URINE COLOR YELLOW; URINE GLUCOSE (UA) NEGATIVE (NEGATIVE); URINE KETONE TRACE (NEGATIVE); URINE LEUK ESTERASE 2+ (NEGATIVE); URINE NITRITE NEGATIVE (NEGATIVE); URINE PROTEIN 1+ (NEGATIVE); URINE RBC 18 /uL (0-23.9); URINE UROBILINOGEN 0.2 mg/dL (0.2-1.0); URINE WBC 290 /uL (0-25.8)
[2024-03-06 14:48] LABS: YEAST NONE SEEN (NEGATIVE)
== END 2024-03-06 15:49 | disposition home or self-care (01) ==
LOC: JER 09:04
PROC: 3E033NZ Introduction of Analgesics, Hypnotics, Sedatives into Peripheral Vein, Percutaneous Approach (ICD-10-PCS; principal; 2024-03-06)
PROC: 3E033GC Introduction of Other Therapeutic Substance into Peripheral Vein, Percutaneous Approach (ICD-10-PCS; 2024-03-06)
DX: R10.11 Right upper quadrant pain (principal); N39.0 Urinary tract infection, site not specified; R93.89 Abnormal findings on diagnostic imaging of other specified body structures; R11.2 Nausea with vomiting, unspecified
CPT/HCPCS: 36415; 74176-TC; 76705-TC; 80053; 81003; 85025; 85610; 85730; 86850; 86900; 86901; 93005; 93010; 99285-25; J0131